=== PATIENT | male | born 1930 | race Caucasian/White ===

== ENCOUNTER 2017-05-30 21:50 | Inpatient (IN) | payer OTHER ==
[2017-05-30] MEDS ORDERED: PIPERACILLIN/TAZOB 3.375 GM 3.375 GM in DEXTROSE 5%-WATER - 50 ML IVPB ONE (22:37)
[2017-05-30] MEDS ORDERED: VANCOMYCIN 1,000 MG in DEXTROSE 5%-WATER - 250 ML IVPB ONE (22:38)
--- NOTE | 2017-05-30 23:02 | PDOC ---
History of Present Illness - History of Present Illness Initial Comments: 05/30/17 23:08 Patient is an 87 yo M with PMHx of chronic kidney disease, and myeloproliferative disorder, who presents today for left foot wound. Patient states that he noticed that his LLE looked more red and swollen than usual. He states that he limps when he walks and is not able to bear any weight on his left leg. He reports pain to left big toe and believes its infected. Denies fever. PCP: Beltran Alfredo Case Packer And Sealer: Sulaiman Zuniga Sales Account Director: Landen Limon <Jemima Colin - Last Filed: 05/30/17 23:15> <Debora Nava - Last Filed: 05/31/17 01:43> - General Chief Complaint: Wound Stated Complaint: FOOT WOUND Time Seen by Provider: 05/30/17 22:25 Past History <Jemima Colin - Last Filed: 05/30/17 23:15> - Past Medical History Anemia: (pre leukemia) Cardiac Disorders: Yes COPD: No CHF: No Dementia: Yes GI Disorders: Yes (H/O Diverticulitis) Disorders: Yes Hypercholesterolemia: Yes - Surgical History Abdominal Surgery: Yes Cholecystectomy: Yes - Suicide/Smoking/Psychosocial Hx Smoking Status: No Smoking History: Never smoked Have you smoked in the past 12 months: No Number of Cigarettes Smoked Daily: 0 Information on smoking cessation initiated: No Hx Alcohol Use: No Drug/Substance Use Hx: No Substance Use Type: None Hx Substance Use Treatment: No <Debora Nava - Last Filed: 05/31/17 01:43> - Past Medical History Allergies/Adverse Reactions: Allergies Allergy/AdvReac Type Severity Reaction Status Date / Time No Known Allergies Allergy Verified 05/30/17 22:02 Home Medications: Ambulatory Orders Aspirin [ASA -] 81 mg PO DAILY 02/23/14 Furosemide [Lasix -] 20 mg PO DAILY 02/23/14 Allopurinol [Zyloprim -] 100 mg PO DAILY 05/30/17 Hydroxyurea 500 mg PO DAILY 05/30/17 Review of Systems - Review of Systems Comments:: 05/30/17 23:08 CONSTITUTIONAL: Absent: fever, chills, diaphoresis, generalized weakness, malaise, loss of appetite HEENT: Absent: rhinorrhea, nasal congestion, throat pain, throat swelling, difficulty swallowing, mouth swelling, ear pain, eye pain, visual changes CARDIOVASCULAR: Absent: chest pain, syncope, palpitations, irregular heart rate, lightheadedness , peripheral edema RESPIRATORY: Absent: cough, shortness of breath, dyspnea with exertion, orthopnea, wheezing, stridor, hemoptysis GASTROINTESTINAL: Absent: abdominal pain, abdominal distension, nausea, vomiting, diarrhea, constipation, melena, hematochezia GENITOURINARY: Absent: dysuria, frequency, urgency, hesitancy, hematuria, flank pain, genital pain MUSCULOSKELETAL: Present: LE swelling. Absent: myalgia, arthralgia, joint swelling SKIN: Present: right big toe pain and reddness. Absent: rash, itching, pallor HEMATOLOGIC/IMMUNOLOGIC: Absent: easy bleeding, easy bruising, lymphadenopathy, frequent infections ENDOCRINE: Absent: unexplained weight gain, unexplained weight loss, heat intolerance, cold intolerance NEUROLOGIC: Absent: headache, focal weakness or paresthesias, dizziness, unsteady gait, seizure, mental status changes, bladder or bowel incontinence PSYCHIATRIC: Absent: anxiety, depression, suicidal or homicidal ideation, hallucinations. 05/30/17 23:14 <Jemima Colin - Last Filed: 05/30/17 23:15> *Physical Exam - Vital Signs Last Vital Signs Temp Pulse Resp BP Pulse Ox 98.5 F 78 18 119/74 100 05/30/17 21:59 05/30/17 21:59 05/30/17 21:59 05/30/17 21:59 05/30/17 21:59 - Physical Exam Comments: 05/30/17 23:13 GENERAL: Well developed, well nourished. Awake and alert. No acute distress. HEENT: Normocephalic, atraumatic. PERRLA, EOMI. No conjunctival pallor. Sclera are non- icteric. Moist mucous membranes. Oropharynx is clear. NECK: Supple. Full ROM. No JVD. Carotid pulses 2+ and symmetric, without bruits. No thyromegaly. No lymphadenopathy. CARDIOVASCULAR: Regular rate and rhythm. No murmurs, rubs, or gallops. Distal pulses are 2+ and symmetric. PULMONARY: No evidence of respiratory distress. Lungs clear to auscultation bilaterally. No wheezing, rales or rhonchi. ABDOMINAL: Soft. Non-tender. Non-distended. No rebound or guarding. No organomegaly. Normoactive bowel sounds. MUSCULOSKELETAL Normal range of motion at all joints. No bony deformities. No CVA tenderness. EXTREMITIES: 2+ pitting edema b/l. Erythematous, tenderness to palpation of left big toe. No cyanosis. No calf tenderness. SKIN: Warm and dry. No rashes. No jaundice. NEUROLOGICAL: Alert, awake, appropriate. Cranial nerves 2-12 intact. <Jemima Colin - Last Filed: 05/30/17 23:15> - Vital Signs Last Vital Signs Temp Pulse Resp BP Pulse Ox 98.5 F 78 18 119/74 100 05/30/17 21:59 05/30/17 21:59 05/30/17 21:59 05/30/17 21:59 05/30/17 21:59 <Debora Nava - Last Filed: 05/31/17 01:43> ED Treatment Course - LABORATORY CBC & Chemistry Diagram: 05/30/17 22:58 05/30/17 22:58 <Jemima Colin - Last Filed: 05/30/17 23:15> - LABORATORY CBC & Chemistry Diagram: 05/30/17 22:58 05/30/17 22:58 - RADIOLOGY Radiology Studies Ordered: Category Date Time Status CHEST X-RAY PORTABLE* [RAD] Stat Radiology 05/30/17 22:23 Taken <Debora Nava - Last Filed: 05/31/17 01:43> *DC/Admit/Observation/Transfer - Attestations Scribe Attestion: 05/30/17 23:15 Documentation prepared by Jemima Colin, acting as medical laboratory technical officer for Debora Nava MD. <Jemima Colin - Last Filed: 05/30/17 23:15> - Discharge Dispostion Admit: Yes <Debora Nava - Last Filed: 05/31/17 01:43> Diagnosis at time of Disposition: Toe infection
[2017-05-30] MEDS ORDERED: VANCOMYCIN 1 GRAM (PRE-DOCKED) 1,000 MG/250 ML BAG IVPB ONE (23:05)
[2017-05-30] MEDS ORDERED: PIPERACILLIN/TAZOB 3.375 GM 3.375 GM/50 ML BAG IVPB ONE (23:05)
[2017-05-30 23:12] LABS: BASO % 2.1 % (0-2.0); EOS % 2.6 % (0-4.5); HEMATOCRIT 26.4 % (35.4-49); LYMPH % 8.9 % (8-40); MCH 38.3 pg (25.7-33.7); MCHC 34.2 g/dl (32.0-35.9); MEAN PLT VOLUME 9.3 fl (7.5-11.1); MONO % 8.9 % (3.8-10.2); NEUT % 77.5 % (42.8-82.8); PLATELET COUNT 555 K/MM3 (134-434); RBC 2.36 M/mm3 (4.00-5.60); RDW 16.2 % (11.9-15.9); WHITE BLOOD COUNT 9.3 K/mm3 (4.0-10.0)
[2017-05-30 23:14] LABS: ADD RBC MORPHOLOGY YES
[2017-05-30 23:33] LABS: INR 1.12 (0.82-1.09); PROTHROMBIN TIME (PATIENT) 12.6 SEC (9.7-13.0)
[2017-05-30 23:38] LABS: ANISOCYTOSIS 2+; MACROCYTOSIS 2+; OVALOCYTE 1+
[2017-05-30 23:39] LABS: PLATELET ESTIMATE INCREASED
[2017-05-30 23:44] LABS: ALBUMIN 3.5 g/dl (3.4-5.0); ANION GAP 9 (8-16); BILIRUBIN,TOTAL 0.3 mg/dL (0.2-1.0); BLOOD UREA NITROGEN 69 mg/dL (7-18); CALCIUM 8.5 mg/dL (8.5-10.1); CHLORIDE 103 mmol/L (98-107); CO2 28 mmol/L (21-32); CREATININE 2.6 mg/dL (0.7-1.3); GLUCOSE,RANDOM 114 mg/dL (74-106); SGOT/AST 20 U/L (15-37); SGPT/ALT 17 U/L (12-78); SODIUM 140 mmol/L (136-145); TOT PROT 6.2 g/dl (6.4-8.2)
[2017-05-30 23:45] LABS: ALK PHOS 79 U/L (45-117)
[2017-05-31 01:21] LABS: URINE APPEARANCE CLEAR; URINE BILIRUBIN NEGATIVE (<2.0 mg/dL); URINE COLOR STRAW; URINE GLUCOSE (UA) NEGATIVE (NEGATIVE); URINE KETONE NEGATIVE (NEGATIVE); URINE LEUK ESTERASE NEGATIVE (NEGATIVE); URINE NITRITE NEGATIVE (NEGATIVE); URINE PROTEIN NEGATIVE (NEGATIVE); URINE UROBILINOGEN NEGATIVE mg/dL (0.2-1.0)
--- NOTE | 2017-05-31 02:30 | HP ---
CHIEF COMPLAINT: L great toe pain PCP: Dr Gong HISTORY OF PRESENT ILLNESS: 87yo M with a PMHx of Gout, CKD, and Myeloproliferative dz presented to ER w/ L great toe pain. The pain started this evening, it is sharp, exquisitely tender, and erythematous. He has assoc foot and leg swelling. He limps and is unable to bear weight. He denies fever, chills, CP, SOB. Family at bedside was concerned for a possible infection. In the ER, the patient was stable, afebrile. Labs were notable for ARTURO, no leukocytosis. Recent Travel: Denies PAST MEDICAL HISTORY: Gout, CKD, and Myeloproliferative dz Social History: Denies smoking, alcohol, drugs Allergies: No Known Allergies Allergy (Verified 05/30/17 22:02) HOME MEDICATIONS: Home Medications Medication Instructions Recorded Aspirin [ASA -] 81 mg PO DAILY 02/23/14 Furosemide [Lasix -] 20 mg PO DAILY 02/23/14 Allopurinol [Zyloprim -] 100 mg PO DAILY 05/30/17 Hydroxyurea 500 mg PO DAILY 05/30/17 REVIEW OF SYSTEMS CONSTITUTIONAL: Absent: fever, chills, diaphoresis, generalized weakness, malaise, loss of appetite, weight change HEENT: Absent: rhinorrhea, nasal congestion, throat pain, throat swelling, difficulty swallowing, mouth swelling, ear pain, eye pain, visual changes CARDIOVASCULAR: Absent: chest pain, syncope, palpitations, irregular heart rate , lightheadedness, peripheral edema RESPIRATORY: Absent: cough, shortness of breath, dyspnea with exertion, orthopnea, wheezing, stridor, hemoptysis GASTROINTESTINAL:Absent: abdominal pain, abdominal distension, nausea, vomiting , diarrhea, constipation, melena, hematochezia GENITOURINARY: Absent: dysuria, frequency, urgency, hesitancy, hematuria, flank pain, genital pain MUSCULOSKELETAL: + arthralgia, joint swellingAbsent: myalgia, back pain, neck pain SKIN: Absent: rash, itching, pallor HEMATOLOGIC/IMMUNOLOGIC: Absent: easy bleeding, easy bruising, lymphadenopathy, frequent infections ENDOCRINE:Absent: unexplained weight gain, unexplained weight loss, heat intolerance, cold intolerance NEUROLOGIC: Absent: headache, focal weakness or paresthesias, dizziness, unsteady gait, seizure, mental status changes, bladder or bowel incontinence PSYCHIATRIC: Absent: anxiety, depression, suicidal or homicidal ideation, hallucinations. PHYSICAL EXAMINATION Vital Signs Period Temp Pulse Resp BP Sys/Queen Pulse Ox Last 24 Hr 98.5 F 78 18 119/74 100 GEN: AAOx3, NAD, Lying comfortably HEENT; PERRLA, EOmi, no JVD CV: S1, S2, RRR LUNG: CTAB ABD: Soft, nT, ND MSK: +1 pedal edema on L. Redness in L forefoot, exquisitely tender to paplation on L great toe NEURO: CN 2-12 intact, no msk, no sensation ASSESSMENT/PLAN: 87yo M with a PMHx of Gout, CKD, and Myeloproliferative dz presented w/ acute gouty attack of L great toe # Acute Gouty Attack -- Unable to bear weight. 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 Also taking Lasix which can precipitate. Will start prednisone 0.5mg/kg/day (30mg). Due to CKD, will avoid NSAIDs for now. # ARTURO vs CKD -- Elevated Cr from last year. Likely progression of CKD. Monitor tomorrow and obtain records of prior Cr # Myeloproliferative Dz -- Continue hydroxyurea and ASA # FEN/PPX -- No IVf, Low purine diet, SCDs, PT consulted # Dispo -- Observation Case d/w Dr Martinez & Dr Jayden George MD - pGY1 Night Lasting Machine Operator Hand Method Visit type - Emergency Visit Emergency Visit: Yes ED Registration Date: 05/31/17 Care time: The patient presented to the Emergency Department on the above date and was hospitalized for further evaluation of their emergent condition. - New Patient This patient is new to me today: Yes Date on this admission: 05/31/17 - Critical Care Critical Care patient: No Hospitalist Screening - Colonoscopy Questionnaire Colonoscopy Questionnaire: Colonoscopy Questionnaire - Patient: 50 - 75 years old and never had a screening colonoscopy: Unknown History of colon or rectal polyps, or CA: Unknown History of IBD, Crohn's disease or UC: Unknown History of abdominal radiation therapy as a child: Unknown - Relative: 1 with colon or rectal CA, or polyps at age 60 or younger: Unknown Colon or rectal CA diagnosed at age 45 or younger: Unknown Multiple relatives with colon or rectal CA: Unknown - Outcome: Screening Result: Negative Screen
--- NOTE | 2017-05-31 02:36 | PN ---
Teaching Attending Note Name of Resident: Sasha George ATTENDING PHYSICIAN STATEMENT I saw and evaluated the patient. I reviewed the resident's note and discussed the case with the resident. I agree with the resident's findings and plan as documented. SUBJECTIVE: 87 M with hx. of Myeloproliferative do (on Hydrea/ASA), CKD who presents with L. first toe pain and erythema. Denies any fevers or chills. No chest pain or pressure. No shortness of breath OBJECTIVE: Physical: VS: Vital Signs Period Temp Pulse Resp BP Sys/Queen Pulse Ox Last 24 Hr 98.5 F 78 18 119/74 100 GEN: NAD, Resting in bed, AA0X3 HEENT: NCAT, PERRL, Throat without erythema or exudates CARD: RRR S1, S2 RESP: CTAB ABD: BSx4, NTD to palpation EXT: Left. First Toe TTP with erythema, no obvious wound or drainage, pulses intact, R EXT: - C/C/E CBCD WBC 9.3 K/mm3 (4.0-10.0) 05/30/17 22:58 RBC 2.36 M/mm3 (4.00-5.60) L 05/30/17 22:58 Hgb 9.0 GM/dL (11.7-16.9) L 05/30/17 22:58 Hct 26.4 % (35.4-49) L 05/30/17 22:58 MCV 112.0 fl (80-96) H 05/30/17 22:58 MCHC 34.2 g/dl (32.0-35.9) 05/30/17 22:58 RDW 16.2 % (11.9-15.9) H 05/30/17 22:58 Plt Count 555 K/MM3 (134-434) H 05/30/17 22:58 MPV 9.3 fl (7.5-11.1) 05/30/17 22:58 CMP Sodium 140 mmol/L (136-145) 05/30/17 22:58 Potassium 5.0 mmol/L (3.5-5.1) 05/30/17 22:58 Chloride 103 mmol/L (98-107) 05/30/17 22:58 Carbon Dioxide 28 mmol/L (21-32) 05/30/17 22:58 Anion Gap 9 (8-16) 05/30/17 22:58 BUN 69 mg/dL (7-18) H D 05/30/17 22:58 Creatinine 2.6 mg/dL (0.7-1.3) H D 05/30/17 22:58 Creat Clearance w eGFR 23.58 (>60) 05/30/17 22:58 Random Glucose 114 mg/dL (74-106) H D 05/30/17 22:58 Calcium 8.5 mg/dL (8.5-10.1) 05/30/17 22:58 Total Bilirubin 0.3 mg/dL (0.2-1.0) D 05/30/17 22:58 AST 20 U/L (15-37) 05/30/17 22:58 ALT 17 U/L (12-78) 05/30/17 22:58 Alkaline Phosphatase 79 U/L (45-117) D 05/30/17 22:58 Total Protein 6.2 g/dl (6.4-8.2) L 05/30/17 22:58 Albumin 3.5 g/dl (3.4-5.0) 05/30/17 22:58 Ambulatory Orders Aspirin [ASA -] 81 mg PO DAILY 02/23/14 Furosemide [Lasix -] 20 mg PO DAILY 02/23/14 Allopurinol [Zyloprim -] 100 mg PO DAILY 05/30/17 Hydroxyurea 500 mg PO DAILY 05/30/17 CXR: Lateral Old Rib Fx.Recent Fx of Posterior lateral arch of R. 6TH Rib. No acute Lung Dz. ASSESSMENT AND PLAN: 87 M with hx. of Myeloproliferative do (on Hydrea/ASA), CKD who presents with L. first toe pain and erythema, unable to bear weight 1.) Acute Gout Attack - Unable to bear weight on toe - Prednisone 30 mg QD - Hold Allopurinol - No signs of infection - PT 2.) Myleoproliferative Do - Hydrea/ASA 3.) Chau on CKD - U lytes - Renally Dose all meds - Trend CR - Nephro consult 4.) L Leg Edema - Duplex 5.) Dvt PPx - Scds Place in Med-Sx
[2017-05-31 05:54] VITALS: BMI 23.7
[2017-05-31] MEDS: HEPARIN NA (PORCINE) 5,000 UNITS/ML 1ML VIAL SQ SCH ×3 (06:23→21:29)
[2017-05-31 07:48] LABS: HEMATOCRIT 29.1 % (35.4-49); HEMOGLOBIN 9.9 GM/dL (11.7-16.9); MEAN CELL VOLUME 111.9 fl (80-96); MEAN PLT VOLUME 9.3 fl (7.5-11.1); PLATELET COUNT 590 K/MM3 (134-434); RDW 15.8 % (11.9-15.9); WHITE BLOOD COUNT 10.4 K/mm3 (4.0-10.0)
[2017-05-31 08:10] LABS: ANION GAP 5 (8-16); BLOOD UREA NITROGEN 60 mg/dL (7-18); CHLORIDE 107 mmol/L (98-107); CO2 29 mmol/L (21-32); GLUCOSE,RANDOM 96 mg/dL (74-106); PHOSPHOROUS 4.1 mg/dL (2.5-4.9); POTASSIUM 4.7 mmol/L (3.5-5.1); SODIUM 141 mmol/L (136-145)
[2017-05-31 08:12] LABS: CALCIUM 8.5 mg/dL (8.5-10.1); CREATININE 2.4 mg/dL (0.7-1.3); MAGNESIUM 2.3 mg/dL (1.8-2.4)
[2017-05-31] MEDS ORDERED: FUROSEMIDE 20 MG TABLET (FP) PO SCH (10:00)
[2017-05-31] MEDS: ASPIRIN 81 MG CHEWABLE TABLETS PO SCH (10:56)
[2017-05-31] MEDS: predniSONE 10 MG TABLET (UD) PO SCH (10:57)
[2017-05-31] MEDS ORDERED: PT OWN MED DRAWER 7, Y5N ONE ×3 (11:21→21:34)
[2017-05-31] MEDS: HYDROXYUREA 500 MG CAPSULE PO SCH (11:29)
--- NOTE | 2017-05-31 12:04 | EKG ---
Test Reason : Blood Pressure : / mmHG Vent. Rate : 075 BPM Atrial Rate : 075 BPM P-R Int : 192 ms QRS Dur : 070 ms QT Int : 384 ms P-R-T Axes : -07 001 009 degrees QTc Int : 428 ms NORMAL SINUS RHYTHM NORMAL ECG NO PREVIOUS ECGS AVAILABLE Confirmed by MARTIN WALKER MD ([id number]) on 05/31/2017 12:04:16 PM Referred By: Confirmed By:MARTIN WALKER MD
--- NOTE | 2017-05-31 12:06 | CONSULT ---
Consult - text type - Consultation Consultation Note: Podiatry Consultation: Pleasant 87 year old M, history of CKD, myeloproliferative dx, presents with pain L great toe and inability to walk. Patient denies trauma to the toe. He notes progressive exquisite tenderness to left great toe and has had increasing trouble ambulating. Denies seeing pus or any signs of infection from the foot. Denies F/V/N/C/SOB/CP. Afebrile, VSS. MIHAI: L foot: pedal pulses 1/4, TG wnl, CFT brisk to all toes. There is localized erythema to the hallux, extending to the first MTPJ. There is exquisite tenderness on palpation of the toe and on active and passive ROM of the first MTPJ. There is diffuse pitting edema to the dorsal midfoot. There is no purulent drainage, no fluctuance, no streaking cellulitis, no signs of active infection. Significant tenderness to palpation. WBC: 10.4 L foot XR: no evidence of fracture, no erosions suggestive of gouty arthritis Imp: 87 year old M atraumatic L great toe pain/swelling/redness, evaluate for gouty arthritis 1. Discussed with patient nature of gout and can often arise from underexcretion (i.e. consequence of CKD) 2. Recommend trial with IV or PO colchicine and see if his pain improves 3. Protective weightbearing with surgical offloading shoe 4. Uric acid bloodwork 5. Can give medrol dose pack to see if pain resolves 6. No acute podiatric intervention. Thank you for the courtesy of this consultation. Ashanti Nugent DPM
[2017-05-31] MEDS ORDERED: SODIUM CHLORIDE 500 ML IV STA (19:26)
--- NOTE | 2017-05-31 19:32 | PN ---
Progress Note (short form) - Note Progress Note: Renal Consult for ARTURO vs CKD This is a 87 year old gentleman with PMhx of CKD (Cr ~2), Gout, Myeloproliferative disorder who presented with Toe pain and admitted for acute Gout and pain control with Cr of 2.4. Pt denies any history of CKD. No Hx of stones, contrast exposure. No NSAID use. Reports making urine w/o difficulty. No dysuria. No SOB, chest pain, N/V/D. PMhx: as above Family Hx: NC Social Hx: No T/A/D Allergies: NKDA Home Medications Medication Instructions Recorded Aspirin [ASA -] 81 mg PO DAILY 02/23/14 Furosemide [Lasix -] 20 mg PO DAILY 02/23/14 Allopurinol [Zyloprim -] 100 mg PO DAILY 05/30/17 Hydroxyurea 500 mg PO DAILY 05/30/17 Vital Signs Temperature 97.8 F 05/31/17 16:58 Pulse Rate 74 05/31/17 16:58 Respiratory Rate 20 05/31/17 16:58 Blood Pressure 157/67 05/31/17 16:58 O2 Sat by Pulse Oximetry (%) 100 05/30/17 21:59 Intake & Output 05/28/17 05/29/17 05/30/17 05/31/17 23:59 23:59 23:59 23:59 Intake Total 380 Output Total 1100 Balance -720 Weight 66.224 kg 62.737 kg NAD awake and alert Dry MM No JVD RRR CTA soft NT/ND NO LE edema, clubbing or cyanosis CBC, BMP 05/31/17 06:20 05/31/17 06:20 Current Medications Aspirin (Asa -) 81 mg PO DAILY [facility] Last Admin: 05/31/17 10:56 Dose: 81 mg Heparin Sodium (Porcine) (Heparin -) 5,000 unit SQ TID [facility] Last Admin: 05/31/17 14:17 Dose: 5,000 unit Hydroxyurea (Hydrea -) 500 mg PO DAILY [facility] Last Admin: 05/31/17 11:29 Dose: 500 mg Sodium Chloride (Normal Saline -) 500 mls @ 500 mls/hr IV ASDIR STA Stop: 05/31/17 20:25 Sodium Chloride (Normal Saline -) 1,000 mls @ 83 mls/hr IV ASDIR [facility] Prednisone (Deltasone -) 30 mg PO DAILY [facility] Last Admin: 05/31/17 10:57 Dose: 30 mg 87 year old gentleman with PMhx of CKD (Cr ~2), Gout, Myeloproliferative disorder who presented with Toe pain and admitted for acute Gout and pain control with Cr of 2.4. #ARTURO on CKD vs progressive CKD #Acute Gout #Anemia Check urine studies, Renal US Start isotonic saline x 24 hours avoid nsaids for pain control Agree with presdnisone for pain control Trend BUN/Cr and electrolyses Kaz Palomino DO
[2017-05-31] MEDS: SODIUM CHLORIDE 1,000 ML IV SCH (21:27)
[2017-06-01] MEDS: HEPARIN NA (PORCINE) 5,000 UNITS/ML 1ML VIAL SQ SCH ×3 (05:46→23:03)
[2017-06-01 07:29] LABS: URIC ACID 4.9 mg/dL (2.6-7.2)
[2017-06-01 10:55] LABS: CHLORIDE 112 mmol/L (98-107); POTASSIUM 4.4 mmol/L (3.5-5.1); SODIUM 143 mmol/L (136-145)
[2017-06-01] MEDS: HYDROXYUREA 500 MG CAPSULE PO SCH (10:59)
[2017-06-01] MEDS: predniSONE 10 MG TABLET (UD) PO SCH (11:00)
[2017-06-01] MEDS: ASPIRIN 81 MG CHEWABLE TABLETS PO SCH (11:00)
--- NOTE | 2017-06-01 11:00 | PN ---
Progress Note, Physician Chief Complaint: has pain in left foot Events noted - Current Medication List Current Medications: Active Medications Aspirin (Asa -) 81 mg PO DAILY [facility] Last Admin: 05/31/17 10:56 Dose: 81 mg Heparin Sodium (Porcine) (Heparin -) 5,000 unit SQ TID [facility] Last Admin: 06/01/17 05:46 Dose: 5,000 unit Hydroxyurea (Hydrea -) 500 mg PO DAILY [facility] Last Admin: 05/31/17 11:29 Dose: 500 mg Sodium Chloride (Normal Saline -) 1,000 mls @ 83 mls/hr IV ASDIR [facility] Last Admin: 05/31/17 21:27 Dose: 83 mls/hr Prednisone (Deltasone -) 30 mg PO DAILY [facility] Last Admin: 05/31/17 10:57 Dose: 30 mg - Objective Vital Signs: Vital Signs Temperature 98.6 F 06/01/17 05:54 Pulse Rate 59 L 06/01/17 05:54 Respiratory Rate 16 06/01/17 05:54 Blood Pressure 134/56 06/01/17 05:54 O2 Sat by Pulse Oximetry (%) 100 05/30/17 21:59 Constitutional: Yes: No Distress Cardiovascular: Yes: Regular Rate and Rhythm Respiratory: Yes: CTA Bilaterally Gastrointestinal: Yes: Normal Bowel Sounds, Soft. No: Tenderness Extremities: Yes: Other (left foot-- 5 toes cyanotic, cold, decreased pulses, tender) Edema: Yes Labs: CBC, BMP 05/31/17 06:20 INR, PTT INR 1.12 (0.82-1.09) 05/30/17 22:58 Problem List - Problems (1) Toe infection Code(s): L08.9 - LOCAL INFECTION OF THE SKIN AND SUBCUTANEOUS TISSUE, UNSP (2) Leukocytosis Code(s): D72.829 - ELEVATED WHITE BLOOD CELL COUNT, UNSPECIFIED (3) Acute kidney injury superimposed on chronic kidney disease Code(s): N17.9 - ACUTE KIDNEY FAILURE, UNSPECIFIED; N18.9 - CHRONIC KIDNEY DISEASE, UNSPECIFIED Assessment/Plan plan Pt was seen by Renal and podiatry On Prednisone for gout toes look cyanotic , cold and tender-- will need to check arterial doppler spoke with Vascular -- Dr Resendiz-- he will see him today renal function better no NSAIDS
[2017-06-01 11:20] LABS: ANION GAP 7 (8-16); BLOOD UREA NITROGEN 49 mg/dL (7-18); CALCIUM 8.2 mg/dL (8.5-10.1); CO2 24 mmol/L (21-32); CREATININE 2.1 mg/dL (0.7-1.3); GLUCOSE,RANDOM 110 mg/dL (74-106)
--- NOTE | 2017-06-01 15:20 | PN ---
Progress Note (short form) - Note Progress Note: Renal follow up for ARTURO on CKD Pt seen and examined at the bedside no acute complaints pain in toe improved no sob, chest pain making urine s/p IVF Vital Signs Temperature 98.5 F 06/01/17 13:30 Pulse Rate 68 06/01/17 13:30 Respiratory Rate 18 06/01/17 13:30 Blood Pressure 144/60 06/01/17 13:30 O2 Sat by Pulse Oximetry (%) 100 05/30/17 21:59 Intake & Output 05/29/17 05/30/17 05/31/17 06/01/17 23:59 23:59 23:59 23:59 Intake Total 1412 681 Output Total 1100 375 Balance 312 306 Weight 66.224 kg 62.737 kg NAD awake and alert Dry MM No JVD RRR CTA soft NT/ND NO LE edema, clubbing or cyanosis CBC, BMP 05/31/17 06:20 06/01/17 06:00 Current Medications Aspirin (Asa -) 81 mg PO DAILY ON LICENSE OF [facility] Last Admin: 06/01/17 11:00 Dose: 81 mg Heparin Sodium (Porcine) (Heparin -) 5,000 unit SQ TID ON LICENSE OF [facility] Last Admin: 06/01/17 14:32 Dose: 5,000 unit Hydroxyurea (Hydrea -) 500 mg PO DAILY ON LICENSE OF [facility] Last Admin: 06/01/17 10:59 Dose: 500 mg Sodium Chloride (Normal Saline -) 1,000 mls @ 83 mls/hr IV ASDIR ON LICENSE OF [facility] Last Admin: 05/31/17 21:27 Dose: 83 mls/hr Prednisone (Deltasone -) 30 mg PO DAILY ON LICENSE OF [facility] Last Admin: 06/01/17 11:00 Dose: 30 mg 87 year old gentleman with PMhx of CKD (Cr ~2), Gout, Myeloproliferative disorder who presented with Toe pain and admitted for acute Gout and pain control with Cr of 2.4. #ARTURO on CKD vs progressive CKD #Acute Gout #Anemia Urine studies consistent with ATN/Tubular damage Renal function did improve with IVF continue IVF for now as pt is evolemic appearing and renal function improving Kaz Palomino DO
--- NOTE | 2017-06-01 18:22 | PN ---
Progress Note (short form) - Note Progress Note: Vascular surgery Pt seen and examined Comes in with left great toe discoloration with pain on palpation and movement. On exam pt has a palpable popliteal pulse, but not palpable pedal pulses. Arterial duplex done today shows good flow to the knee. Only one vessel identified below the knee instead of three. The study could be incomplete. The left great toe is cooler to touch. Uric acid level today is normal. Left great toe is twice the size of the right. Probably due to injury. Could be osteo vs pad. Creatinine is getting better. Cannot order CTA right now. Can do MRI of left foot to look for osteo. If does not get better - will need angiogram. Can do with CO2. Will follow progress of toe. Mohinder acevedo DO
[2017-06-01] MEDS ORDERED: DEXTROSE 5%-WATER - 50 ML IVPB ONE (20:12)
[2017-06-01] MEDS ORDERED: PIPERACILLIN/TAZOBACTAM 2.25 GM VIAL IVPB ONE (20:12)
[2017-06-01] MEDS: PIPERACILLIN/TAZOB 2.25 GM 2.25 GM in DEXTROSE 5%-WATER - 50 ML IVPB SCH (20:22)
[2017-06-01] MEDS: SODIUM CHLORIDE 1,000 ML IV SCH (20:38)
[2017-06-02] MEDS: PIPERACILLIN/TAZOB 2.25 GM 2.25 GM in DEXTROSE 5%-WATER - 50 ML IVPB SCH ×3 (02:14→14:34)
[2017-06-02] MEDS: HEPARIN NA (PORCINE) 5,000 UNITS/ML 1ML VIAL SQ SCH ×3 (06:55→21:01)
[2017-06-02 07:53] LABS: BASO % 0.7 % (0-2.0); EOS % 0.4 % (0-4.5); HEMATOCRIT 24.8 % (35.4-49); HEMOGLOBIN 8.4 GM/dL (11.7-16.9); LYMPH % 7.2 % (8-40); MCH 37.9 pg (25.7-33.7); MCHC 33.7 g/dl (32.0-35.9); MEAN CELL VOLUME 112.3 fl (80-96); MEAN PLT VOLUME 9.7 fl (7.5-11.1); MONO % 7.2 % (3.8-10.2); NEUT % 84.5 % (42.8-82.8); PLATELET COUNT 441 K/MM3 (134-434); RBC 2.21 M/mm3 (4.00-5.60); RDW 15.6 % (11.9-15.9); WHITE BLOOD COUNT 10.5 K/mm3 (4.0-10.0)
[2017-06-02 08:16] LABS: ANION GAP 7 (8-16); BLOOD UREA NITROGEN 44 mg/dL (7-18); CALCIUM 8.2 mg/dL (8.5-10.1); CHLORIDE 109 mmol/L (98-107); CO2 26 mmol/L (21-32); CREATININE 2.3 mg/dL (0.7-1.3); GLUCOSE,RANDOM 107 mg/dL (74-106); MAGNESIUM 2.1 mg/dL (1.8-2.4); PHOSPHOROUS 2.4 mg/dL (2.5-4.9); POTASSIUM 4.6 mmol/L (3.5-5.1); SODIUM 142 mmol/L (136-145)
--- NOTE | 2017-06-02 09:18 | PN ---
Progress Note (short form) - Note Progress Note: Pt seen/ examined. chart reviewed. comfortable pain ok Vital Signs Temp 97.5 F L 06/02/17 06:00 Pulse 60 06/02/17 06:00 Resp 18 06/02/17 06:00 BP 143/75 06/02/17 06:00 Pulse Ox 100 05/30/17 21:59 Intake & Output 06/01/17 06/01/17 06/02/17 11:59 23:59 11:59 Intake Total 681 1057 714 Output Total 375 300 Balance 306 757 714 Intake: IV 581 1007 664 Normal Saline - 1,000 ml 581 1007 664 @ 83 mls/hr IV ASDIR COUNT INCLUDES THE [facility] Rx#:[id number] IVPB 50 Oral 100 50 Output: Urine 375 300 Void 375 300 Other: Voiding Method Urinal Urinal Urinal # Unmeasured Voids Void 1 2 2 Bowel Movement No Active Medications Aspirin (Asa -) 81 mg PO DAILY [facility] Last Admin: 06/01/17 11:00 Dose: 81 mg Heparin Sodium (Porcine) (Heparin -) 5,000 unit SQ TID [facility] Last Admin: 06/02/17 06:55 Dose: 5,000 unit Hydroxyurea (Hydrea -) 500 mg PO DAILY [facility] Last Admin: 06/01/17 10:59 Dose: 500 mg Sodium Chloride (Normal Saline -) 1,000 mls @ 83 mls/hr IV ASDIR COUNT INCLUDES THE [facility] Last Admin: 06/01/17 20:38 Dose: Not Given Piperacillin Sod/Tazobactam (Sod 2.25 gm/ Dextrose) 50 mls @ 100 mls/hr IVPB Q8H-IV COUNT INCLUDES THE [facility] PRN Reason: Protocol Piperacillin Sod/Tazobactam (Sod 2.25 gm/ Dextrose) 50 mls @ 100 mls/hr IVPB Q8H-IV COUNT INCLUDES THE [facility] Stop: 06/02/17 10:29 Last Admin: 06/02/17 02:14 Dose: 100 mls/hr Prednisone (Deltasone -) 30 mg PO DAILY [facility]CLUD[facility] Last Admin: 06/01/17 11:00 Dose: 30 mg CBC, BMP 06/02/17 07:00 06/02/17 06:50 Physical Exam Constitutional: Yes: No Distress. calm Cardiovascular: Yes: Regular Rate and Rhythm Respiratory: Yes: CTA Bilaterally Gastrointestinal: Yes: Normal Bowel Sounds, Soft. No: Tenderness Extremities: Yes: Other (left foot-- 5 toes cyanotic, cold, decreased pulses, tender) Edema: Yes Problem List - Problems (1) Toe infection Code(s): L08.9 - LOCAL INFECTION OF THE SKIN AND SUBCUTANEOUS TISSUE, UNSP (2) Leukocytosis Code(s): D72.829 - ELEVATED WHITE BLOOD CELL COUNT, UNSPECIFIED (3) Acute kidney injury superimposed on chronic kidney disease Code(s): N17.9 - ACUTE KIDNEY FAILURE, UNSPECIFIED; N18.9 - CHRONIC KIDNEY DISEASE, UNSPECIFIED Assessment/Plan Meds reviewed continue present care vascular consult consider mri-- r/o osteo abx will follow
[2017-06-02] MEDS ORDERED: PIPERACILLIN/TAZOBACTAM 2.25 GM VIAL IVPB ONE (09:34)
[2017-06-02] MEDS ORDERED: PT OWN MED DRAWER 7, Y5N ONE (09:34)
[2017-06-02] MEDS ORDERED: DEXTROSE 5%-WATER - 50 ML IVPB ONE ×2 (09:34→20:33)
[2017-06-02] MEDS: HYDROXYUREA 500 MG CAPSULE PO SCH (09:39)
[2017-06-02] MEDS: ASPIRIN 81 MG CHEWABLE TABLETS PO SCH (09:39)
[2017-06-02] MEDS: predniSONE 10 MG TABLET (UD) PO SCH (09:39)
[2017-06-02] MEDS: SODIUM CHLORIDE 1,000 ML IV SCH ×2 (10:59→20:40)
--- NOTE | 2017-06-02 13:07 | PN ---
Progress Note (short form) - Note Progress Note: Renal follow up for ARTURO on CKD Pt seen and examined at the bedside no acute complaints Vital Signs Temperature 97.5 F L 06/02/17 06:00 Pulse Rate 60 06/02/17 06:00 Respiratory Rate 18 06/02/17 06:00 Blood Pressure 143/75 06/02/17 06:00 O2 Sat by Pulse Oximetry (%) 100 05/30/17 21:59 Intake & Output 05/30/17 05/31/17 06/01/17 06/02/17 23:59 23:59 23:59 23:59 Intake Total 1412 1738 934 Output Total 1100 675 Balance 312 1063 934 Weight 66.224 kg 62.737 kg NAD awake and alert Dry MM No JVD RRR CTA soft NT/ND NO LE edema, clubbing or cyanosis CBC, BMP 06/02/17 07:00 06/02/17 06:50 Current Medications Aspirin (Asa -) 81 mg PO DAILY [facility] Last Admin: 06/02/17 09:39 Dose: 81 mg Heparin Sodium (Porcine) (Heparin -) 5,000 unit SQ TID [facility] Last Admin: 06/02/17 06:55 Dose: 5,000 unit Hydroxyurea (Hydrea -) 500 mg PO DAILY [facility] Last Admin: 06/02/17 09:39 Dose: 500 mg Sodium Chloride (Normal Saline -) 1,000 mls @ 83 mls/hr IV ASDIR [facility] Last Admin: 06/01/17 20:38 Dose: Not Given Piperacillin Sod/Tazobactam (Sod 2.25 gm/ Dextrose) 50 mls @ 100 mls/hr IVPB Q8H-IV [facility] PRN Reason: Protocol Prednisone (Deltasone -) 30 mg PO DAILY [facility] Last Admin: 06/02/17 09:39 Dose: 30 mg 87 year old gentleman with PMhx of CKD (Cr ~2), Gout, Myeloproliferative disorder who presented with Toe pain and admitted for acute Gout and pain control with Cr of 2.4. #ARTURO on CKD vs progressive CKD #Acute Gout #Anemia Renal function stable at this time pt w/o evidence of volume depletion or exposure to nephrotoxins to indicate ARTURO continue to trend renal function and electrolytes as a inpatient d/c IVF and monitor renal function on oral intake alone continue abx as per primary avoid NSAIDs for pain control Check iron studies, may need TERRI Kaz Palomino DO
--- NOTE | 2017-06-02 14:34 | PN ---
Progress Note (short form) - Note Progress Note: ID consult dictated imp/reccd 87 year old man admitted with worsening pain right foot mainly big toe for several days prior to admission treated for gout on admission no trauma no fevers or chills on hydroxyura for myeloproliferative disorder history of ckd no palpable pedal pulses left foot all the toes look a bit dusky big toe is larger on left and tender to touch gout PAD ?cellulitis doubt osteo but will get MRI esr is normal, will get crp cefazolin dosed for ckd continue gout treatment f/u PAD workup
[2017-06-02] MEDS ORDERED: CEFAZOLIN 1 GM/D5W 1 GM/50 ML BAG IVPB SCH ×2 (14:45→22:00)
[2017-06-02] MEDS: NAPH,MB-DB/K PH,MBDB POWDER PACKET PO SCH ×2 (14:59→21:02)
--- NOTE | 2017-06-02 16:46 | PN ---
Progress Note (short form) - Note Progress Note: Vascular Surgery Pt seen and examined. Awaiting MRI today to rule out osteo. Cr is 2.4 today. No palpable pulses. Can do CO2 angio early next week to assess runoff if the toe does not get better on antibiotics. Mohinder Resendiz dO
[2017-06-02] MEDS ORDERED: ceFAZolin SODIUM 1 GM VIAL ONE (20:33)
--- NOTE | 2017-06-02 20:59 | CONS ---
INFECTIOUS DISEASE CONSULTATION DATE OF CONSULTATION: 06/02/2017 REQUESTING PHYSICIAN: Sayda Gong MD This is an 87-year-old man admitted with worsening right pain in his foot, mainly his big toe, for several days prior to admission. He came in on the . He is a very poor historian. He was admitted. He was noted to have exquisite tenderness of his big toe. He has a history of myeloproliferative disorder and is on hydroxyurea, as well as CKD. He was felt to have possible gout and started on prednisone, as well as he was started on Zithromax for possible cellulitis. I am asked to see him for further evaluation. He is now on day three of prednisone. He reports some improvement of the foot. He was seen yesterday by Vascular Surgery because he was noted to have some coolness and duskiness of the toes on that foot by his PMD, and he was seen by Vascular Surgery. Currently, any vascular intervention is on hold due to his renal insufficiency. PAST MEDICAL HISTORY: Notable for the myeloproliferative disorder. He has a history of apparently gout and CKD, but he denies the gout history. SURGICAL HISTORY: He has no surgical history. SOCIAL HISTORY: He lives at home. No history of cigarette or substance use. ALLERGIES: He has no known drug allergies. MEDICATIONS: Include hydroxyurea, Lasix, aspirin, and allopurinol. REVIEW OF SYSTEMS: He reports no cough, nausea, vomiting, diarrhea, or dysuria, and he reports some improvement in his leg pain. PHYSICAL EXAMINATION: Vital Signs: He is afebrile; temperature is 98. Pulse is 66. Blood pressure is 149/64. Respiratory rate is 20. His O2 saturation is 97%. HEENT: He is normocephalic. His eyes are anicteric. Neck: Supple. Lungs: Clear to auscultation. Heart: Regular rate and rhythm. Abdomen: Soft, nontender. Extremities: Notable for the right foot big toe is erythematous. It is exquisitely tender. It is larger than the left foot. There is some duskiness and pain in the 2nd toe of that foot as well and some erythema extending a little bit to the remaining toes of that foot. LABORATORY DATA: Labs are notable for a white count of 10.5, hemoglobin 8.4, platelets of 441. BUN is 7 and creatinine 2.3. He has no history of resistant organisms. In summary, this is an 87-year-old man who I suspect has gout. He has no palpable pedal pulses, so has probable gout and peripheral arterial disease, question cellulitis. I doubt osteomyelitis, but given the size of his toe without any underlying trauma, would obtain an MRI, would treat him with cefazolin, dosed for his chronic kidney disease, and would continue his gout treatment. Further recommendations to follow. Omari LOPEZ/[id number]
[2017-06-02] MEDS: CEFAZOLIN 1 GM in DEXTROSE 5%-WATER - 50 ML IVPB SCH (21:01)
[2017-06-03] MEDS: HEPARIN NA (PORCINE) 5,000 UNITS/ML 1ML VIAL SQ SCH ×3 (05:36→22:39)
[2017-06-03] MEDS: NAPH,MB-DB/K PH,MBDB POWDER PACKET PO SCH (05:36)
--- NOTE | 2017-06-03 06:55 | PN ---
Progress Note (short form) - Note Progress Note: ID Complains of severe pain in the toe On Cefazolin Selected Entries 06/03/17 06:23 Temperature 97.7 F Pulse Rate 57 L Respiratory 18 Rate Blood Pressure 148/62 Lft toe with swelling somo erythema Nail ? fungal infecition Microbiology 05/30/17 22:58 Blood - Peripheral Venous Blood Culture - Preliminary NO GROWTH OBTAINED AFTER 72 HOURS, INCUBATION TO CONTINUE FOR 2 DAYS. 05/30/17 22:58 Blood - Peripheral Venous Blood Culture - Preliminary NO GROWTH OBTAINED AFTER 72 HOURS, INCUBATION TO CONTINUE FOR 2 DAYS. Laboratory Tests 06/02/17 06/02/17 06/02/17 06:50 07:00 07:00 WBC 10.5 H Hgb 8.4 L D Hct 24.8 L Plt Count 441 H D ESR 12 BUN 44 H Creatinine 2.3 H Assessment Seems unlikely this degree of pain would be due to infection Plan MRI ordered along wiht IV antibiotic rKista CAMPBELL
[2017-06-03 07:39] LABS: BASO % 0.9 % (0-2.0); EOS % 0.4 % (0-4.5); HEMATOCRIT 25.2 % (35.4-49); HEMOGLOBIN 8.6 GM/dL (11.7-16.9); LYMPH % 8.9 % (8-40); MCH 38.3 pg (25.7-33.7); MCHC 34.2 g/dl (32.0-35.9); MEAN PLT VOLUME 9.6 fl (7.5-11.1); NEUT % 82.8 % (42.8-82.8); PLATELET COUNT 474 K/MM3 (134-434); RBC 2.25 M/mm3 (4.00-5.60); RDW 15.9 % (11.9-15.9); WHITE BLOOD COUNT 10.8 K/mm3 (4.0-10.0)
--- NOTE | 2017-06-03 08:42 | PN ---
Progress Note (short form) - Note Progress Note: pt seen/ examined. Chart reviewed Comfortable Denies pain All f/u noted- I/d Consult noted/ appreciated Vital Signs Temp 97.7 F 06/03/17 06:23 Pulse 57 L 06/03/17 06:23 Resp 18 06/03/17 06:23 BP 148/62 06/03/17 06:23 Pulse Ox 99 06/02/17 21:00 Intake & Output 06/02/17 06/02/17 06/03/17 11:59 23:59 11:59 Intake Total 934 1446 850 Output Total 750 350 Balance 934 696 500 Intake: IV 664 996 850 Normal Saline - 1,000 ml 664 996 850 @ 83 mls/hr IV ASDIR [facility] Rx#:[id number] IVPB 150 Oral 270 300 Output: Urine 750 350 Void 750 350 Other: Voiding Method Urinal Urinal # Unmeasured Voids Void 2 3 Bowel Movement Yes No # Bowel Movements 1 Active Medications Acetaminophen (Tylenol -) 650 mg PO Q6H PRN PRN Reason: PAIN LEVEL 1-5 Aspirin (Asa -) 81 mg PO DAILY [facility] Last Admin: 06/02/17 09:39 Dose: 81 mg Heparin Sodium (Porcine) (Heparin -) 5,000 unit SQ TID [facility] Last Admin: 06/03/17 05:36 Dose: 5,000 unit Hydroxyurea (Hydrea -) 500 mg PO DAILY [facility] Last Admin: 06/02/17 09:39 Dose: 500 mg Sodium Chloride (Normal Saline -) 1,000 mls @ 83 mls/hr IV ASDIR [facility] Last Admin: 06/02/17 20:40 Dose: 83 mls/hr Cefazolin Sodium 1 gm/ (Dextrose) 50 mls @ 100 mls/hr IVPB BID [facility] Last Admin: 06/02/17 21:01 Dose: 100 mls/hr Prednisone (Deltasone -) 30 mg PO DAILY [facility] Last Admin: 06/02/17 09:39 Dose: 30 mg CBC, BMP 06/03/17 07:05 Physical Exam Constitutional: Yes: No Distress. calm Cardiovascular: Yes: Regular Rate and Rhythm Respiratory: Yes: CTA Bilaterally Gastrointestinal: Yes: Normal Bowel Sounds, Soft. No: Tenderness Extremities: Yes: Other (left foot-- 5 toes cyanotic, cold, decreased pulses, tender) Edema: Yes Problem List - Problems (1) Toe infection Code(s): L08.9 - LOCAL INFECTION OF THE SKIN AND SUBCUTANEOUS TISSUE, UNSP (2) Leukocytosis Code(s): D72.829 - ELEVATED WHITE BLOOD CELL COUNT, UNSPECIFIED (3) Acute kidney injury superimposed on chronic kidney disease Code(s): N17.9 - ACUTE KIDNEY FAILURE, UNSPECIFIED; N18.9 - CHRONIC KIDNEY DISEASE, UNSPECIFIED Assessment/Plan stable Meds reviewed continue present care vascular consult noted mri-- r/o osteo-- ordered abx will follow
[2017-06-03 08:57] LABS: CHLORIDE 111 mmol/L (98-107); POTASSIUM 4.7 mmol/L (3.5-5.1); SODIUM 145 mmol/L (136-145)
[2017-06-03 09:36] LABS: ALBUMIN 2.9 g/dl (3.4-5.0); ALK PHOS 63 U/L (45-117); ANION GAP 7 (8-16); BILIRUBIN,TOTAL 0.2 mg/dL (0.2-1.0); BLOOD UREA NITROGEN 32 mg/dL (7-18); CALCIUM 8.4 mg/dL (8.5-10.1); CO2 27 mmol/L (21-32); GLUCOSE,RANDOM 83 mg/dL (74-106); MAGNESIUM 1.9 mg/dL (1.8-2.4); SGOT/AST 34 U/L (15-37); SGPT/ALT 34 U/L (12-78); TOT PROT 5.3 g/dl (6.4-8.2)
[2017-06-03] MEDS ORDERED: PT OWN MED DRAWER 7, Y5N ONE (09:50)
[2017-06-03] MEDS ORDERED: DEXTROSE 5%-WATER - 50 ML IVPB ONE ×2 (09:51→22:32)
[2017-06-03] MEDS ORDERED: ceFAZolin SODIUM 1 GM VIAL ONE ×2 (09:51→22:32)
[2017-06-03] MEDS: ASPIRIN 81 MG CHEWABLE TABLETS PO SCH (09:54)
[2017-06-03] MEDS: predniSONE 10 MG TABLET (UD) PO SCH (09:54)
[2017-06-03] MEDS: SODIUM CHLORIDE 1,000 ML IV SCH ×2 (09:54→22:43)
[2017-06-03] MEDS: CEFAZOLIN 1 GM in DEXTROSE 5%-WATER - 50 ML IVPB SCH ×2 (09:54→22:39)
[2017-06-03] MEDS: HYDROXYUREA 500 MG CAPSULE PO SCH (09:55)
--- NOTE | 2017-06-03 17:32 | PN ---
Progress Note (short form) - Note Progress Note: CKD (Cr ~2), Gout, Myeloproliferative disorder who presented with Toe pain and admitted for acute Gout and pain control with Cr of 2.4. #ARTURO on CKD vs progressive CKD #Acute Gout #Anemia Current Medications Acetaminophen (Tylenol -) 650 mg PO Q6H PRN PRN Reason: PAIN LEVEL 1-5 Aspirin (Asa -) 81 mg PO DAILY [facility] Last Admin: 06/03/17 09:54 Dose: 81 mg Heparin Sodium (Porcine) (Heparin -) 5,000 unit SQ TID [facility] Last Admin: 06/03/17 14:42 Dose: 5,000 unit Hydroxyurea (Hydrea -) 500 mg PO DAILY [facility] Last Admin: 06/03/17 09:55 Dose: 500 mg Sodium Chloride (Normal Saline -) 1,000 mls @ 83 mls/hr IV ASDIR [facility] Last Admin: 06/03/17 09:54 Dose: 83 mls/hr Cefazolin Sodium 1 gm/ (Dextrose) 50 mls @ 100 mls/hr IVPB BID [facility] Last Admin: 06/03/17 09:54 Dose: 100 mls/hr Prednisone (Deltasone -) 30 mg PO DAILY [facility] Last Admin: 06/03/17 09:54 Dose: 30 mg Last Vital Signs Temp Pulse Resp BP Pulse Ox 99.1 F 66 20 143/82 100 06/03/17 17:08 06/03/17 17:08 06/03/17 17:08 06/03/17 17:08 06/03/17 09:00 CBC, BMP 06/03/17 07:05 06/03/17 07:05 Renal function stable at this time pt w/o evidence of volume depletion or exposure to nephrotoxins to indicate ARTURO continue to trend renal function and electrolytes as a inpatient d/c IVF and monitor renal function on oral intake alone continue abx as per primary avoid NSAIDs for pain control Check iron studies, may need TERRI
[2017-06-04] MEDS: SODIUM CHLORIDE 1,000 ML IV SCH ×2 (04:04→23:55)
[2017-06-04] MEDS: HEPARIN NA (PORCINE) 5,000 UNITS/ML 1ML VIAL SQ SCH ×3 (07:05→23:56)
[2017-06-04 08:07] LABS: SERUM IRON SATURATION 28 % (15-55); TOTAL IRON BINDING CAPACITY 248 ug/dL (250-450); UIBC 178 ug/dL (111-343)
[2017-06-04] MEDS ORDERED: ceFAZolin SODIUM 1 GM VIAL ONE ×2 (09:25→20:32)
[2017-06-04] MEDS ORDERED: PT OWN MED DRAWER 7, Y5N ONE (09:25)
[2017-06-04] MEDS ORDERED: DEXTROSE 5%-WATER - 50 ML IVPB ONE ×2 (09:25→20:32)
[2017-06-04] MEDS: CEFAZOLIN 1 GM in DEXTROSE 5%-WATER - 50 ML IVPB SCH ×2 (09:42→23:56)
[2017-06-04] MEDS: ASPIRIN 81 MG CHEWABLE TABLETS PO SCH (09:43)
[2017-06-04] MEDS: HYDROXYUREA 500 MG CAPSULE PO SCH (09:43)
[2017-06-04] MEDS: predniSONE 10 MG TABLET (UD) PO SCH (09:43)
--- NOTE | 2017-06-04 12:39 | PN ---
Progress Note (short form) - Note Progress Note: pt comfortable denies pain afebrile Vital Signs Temp 98 F 06/04/17 08:22 Pulse 62 06/04/17 08:22 Resp 20 06/04/17 08:22 BP 166/60 06/04/17 08:22 Pulse Ox 99 06/04/17 09:00 Intake & Output 06/03/17 06/04/17 06/04/17 23:59 11:59 23:59 Intake Total 1250 913 Output Total 450 450 Balance 800 463 Intake: IV 800 913 Normal Saline - 1,000 ml 800 913 @ 83 mls/hr IV ASDIR [facility] Rx#:[id number] IVPB 50 Oral 400 Output: Urine 450 450 Void 450 450 Other: Voiding Method Urinal Urinal Bowel Movement Yes No Active Medications Acetaminophen (Tylenol -) 650 mg PO Q6H PRN PRN Reason: PAIN LEVEL 1-5 Aspirin (Asa -) 81 mg PO DAILY [facility] Last Admin: 06/04/17 09:43 Dose: 81 mg Heparin Sodium (Porcine) (Heparin -) 5,000 unit SQ TID [facility] Last Admin: 06/04/17 07:05 Dose: 5,000 unit Hydroxyurea (Hydrea -) 500 mg PO DAILY [facility] Last Admin: 06/04/17 09:43 Dose: 500 mg Sodium Chloride (Normal Saline -) 1,000 mls @ 83 mls/hr IV ASDIR [facility] Last Admin: 06/04/17 04:04 Dose: 83 mls/hr Cefazolin Sodium 1 gm/ (Dextrose) 50 mls @ 100 mls/hr IVPB BID [facility] Last Admin: 06/04/17 09:42 Dose: 100 mls/hr Prednisone (Deltasone -) 30 mg PO DAILY [facility] Last Admin: 06/04/17 09:43 Dose: 30 mg CBC, BMP 06/03/17 07:05 06/03/17 07:05 Microbiology 05/30/17 22:58 Blood Culture - Preliminary Blood - Peripheral Venous NO GROWTH OBTAINED AFTER 96 HOURS, INCUBATION TO CONTINUE FOR 1 DAYS. 05/30/17 22:58 Blood Culture - Preliminary Blood - Peripheral Venous NO GROWTH OBTAINED AFTER 96 HOURS, INCUBATION TO CONTINUE FOR 1 DAYS. Physical Exam Constitutional: Yes: No Distress. calm Cardiovascular: Yes: Regular Rate and Rhythm Respiratory: Yes: CTA Bilaterally Gastrointestinal: Yes: Normal Bowel Sounds, Soft. No: Tenderness Extremities: Yes: Other (left foot-- 5 toes cyanotic, cold, decreased pulses, decreased tenderness ) Edema: Yes Problem List - Problems (1) Toe infection Code(s): L08.9 - LOCAL INFECTION OF THE SKIN AND SUBCUTANEOUS TISSUE, UNSP (2) Leukocytosis Code(s): D72.829 - ELEVATED WHITE BLOOD CELL COUNT, UNSPECIFIED (3) Acute kidney injury superimposed on chronic kidney disease Code(s): N17.9 - ACUTE KIDNEY FAILURE, UNSPECIFIED; N18.9 - CHRONIC KIDNEY DISEASE, UNSPECIFIED Assessment/Plan stable Meds reviewed continue present care abx mri- done - will review report when available will follow
[2017-06-04] MEDS: ACETAMINOPHEN 325 MG TABLET (FP) PO PRN (14:12)
--- NOTE | 2017-06-04 15:16 | PN ---
Progress Note (short form) - Note Progress Note: CKD (Cr ~2), Gout, Myeloproliferative disorder Toe pain/acute Gout Cr of 2.4. Current Medications Acetaminophen (Tylenol -) 650 mg PO Q6H PRN PRN Reason: PAIN LEVEL 1-5 Last Admin: 06/04/17 14:12 Dose: 650 mg Aspirin (Asa -) 81 mg PO DAILY [facility] Last Admin: 06/04/17 09:43 Dose: 81 mg Heparin Sodium (Porcine) (Heparin -) 5,000 unit SQ TID [facility] Last Admin: 06/04/17 14:06 Dose: 5,000 unit Hydroxyurea (Hydrea -) 500 mg PO DAILY [facility] Last Admin: 06/04/17 09:43 Dose: 500 mg Sodium Chloride (Normal Saline -) 1,000 mls @ 83 mls/hr IV ASDIR [facility] Last Admin: 06/04/17 04:04 Dose: 83 mls/hr Cefazolin Sodium 1 gm/ (Dextrose) 50 mls @ 100 mls/hr IVPB BID [facility] Last Admin: 06/04/17 09:42 Dose: 100 mls/hr Prednisone (Deltasone -) 30 mg PO DAILY [facility] Last Admin: 06/04/17 09:43 Dose: 30 mg Last Vital Signs Temp Pulse Resp BP Pulse Ox 98.7 F 90 20 177/95 99 06/04/17 15:09 06/04/17 15:09 06/04/17 15:09 06/04/17 15:09 06/04/17 09:00 lungs clear heart reg abd soft nontender ext no edema CBC, BMP 06/03/17 07:05 06/03/17 07:05 ARTURO on CKD vs progressive CKD Acute Gout Anemia Renal function still stable at this time Plan- continue to trend renal function and electrolytes
[2017-06-05] MEDS: HEPARIN NA (PORCINE) 5,000 UNITS/ML 1ML VIAL SQ SCH ×3 (07:10→21:23)
[2017-06-05] MEDS ORDERED: PT OWN MED DRAWER 7, Y5N ONE (10:06)
[2017-06-05] MEDS ORDERED: ceFAZolin SODIUM 1 GM VIAL ONE ×2 (10:06→21:08)
[2017-06-05] MEDS ORDERED: DEXTROSE 5%-WATER - 50 ML IVPB ONE ×2 (10:07→21:08)
[2017-06-05] MEDS: CEFAZOLIN 1 GM in DEXTROSE 5%-WATER - 50 ML IVPB SCH ×2 (10:08→21:22)
[2017-06-05] MEDS: predniSONE 10 MG TABLET (UD) PO SCH (10:09)
[2017-06-05] MEDS: ASPIRIN 81 MG CHEWABLE TABLETS PO SCH (10:09)
[2017-06-05] MEDS: HYDROXYUREA 500 MG CAPSULE PO SCH (10:09)
--- NOTE | 2017-06-05 11:27 | PN ---
Progress Note (short form) - Note Progress Note: patient seen and examined condition same Afebrile continue to stay--foot hurts Otherwise feels okay MRI negative for osteo Vital Signs Temp 98.7 F 06/05/17 06:00 Pulse 69 06/05/17 06:00 Resp 20 06/05/17 06:00 BP 150/76 06/05/17 06:00 Pulse Ox 98 06/04/17 21:00 Intake & Output 06/04/17 06/04/17 06/05/17 11:59 23:59 11:59 Intake Total 913 -451 320 Output Total 450 400 Balance 463 -451 -80 Intake: IV 913 -551 Normal Saline - 1,000 ml 913 -551 @ 83 mls/hr IV ASDIR [facility] Rx#:[id number] IVPB 100 Oral 320 Output: Urine 450 400 Void 450 400 Other: Voiding Method Urinal Urinal Urinal # Unmeasured Voids Void 3 Bowel Movement No Active Medications Acetaminophen (Tylenol -) 650 mg PO Q6H PRN PRN Reason: PAIN LEVEL 1-5 Last Admin: 06/04/17 14:12 Dose: 650 mg Aspirin (Asa -) 81 mg PO DAILY [facility] Last Admin: 06/05/17 10:09 Dose: 81 mg Colchicine (Colcrys -) 0.6 mg PO DAILY [facility] Heparin Sodium (Porcine) (Heparin -) 5,000 unit SQ TID [facility] Last Admin: 06/05/17 07:10 Dose: 5,000 unit Hydroxyurea (Hydrea -) 500 mg PO DAILY [facility] Last Admin: 06/05/17 10:09 Dose: 500 mg Sodium Chloride (Normal Saline -) 1,000 mls @ 83 mls/hr IV ASDIR [facility] Last Admin: 06/04/17 23:55 Dose: 83 mls/hr Cefazolin Sodium 1 gm/ (Dextrose) 50 mls @ 100 mls/hr IVPB BID [facility] Last Admin: 06/05/17 10:08 Dose: 100 mls/hr Prednisone (Deltasone -) 20 mg PO DAILY [facility] CBC, BMP 06/03/17 07:05 06/03/17 07:05 MRI-- No Osteo. Physical Exam. Constitutional: Yes: No Distress. calm.comfortable Cardiovascular: Yes: Regular Rate and Rhythm Respiratory: Yes: CTA Bilaterally Gastrointestinal: Yes: Normal Bowel Sounds, Soft. No: Tenderness Extremities: Yes: Other (left foot-- 5 toes cyanotic, cold, decreased pulses, decreased tenderness ) Edema: Yes Problem List - Problems (1) Toe infection Code(s): L08.9 - LOCAL INFECTION OF THE SKIN AND SUBCUTANEOUS TISSUE, UNSP (2) Leukocytosis Code(s): D72.829 - ELEVATED WHITE BLOOD CELL COUNT, UNSPECIFIED (3) Acute kidney injury superimposed on chronic kidney disease Code(s): N17.9 - ACUTE KIDNEY FAILURE, UNSPECIFIED; N18.9 - CHRONIC KIDNEY DISEASE, UNSPECIFIED Assessment/Plan MRI negative for osteo. Foot essentially same Continue to have pain Continue antibiotics Vascular to follow Decrease prednisone Start on colchicine Will follow
[2017-06-05] MEDS: COLCHICINE 0.6 MG TABLET (FP) PO SCH (12:38)
--- NOTE | 2017-06-05 13:44 | PN ---
Progress Note (short form) - Note Progress Note: foot is unchanged, pain is unchanged Vital Signs Period Temp Pulse Resp BP Sys/Queen Pulse Ox Last 24 Hr 97.6 F-98.8 F 64-101 20-20 150-177/72-95 98-98 cor-rrr lungs clear abd soft,n ext left foot toes are painful- especially first toe, all are a bit red , no warmth CBC, BMP 06/03/17 07:05 06/03/17 07:05 Laboratory Tests 06/02/17 06/03/17 07:00 07:05 ESR 12 C-Reactive Protein 0.3 MRI-no abscess, no osteo a/p gout PAD ?cellulitis no osteo per MRI, normal esr/crp cefazolin dosed for ckd continue gout treatment f/u PAD workup
[2017-06-05] MEDS: SODIUM CHLORIDE 1,000 ML IV SCH (14:44)
[2017-06-05] MEDS: PANTOPRAZOLE 40 MG TABLET (FP) PO SCH (17:33)
[2017-06-06] MEDS: SODIUM CHLORIDE 1,000 ML IV SCH ×3 (05:18→21:27)
[2017-06-06] MEDS: HEPARIN NA (PORCINE) 5,000 UNITS/ML 1ML VIAL SQ SCH ×3 (05:27→21:24)
[2017-06-06] MEDS ORDERED: ceFAZolin SODIUM 1 GM VIAL ONE (09:16)
[2017-06-06] MEDS ORDERED: DEXTROSE 5%-WATER - 50 ML IVPB ONE ×2 (09:17→18:02)
[2017-06-06] MEDS: CEFAZOLIN 1 GM in DEXTROSE 5%-WATER - 50 ML IVPB SCH (09:39)
[2017-06-06] MEDS: COLCHICINE 0.6 MG TABLET (FP) PO SCH (09:39)
[2017-06-06] MEDS: ASPIRIN 81 MG CHEWABLE TABLETS PO SCH (09:39)
[2017-06-06] MEDS: PANTOPRAZOLE 40 MG TABLET (FP) PO SCH (09:39)
[2017-06-06] MEDS: predniSONE 20 MG TABLET (UD) PO SCH (09:39)
[2017-06-06] MEDS: HYDROXYUREA 500 MG CAPSULE PO SCH (09:41)
[2017-06-06] MEDS ORDERED: PT OWN MED DRAWER 7, Y5N ONE (09:41)
--- NOTE | 2017-06-06 10:23 | SPA.PREOP ---
- PRE-OP NOTE Dx: PAD?. No palpable DP pulse Planned Procedure: LLE CO2 angio Surgeon: Mohinder Resendiz Consent: To be obtained by surgeon after risks, benefits and alternatives explained to patient and or HCP. Last Vital Signs Temp Pulse Resp BP Pulse Ox 98.6 F 62 20 177/74 98 06/06/17 06:59 06/06/17 06:59 06/06/17 06:59 06/06/17 06:59 06/05/17 21:00 Lab Results WBC 10.8 K/mm3 (4.0-10.0) H 06/03/17 07:05 RBC 2.25 M/mm3 (4.00-5.60) L 06/03/17 07:05 Hgb 8.6 GM/dL (11.7-16.9) L 06/03/17 07:05 Hct 25.2 % (35.4-49) L 06/03/17 07:05 MCV 112.0 fl (80-96) H 06/03/17 07:05 MCHC 34.2 g/dl (32.0-35.9) 06/03/17 07:05 RDW 15.9 % (11.9-15.9) 06/03/17 07:05 Plt Count 474 K/MM3 (134-434) H 06/03/17 07:05 Sodium 145 mmol/L (136-145) 06/03/17 07:05 Potassium 4.7 mmol/L (3.5-5.1) 06/03/17 07:05 Chloride 111 mmol/L (98-107) H 06/03/17 07:05 Carbon Dioxide 27 mmol/L (21-32) 06/03/17 07:05 Anion Gap 7 (8-16) L 06/03/17 07:05 BUN 32 mg/dL (7-18) H D 06/03/17 07:05 Creatinine 2.0 mg/dL (0.7-1.3) H 06/03/17 07:05 Random Glucose 83 mg/dL (74-106) D 06/03/17 07:05 Calcium 8.4 mg/dL (8.5-10.1) L 06/03/17 07:05 INR 1.12 (0.82-1.09) 05/30/17 22:58 - ASSESSMENT/PLAN Problem List - Problems (1) Absent pulse in lower extremity Assessment/Plan: 1. NPO after midnight except po meds 2. GI/DVT PPX 3. Medical optimization / clearance Code(s): R09.89 - OTH SYMPTOMS AND SIGNS INVOLVING THE CIRC AND RESP SYSTEMS Visit type - Case Type Case Type: ED Admission
--- NOTE | 2017-06-06 11:33 | PN ---
Progress Note (short form) - Note Progress Note: pain is unchanged Vital Signs Period Temp Pulse Resp BP Sys/Queen Pulse Ox Last 24 Hr 97.6 F-98.8 F 64-101 20-20 150-177/72-95 98-98 cor-rrr lungs clear abd soft,n ext left foot toes are painful- especially first toe, all are a bit red , no warmth, discoloration under the toenail CBC, BMP 06/03/17 07:05 06/03/17 07:05 Laboratory Tests 06/02/17 06/03/17 07:00 07:05 ESR 12 C-Reactive Protein 0.3 MRI-no abscess, no osteo a/p gout PAD ?cellulitis , ?ischemia no osteo per MRI, normal esr/crp zosyn for now for angiogram suggest podiatry eval d/w PMD
--- NOTE | 2017-06-06 11:39 | PN ---
Progress Note (short form) - Note Progress Note: has pain in left foot scheduled for CO2 angio tomorrow Vital Signs - 24 hr 06/05/17 06/05/17 06/05/17 14:47 16:20 21:00 Temperature 98 F 98.6 F Pulse Rate 66 67 Respiratory 20 18 20 Rate Blood Pressure 149/51 138/56 O2 Sat by Pulse 98 Oximetry (%) 06/05/17 06/06/17 21:16 06:59 Temperature 98.2 F 98.6 F Pulse Rate 62 Respiratory 20 20 Rate Blood Pressure 151/72 177/74 O2 Sat by Pulse Oximetry (%) Current Medications Generic Name Dose Route Start Last Admin Trade Name Freq PRN Reason Stop Dose Admin Acetaminophen 650 mg 06/03/17 08:41 06/04/17 14:12 Tylenol - PO 650 mg Q6H PRN Administration PAIN LEVEL 1-5 Aspirin 81 mg 05/31/17 10:00 06/06/17 09:39 Asa - PO 81 mg DAILY [facility] Administration Colchicine 0.6 mg 06/05/17 11:30 06/06/17 09:39 Colcrys - PO 0.6 mg DAILY [facility] Administration Heparin Sodium (Porcine) 5,000 unit 05/31/17 06:00 06/06/17 05:27 Heparin - SQ 5,000 unit TID [facility] Administration Hydroxyurea 500 mg 05/31/17 10:00 06/06/17 09:41 Hydrea - PO 500 mg DAILY [facility] Administration Sodium Chloride 1,000 mls @ 83 mls/hr 05/31/17 20:25 06/06/17 05:18 Normal Saline - IV 83 mls/hr ASDIR [facility] Administration Piperacillin Sod/Tazobactam 50 mls @ 100 mls/hr 06/06/17 18:00 Sod 2.25 gm/ Dextrose IVPB Q8H-IV [facility] Protocol Pantoprazole Sodium 40 mg 06/05/17 16:00 06/06/17 09:39 Protonix - PO 40 mg DAILY [facility] Administration Prednisone 20 mg 06/06/17 10:00 06/06/17 09:39 Deltasone - PO 20 mg DAILY [facility] Administration MRI-- No Osteo. Physical Exam. Constitutional: Yes: No Distress. calm.comfortable Cardiovascular: Yes: Regular Rate and Rhythm Respiratory: Yes: CTA Bilaterally Gastrointestinal: Yes: Normal Bowel Sounds, Soft. No: Tenderness Extremities: Yes: Other (left foot-- 5 toes cyanotic, cold, decreased pulses, decreased tenderness ) Edema: Yes Problem List - Problems (1) Toe infection Code(s): L08.9 - LOCAL INFECTION OF THE SKIN AND SUBCUTANEOUS TISSUE, UNSP (2) Leukocytosis Code(s): D72.829 - ELEVATED WHITE BLOOD CELL COUNT, UNSPECIFIED (3) Acute kidney injury superimposed on chronic kidney disease Code(s): N17.9 - ACUTE KIDNEY FAILURE, UNSPECIFIED; N18.9 - CHRONIC KIDNEY DISEASE, UNSPECIFIED Assessment/Plan MRI negative for osteo. Continue to have pain Continue antibiotics Decrease prednisone Start on colchicine scheduled for CO2 angio tomorrow Problem List - Problems (1) Toe infection Code(s): L08.9 - LOCAL INFECTION OF THE SKIN AND SUBCUTANEOUS TISSUE, UNSP (2) Leukocytosis Code(s): D72.829 - ELEVATED WHITE BLOOD CELL COUNT, UNSPECIFIED (3) Acute kidney injury superimposed on chronic kidney disease Code(s): N17.9 - ACUTE KIDNEY FAILURE, UNSPECIFIED; N18.9 - CHRONIC KIDNEY DISEASE, UNSPECIFIED
--- NOTE | 2017-06-06 13:07 | PN ---
Progress Note, Physician Chief Complaint: The patient seen in his room. Still with foot pain. Evaluation in progress. Maintains good urine output. - Current Medication List Current Medications: Active Medications Acetaminophen (Tylenol -) 650 mg PO Q6H PRN PRN Reason: PAIN LEVEL 1-5 Last Admin: 06/04/17 14:12 Dose: 650 mg Aspirin (Asa -) 81 mg PO DAILY [facility] Last Admin: 06/06/17 09:39 Dose: 81 mg Colchicine (Colcrys -) 0.6 mg PO DAILY [facility] Last Admin: 06/06/17 09:39 Dose: 0.6 mg Heparin Sodium (Porcine) (Heparin -) 5,000 unit SQ TID [facility] Last Admin: 06/06/17 05:27 Dose: 5,000 unit Hydroxyurea (Hydrea -) 500 mg PO DAILY [facility] Last Admin: 06/06/17 09:41 Dose: 500 mg Sodium Chloride (Normal Saline -) 1,000 mls @ 83 mls/hr IV ASDIR [facility] Last Admin: 06/06/17 05:18 Dose: 83 mls/hr Piperacillin Sod/Tazobactam (Sod 2.25 gm/ Dextrose) 50 mls @ 100 mls/hr IVPB Q8H-IV [facility] PRN Reason: Protocol Pantoprazole Sodium (Protonix -) 40 mg PO DAILY [facility] Last Admin: 06/06/17 09:39 Dose: 40 mg Prednisone (Deltasone -) 20 mg PO DAILY [facility] Last Admin: 06/06/17 09:39 Dose: 20 mg - Objective Vital Signs: Vital Signs Temperature 98.6 F 06/06/17 06:59 Pulse Rate 62 06/06/17 06:59 Respiratory Rate 20 06/06/17 06:59 Blood Pressure 177/74 06/06/17 06:59 O2 Sat by Pulse Oximetry (%) 98 06/05/17 21:00 Constitutional: Yes: Well Nourished Eyes: Yes: Conjunctiva Clear HENT: Yes: Atraumatic Neck: Yes: Supple Cardiovascular: Yes: Regular Rate and Rhythm, S1, S2 Respiratory: Yes: CTA Bilaterally, Diminished Gastrointestinal: Yes: Normal Bowel Sounds, Soft Extremities: Yes: Other (left toe sweelimng and pain) Labs: CBC, BMP 06/03/17 07:05 06/03/17 07:05 INR, PTT INR 1.12 (0.82-1.09) 05/30/17 22:58 Problem List - Problems (1) Acute kidney injury superimposed on chronic kidney disease Code(s): N17.9 - ACUTE KIDNEY FAILURE, UNSPECIFIED; N18.9 - CHRONIC KIDNEY DISEASE, UNSPECIFIED (2) Leukocytosis Code(s): D72.829 - ELEVATED WHITE BLOOD CELL COUNT, UNSPECIFIED (3) Toe infection Code(s): L08.9 - LOCAL INFECTION OF THE SKIN AND SUBCUTANEOUS TISSUE, UNSP Assessment/Plan 87 y/o male with Stage 3 CKD, admitted with Acute toe pain and infection. Antibiotics regimen as per the ID service. Renal functions near his baseline. Moderate Leukocytosis persists. Tendency for Hypernatremia. Will monitor the volume status closely, especially when Gout is entertained in the D/D Please maintain adequate hydration at this point. Thank you. Ashly Schuster MD
[2017-06-06] MEDS ORDERED: PIPERACILLIN/TAZOBACTAM 2.25 GM VIAL IVPB ONE (18:02)
[2017-06-06] MEDS: PIPERACILLIN/TAZOB 2.25 GM 2.25 GM in DEXTROSE 5%-WATER - 50 ML IVPB SCH (18:03)
[2017-06-06] MEDS: amLODIPine BESYLATE 5 MG TABLET (FP) PO SCH (21:24)
[2017-06-07] MEDS ORDERED: PIPERACILLIN/TAZOBACTAM 2.25 GM VIAL IVPB ONE ×3 (00:55→20:37)
[2017-06-07] MEDS ORDERED: DEXTROSE 5%-WATER - 50 ML IVPB ONE ×3 (00:55→20:37)
[2017-06-07] MEDS: PIPERACILLIN/TAZOB 2.25 GM 2.25 GM in DEXTROSE 5%-WATER - 50 ML IVPB SCH ×3 (03:57→20:40)
[2017-06-07 07:27] LABS: EOS % 1.5 % (0-4.5); HEMATOCRIT 25.3 % (35.4-49); HEMOGLOBIN 8.7 GM/dL (11.7-16.9); MCH 38.9 pg (25.7-33.7); MCHC 34.3 g/dl (32.0-35.9); MEAN CELL VOLUME 113.5 fl (80-96); MEAN PLT VOLUME 9.3 fl (7.5-11.1); MONO % 7.8 % (3.8-10.2); NEUT % 78.7 % (42.8-82.8); PLATELET COUNT 444 K/MM3 (134-434); RBC 2.23 M/mm3 (4.00-5.60); RDW 16.4 % (11.9-15.9); WHITE BLOOD COUNT 10.6 K/mm3 (4.0-10.0)
[2017-06-07 07:59] LABS: CHLORIDE 110 mmol/L (98-107); SODIUM 145 mmol/L (136-145)
[2017-06-07 08:07] LABS: ALBUMIN 2.6 g/dl (3.4-5.0); ALK PHOS 60 U/L (45-117); ANION GAP 10 (8-16); BILIRUBIN,TOTAL 0.2 mg/dL (0.2-1.0); BLOOD UREA NITROGEN 22 mg/dL (7-18); CO2 25 mmol/L (21-32); GLUCOSE,RANDOM 81 mg/dL (74-106); SGOT/AST 30 U/L (15-37); SGPT/ALT 12 U/L (12-78); TOT PROT 4.9 g/dl (6.4-8.2)
--- NOTE | 2017-06-07 10:07 | PN ---
Progress Note, Physician Chief Complaint: has pain in left foot for CO2 angiogram - Current Medication List Current Medications: Active Medications Acetaminophen (Tylenol -) 650 mg PO Q6H PRN PRN Reason: PAIN LEVEL 1-5 Last Admin: 06/04/17 14:12 Dose: 650 mg Amlodipine Besylate (Norvasc -) 5 mg PO DAILY [facility] Last Admin: 06/06/17 21:24 Dose: 5 mg Aspirin (Asa -) 81 mg PO DAILY [facility] Last Admin: 06/06/17 09:39 Dose: 81 mg Colchicine (Colcrys -) 0.6 mg PO DAILY [facility] Last Admin: 06/06/17 09:39 Dose: 0.6 mg Hydroxyurea (Hydrea -) 500 mg PO DAILY [facility] Last Admin: 06/06/17 09:41 Dose: 500 mg Sodium Chloride (Normal Saline -) 1,000 mls @ 83 mls/hr IV ASDIR [facility] Last Admin: 06/06/17 21:27 Dose: 83 mls/hr Piperacillin Sod/Tazobactam (Sod 2.25 gm/ Dextrose) 50 mls @ 100 mls/hr IVPB Q8H-IV [facility] PRN Reason: Protocol Last Admin: 06/07/17 03:57 Dose: 100 mls/hr Pantoprazole Sodium (Protonix -) 40 mg PO DAILY [facility] Last Admin: 06/06/17 09:39 Dose: 40 mg Prednisone (Deltasone -) 20 mg PO DAILY [facility] Last Admin: 06/06/17 09:39 Dose: 20 mg - Objective Vital Signs: Vital Signs Temperature 98.2 F 06/07/17 06:33 Pulse Rate 72 06/07/17 06:33 Respiratory Rate 20 06/07/17 06:33 Blood Pressure 108/64 06/07/17 06:33 O2 Sat by Pulse Oximetry (%) 97 06/06/17 21:00 Constitutional: Yes: No Distress Cardiovascular: Yes: Regular Rate and Rhythm Respiratory: Yes: Diminished Gastrointestinal: Yes: Normal Bowel Sounds, Soft. No: Tenderness Edema: No Labs: CBC, BMP 06/07/17 06:49 06/07/17 06:49 INR, PTT INR 1.12 (0.82-1.09) 05/30/17 22:58 Problem List - Problems (1) Toe infection Code(s): L08.9 - LOCAL INFECTION OF THE SKIN AND SUBCUTANEOUS TISSUE, UNSP (2) Leukocytosis Code(s): D72.829 - ELEVATED WHITE BLOOD CELL COUNT, UNSPECIFIED (3) Acute kidney injury superimposed on chronic kidney disease Code(s): N17.9 - ACUTE KIDNEY FAILURE, UNSPECIFIED; N18.9 - CHRONIC KIDNEY DISEASE, UNSPECIFIED Assessment/Plan plan continue with iv antibiotics pain control for CO2 angiogram taper prednisone
[2017-06-07] MEDS: COLCHICINE 0.6 MG TABLET (FP) PO SCH (11:05)
[2017-06-07] MEDS: PANTOPRAZOLE 40 MG TABLET (FP) PO SCH (11:05)
[2017-06-07] MEDS: amLODIPine BESYLATE 5 MG TABLET (FP) PO SCH (11:05)
[2017-06-07] MEDS: ASPIRIN 81 MG CHEWABLE TABLETS PO SCH (11:05)
[2017-06-07] MEDS: predniSONE 20 MG TABLET (UD) PO SCH (11:05)
[2017-06-07] MEDS: SODIUM CHLORIDE 1,000 ML IV SCH ×2 (11:05→20:34)
--- NOTE | 2017-06-07 11:14 | PN ---
Progress Note, Physician History of Present Illness: C/O L foot pain No c/o fever/ chills Afebrile WBC 10.6 - Current Medication List Current Medications: Active Medications Acetaminophen (Tylenol -) 650 mg PO Q6H PRN PRN Reason: PAIN LEVEL 1-5 Last Admin: 06/04/17 14:12 Dose: 650 mg Amlodipine Besylate (Norvasc -) 5 mg PO DAILY [facility] Last Admin: 06/07/17 11:05 Dose: 5 mg Aspirin (Asa -) 81 mg PO DAILY [facility] Last Admin: 06/07/17 11:05 Dose: 81 mg Colchicine (Colcrys -) 0.6 mg PO DAILY [facility] Last Admin: 06/07/17 11:05 Dose: 0.6 mg Hydroxyurea (Hydrea -) 500 mg PO DAILY [facility] Last Admin: 06/06/17 09:41 Dose: 500 mg Sodium Chloride (Normal Saline -) 1,000 mls @ 83 mls/hr IV ASDIR [facility] Last Admin: 06/07/17 11:05 Dose: 83 mls/hr Piperacillin Sod/Tazobactam (Sod 2.25 gm/ Dextrose) 50 mls @ 100 mls/hr IVPB Q8H-IV [facility] PRN Reason: Protocol Last Admin: 06/07/17 03:57 Dose: 100 mls/hr Pantoprazole Sodium (Protonix -) 40 mg PO DAILY [facility] Last Admin: 06/07/17 11:05 Dose: 40 mg Prednisone (Deltasone -) 20 mg PO DAILY [facility] Last Admin: 06/07/17 11:05 Dose: 20 mg - Objective Vital Signs: Vital Signs Temperature 98.2 F 06/07/17 06:33 Pulse Rate 72 06/07/17 06:33 Respiratory Rate 20 06/07/17 06:33 Blood Pressure 108/64 06/07/17 06:33 O2 Sat by Pulse Oximetry (%) 97 06/06/17 21:00 Constitutional: Yes: No Distress Eyes: Yes: Conjunctiva Clear Cardiovascular: Yes: Regular Rate and Rhythm, S1, S2 Respiratory: Yes: CTA Bilaterally Gastrointestinal: Yes: Normal Bowel Sounds, Soft. No: Tenderness Extremities: Yes: Other (+ hyperemia, tenderness L great toe) Labs: CBC, BMP 06/07/17 06:49 06/07/17 06:49 INR, PTT INR 1.12 (0.82-1.09) 05/30/17 22:58 Assessment/Plan Cellulitis v. gout v. ischemia L foot Continue empiric zosyn, treatment for gout
[2017-06-07] MEDS ORDERED: PT OWN MED DRAWER 7, Y5N ONE ×2 (11:28→12:28)
[2017-06-07] MEDS: HYDROXYUREA 500 MG CAPSULE PO SCH (11:33)
[2017-06-07] MEDS: ACETAMINOPHEN 325 MG TABLET (FP) PO PRN (12:30)
[2017-06-07] MEDS ORDERED: predniSONE 10 MG TABLET (UD) PO SCH (13:30)
[2017-06-07] MEDS ORDERED: MIDAZOLAM HCL 2 MG/2 ML SINGLE DOSE VIAL ONE (15:33)
[2017-06-07] MEDS ORDERED: HEPARIN NA (PORCINE) 5,000 UNITS/ML 1ML VIAL ONE (15:35)
[2017-06-07] MEDS ORDERED: LIDOCAINE HCL 1%, 10 MG/ML (20ML VIAL) ONE ×3 (15:35→15:46)
[2017-06-07] MEDS ORDERED: LIDOCAINE HCL/PF 2% SDV 5ML VIAL ONE (15:39)
[2017-06-07] MEDS ORDERED: PROPOFOL 20 ML ONE (15:39)
[2017-06-07] MEDS ORDERED: LIDOCAINE HCL 2% 100 MG/5 ML DISP.SYRIN ONE (15:39)
[2017-06-07] MEDS ORDERED: LIDOCAINE HCL 1%, 10 MG/ML (20ML VIAL) PNB ONE ×2 (16:51)
--- NOTE | 2017-06-07 17:10 | OP ---
Operative Note - Note: Operative Date: 06/07/17 Pre-Operative Diagnosis: Left great toe gangrene Operation: Aortogram, LLE angiogram, tibial artery angioplasty Findings: ant tibial artery stenosis Post-Operative Diagnosis: Same as Pre-op Surgeon: Mohinder Resendiz Anesthesia: Fractional Estimated Blood Loss (mls): 50 Operative Report Dictated: Yes
--- NOTE | 2017-06-07 17:24 | PN ---
Progress Note (short form) - Note Progress Note: Vascular Surgery s/P angioplasty Pt has good pulse in left DP. Started pt on plavix. Please DC pt on plavix. Cleared from a vascular standpoint for DC. Will follow in clinic in one week please. Mohinder Resendiz DO
[2017-06-07] MEDS ORDERED: ONDANSETRON 4 MG/2 ML VIAL IVPUSH PRN (17:26)
[2017-06-07] MEDS ORDERED: CLOPIDOGREL BISULFATE 75 MG TABLET (FP) ONE ×2 (18:16→19:36)
[2017-06-07] MEDS: CLOPIDOGREL BISULFATE 75 MG TABLET (FP) PO SCH (19:45)
[2017-06-08] MEDS: PIPERACILLIN/TAZOB 2.25 GM 2.25 GM in DEXTROSE 5%-WATER - 50 ML IVPB SCH ×3 (01:33→17:26)
[2017-06-08 08:56] LABS: ANION GAP 10 (8-16); BLOOD UREA NITROGEN 24 mg/dL (7-18); CALCIUM 8.2 mg/dL (8.5-10.1); CHLORIDE 110 mmol/L (98-107); CO2 24 mmol/L (21-32); CREATININE 1.9 mg/dL (0.7-1.3); GLUCOSE,RANDOM 84 mg/dL (74-106); POTASSIUM 4.4 mmol/L (3.5-5.1); SODIUM 144 mmol/L (136-145)
[2017-06-08] MEDS: HYDROXYUREA 500 MG CAPSULE PO SCH (09:54)
[2017-06-08] MEDS: amLODIPine BESYLATE 5 MG TABLET (FP) PO SCH (09:54)
[2017-06-08] MEDS: CLOPIDOGREL BISULFATE 75 MG TABLET (FP) PO SCH (09:54)
[2017-06-08] MEDS: predniSONE 10 MG TABLET (UD) PO SCH (09:54)
[2017-06-08] MEDS: ASPIRIN 81 MG CHEWABLE TABLETS PO SCH (09:54)
[2017-06-08] MEDS: PANTOPRAZOLE 40 MG TABLET (FP) PO SCH (09:54)
[2017-06-08] MEDS ORDERED: COLCHICINE 0.6 MG TABLET (FP) PO SCH (10:00)
--- NOTE | 2017-06-08 10:21 | PN ---
Progress Note, Physician - Current Medication List Current Medications: Active Medications Acetaminophen (Tylenol -) 650 mg PO Q6H PRN PRN Reason: PAIN LEVEL 1-5 Amlodipine Besylate (Norvasc -) 5 mg PO DAILY [facility] Last Admin: 06/08/17 09:54 Dose: 5 mg Aspirin (Asa -) 81 mg PO DAILY [facility] Last Admin: 06/08/17 09:54 Dose: 81 mg Clopidogrel Bisulfate (Plavix -) 75 mg PO DAILY [facility] Last Admin: 06/08/17 09:54 Dose: 75 mg Hydroxyurea (Hydrea -) 500 mg PO DAILY [facility] Last Admin: 06/08/17 09:54 Dose: 500 mg Sodium Chloride (Normal Saline -) 1,000 mls @ 83 mls/hr IV ASDIR [facility] Last Admin: 06/07/17 20:34 Dose: 83 mls/hr Piperacillin Sod/Tazobactam (Sod 2.25 gm/ Dextrose) 50 mls @ 100 mls/hr IVPB Q8H-IV [facility] PRN Reason: Protocol Last Admin: 06/08/17 09:55 Dose: 100 mls/hr Ondansetron HCl (Zofran Injection) 4 mg IVPUSH Q6H PRN PRN Reason: NAUSEA AND/OR VOMITING Pantoprazole Sodium (Protonix -) 40 mg PO DAILY [facility] Last Admin: 06/08/17 09:54 Dose: 40 mg Prednisone (Deltasone -) 10 mg PO DAILY [facility] Last Admin: 06/08/17 09:54 Dose: 10 mg - Objective Vital Signs: Vital Signs Temperature 97.5 F L 06/08/17 06:49 Pulse Rate 62 06/08/17 06:49 Respiratory Rate 20 06/08/17 06:49 Blood Pressure 138/87 06/08/17 06:49 O2 Sat by Pulse Oximetry (%) 93 L 06/07/17 20:12 Labs: CBC, BMP 06/07/17 06:49 06/08/17 07:45 INR, PTT INR 1.12 (0.82-1.09) 05/30/17 22:58 Problem List - Problems (1) Toe infection Code(s): L08.9 - LOCAL INFECTION OF THE SKIN AND SUBCUTANEOUS TISSUE, UNSP (2) Leukocytosis Code(s): D72.829 - ELEVATED WHITE BLOOD CELL COUNT, UNSPECIFIED (3) Acute kidney injury superimposed on chronic kidney disease Code(s): N17.9 - ACUTE KIDNEY FAILURE, UNSPECIFIED; N18.9 - CHRONIC KIDNEY DISEASE, UNSPECIFIED
--- NOTE | 2017-06-08 11:20 | DS ---
Physical Examination Vital Signs: Vital Signs Temperature 97.5 F L 06/08/17 06:49 Pulse Rate 62 06/08/17 06:49 Respiratory Rate 20 06/08/17 06:49 Blood Pressure 138/87 06/08/17 06:49 O2 Sat by Pulse Oximetry (%) 93 L 06/07/17 20:12 Constitutional: Yes: No Distress, Calm Cardiovascular: Yes: Regular Rate and Rhythm Respiratory: Yes: CTA Bilaterally Gastrointestinal: Yes: Normal Bowel Sounds, Soft. No: Tenderness Extremities: Yes: Other (left feet-- toes-- more pink, warm, tender+) Edema: No Labs: CBC, BMP 06/07/17 06:49 06/08/17 07:45 Discharge Summary Reason For Visit: INFECTION OF TOE Current Active Problems Absent pulse in lower extremity (Acute) Acute kidney injury superimposed on chronic kidney disease (Acute) Hospital Course: Pt admitted for left foot pain has h/o myeloproliferative disorder Was initially being treated for acute gout- had arterial doppler which showed arterial insufficiency-- anterior tibial artery stenosis Seen by Vascular, ID Started on IV antibiotics Underwent CO2 angiogram on 06/07 Aortogram, LLE angiogram, tibial artery angioplasty Findings: ant tibial artery stenosis Advised to keep pt on Plavix Stable for dc to NH on PO antibiotics, prednisone 5 mg x 3 days and stop, continue Plavix and ASA Follow up with Vascular in 1 week Condition: Improved - Instructions Referrals: Sayda Gong MD [Primary Care Provider] - Mohinder Resendiz MD [Staff Physician] - 1 Week Disposition: TRANSFER ACUTE CARE/OTHER HOSP - Home Medications Comprehensive Discharge Medication List: Ambulatory Orders Aspirin [ASA -] 81 mg PO DAILY 02/23/14 Allopurinol [Zyloprim -] 100 mg PO DAILY 05/30/17 Hydroxyurea 500 mg PO DAILY 05/30/17 Amlodipine Besylate [Norvasc -] 5 mg PO DAILY #60 tablet 06/08/17 Amox-Tr/K Cl [Augmentin - 500Mg Tablet] 1 tab PO BID #10 tab 06/08/17 Clopidogrel Bisulfate [Plavix -] 75 mg PO DAILY #60 tablet 06/08/17 Colchicine [Colcrys -] 0.6 mg PO DAILY #60 tablet 06/08/17 Hydroxyurea [Hydrea 500Mg Capsule -] 500 mg PO DAILY #60 capsule 06/08/17 Pantoprazole Sodium [Protonix -] 40 mg PO DAILY #30 tablet.ec 06/08/17 Prednisone 5 mg PO DAILY #3 tab.ds.pk 06/08/17
--- NOTE | 2017-06-08 12:14 | PN ---
Progress Note, Physician Chief Complaint: Pt. pain controlled, no anesthesia complaints. - Current Medication List Current Medications: Active Medications Acetaminophen (Tylenol -) 650 mg PO Q6H PRN PRN Reason: PAIN LEVEL 1-5 Amlodipine Besylate (Norvasc -) 5 mg PO DAILY [facility] Last Admin: 06/08/17 09:54 Dose: 5 mg Aspirin (Asa -) 81 mg PO DAILY [facility] Last Admin: 06/08/17 09:54 Dose: 81 mg Clopidogrel Bisulfate (Plavix -) 75 mg PO DAILY [facility] Last Admin: 06/08/17 09:54 Dose: 75 mg Hydroxyurea (Hydrea -) 500 mg PO DAILY [facility] Last Admin: 06/08/17 09:54 Dose: 500 mg Sodium Chloride (Normal Saline -) 1,000 mls @ 83 mls/hr IV ASDIR [facility] Last Admin: 06/07/17 20:34 Dose: 83 mls/hr Piperacillin Sod/Tazobactam (Sod 2.25 gm/ Dextrose) 50 mls @ 100 mls/hr IVPB Q8H-IV [facility] PRN Reason: Protocol Last Admin: 06/08/17 09:55 Dose: 100 mls/hr Ondansetron HCl (Zofran Injection) 4 mg IVPUSH Q6H PRN PRN Reason: NAUSEA AND/OR VOMITING Pantoprazole Sodium (Protonix -) 40 mg PO DAILY [facility] Last Admin: 06/08/17 09:54 Dose: 40 mg Prednisone (Deltasone -) 10 mg PO DAILY [facility] Last Admin: 06/08/17 09:54 Dose: 10 mg - Objective Vital Signs: Vital Signs Temperature 98.4 F 06/08/17 10:00 Pulse Rate 72 06/08/17 10:00 Respiratory Rate 18 06/08/17 10:00 Blood Pressure 140/72 06/08/17 10:00 O2 Sat by Pulse Oximetry (%) 93 L 06/07/17 20:12 Constitutional: Yes: Well Nourished, No Distress, Calm Neurological: Yes: WNL, Alert, Oriented Labs: CBC, BMP 06/07/17 06:49 06/08/17 07:45 INR, PTT INR 1.12 (0.82-1.09) 05/30/17 22:58 Assessment/Plan POD#1 s/p angiogram/angioplasty under MAC. Doing well. D/C from anesthesia care.
--- NOTE | 2017-06-08 14:29 | PN ---
Progress Note, Physician History of Present Illness: Confused C/O L foot pain with movement No c/o fever/ chills Afebrile - Current Medication List Current Medications: Active Medications Acetaminophen (Tylenol -) 650 mg PO Q6H PRN PRN Reason: PAIN LEVEL 1-5 Amlodipine Besylate (Norvasc -) 5 mg PO DAILY [facility] Last Admin: 06/08/17 09:54 Dose: 5 mg Aspirin (Asa -) 81 mg PO DAILY [facility] Last Admin: 06/08/17 09:54 Dose: 81 mg Clopidogrel Bisulfate (Plavix -) 75 mg PO DAILY [facility] Last Admin: 06/08/17 09:54 Dose: 75 mg Hydroxyurea (Hydrea -) 500 mg PO DAILY [facility] Last Admin: 06/08/17 09:54 Dose: 500 mg Sodium Chloride (Normal Saline -) 1,000 mls @ 83 mls/hr IV ASDIR [facility] Last Admin: 06/07/17 20:34 Dose: 83 mls/hr Piperacillin Sod/Tazobactam (Sod 2.25 gm/ Dextrose) 50 mls @ 100 mls/hr IVPB Q8H-IV [facility] PRN Reason: Protocol Last Admin: 06/08/17 09:55 Dose: 100 mls/hr Ondansetron HCl (Zofran Injection) 4 mg IVPUSH Q6H PRN PRN Reason: NAUSEA AND/OR VOMITING Pantoprazole Sodium (Protonix -) 40 mg PO DAILY [facility] Last Admin: 06/08/17 09:54 Dose: 40 mg Prednisone (Deltasone -) 10 mg PO DAILY [facility] Last Admin: 06/08/17 09:54 Dose: 10 mg - Objective Vital Signs: Vital Signs Temperature 98.4 F 06/08/17 10:00 Pulse Rate 72 06/08/17 10:00 Respiratory Rate 18 06/08/17 10:00 Blood Pressure 140/72 06/08/17 10:00 O2 Sat by Pulse Oximetry (%) 93 L 06/07/17 20:12 Constitutional: Yes: No Distress Eyes: Yes: Conjunctiva Clear Cardiovascular: Yes: Regular Rate and Rhythm, S1 Respiratory: Yes: CTA Bilaterally Gastrointestinal: Yes: Normal Bowel Sounds, Soft. No: Tenderness Extremities: Yes: Other (+ L foot swelling Erythema 2nd toe) Labs: CBC, BMP 06/07/17 06:49 06/08/17 07:45 INR, PTT INR 1.12 (0.82-1.09) 05/30/17 22:58 Assessment/Plan Cellulitis v. gout v. ischemia L foot Substitute po Augmentin
[2017-06-08] MEDS ORDERED: DEXTROSE 5%-WATER - 50 ML IVPB ONE ×2 (17:14→23:44)
[2017-06-08] MEDS ORDERED: PIPERACILLIN/TAZOBACTAM 2.25 GM VIAL IVPB ONE ×2 (17:14→23:43)
[2017-06-08] MEDS: SODIUM CHLORIDE 1,000 ML IV SCH (23:05)
[2017-06-08] MEDS: ACETAMINOPHEN 325 MG TABLET (FP) PO PRN (23:08)
[2017-06-09] MEDS: SODIUM CHLORIDE 1,000 ML IV SCH (00:44)
[2017-06-09] MEDS: PIPERACILLIN/TAZOB 2.25 GM 2.25 GM in DEXTROSE 5%-WATER - 50 ML IVPB SCH ×2 (01:10→09:58)
[2017-06-09 07:38] LABS: CHLORIDE 111 mmol/L (98-107); POTASSIUM 3.9 mmol/L (3.5-5.1); SODIUM 143 mmol/L (136-145)
[2017-06-09 07:45] LABS: ANION GAP 7 (8-16); BLOOD UREA NITROGEN 23 mg/dL (7-18); CALCIUM 7.7 mg/dL (8.5-10.1); CO2 25 mmol/L (21-32); CREATININE 1.8 mg/dL (0.7-1.3); GLUCOSE,RANDOM 83 mg/dL (74-106)
[2017-06-09] MEDS ORDERED: DEXTROSE 5%-WATER - 50 ML IVPB ONE (09:54)
[2017-06-09] MEDS ORDERED: PIPERACILLIN/TAZOBACTAM 2.25 GM VIAL IVPB ONE (09:54)
[2017-06-09] MEDS ORDERED: PT OWN MED DRAWER 7, Y5N ONE (09:54)
[2017-06-09] MEDS: CLOPIDOGREL BISULFATE 75 MG TABLET (FP) PO SCH (09:58)
[2017-06-09] MEDS: predniSONE 10 MG TABLET (UD) PO SCH (09:58)
[2017-06-09] MEDS: ASPIRIN 81 MG CHEWABLE TABLETS PO SCH (09:58)
[2017-06-09] MEDS: PANTOPRAZOLE 40 MG TABLET (FP) PO SCH (09:58)
[2017-06-09] MEDS: HYDROXYUREA 500 MG CAPSULE PO SCH (09:58)
[2017-06-09] MEDS: amLODIPine BESYLATE 5 MG TABLET (FP) PO SCH (09:58)
--- NOTE | 2017-06-09 10:44 | PN ---
Progress Note (short form) - Note Progress Note: awake/ comfortable no new issues pain better afebrile Vital Signs Temp 98.2 F 06/09/17 06:40 Pulse 62 06/09/17 06:40 Resp 20 06/09/17 06:40 BP 177/68 06/09/17 06:40 Pulse Ox 95 06/08/17 21:00 Intake & Output 06/08/17 06/08/17 06/09/17 11:59 23:59 11:59 Intake Total 970 900 Output Total 400 270 Balance -400 700 900 Intake: IV 770 850 Normal Saline - 1,000 ml 770 850 @ 83 mls/hr IV [facility] Rx#:[id number] IVPB 200 50 Output: Urine 400 270 Void 400 270 Other: Voiding Method Urinal Urinal Bowel Movement 1 No No Active Medications Acetaminophen (Tylenol -) 650 mg PO Q6H PRN PRN Reason: PAIN LEVEL 1-5 Last Admin: 06/08/17 23:08 Dose: 650 mg Amlodipine Besylate (Norvasc -) 5 mg PO DAILY [facility] Last Admin: 06/09/17 09:58 Dose: 5 mg Aspirin (Asa -) 81 mg PO DAILY [facility] Last Admin: 06/09/17 09:58 Dose: 81 mg Clopidogrel Bisulfate (Plavix -) 75 mg PO DAILY [facility] Last Admin: 06/09/17 09:58 Dose: 75 mg Hydroxyurea (Hydrea -) 500 mg PO DAILY [facility] Last Admin: 06/09/17 09:58 Dose: 500 mg Sodium Chloride (Normal Saline -) 1,000 mls @ 83 mls/hr IV [facility] Last Admin: 06/09/17 00:44 Dose: 83 mls/hr Piperacillin Sod/Tazobactam (Sod 2.25 gm/ Dextrose) 50 mls @ 100 mls/hr IVPB Q8H-IV [facility] PRN Reason: Protocol Last Admin: 06/09/17 09:58 Dose: 100 mls/hr Ondansetron HCl (Zofran Injection) 4 mg IVPUSH Q6H PRN PRN Reason: NAUSEA AND/OR VOMITING Pantoprazole Sodium (Protonix -) 40 mg PO DAILY [facility] Last Admin: 06/09/17 09:58 Dose: 40 mg Prednisone (Deltasone -) 10 mg PO DAILY [facility] Last Admin: 06/09/17 09:58 Dose: 10 mg CBC, BMP 06/07/17 06:49 06/09/17 05:35 Physical Constitutional: Yes: No Distress, Calm Cardiovascular: Yes: Regular Rate and Rhythm Respiratory: Yes: CTA Bilaterally Gastrointestinal: Yes: Normal Bowel Sounds, Soft. No: Tenderness Extremities: Yes: Other (left feet-- toes-- more pink, warm, ) Edema: No a/p stable anticipate d/c today see detailed d/c summary of yesterday
[2017-06-09] MEDS: ACETAMINOPHEN 325 MG TABLET (FP) PO PRN (11:52)
[2017-06-09 15:35] VITALS: BP 112/68; PULSE 70; TEMP 98.4
--- NOTE | 2017-06-20 18:30 | OP ---
DATE OF OPERATION: 06/07/2017 PREOPERATIVE DIAGNOSIS: Left great toe gangrene. POSTOPERATIVE DIAGNOSIS: Left great toe gangrene. PROCEDURE: Aortogram, left lower extremity angiogram, tibial artery angioplasty. FINDINGS: Anterior tibial artery stenosis. SURGEON: Mohinder Sánchez D.O. ANESTHESIA: Fractional. BLOOD LOSS: 50 mL. INDICATION: The patient is an 87-year-old male that has left great toe gangrene and erythema. It started about 2 weeks ago. Recently when the patient came into the hospital, it was felt the patient has gout and was treated for his gout, but it did not get better . He had , ABIs done which showed flat wave forms in the left foot and ankle area, and it was decided that he would need an angiogram. Patient was consented for the procedure understanding all risks, benefits, and alternatives and then taken to the operating room. DESCRIPTION OF PROCEDURE: The area of the right and left groin are prepped and draped in a sterile surgical manner. We then injected 10 mL of lidocaine 1% over the right common femoral artery. We then went ahead and took our Micropuncture needle and punctured the right common femoral artery. A Micropuncture wire was inserted, and a traditional 5-Burkinan sheath was inserted. We then placed a 0.035 floppy guidewire into the aorta followed by an Omniflush catheter. We then shot an aortogram by hand injection showing that the aorta and the iliac arteries were without any disease. We then placed our 0.035 floppy guidewire up and over to the left common femoral artery and Omniflush catheter followed. We then shot an angiogram of the left lower extremity showing that the common femoral artery, the profunda, and the SFA were patent, the popliteal artery was patent, but the patient had severe stenosis of about 80% to 90% in tandem lesions in the proximal portion of the anterior tibial artery, and the anterior tibial artery and the peroneal artery were the main runoffs into the foot. At this point, we placed our 0.035 stiff guidewire into the SFA, removed the Omniflush catheter, placed a 6 x 45 crossover sheath, 5000 units of IV heparin were then administered to the patient. We then went ahead and brought our wire down and we were to selectively get into the anterior tibial artery and get our wire across using a Quick-Cross catheter, we were to get our wire across all the tandem stenoses. We then exchanged for a poly wire. We then went ahead and used a 2.5 x 80 Ultraverse balloon, and we were able to balloon the anterior tibial artery from its origin all the way to the mid anterior tibial artery. Completion angiogram now showed that the anterior tibial artery was patent and there was good runoff from the anterior tibial artery into the foot. Patient now had a palpable DP pulse. At this point, we brought our sheath up and over. Starclose device was deployed in the left common femoral artery. Pressure was held for 5 minutes, after there was no more bleeding. Areas were then dried and Dermabond was placed. Patient tolerated the procedure without complications. Patient was transferred to PACU in stable condition with a palpable pulse. MOHINDER SÁNCHEZ DO [id number]
== END 2017-06-09 17:16 | DRG 253 ==
LOC: JER 21:50 → INTOOBSV 05-31 01:44 → JERBED 05-31 01:44 → J8W 05-31 02:52 → OBSVTOIN 06-02 09:21
PROVIDERS: ADMIT Internal Medicine; ATTEND Internal Medicine
PROC: B41GZZZ Fluoroscopy of Left Lower Extremity Arteries (ICD-10-PCS; 2017-06-07)
PROC: 3E033GC Introduction of Other Therapeutic Substance into Peripheral Vein, Percutaneous Approach (ICD-10-PCS; 2017-06-07)
PROC: 047Q3ZZ Dilation of Left Anterior Tibial Artery, Percutaneous Approach (ICD-10-PCS; principal; 2017-06-07 15:00)
DX: I70.262 Atherosclerosis of native arteries of extremities with gangrene, left leg (principal); C94.6 Myelodysplastic disease, not elsewhere classified; N17.9 Acute kidney failure, unspecified; E87.0 Hyperosmolality and hypernatremia; M10.9 Gout, unspecified; N18.3 Chronic kidney disease, stage 3 (moderate); D64.9 Anemia, unspecified; E83.39 Other disorders of phosphorus metabolism
CPT/HCPCS: 36415; 71045-TC-FY; 73610-TC-LT-FY; 73630-TC-LT; 73718-LT; 80048; 80053; 81003; 82436; 82570; 82728; 83540; 83550; 83605; 83735; 84100; 84133; 84300; 84550; 85025; 85027; 85610; 85651; 86140; 87040; 93005; 93010; 93926-TC; 93971-TC; 94760; 97116-GP; 97161-GP; 99282-25; G0378; J1644; J7030; J8999

== ENCOUNTER 2018-05-17 16:06 | Inpatient (IN) | payer OTHER ==
--- NOTE | 2018-05-17 18:05 | PDOC ---
History of Present Illness - General Chief Complaint: Wound Stated Complaint: WOUND Time Seen by Provider: 05/17/18 17:09 History Source: Patient Past History - Past Medical History Allergies/Adverse Reactions: Allergies Allergy/AdvReac Type Severity Reaction Status Date / Time No Known Allergies Allergy Verified 01/22/18 10:42 Home Medications: Ambulatory Orders Aspirin [ASA -] 81 mg PO DAILY 02/23/14 Allopurinol [Zyloprim -] 100 mg PO DAILY 05/30/17 Hydroxyurea [Hydrea 500Mg Capsule -] 500 mg PO DAILY #60 capsule 06/08/17 Clopidogrel Bisulfate [Plavix] 75 mg PO DAILY #30 tablet 12/05/17 oxyCODONE HCL [Roxicodone -] 5 mg PO Q8H PRN #30 tablet MDD 3 02/03/18 Albuterol Sulfate Inhaler - [Ventolin HFA Inhaler -] 1 puff IH TID 03/29/18 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) Cardiac Disorders: Yes (PVD, CAD) COPD: No CHF: No Dementia: Yes GI Disorders: Yes (H/O Diverticulitis) Disorders: Yes (CKD) Hypercholesterolemia: Yes Thyroid Disease: Yes (hypo) - Surgical History Abdominal Surgery: Yes Cholecystectomy: Yes - Immunization History Immunization Up to Date: No - Suicide/Smoking/Psychosocial Hx Smoking Status: No Smoking History: Unknown if ever smoked Have you smoked in the past 12 months: No Number of Cigarettes Smoked Daily: 0 Information on smoking cessation initiated: No Hx Alcohol Use: No Drug/Substance Use Hx: No Substance Use Type: None Hx Substance Use Treatment: No Review of Systems - Review of Systems Constitutional: No: Chills, Fever, Malaise, Weakness *Physical Exam - Vital Signs Last Vital Signs Temp Pulse Resp BP Pulse Ox 98.1 F 99 H 16 149/66 98 05/17/18 16:24 05/17/18 16:24 05/17/18 16:24 05/17/18 16:24 05/17/18 16:24 - Physical Exam General Appearance: Yes: Appropriately Dressed. No: Apparent Distress HEENT: positive: Normal Voice Neck: positive: Supple Respiratory/Chest: negative: Respiratory Distress Extremity: positive: Other (left 3rd toe gangrenous with granulation tissue, + diffuse tenderness to palpation to L foot with some minimal swelling, no sig erythema, unable to palpate pedal pulses ) Integumentary: positive: Dry, Warm Neurologic: positive: Alert, Normal Mood/Affect ED Treatment Course - LABORATORY CBC & Chemistry Diagram: 05/17/18 18:00 05/17/18 18:00 - RADIOLOGY Radiology Studies Ordered: Category Date Time Status CHEST X-RAY PORTABLE* [RAD] Stat Radiology 05/17/18 17:52 Ordered Medical Decision Making - Medical Decision Making 05/17/18 18:02 88 yo M, prior ETOH abuse, dementia, myelofibrosis, CKD (stage 3), PVD s/p LLE angioplasty, s/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 Patient reports significant pain, but unable to verbalize if it is worse. No fever or chills. Daughter at bedside giving most of hx See exam Cellulitis/gangrene of L 3rd toe No systemic sxs Stable -pain control -abx (mrsa and enterococcus on wound cx 04/24, both sen to vanco) -labs -XR -vasc c/s -admit 05/17/18 18:[address] Resendiz of vascular who was made aware of no palpable pedal pulse of LLE. Would hold off on imaging now per M.D. States plan is to take patient to the OR for amputation of left 3rd toe. *DC/Admit/Observation/Transfer Diagnosis at time of Disposition: Gangrene of toe of left foot - Discharge Dispostion Condition at time of disposition: Fair Decision to Admit order: Yes - Referrals Referrals: Sayda Gong MD [Primary Care Provider] - - Patient Instructions - Post Discharge Activity
[2018-05-17] MEDS ORDERED: VANCOMYCIN 1,000 MG in DEXTROSE 5%-WATER - 250 ML IVPB ONE (18:07)
[2018-05-17] MEDS ORDERED: VANCOMYCIN 1 GRAM (PRE-DOCKED) 1,000 MG/250 ML BAG IVPB ONE (18:13)
[2018-05-17] MEDS ORDERED: SODIUM CHLORIDE 500 ML IV STA (18:17)
[2018-05-17 18:24] LABS: BASO % 3.4 % (0-2.0); HEMATOCRIT 29.2 % (35.4-49); HEMOGLOBIN 9.6 GM/dL (11.7-16.9); LYMPH % 9.7 % (8-40); MCH 37.6 pg (25.7-33.7); MONO % 9.8 % (3.8-10.2); NEUT % 74.1 % (42.8-82.8); PLATELET COUNT 604 K/MM3 (134-434); RBC 2.57 M/mm3 (4.00-5.60); RDW 16.7 % (11.9-15.9); WHITE BLOOD COUNT 9.3 K/mm3 (4.0-10.0)
[2018-05-17 18:51] LABS: ALBUMIN 3.5 g/dl (3.4-5.0); ALK PHOS 93 U/L (45-117); ANION GAP 7 MMOL/L (8-16); BILIRUBIN,TOTAL 0.2 mg/dL (0.2-1); BLOOD UREA NITROGEN 37 mg/dL (7-18); CALCIUM 8.2 mg/dL (8.5-10.1); CHLORIDE 105 mmol/L (98-107); CO2 27 mmol/L (21-32); CREATININE 1.8 mg/dL (0.55-1.3); GLUCOSE,RANDOM 92 mg/dL (74-106); POTASSIUM 4.8 mmol/L (3.5-5.1); SGOT/AST 19 U/L (15-37); SGPT/ALT 12 U/L (13-61); SODIUM 139 mmol/L (136-145); TOT PROT 6.2 g/dl (6.4-8.2)
[2018-05-17 19:54] LABS: ANISOCYTOSIS 2+
[2018-05-17 19:55] LABS: PLATELET ESTIMATE INCREASED
--- NOTE | 2018-05-17 19:58 | PN ---
Teaching Attending Note Name of Resident: Jun Marcos ATTENDING PHYSICIAN STATEMENT I saw and evaluated the patient. I reviewed the resident's note and discussed the case with the resident. I agree with the resident's findings and plan as documented. SUBJECTIVE: Patient is an 88 year old man with PMH of ETOH abuse, dementia, myelofibrosis, CKD (stage 3), PVD s/p LLE angioplasty, s/p amputation of L 2nd toe 01/23, sent from Wound clinic by Dr Otero of podiatry to the ER for gangrene of left 3rd toe with plans for amputation. Patient reports significant pain, but unable to verbalize if it is worse. No fever or chills. Daughter at bedside giving most of history. MRSA and enterococcus found on wound culture on 04/24 sensitive to vancomycin. ER staff discussed with Dr. Resendiz of vascular who was made aware of no palpable pedal pulse of LLE. Would hold off on imaging now per M.D. States plan is to take patient to the OR for amputation of left 3rd toe. OBJECTIVE: Alert Vital Signs Period Temp Pulse Resp BP Sys/Queen Pulse Ox Last 24 Hr 98.1 F 99 16 149/66 98 HEENT: No Jaundice, eye redness or discharge, PERRLA, EOMI. Normocephalic, atraumatic. External ears are normal; hearing is impaired. No nasal discharge. Neck: Supple, nontender. No palpable adenopathy or thyromegaly. No JVD Chest: Good effort. Clear to auscultation and percussion. Heart: Regular. No S3, rub or murmur Abdomen: Not distended, soft, nontender and no HSM. No rebound or guarding. Normal bowel sounds. Ext: Peripheral pulses intact. No leg edema. Left 3rd toe gangrenous with eschar and purulent discharge, tender, swollen, no significant erythema, unable to palpate pedal pulses. Skin: Warm and dry. No petechiae, rash or ecchymosis. Neuro: Alert. Oriented x3. CN 2-12 grossly intact. Sensation grossly intact in all four extremities and DTR are symmetric. Psych: Appropriate mood and affect. Good insight. Home Medications Medication Instructions Recorded Aspirin [ASA -] 81 mg PO DAILY 02/23/14 Allopurinol [Zyloprim -] 100 mg PO DAILY 05/30/17 Hydroxyurea [Hydrea 500Mg Capsule 500 mg PO DAILY #60 capsule 06/08/17 -] Clopidogrel Bisulfate [Plavix] 75 mg PO DAILY #30 tablet 12/05/17 Abnormal Lab Results 05/17/18 05/17/18 18:00 18:00 RBC 2.57 L Hgb 9.6 L Hct 29.2 L D MCV 114.0 H MCH 37.6 H RDW 16.7 H Plt Count 604 H Basophils % 3.4 H Anion Gap 7 L BUN 37 H Creatinine 1.8 H Calcium 8.2 L ALT 12 L Total Protein 6.2 L Current Medications Generic Name Dose Route Start Last Admin Trade Name Freq PRN Reason Stop Dose Admin Sodium Chloride 1,000 mls @ 75 mls/hr 05/17/18 21:00 Normal Saline - IV ASDIR [facility] Linezolid 600 mg/ 300 mls @ 300 mls/hr 05/18/18 10:00 Miscellaneous IVPB Q12H [facility] Protocol Linezolid 600 mg in 300 mls @ 300 mls/hr 05/18/18 10:00 Zyvox 600 Mg Premix Bag (Restricted To Id) - IVPB 05/18/18 22:59 BID [facility] ASSESSMENT AND PLAN: 1. Left 3rd toe cellulitis and gangrene - Based on historical wound culture, got vancomycin in the ER, but will switch to Zyvox in view of CKD. Keep patient NPO for possible amputation tomorrow, give IV NS at 40 ml/hour and hold plavix. EKG pending. Consult ID. 2. CKD - Cause unclear. Will consult nephrology and avoid nephrotoxic agents such as NSAIDS, aminoglycosides, contrast dyes and certain Alternative medicine products. 3. Anemia - Likely multifactorial including CKD. Will do basic anemia work up including serial stool guaiacs, reticulocyte count and iron studies. Would benefit from Procrit therapy once iron replete. 4. DVT prophylaxis - Heparin 5000u sq tid. 5. Advance directives - Full code
--- NOTE | 2018-05-17 20:33 | HP ---
CHIEF COMPLAINT: Sent by podiatry for Toe Gangrene/Cellulites PCP: Dr Rocío Gong HISTORY OF PRESENT ILLNESS: Pt is an 88 y/o gentleman with a significant past medical history of Myelofibrosis, CKD (stage 3), PVD s/p LLE angioplasty, s/p amputation of L 2nd toe 01/23, Gout, CKD, PVD, Dementia, Hypothyroidism, toe gangrene who was sent to the ED by his autographer due to gangrene of his left third toe observed today in wound care clinic. Pt currently asymptomatic. Pt had a positive wound culture in April of this year for MRSA and enterococcus. Sensitivity revealed susceptibility of organisms to Vancomycin and Linezolid. Vascular Surgery contacted in ED, does not recommend any imaging at this juncture; aware pt is scheduled for toe amputation tomorrow and will f/u with pt. Furthermore, pt apparently on plavix and aspirin but does not know the reason why. States he was told to take these medications by his doctor. Denies chest pain, shortness of breath, nausea/vomiting, or fevers. ER course was notable for: (1) Vancomycin 1 G (2) NS Bolus Allergies No Known Allergies Allergy (Verified 05/17/18 18:57) HOME MEDICATIONS: Home Medications Medication Instructions Recorded Aspirin [ASA -] 81 mg PO DAILY 02/23/14 Allopurinol [Zyloprim -] 100 mg PO DAILY 05/30/17 Hydroxyurea [Hydrea 500Mg Capsule 500 mg PO DAILY #60 capsule 06/08/17 -] Clopidogrel Bisulfate [Plavix] 75 mg PO DAILY #30 tablet 12/05/17 REVIEW OF SYSTEMS CONSTITUTIONAL: Absent: fever, chills, diaphoresis, generalized weakness, malaise, loss of appetite, weight change HEENT: Absent: rhinorrhea, nasal congestion, throat pain, throat swelling, difficulty swallowing, mouth swelling, ear pain, eye pain, visual changes CARDIOVASCULAR: Absent: chest pain, syncope, palpitations, irregular heart rate, lightheadedness , peripheral edema RESPIRATORY: Absent: cough, shortness of breath, dyspnea with exertion, orthopnea, wheezing, stridor, hemoptysis GASTROINTESTINAL: Absent: abdominal pain, abdominal distension, nausea, vomiting, diarrhea, constipation, melena, hematochezia GENITOURINARY: Absent: dysuria, frequency, urgency, hesitancy, hematuria, flank pain, genital pain MUSCULOSKELETAL: Absent: myalgia, arthralgia, joint swelling, back pain, neck pain SKIN: PRESENT: open wound left third toe, painful HEMATOLOGIC/IMMUNOLOGIC: Absent: easy bleeding, easy bruising, lymphadenopathy, frequent infections ENDOCRINE: Absent: unexplained weight gain, unexplained weight loss, heat intolerance, cold intolerance NEUROLOGIC: Absent: headache, focal weakness or paresthesias, dizziness, unsteady gait, seizure, mental status changes, bladder or bowel incontinence PSYCHIATRIC: Absent: anxiety, depression, suicidal or homicidal ideation, hallucinations. PHYSICAL EXAMINATION Vital Signs - 24 hr 05/17/18 16:24 Temperature 98.1 F Pulse Rate 99 H Respiratory 16 Rate Blood Pressure 149/66 O2 Sat by Pulse 98 Oximetry (%) GENERAL: No acute distress HEAD: Atraumatic/Normocephalic EYES: EOMI Sclera Clear EARS, NOSE, THROAT:MMM NECK: Supple LUNGS:CTAB HEART: RRRR nl S1S2 ABDOMEN: NDNT MUSCULOSKELETAL: FROM LOWER EXTREMITIES: Left 3rd toe purulent discharge, black eschar. TTP NEUROLOGICAL: Cranial nerves II-XII intact. Normal speech. PSYCHIATRIC: Cooperative. Good eye contact. Appropriate mood and affect. Laboratory Results - last 24 hr 05/17/18 05/17/18 05/17/18 18:00 18:00 18:00 WBC 9.3 RBC 2.57 L Hgb 9.6 L Hct 29.2 L D MCV 114.0 H MCH 37.6 H MCHC 33.0 RDW 16.7 H Plt Count 604 H MPV 9.0 Absolute Neuts (auto) 6.9 Neutrophils % 74.1 Lymphocytes % 9.7 D Monocytes % 9.8 Eosinophils % 3.0 Basophils % 3.4 H Nucleated RBC % 0 Platelet Estimate Increased Anisocytosis 2+ ESR Sodium 139 Potassium 4.8 Chloride 105 Carbon Dioxide 27 Anion Gap 7 L BUN 37 H Creatinine 1.8 H Creat Clearance w eGFR 35.95 Random Glucose 92 Calcium 8.2 L Total Bilirubin 0.2 AST 19 ALT 12 L Alkaline Phosphatase 93 C-Reactive Protein < 0.3 Total Protein 6.2 L Albumin 3.5 Blood Type Cancelled Antibody Screen Cancelled 05/17/18 18:00 WBC RBC Hgb Hct MCV MCH MCHC RDW Plt Count MPV Absolute Neuts (auto) Neutrophils % Lymphocytes % Monocytes % Eosinophils % Basophils % Nucleated RBC % Platelet Estimate Anisocytosis ESR 16 Sodium Potassium Chloride Carbon Dioxide Anion Gap BUN Creatinine Creat Clearance w eGFR Random Glucose Calcium Total Bilirubin AST ALT Alkaline Phosphatase C-Reactive Protein Total Protein Albumin Blood Type Antibody Screen ASSESSMENT/PLAN: Pt is an 88 y/o gentleman with a significant past medical history of Myelofibrosis, CKD (stage 3), PVD s/p LLE angioplasty, s/p amputation of L 2nd toe 01/23, Gout, CKD, PVD, Dementia, Hypothyroidism, toe gangrene who was sent to the ED by his autographer due to gangrene of his left third toe observed today in wound care clinic #Left 3rd Toe Gangrene -Wound culture from previous toe amputated + for MRSA, C. Diphtheroid, Enterococcus. - Given Vancomycin 1 time dose in ED - Will place on Linezolid in am in light of CKD - OR tomorrow am for Amputation of left 3rd toe w/ Dr Otero. - NPO -Coags -Type/Screen -Hold ASA/Plavix. According to Pharmacy ([facility]), pt last picked up Plavix January of 2018. -Dr Resendiz aware of absence of DP pulse on left foot. Does not want any imaging performed. #Myelofibrosis -Cont Hydroxyurea #CKD 3 -Cr 1.8. Baseline ~ 2.0 -Repeat BMP in am #Hypothyroidism On levothyroxine 25 mcg. Prescription last picked up July 2017. # Gout - Allopurinol. Last picked up 04/2018 # Macrocytic Anema -MCV 114 #FEN NS@42cc/hr Monitor Electrolytes NPO #DVT ppx SCD's #Dispo Med-Surg Visit type - Emergency Visit Emergency Visit: Yes ED Registration Date: 05/17/18 Care time: The patient presented to the Emergency Department on the above date and was hospitalized for further evaluation of their emergent condition. - New Patient This patient is new to me today: Yes Date on this admission: 05/18/18 - Critical Care Critical Care patient: No
[2018-05-17] MEDS ORDERED: SODIUM CHLORIDE 1,000 ML IV SCH (21:00)
[2018-05-17] MEDS: SODIUM CHLORIDE 1,000 ML IV SCH (23:30)
[2018-05-18 05:49] LABS: BASO % 3.5 % (0-2.0); EOS % 4.2 % (0-4.5); HEMATOCRIT 26.7 % (35.4-49); HEMOGLOBIN 8.9 GM/dL (11.7-16.9); LYMPH % 11.3 % (8-40); MCH 37.9 pg (25.7-33.7); MCHC 33.4 g/dl (32.0-35.9); MEAN CELL VOLUME 113.5 fl (80-96); MEAN PLT VOLUME 8.8 fl (7.5-11.1); MONO % 8.3 % (3.8-10.2); NEUT % 72.7 % (42.8-82.8); PLATELET COUNT 518 K/MM3 (134-434); RBC 2.35 M/mm3 (4.00-5.60); RDW 16.9 % (11.9-15.9); WHITE BLOOD COUNT 7.5 K/mm3 (4.0-10.0)
[2018-05-18 06:02] LABS: INR 1.08 (0.83-1.09); PROTHROMBIN TIME (PATIENT) 12.7 SEC (9.7-13.0)
[2018-05-18 06:05] LABS: ACTIVATED PTT 31.1 SECONDS (25.2-36.5)
[2018-05-18 06:14] LABS: ANION GAP 7 MMOL/L (8-16); BLOOD UREA NITROGEN 39 mg/dL (7-18); CALCIUM 7.8 mg/dL (8.5-10.1); CHLORIDE 107 mmol/L (98-107); CO2 27 mmol/L (21-32); CREATININE 1.8 mg/dL (0.55-1.3); GLUCOSE,RANDOM 107 mg/dL (74-106); PHOSPHOROUS 3.7 mg/dL (2.5-4.9); POTASSIUM 4.5 mmol/L (3.5-5.1); SODIUM 141 mmol/L (136-145)
[2018-05-18] MEDS ORDERED: LINEZOLID 600 MG PREMIX BAG 600 MG in PREMIX 300 IVPB SCH (10:00)
[2018-05-18] MEDS ORDERED: LINEZOLID 600 MG PREMIX BAG 600 MG/300 ML BAG IVPB SCH (10:00)
--- NOTE | 2018-05-18 10:24 | EKG ---
Test Reason : Blood Pressure : / mmHG Vent. Rate : 072 BPM Atrial Rate : 072 BPM P-R Int : 202 ms QRS Dur : 074 ms QT Int : 386 ms P-R-T Axes : 020 007 009 degrees QTc Int : 422 ms NORMAL SINUS RHYTHM NORMAL ECG WHEN COMPARED WITH ECG OF 22-JAN-2018 13:57, NO SIGNIFICANT CHANGE WAS FOUND Confirmed by MARTIN WALKER MD ([id number]) on 05/18/2018 10:24:21 AM Referred By: Confirmed By:MARTIN WALKER MD
[2018-05-18 11:02] LABS: PLATELET ESTIMATE INCREASED
--- NOTE | 2018-05-18 11:26 | PN ---
Progress Note (short form) - Note Progress Note: pt seen/ examined in er awake/comfortable pleasantly confused denies pain afebrile Vital Signs Temp 97.8 F 05/18/18 07:53 Pulse 68 05/18/18 07:53 Resp 16 05/18/18 07:53 BP 135/61 05/18/18 07:53 Pulse Ox 96 05/18/18 07:53 Intake & Output 05/17/18 05/17/18 05/18/18 11:59 23:59 11:59 Weight 135 lb Other: Height 5 ft 5 in Body Mass Index (BMI) 22.4 Weight Measurement Method Est/Stated by Patient Active Medications Linezolid 600 mg/ (Miscellaneous) 300 mls @ 300 mls/hr IVPB Q12H [facility]; Protocol Linezolid (Zyvox 600 Mg Premix Bag (Restricted To Id) -) 600 mg in 300 mls @ 300 mls/hr IVPB BID [facility] Stop: 05/18/18 22:59 Last Admin: 05/18/18 11:10 Dose: 300 mls/hr Sodium Chloride (Normal Saline -) 1,000 mls @ 42 mls/hr IV ASDIR [facility] Last Admin: 05/17/18 23:30 Dose: 42 mls/hr CBC, BMP 05/18/18 05:15 05/18/18 05:15 x rays- reviewed physical exam S1 S2 RRR Lungs ---clear Abd- soft, non tender No edema Gangrene third toe neuro--- awake assessment and plan Clinically stable Continue present care Antibiotics Fluids Podiatry follow--- likely OR today discussed with nursing staff also
[2018-05-18 12:15] LABS: PH,URINE 5.5 (5.0-8.0); URINE APPEARANCE Clear; URINE BILIRUBIN Negative (NEGATIVE); URINE COLOR Yellow; URINE GLUCOSE (UA) Negative (NEGATIVE); URINE KETONE Negative (NEGATIVE); URINE LEUK ESTERASE Negative (NEGATIVE); URINE NITRITE Negative (NEGATIVE); URINE PROTEIN Negative (NEGATIVE); URINE UROBILINOGEN 0.2 mg/dL (0.2-1.0)
--- NOTE | 2018-05-18 12:53 | CON.ID ---
Consult Consult Specialty:: infectious diseases Referred by:: hospitalist Reason for Consultation:: wound infection,gangrene of the 3rd toe - History of Present Illness Chief Complaint: pain in the left toe History of Present Illness: 88 y/o gentleman with a significant past medical history of Myelofibrosis, CKD ( stage 3), PVD s/p LLE angioplasty, s/p amputation of L 2nd toe 01/23, Gout, CKD, PVD, Dementia, Hypothyroidism, toe gangrene who was sent to the ED by his cart attendant due to gangrene of his left third toe Pt currently asymptomatic. Pt had a positive wound culture in April of this year for MRSA and enterococcus. Sensitivity revealed susceptibility of organisms to Vancomycin and Linezolid. Vascular Surgery contacted in ED, does not recommend any imaging at this juncture; aware pt is scheduled for toe amputation patient is clinically stable with no complaints - History Source History Provided By: Patient, Medical Record Limitations to Obtaining History: Other (very hard of hearing) - Past Medical History [employer]GER: Yes: Dementia - Past Surgical History Past Surgical History: Yes: None - Alcohol/Substance Use Hx Alcohol Use: No - Smoking History Smoking history: Unknown if ever smoked Have you smoked in the past 12 months: No Aproximately how many cigarettes per day: 0 Home Medications - Allergies Allergies/Adverse Reactions: Allergies Allergy/AdvReac Type Severity Reaction Status Date / Time No Known Allergies Allergy Verified 05/17/18 18:57 - Home Medications Home Medications: Ambulatory Orders Aspirin [ASA -] 81 mg PO DAILY 02/23/14 Allopurinol [Zyloprim -] 100 mg PO DAILY 05/30/17 Hydroxyurea [Hydrea 500Mg Capsule -] 500 mg PO DAILY #60 capsule 06/08/17 Clopidogrel Bisulfate [Plavix] 75 mg PO DAILY #30 tablet 12/05/17 Albuterol Sulfate [Proair Hfa] 8.5 gm AD 05/17/18 Furosemide 20 mg PO DAILY 05/17/18 Levothyroxine [Synthroid -] 25 mcg PO DAILY 05/17/18 Pantoprazole Sodium 40 mg PO DAILY 05/17/18 Review of Systems - Review of Systems Constitutional: reports: No Symptoms Eyes: reports: No Symptoms HENT: reports: No Symptoms Neck: reports: No Symptoms Cardiovascular: reports: No Symptoms Respiratory: reports: No Symptoms Gastrointestinal: reports: No Symptoms Genitourinary: reports: No Symptoms Musculoskeletal: reports: No Symptoms Integumentary: reports: Other (change in color of the 3rd toe) Endocrine: reports: No Symptoms Hematology/Lymphatic: reports: No Symptoms Psychiatric: reports: No Symptoms Physical Exam Vital Signs: Vital Signs Temperature 97.6 F 05/18/18 11:26 Pulse Rate 66 05/18/18 11:26 Respiratory Rate 18 05/18/18 11:26 Blood Pressure 150/70 05/18/18 11:26 O2 Sat by Pulse Oximetry (%) 96 05/18/18 11:26 Constitutional: Yes: No Distress, Calm, Other (very hard of hearing) Neck: Yes: Supple, Trachea Midline Cardiovascular: Yes: Regular Rate and Rhythm Respiratory: Yes: Regular, CTA Bilaterally Gastrointestinal: Yes: Normal Bowel Sounds, Soft Musculoskeletal: Yes: WNL Extremities: Yes: Other Wound/Incision: Yes: Other (gangrene of the 3rd toe,wound infection) Neurological: Yes: Alert, Other (hard of hearing) Psychiatric: Yes: Alert, Oriented Labs: CBC, BMP 05/18/18 05:15 05/18/18 05:15 Imaging - Results Chest X-ray: Report Reviewed, Image Reviewed X-ray: Report Reviewed, Image Reviewed Assessment/Plan will start patient on vanco gangrene of the 3rd toe multiple medical problems plan will start on vanco will need amputation await for all cx reports await for wound cx rest as per the team
--- NOTE | 2018-05-18 14:21 | CONSULT ---
Consult Consult Specialty:: podiatry Reason for Consultation:: gangarene exposed bone medial 3rd toe left - History of Present Illness Chief Complaint: gangarene, om, foul smelling wound History of Present Illness: Chronic on left foot. 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: Dementia - Past Surgical History Past Surgical History: Yes: None - Alcohol/Substance Use Hx Alcohol Use: No - Smoking History Smoking history: Unknown if ever smoked Have you smoked in the past 12 months: No Aproximately how many cigarettes per day: 0 Home Medications - Allergies Allergies/Adverse Reactions: Allergies Allergy/AdvReac Type Severity Reaction Status Date / Time No Known Allergies Allergy Verified 05/17/18 18:57 - Home Medications Home Medications: Ambulatory Orders Aspirin [ASA -] 81 mg PO DAILY 02/23/14 Allopurinol [Zyloprim -] 100 mg PO DAILY 05/30/17 Hydroxyurea [Hydrea 500Mg Capsule -] 500 mg PO DAILY #60 capsule 06/08/17 Clopidogrel Bisulfate [Plavix] 75 mg PO DAILY #30 tablet 12/05/17 Albuterol Sulfate [Proair Hfa] 8.5 gm AD 05/17/18 Furosemide 20 mg PO DAILY 05/17/18 Levothyroxine [Synthroid -] 25 mcg PO DAILY 05/17/18 Pantoprazole Sodium 40 mg PO DAILY 05/17/18 Physical Exam Vital Signs: Vital Signs Temperature 97.6 F 05/18/18 11:26 Pulse Rate 66 05/18/18 11:26 Respiratory Rate 18 05/18/18 11:26 Blood Pressure 150/70 05/18/18 11:26 O2 Sat by Pulse Oximetry (%) 96 05/18/18 11:26 Extremities: Yes: Other (+gangarene, +om, +foul odor) Labs: CBC, BMP 05/18/18 05:15 05/18/18 05:15 Assessment/Plan gangarene, om, awaiting vascular eval and clearance to schedule toe amputation. santyl dressing daily.vascular and id on case. will follow.
--- NOTE | 2018-05-18 16:40 | PN ---
Progress Note (short form) - Note Progress Note: Vascular Surgery Pt seen and examined in wound care clinic . Pt with left third toe gangrene now. 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 Multiple CO2 angiograms done on pt with angioplasty. Pt will now need third toe amputation. Spoke to daughter at length and she understands that the toe might not heal. Can do CO2 angio next week prior to amputation to see if we can bring more blood flow to foot. Please optimize. Mohinder Resendiz DO
[2018-05-18] MEDS ORDERED: PT OWN MED DRAWER 7, Y5N ONE (17:35)
[2018-05-18] MEDS: COLLAGENASE CLOSTRIDIUM HIST. 30 GRAMS TUBE TP SCH (17:40)
[2018-05-18] MEDS: VANCOMYCIN HCL 1,250 MG in DEXTROSE 5%-WATER - 250 ML IVPB SCH (17:40)
[2018-05-19] MEDS: COLLAGENASE CLOSTRIDIUM HIST. 30 GRAMS TUBE TP SCH (11:16)
--- NOTE | 2018-05-19 12:41 | PN ---
Progress Note (short form) - Note Progress Note: Pt examined No complaints Daughter at bedside- Jodi -- HCP Vital Signs - 24 hr 05/18/18 05/18/18 05/19/18 16:30 20:00 07:12 Temperature 98 F 98.2 F 98.4 F Pulse Rate 78 78 64 Respiratory 18 22 H 20 Rate Blood Pressure 159/80 114/58 L 148/59 L 05/19/18 10:18 Temperature 98.5 F Pulse Rate 66 Respiratory Rate Blood Pressure 131/51 L Current Medications Generic Name Dose Route Start Last Admin Trade Name Frerenetta PRN Reason Stop Dose Admin Collagenase 1 applic 05/18/18 14:30 05/19/18 11:16 Santyl - TP 1 applic DAILY [facility] Administration Protocol Sodium Chloride 1,000 mls @ 42 mls/hr 05/17/18 22:45 05/17/18 23:30 Normal Saline - IV 42 mls/hr ASDIR [facility] Administration Vancomycin HCl 1,250 mg/ 250 mls @ 250 mls/2 hr 05/18/18 18:00 05/18/18 17:40 Dextrose IVPB 250 mls/2 hr Q24H [facility] Administration Protocol x rays- reviewed physical exam S1 S2 RRR Lungs ---clear Abd- soft, non tender No edema dressing in foot neuro--- awake assessment and plan Clinically stable Continue present care Antibiotics MRSA wound Fluids plan for CO2 angiogram as per Vascular Problem List - Problems (1) Gangrene of toe of left foot Code(s): I96 - GANGRENE, NOT ELSEWHERE CLASSIFIED (2) Absent pulse in lower extremity Code(s): R09.89 - OTH SYMPTOMS AND SIGNS INVOLVING THE CIRC AND RESP SYSTEMS (3) Acute kidney injury superimposed on chronic kidney disease Code(s): N17.9 - ACUTE KIDNEY FAILURE, UNSPECIFIED; N18.9 - CHRONIC KIDNEY DISEASE, UNSPECIFIED (4) Dementia Code(s): F03.90 - UNSPECIFIED DEMENTIA WITHOUT BEHAVIORAL DISTURBANCE
[2018-05-19] MEDS ORDERED: ACETAMINOPHEN 325 MG TABLET (FP) PO PRN (13:27)
[2018-05-19] MEDS: PANTOPRAZOLE 40 MG TABLET (FP) PO SCH (13:48)
[2018-05-19] MEDS: ALLOPURINOL 100 MG TABLET (FP) PO SCH (13:48)
[2018-05-19] MEDS ORDERED: PT OWN MED DRAWER 7, Y5N ONE (18:41)
[2018-05-19] MEDS: VANCOMYCIN HCL 1,250 MG in DEXTROSE 5%-WATER - 250 ML IVPB SCH (18:47)
--- NOTE | 2018-05-19 19:35 | PN ---
Progress Note, Physician History of Present Illness: Events noted. Pt is alert, without distress. States he has pain in Lt foot. Remains afebrile, tolerating antibiotics. - Current Medication List Current Medications: Active Medications Acetaminophen (Tylenol -) 650 mg PO Q6H PRN PRN Reason: FEVER Last Admin: 05/19/18 19:06 Dose: 650 mg Allopurinol (Zyloprim -) 100 mg PO DAILY [facility] Last Admin: 05/19/18 13:48 Dose: 100 mg Collagenase (Santyl -) 1 applic TP DAILY [facility]; Protocol Last Admin: 05/19/18 11:16 Dose: 1 applic Sodium Chloride (Normal Saline -) 1,000 mls @ 42 mls/hr IV ASDIR [facility] Last Admin: 05/17/18 23:30 Dose: 42 mls/hr Vancomycin HCl 1,250 mg/ (Dextrose) 250 mls @ 250 mls/2 hr IVPB Q24H [facility]; Protocol Last Admin: 05/19/18 18:47 Dose: 250 mls/2 hr Levothyroxine Sodium (Synthroid -) 25 mcg PO AM [facility] Pantoprazole Sodium (Protonix -) 40 mg PO DAILY [facility] Last Admin: 05/19/18 13:48 Dose: 40 mg - Objective Vital Signs: Vital Signs Temperature 98.5 F 05/19/18 10:18 Pulse Rate 66 05/19/18 10:18 Respiratory Rate 20 05/19/18 07:12 Blood Pressure 131/51 L 05/19/18 10:18 O2 Sat by Pulse Oximetry (%) 96 05/18/18 11:26 Constitutional: Yes: No Distress Cardiovascular: Yes: Regular Rate and Rhythm Respiratory: Yes: Regular Gastrointestinal: Yes: Normal Bowel Sounds, Soft Wound/Incision: Yes: Other (Lt 3rd toe gangrene, pt refusing dressing removal) Neurological: Yes: Alert Labs: CBC, BMP 05/18/18 05:15 05/18/18 05:15 INR, PTT INR 1.08 (0.83-1.09) 05/18/18 05:15 Microbiology 05/18/18 05:15 Foot - Left Gram Stain - Final 05/18/18 05:15 Foot - Left Wound Culture - Preliminary Presumptive Mrsa (Pbp2a Pos) Staphylococcus Coagulase Neg 05/18/18 00:15 Blood - Peripheral Venous Blood Culture - Preliminary NO GROWTH OBTAINED AFTER 24 HOURS, INCUBATION TO CONTINUE FOR 4 DAYS. 05/18/18 00:15 Blood - Peripheral Venous Blood Culture - Preliminary NO GROWTH OBTAINED AFTER 24 HOURS, INCUBATION TO CONTINUE FOR 4 DAYS. Problem List - Problems (1) Gangrene of toe of left foot Code(s): I96 - GANGRENE, NOT ELSEWHERE CLASSIFIED (2) Acute kidney injury superimposed on chronic kidney disease Code(s): N17.9 - ACUTE KIDNEY FAILURE, UNSPECIFIED; N18.9 - CHRONIC KIDNEY DISEASE, UNSPECIFIED (3) Dementia Code(s): F03.90 - UNSPECIFIED DEMENTIA WITHOUT BEHAVIORAL DISTURBANCE (4) Peripheral vascular disease Code(s): I73.9 - PERIPHERAL VASCULAR DISEASE, UNSPECIFIED Assessment/Plan Lt toe gangrene _ MRSA on recent cultures PVD s/p LLE angioplasty CKD myelofibrosis dementia -- continue Vancomycin, monitor renal function, obtain trough level prior to 4th dose -- awaiting amputation -- continue wound care vitals currently stable, pt afebrile
[2018-05-20] MEDS: LEVOTHYROXINE NA 25 MCG TABLET (FP) PO SCH (06:05)
[2018-05-20 08:25] LABS: EOS % 5.4 % (0-4.5); HEMATOCRIT 25.6 % (35.4-49); HEMOGLOBIN 8.5 GM/dL (11.7-16.9); LYMPH % 11.8 % (8-40); MCH 37.6 pg (25.7-33.7); MCHC 33.3 g/dl (32.0-35.9); MEAN PLT VOLUME 9.1 fl (7.5-11.1); MONO % 10.6 % (3.8-10.2); NEUT % 69.2 % (42.8-82.8); PLATELET COUNT 504 K/MM3 (134-434); RBC 2.27 M/mm3 (4.00-5.60); WHITE BLOOD COUNT 7.6 K/mm3 (4.0-10.0)
[2018-05-20 08:43] LABS: ANION GAP 5 MMOL/L (8-16); BLOOD UREA NITROGEN 32 mg/dL (7-18); CHLORIDE 108 mmol/L (98-107); CO2 28 mmol/L (21-32); CREATININE 1.8 mg/dL (0.55-1.3); GLUCOSE,RANDOM 81 mg/dL (74-106); POTASSIUM 4.9 mmol/L (3.5-5.1); SODIUM 141 mmol/L (136-145)
--- NOTE | 2018-05-20 09:06 | PN ---
Progress Note, Physician Chief Complaint: Gangarene left foot with OM. History of Present Illness: Chronic on left foot. - Current Medication List Current Medications: Active Medications Acetaminophen (Tylenol -) 650 mg PO Q6H PRN PRN Reason: FEVER Last Admin: 05/19/18 19:06 Dose: 650 mg Allopurinol (Zyloprim -) 100 mg PO DAILY [facility] Last Admin: 05/19/18 13:48 Dose: 100 mg Sodium Chloride (Normal Saline -) 1,000 mls @ 42 mls/hr IV ASDIR [facility] Last Admin: 05/17/18 23:30 Dose: 42 mls/hr Vancomycin HCl 1,250 mg/ (Dextrose) 250 mls @ 250 mls/2 hr IVPB Q24H [facility]; Protocol Last Admin: 05/19/18 18:47 Dose: 250 mls/2 hr Levothyroxine Sodium (Synthroid -) 25 mcg PO AM [facility] Last Admin: 05/20/18 06:05 Dose: 25 mcg Pantoprazole Sodium (Protonix -) 40 mg PO DAILY [facility] Last Admin: 05/19/18 13:48 Dose: 40 mg - Objective Vital Signs: Vital Signs Temperature 97.2 F L 05/20/18 06:00 Pulse Rate 81 05/20/18 06:00 Respiratory Rate 18 05/20/18 06:00 Blood Pressure 149/89 05/20/18 06:00 O2 Sat by Pulse Oximetry (%) 96 05/18/18 11:26 Extremities: Yes: Other (unchanged gangarene and om left foot) Labs: CBC, BMP 05/20/18 07:00 INR, PTT INR 1.08 (0.83-1.09) 05/18/18 05:15 Assessment/Plan gangarene, om, read and appreciated vascular note. awaiting vascular eval and clearance to schedule toe amputation. dc santyl dressing daily. Change to betadine dressing will follow.
[2018-05-20] MEDS: ALLOPURINOL 100 MG TABLET (FP) PO SCH (09:56)
[2018-05-20] MEDS: PANTOPRAZOLE 40 MG TABLET (FP) PO SCH (09:57)
--- NOTE | 2018-05-20 10:07 | PN ---
Progress Note (short form) - Note Progress Note: Pt examined No complaints except for pain in foot Vital Signs - 24 hr 05/19/18 05/20/18 05/20/18 17:53 03:39 06:00 Temperature 97.2 F L 98.2 F 97.2 F L Pulse Rate 77 63 81 Respiratory 20 20 18 Rate Blood Pressure 131/54 L 141/62 149/89 O2 Sat by Pulse Oximetry (%) 05/20/18 05/20/18 05/20/18 09:00 10:00 15:24 Temperature 97.9 F 97.8 F Pulse Rate 69 69 Respiratory 18 18 Rate Blood Pressure 117/91 O2 Sat by Pulse 98 Oximetry (%) Current Medications Generic Name Dose Route Start Last Admin Trade Name Freq PRN Reason Stop Dose Admin Acetaminophen 650 mg 05/19/18 13:27 05/19/18 19:06 Tylenol - PO 650 mg Q6H PRN Administration FEVER Allopurinol 100 mg 05/19/18 13:30 05/20/18 09:56 Zyloprim - PO 100 mg DAILY [facility] Administration Sodium Chloride 1,000 mls @ 42 mls/hr 05/17/18 22:45 05/17/18 23:30 Normal Saline - IV 42 mls/hr ASD[facility] Administration Vancomycin HCl 1,250 mg/ 250 mls @ 250 mls/2 hr 05/18/18 18:00 05/19/18 18:47 Dextrose IVPB 250 mls/2 hr Q24H [facility] Administration Protocol Levothyroxine Sodium 25 mcg 05/20/18 07:00 05/20/18 06:05 Synthroid - PO 25 mcg AM [facility] Administration Pantoprazole Sodium 40 mg 05/19/18 13:30 05/20/18 09:57 Protonix - PO 40 mg DAILY [facility] Administration Tramadol HCl 50 mg 05/20/18 16:15 05/20/18 16:23 Ultram - PO 50 mg Q6H PRN Administration PAIN LEVEL 6-10 Laboratory Results - last 24 hr 05/20/18 05/20/18 07:00 07:00 WBC 7.6 RBC 2.27 L Hgb 8.5 L Hct 25.6 L MCV 113.0 H MCH 37.6 H MCHC 33.3 RDW 16.0 H Plt Count 504 H MPV 9.1 Absolute Neuts (auto) 5.3 Neutrophils % 69.2 Lymphocytes % 11.8 Monocytes % 10.6 H Eosinophils % 5.4 H Basophils % 3.0 H Nucleated RBC % 0 Sodium 141 Potassium 4.9 Chloride 108 H Carbon Dioxide 28 Anion Gap 5 L BUN 32 H Creatinine 1.8 H Creat Clearance w eGFR 35.95 Random Glucose 81 Calcium 8.0 L x rays- reviewed physical exam S1 S2 RRR Lungs ---clear Abd- soft, non tender No edema dressing in foot neuro--- awake assessment and plan tylenol #3 for pain relief Continue present care Antibiotics MRSA wound Fluids plan for CO2 angiogram as per Vascular Problem List - Problems (1) Gangrene of toe of left foot Code(s): I96 - GANGRENE, NOT ELSEWHERE CLASSIFIED (2) Absent pulse in lower extremity Code(s): R09.89 - OTH SYMPTOMS AND SIGNS INVOLVING THE CIRC AND RESP SYSTEMS (3) Acute kidney injury superimposed on chronic kidney disease Code(s): N17.9 - ACUTE KIDNEY FAILURE, UNSPECIFIED; N18.9 - CHRONIC KIDNEY DISEASE, UNSPECIFIED (4) Dementia Code(s): F03.90 - UNSPECIFIED DEMENTIA WITHOUT BEHAVIORAL DISTURBANCE
[2018-05-20] MEDS ORDERED: traMADol HCL 50 MG TABLET PO PRN (16:15)
[2018-05-20] MEDS ORDERED: ACETAMINOPHEN WITH CODEINE 300MG/30MG TABLET PO PRN (17:37)
[2018-05-20] MEDS: VANCOMYCIN HCL 1,250 MG in DEXTROSE 5%-WATER - 250 ML IVPB SCH (17:45)
--- NOTE | 2018-05-20 18:15 | PN ---
Progress Note, Physician History of Present Illness: Pt remains alert, afebrile. Pain in Lt foot when palpated. No specific complaints. - Current Medication List Current Medications: Active Medications Acetaminophen (Tylenol -) 650 mg PO Q6H PRN PRN Reason: FEVER Last Admin: 05/19/18 19:06 Dose: 650 mg Acetaminophen/Codeine Phosphate (Tylenol # 3 -) 1 tab PO Q6H PRN PRN Reason: PAIN LEVEL 6-10 Allopurinol (Zyloprim -) 100 mg PO DAILY [facility] Last Admin: 05/20/18 09:56 Dose: 100 mg Sodium Chloride (Normal Saline -) 1,000 mls @ 42 mls/hr IV [facility]IR [facility] Last Admin: 05/17/18 23:30 Dose: 42 mls/hr Vancomycin HCl 1,250 mg/ (Dextrose) 250 mls @ 250 mls/2 hr IVPB Q24H [facility]; Protocol Last Admin: 05/20/18 17:45 Dose: 250 mls/2 hr Levothyroxine Sodium (Synthroid -) 25 mcg PO AM [facility] Last Admin: 05/20/18 06:05 Dose: 25 mcg Pantoprazole Sodium (Protonix -) 40 mg PO DAILY [facility] Last Admin: 05/20/18 09:57 Dose: 40 mg - Objective Vital Signs: Vital Signs Temperature 97.8 F 05/20/18 15:24 Pulse Rate 69 05/20/18 15:24 Respiratory Rate 18 05/20/18 15:24 Blood Pressure 117/91 05/20/18 10:00 O2 Sat by Pulse Oximetry (%) 98 05/20/18 09:00 Constitutional: Yes: No Distress, Calm Cardiovascular: Yes: Regular Rate and Rhythm Respiratory: Yes: Regular Gastrointestinal: Yes: Normal Bowel Sounds, Soft Wound/Incision: Yes: Dressing Dry and Intact Labs: CBC, BMP 05/20/18 07:00 05/20/18 07:00 INR, PTT INR 1.08 (0.83-1.09) 05/18/18 05:15 Laboratory Results - last 24 hr 05/20/18 05/20/18 07:00 07:00 WBC 7.6 RBC 2.27 L Hgb 8.5 L Hct 25.6 L MCV 113.0 H MCH 37.6 H MCHC 33.3 RDW 16.0 H Plt Count 504 H MPV 9.1 Absolute Neuts (auto) 5.3 Neutrophils % 69.2 Lymphocytes % 11.8 Monocytes % 10.6 H Eosinophils % 5.4 H Basophils % 3.0 H Nucleated RBC % 0 Sodium 141 Potassium 4.9 Chloride 108 H Carbon Dioxide 28 Anion Gap 5 L BUN 32 H Creatinine 1.8 H Creat Clearance w eGFR 35.95 Random Glucose 81 Calcium 8.0 L Microbiology 05/18/18 05:15 Foot - Left Gram Stain - Final 05/18/18 05:15 Foot - Left Wound Culture - Final Mr S Aureus Staphylococcus Coagulase Neg 05/18/18 00:15 Blood - Peripheral Venous Blood Culture - Preliminary NO GROWTH OBTAINED AFTER 48 HOURS, INCUBATION TO CONTINUE FOR 3 DAYS. 05/18/18 00:15 Blood - Peripheral Venous Blood Culture - Preliminary NO GROWTH OBTAINED AFTER 48 HOURS, INCUBATION TO CONTINUE FOR 3 DAYS. - ....Imaging MRI: Report Reviewed Problem List - Problems (1) Gangrene of toe of left foot Code(s): I96 - GANGRENE, NOT ELSEWHERE CLASSIFIED (2) Acute kidney injury superimposed on chronic kidney disease Code(s): N17.9 - ACUTE KIDNEY FAILURE, UNSPECIFIED; N18.9 - CHRONIC KIDNEY DISEASE, UNSPECIFIED (3) Dementia Code(s): F03.90 - UNSPECIFIED DEMENTIA WITHOUT BEHAVIORAL DISTURBANCE (4) Peripheral vascular disease Code(s): I73.9 - PERIPHERAL VASCULAR DISEASE, UNSPECIFIED Assessment/Plan Lt toe gangrene _ MRSA on recent cultures/ Foot cellulitis PVD s/p LLE angioplasty CKD myelofibrosis dementia -- MRI LE : distal/prox phalanx OM/cellulitis -- continue Vancomycin, monitor renal function, Vancomycin Trough ordered prior to tomorrow's dose -- awaiting amputation -- continue wound care
[2018-05-20] MEDS: SODIUM CHLORIDE 1,000 ML IV SCH (22:04)
[2018-05-21] MEDS: LEVOTHYROXINE NA 25 MCG TABLET (FP) PO SCH (06:04)
--- NOTE | 2018-05-21 09:19 | PN ---
Progress Note (short form) - Note Progress Note: pt seen/ examined today chart reviewed awake pleasantly confused denies pain all f/u noted Vital Signs Temp 96.8 F L 05/21/18 06:29 Pulse 76 05/21/18 06:29 Resp 18 05/21/18 06:29 BP 170/63 05/21/18 06:29 Pulse Ox 98 05/20/18 21:00 Intake & Output 05/20/18 05/20/18 05/21/18 11:59 23:59 11:59 Intake Total 580 500 500 Output Total 500 Balance 580 500 0 Weight 134 lb 3.2 oz Intake: IV 200 500 Normal Saline - 1,000 ml 200 500 @ 42 mls/hr IV ASDIR [facility] Rx#:[id number] Oral 380 500 Output: Urine 500 Void 500 Other: Voiding Method Toilet Toilet # Unmeasured Voids Void 1 1 1 Bowel Movement Yes Weight Measurement Method [facility] Active Medications Acetaminophen (Tylenol -) 650 mg PO Q6H PRN PRN Reason: FEVER Last Admin: 05/19/18 19:06 Dose: 650 mg Acetaminophen/Codeine Phosphate (Tylenol # 3 -) 1 tab PO Q6H PRN PRN Reason: PAIN LEVEL 6-10 Allopurinol (Zyloprim -) [address] [facility] Last Admin: 05/20/18 09:56 Dose: 100 mg Sodium Chloride (Normal Saline -) 1,000 mls @ 42 mls/hr IV [facility] Last Admin: 05/20/18 22:04 Dose: 42 mls/hr Vancomycin HCl 1,250 mg/ (Dextrose) 250 mls @ 250 mls/[address] [facility]; Protocol Last Admin: 05/20/18 17:45 Dose: 250 mls/2 hr Levothyroxine Sodium (Synthroid -) 25 mcg PO AM [facility] Last Admin: 05/21/18 06:04 Dose: 25 mcg Pantoprazole Sodium (Protonix -) 40 mg PO DAILY [facility] Last Admin: 05/20/18 09:57 Dose: 40 mg CBC, BMP 05/20/18 07:00 05/20/18 07:00 Physical exam S1 S2 RRR Lungs ---clear Abd- soft, non tender. bs + No edema dressing in foot neuro--- awake/ Assessment and plan stable tylenol #3 for pain relief Continue present care Antibiotics MRSA wound Fluids plan for CO2 angiogram as per Vascular will follow asa and plavix on hold in anticipation of surgery .
[2018-05-21] MEDS: ALLOPURINOL 100 MG TABLET (FP) PO SCH (09:48)
[2018-05-21] MEDS: PANTOPRAZOLE 40 MG TABLET (FP) PO SCH (09:48)
--- NOTE | 2018-05-21 11:02 | PN ---
Progress Note, Physician History of Present Illness: stable no new issues final plans awaited no distress - Current Medication List Current Medications: Active Medications Acetaminophen (Tylenol -) 650 mg PO Q6H PRN PRN Reason: FEVER Last Admin: 05/19/18 19:06 Dose: 650 mg Acetaminophen/Codeine Phosphate (Tylenol # 3 -) 1 tab PO Q6H PRN PRN Reason: PAIN LEVEL 6-10 Allopurinol (Zyloprim -) 100 mg PO DAILY [facility] Last Admin: 05/21/18 09:48 Dose: 100 mg Sodium Chloride (Normal Saline -) 1,000 mls @ 42 mls/hr IV [facility] Last Admin: 05/20/18 22:04 Dose: 42 mls/hr Vancomycin HCl 1,250 mg/ (Dextrose) 250 mls @ 250 mls/2 hr IVPB Q24H [facility]; Protocol Last Admin: 05/20/18 17:45 Dose: 250 mls/2 hr Levothyroxine Sodium (Synthroid -) 25 mcg PO AM [facility] Last Admin: 05/21/18 06:04 Dose: 25 mcg Pantoprazole Sodium (Protonix -) 40 mg PO DAILY [facility] Last Admin: 05/21/18 09:48 Dose: 40 mg - Objective Vital Signs: Vital Signs Temperature 96.8 F L 05/21/18 06:29 Pulse Rate 76 05/21/18 06:29 Respiratory Rate 18 05/21/18 06:29 Blood Pressure 170/63 05/21/18 06:29 O2 Sat by Pulse Oximetry (%) 98 05/20/18 21:00 Constitutional: Yes: No Distress, Calm Cardiovascular: Yes: Regular Rate and Rhythm Respiratory: Yes: Regular, CTA Bilaterally Gastrointestinal: Yes: Normal Bowel Sounds, Soft Musculoskeletal: Yes: Other Extremities: Yes: Other (gangrene of the foot) Neurological: Yes: Alert, Other Psychiatric: Yes: Other Labs: CBC, BMP 05/20/18 07:00 05/20/18 07:00 INR, PTT INR 1.08 (0.83-1.09) 05/18/18 05:15 Assessment/Plan Problem List - Problems (1) Gangrene of toe of left foot Code(s): I96 - GANGRENE, NOT ELSEWHERE CLASSIFIED (2) Acute kidney injury superimposed on chronic kidney disease Code(s): N17.9 - ACUTE KIDNEY FAILURE, UNSPECIFIED; N18.9 - CHRONIC KIDNEY DISEASE, UNSPECIFIED (3) Dementia Code(s): F03.90 - UNSPECIFIED DEMENTIA WITHOUT BEHAVIORAL DISTURBANCE (4) Peripheral vascular disease Code(s): I73.9 - PERIPHERAL VASCULAR DISEASE, UNSPECIFIED Assessment/Plan Lt toe gangrene _ MRSA on recent cultures/ Foot cellulitis PVD s/p LLE angioplasty CKD myelofibrosis dementia plan continue current mgmt await for vanco levels plan for angio and then amputation rest as per the team
--- NOTE | 2018-05-21 13:39 | PN ---
Progress Note (short form) - Note Progress Note: Vascular Surgery
--- NOTE | 2018-05-21 15:20 | SPA.PREOP ---
- PRE-OP NOTE Dx: left third toe gangrene. 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 Planned Procedure: CO2 angiogram Surgeon: Martín Last Vital Signs Temp Pulse Resp BP Pulse Ox 97.3 F L 76 18 126/61 96 05/21/18 10:00 05/21/18 10:00 05/21/18 14:02 05/21/18 14:02 05/21/18 09:00 Lab Results WBC 7.6 K/mm3 (4.0-10.0) 05/20/18 07:00 RBC 2.27 M/mm3 (4.00-5.60) L 05/20/18 07:00 Hgb 8.5 GM/dL (11.7-16.9) L 05/20/18 07:00 Hct 25.6 % (35.4-49) L 05/20/18 07:00 MCV 113.0 fl (80-96) H 05/20/18 07:00 MCHC 33.3 g/dl (32.0-35.9) 05/20/18 07:00 RDW 16.0 % (11.9-15.9) H 05/20/18 07:00 Plt Count 504 K/MM3 (134-434) H 05/20/18 07:00 Sodium 141 mmol/L (136-145) 05/20/18 07:00 Potassium 4.9 mmol/L (3.5-5.1) 05/20/18 07:00 Chloride 108 mmol/L (98-107) H 05/20/18 07:00 Carbon Dioxide 28 mmol/L (21-32) 05/20/18 07:00 Anion Gap 5 MMOL/L (8-16) L 05/20/18 07:00 BUN 32 mg/dL (7-18) H 05/20/18 07:00 Creatinine 1.8 mg/dL (0.55-1.3) H 05/20/18 07:00 Random Glucose 81 mg/dL (74-106) 05/20/18 07:00 Calcium 8.0 mg/dL (8.5-10.1) L 05/20/18 07:00 Blood Type A POSITIVE 05/18/18 05:15 Antibody Screen Negative 05/18/18 05:15 INR 1.08 (0.83-1.09) 05/18/18 05:15 Problem List - Problems (1) Gangrene of toe of left foot Assessment/Plan: 1. Make NPO after midnight except po meds 2. GI/DVT PPX 3. Medical optimization / clearance 4. Consent to be obtained by surgeon after risks, benefits and alternatives discussed with patient and or Health Care Proxy. Code(s): I96 - GANGRENE, NOT ELSEWHERE CLASSIFIED (2) Gangrene Code(s): I96 - GANGRENE, NOT ELSEWHERE CLASSIFIED
[2018-05-21] MEDS ORDERED: PT OWN MED DRAWER 7, Y5N ONE (17:47)
[2018-05-21] MEDS: VANCOMYCIN HCL 1,250 MG in DEXTROSE 5%-WATER - 250 ML IVPB SCH (17:52)
[2018-05-22] MEDS: LEVOTHYROXINE NA 25 MCG TABLET (FP) PO SCH (06:41)
[2018-05-22] MEDS: ALLOPURINOL 100 MG TABLET (FP) PO SCH (10:43)
[2018-05-22] MEDS: PANTOPRAZOLE 40 MG TABLET (FP) PO SCH (10:43)
--- NOTE | 2018-05-22 11:32 | PN ---
Progress Note (short form) - Note Progress Note: Pt examined No complaints except for pain in foot Vital Signs - 24 hr 05/21/18 05/21/18 05/21/18 14:02 21:00 21:40 Temperature 98.8 F Pulse Rate 89 Respiratory 18 18 Rate Blood Pressure 126/61 168/71 O2 Sat by Pulse 96 Oximetry (%) Current Medications Generic Name Dose Route Start Last Admin Trade Name Freq PRN Reason Stop Dose Admin Acetaminophen 650 mg 05/19/18 13:27 05/19/18 19:06 Tylenol - PO 650 mg Q6H PRN Administration FEVER Acetaminophen/Codeine Phosphate 1 tab 05/20/18 17:37 Tylenol # 3 - PO Q6H PRN PAIN LEVEL 6-10 Allopurinol 100 mg 05/19/18 13:30 05/22/18 10:43 Zyloprim - PO 100 mg DAILY [facility] Administration Sodium Chloride 1,000 mls @ 42 mls/hr 05/17/18 22:45 05/20/18 22:04 Normal Saline - IV 42 mls/hr ASD[facility] Administration Vancomycin HCl 1,250 mg/ 250 mls @ 250 mls/2 hr 05/18/18 18:00 05/21/18 17:52 Dextrose IVPB 250 mls/2 hr Q24H [facility] Administration Protocol Levothyroxine Sodium 25 mcg 05/20/18 07:00 05/22/18 06:41 Synthroid - PO 25 mcg AM [facility] Administration Pantoprazole Sodium 40 mg 05/19/18 13:30 05/22/18 10:43 Protonix - PO 40 mg DAILY [facility] Administration Laboratory Results - last 24 hr 05/21/18 15:45 Vancomycin Pre-Dose 23.8 x rays- reviewed physical exam S1 S2 RRR Lungs ---clear Abd- soft, non tender No edema dressing in foot neuro--- awake assessment and plan tylenol #3 for pain relief Continue present care Antibiotics MRSA wound Fluids plan for CO2 angiogram as per Vascular today keep NPO ASA and Plavix on hold Problem List - Problems (1) Gangrene of toe of left foot Code(s): I96 - GANGRENE, NOT ELSEWHERE CLASSIFIED (2) Absent pulse in lower extremity Code(s): R09.89 - OTH SYMPTOMS AND SIGNS INVOLVING THE CIRC AND RESP SYSTEMS (3) Acute kidney injury superimposed on chronic kidney disease Code(s): N17.9 - ACUTE KIDNEY FAILURE, UNSPECIFIED; N18.9 - CHRONIC KIDNEY DISEASE, UNSPECIFIED (4) Dementia Code(s): F03.90 - UNSPECIFIED DEMENTIA WITHOUT BEHAVIORAL DISTURBANCE
--- NOTE | 2018-05-22 12:33 | PN ---
Progress Note, Physician History of Present Illness: stable no new issues awaiting for daughter to agree to amputation rest patient stable - Current Medication List Current Medications: Active Medications Acetaminophen (Tylenol -) 650 mg PO Q6H PRN PRN Reason: FEVER Last Admin: 05/19/18 19:06 Dose: 650 mg Acetaminophen/Codeine Phosphate (Tylenol # 3 -) 1 tab PO Q6H PRN PRN Reason: PAIN LEVEL 6-10 Allopurinol (Zyloprim -) 100 mg PO DAILY [facility] Last Admin: 05/22/18 10:43 Dose: 100 mg Sodium Chloride (Normal Saline -) 1,000 mls @ 42 mls/hr IV [facility]IR [facility] Last Admin: 05/20/18 22:04 Dose: 42 mls/hr Vancomycin HCl 1,250 mg/ (Dextrose) 250 mls @ 250 mls/2 hr IVPB Q24H [facility]; Protocol Last Admin: 05/21/18 17:52 Dose: 250 mls/2 hr Levothyroxine Sodium (Synthroid -) 25 mcg PO AM [facility] Last Admin: 05/22/18 06:41 Dose: 25 mcg Pantoprazole Sodium (Protonix -) 40 mg PO DAILY [facility] Last Admin: 05/22/18 10:43 Dose: 40 mg - Objective Vital Signs: Vital Signs Temperature 98.7 F 05/22/18 10:00 Pulse Rate 87 05/22/18 10:00 Respiratory Rate 18 05/22/18 10:00 Blood Pressure 110/74 05/22/18 10:00 O2 Sat by Pulse Oximetry (%) 96 05/21/18 21:00 Constitutional: Yes: No Distress, Calm Cardiovascular: Yes: S1, S2 Respiratory: Yes: Regular, CTA Bilaterally Gastrointestinal: Yes: Normal Bowel Sounds, Soft Musculoskeletal: Yes: WNL Extremities: Yes: Other Neurological: Yes: Alert, Other Psychiatric: Yes: Other Labs: CBC, BMP 05/20/18 07:00 05/20/18 07:00 INR, PTT INR 1.08 (0.83-1.09) 05/18/18 05:15 Assessment/Plan Problem List - Problems (1) Gangrene of toe of left foot Code(s): I96 - GANGRENE, NOT ELSEWHERE CLASSIFIED (2) Acute kidney injury superimposed on chronic kidney disease Code(s): N17.9 - ACUTE KIDNEY FAILURE, UNSPECIFIED; N18.9 - CHRONIC KIDNEY DISEASE, UNSPECIFIED (3) Dementia Code(s): F03.90 - UNSPECIFIED DEMENTIA WITHOUT BEHAVIORAL DISTURBANCE (4) Peripheral vascular disease Code(s): I73.9 - PERIPHERAL VASCULAR DISEASE, UNSPECIFIED Assessment/Plan Lt toe gangrene _ MRSA on recent cultures/ Foot cellulitis PVD s/p LLE angioplasty CKD myelofibrosis dementia plan continue abx await for amputation plan rest as per the team
--- NOTE | 2018-05-22 14:06 | PN ---
Progress Note (short form) - Note Progress Note: FUV left foot. Scheduled for procedure today by Dr. Resendiz. +gangarene, +om, +drainage, ganagrene om Will await vascular clearance for toe amputation. Continue dressing changes. Will follow.
[2018-05-22] MEDS ORDERED: NITROGLYCERIN 50 MG/10 ML VIAL IVPB ONE (15:44)
[2018-05-22] MEDS ORDERED: PROPOFOL 20 ML ONE ×4 (17:08→17:45)
[2018-05-22 17:20] VITALS: BMI 22.3
[2018-05-22] MEDS ORDERED: LIDOCAINE HCL 1%, 10 MG/ML (20ML VIAL) ID ONE (17:20)
[2018-05-22] MEDS ORDERED: ceFAZolin SODIUM 1 GM VIAL IVPB ONE (17:20)
[2018-05-22] MEDS ORDERED: fentaNYL CITRATE 250 MCG/5 ML VIAL ONE (17:48)
[2018-05-22] MEDS ORDERED: ONDANSETRON 4 MG/2 ML VIAL IVPUSH PRN ×2 (18:19→18:32)
--- NOTE | 2018-05-22 18:28 | OP ---
Operative Note - Note: Operative Date: 05/22/18 Pre-Operative Diagnosis: left third toe gangrene Operation: CO2 aortogram, LLE angiogram, left anterior tibial artery angioplasty Findings: anterior tibial artery stenosis Post-Operative Diagnosis: Same as Pre-op Surgeon: Mohinder Resendiz Anesthesia: Fractional Estimated Blood Loss (mls): 50 Operative Report Dictated: Yes
[2018-05-22] MEDS ORDERED: LACTATED RINGERS SOLUTION 1,000 ML IV SCH ×2 (18:30→18:32)
--- NOTE | 2018-05-22 18:30 | PN ---
Progress Note (short form) - Note Progress Note: Vascular Surgery S/P angioplasty Palpable DP pulse. Recc toe amputation Podiatry on case. Spoke to daughter about plan. Mohinder Resendiz DO
[2018-05-22] MEDS ORDERED: ACETAMINOPHEN WITH CODEINE 300MG/30MG TABLET PO PRN (18:32)
[2018-05-22] MEDS ORDERED: ACETAMINOPHEN 325 MG TABLET (FP) PO PRN (18:32)
[2018-05-22] MEDS: SODIUM CHLORIDE 1,000 ML IV SCH ×2 (19:25→19:35)
[2018-05-22] MEDS ORDERED: PT OWN MED DRAWER 7, Y5N ONE (19:58)
[2018-05-22] MEDS: VANCOMYCIN HCL 1,250 MG in DEXTROSE 5%-WATER - 250 ML IVPB SCH ×2 (20:06→20:16)
[2018-05-22] MEDS: CLOPIDOGREL BISULFATE 75 MG TABLET (FP) PO SCH (20:06)
[2018-05-23] MEDS: LEVOTHYROXINE NA 25 MCG TABLET (FP) PO SCH (06:28)
[2018-05-23 06:37] LABS: HEMOGLOBIN 8.1 GM/dL (11.7-16.9); MCHC 33.8 g/dl (32.0-35.9); MEAN CELL VOLUME 112.6 fl (80-96); MEAN PLT VOLUME 9.1 fl (7.5-11.1); PLATELET COUNT 396 K/MM3 (134-434); RBC 2.13 M/mm3 (4.00-5.60); RDW 15.7 % (11.9-15.9); WHITE BLOOD COUNT 9.3 K/mm3 (4.0-10.0)
[2018-05-23 07:03] LABS: ANION GAP 7 MMOL/L (8-16); BLOOD UREA NITROGEN 29 mg/dL (7-18); CALCIUM 7.8 mg/dL (8.5-10.1); CHLORIDE 105 mmol/L (98-107); CO2 28 mmol/L (21-32); CREATININE 1.9 mg/dL (0.55-1.3); GLUCOSE,RANDOM 130 mg/dL (74-106); POTASSIUM 4.4 mmol/L (3.5-5.1); SODIUM 139 mmol/L (136-145)
--- NOTE | 2018-05-23 08:08 | PN ---
Progress Note, Physician History of Present Illness: patient from left tibial artery angioplasty' c/o of pain in the leg - Current Medication List Current Medications: Active Medications Acetaminophen (Tylenol -) 650 mg PO Q6H PRN PRN Reason: FEVER Acetaminophen/Codeine Phosphate (Tylenol # 3 -) 1 tab PO Q6H PRN PRN Reason: PAIN LEVEL 6-10 Last Admin: 05/22/18 20:39 Dose: 1 tab Allopurinol (Zyloprim -) 100 mg PO DAILY [facility] Clopidogrel Bisulfate (Plavix -) 75 mg PO DAILY [facility] Last Admin: 05/22/18 20:06 Dose: 75 mg Fentanyl (Sublimaze Injection -) 25 mcg IVPUSH [id number] PRN PRN Reason: PAIN-PACU ORDER X 4 DOSES ONLY Sodium Chloride (Normal Saline -) 1,000 mls @ 42 mls/hr IV ASDIR [facility] Last Admin: 05/22/18 19:35 Dose: 42 mls/hr Vancomycin HCl 1,250 mg/ (Dextrose) 250 mls @ 250 mls/2 hr IVPB Q24H [facility]; Protocol Last Admin: 05/22/18 20:06 Dose: 250 mls/2 hr Levothyroxine Sodium (Synthroid -) 25 mcg PO AM [facility] Last Admin: 05/23/18 06:28 Dose: 25 mcg Ondansetron HCl (Zofran Injection) 4 mg IVPUSH Q6H PRN PRN Reason: NAUSEA AND/OR VOMITING Pantoprazole Sodium (Protonix -) 40 mg PO DAILY [facility] - Objective Vital Signs: Vital Signs Temperature 98 F 05/23/18 06:20 Pulse Rate 84 05/23/18 06:20 Respiratory Rate 18 05/23/18 06:20 Blood Pressure 140/82 05/23/18 06:20 O2 Sat by Pulse Oximetry (%) 98 05/22/18 21:00 Constitutional: Yes: Calm, Mild Distress Cardiovascular: Yes: S1, S2 Respiratory: Yes: Regular, CTA Bilaterally Gastrointestinal: Yes: Normal Bowel Sounds, Soft Musculoskeletal: Yes: WNL Extremities: Yes: Other Neurological: Yes: Alert, Oriented Psychiatric: Yes: Alert, Other Labs: CBC, BMP 05/23/18 05:30 05/23/18 05:30 INR, PTT INR 1.08 (0.83-1.09) 05/18/18 05:15 Assessment/Plan Problem List - Problems (1) Gangrene of toe of left foot Code(s): I96 - GANGRENE, NOT ELSEWHERE CLASSIFIED (2) Acute kidney injury superimposed on chronic kidney disease Code(s): N17.9 - ACUTE KIDNEY FAILURE, UNSPECIFIED; N18.9 - CHRONIC KIDNEY DISEASE, UNSPECIFIED (3) Dementia Code(s): F03.90 - UNSPECIFIED DEMENTIA WITHOUT BEHAVIORAL DISTURBANCE (4) Peripheral vascular disease Code(s): I73.9 - PERIPHERAL VASCULAR DISEASE, UNSPECIFIED Assessment/Plan Lt toe gangrene _ MRSA on recent cultures/ Foot cellulitis PVD s/p LLE angioplasty CKD myelofibrosis dementia plan continue current mgmt patient needs amputation will order a vanco level then will decide about vanco
--- NOTE | 2018-05-23 08:36 | PN ---
Progress Note (short form) - Note Progress Note: Surgery POD #1 CO2 aortogram, LLE angiogram, left anterior tibial artery angioplasty patient seen and examined at bedside with no complaints. Patient resting comfortably. Vital Signs Temp 98 F 05/23/18 06:20 Pulse 84 05/23/18 06:20 Resp 18 05/23/18 06:20 BP 140/82 05/23/18 06:20 Pulse Ox 98 05/22/18 21:00 Intake & Output 05/22/18 05/22/18 05/23/18 11:59 23:59 11:59 Intake Total 540 1150 550 Output Total 550 150 100 Balance -10 1000 450 Intake: IV 540 1150 300 Normal Saline - 1,000 ml 540 600 @ 42 mls/hr IV ASDIR [facility] Rx#:[id number] Normal Saline - 1,000 ml 300 @ 42 mls/hr IV [facility] Rx#:[id number] IVPB 250 Output: Urine 550 100 100 Void 550 100 100 Estimated Blood Loss 50 Other: Voiding Method Urinal Urinal # Unmeasured Voids Void 1 Bowel Movement Yes Yes: 1 Body Mass Index (BMI) 22.3 CBC, BMP 05/23/18 05:30 05/23/18 05:30 PE: NAD Unlabored resp on RA Left groin surgical site clean dry and intact with skin glue over wound. Thigh soft and supple with no evidence of hematoma B/L LE compartments soft, supple and non-tender. legs and feet warm to touch. Problem List - Problems (1) Gangrene of toe of left foot Assessment/Plan: POD#1 CO2 aortogram, LLE angiogram, left anterior tibial artery angioplasty with flow seen in the DP. 1) cleared from vascular standpoint for toe amputation with podiatry 2) A/C per medicine 3) Can follow up with Vascular as out patient. Evaluation and plan discussed with Dr Resendiz Code(s): I96 - GANGRENE, NOT ELSEWHERE CLASSIFIED (2) Gangrene Code(s): I96 - GANGRENE, NOT ELSEWHERE CLASSIFIED
[2018-05-23] MEDS: ALLOPURINOL 100 MG TABLET (FP) PO SCH (10:58)
[2018-05-23] MEDS: CLOPIDOGREL BISULFATE 75 MG TABLET (FP) PO SCH (10:59)
[2018-05-23] MEDS: PANTOPRAZOLE 40 MG TABLET (FP) PO SCH (10:59)
--- NOTE | 2018-05-23 13:51 | PN ---
Progress Note (short form) - Note Progress Note: Pt examined No complaints except for pain in foot s/p CO2 angio Vital Signs - 24 hr 05/22/18 05/22/18 05/22/18 18:12 18:25 18:40 Temperature 97.7 F Pulse Rate 78 66 69 Respiratory 14 16 18 Rate Blood Pressure 150/63 143/58 L 147/58 L O2 Sat by Pulse 100 100 98 Oximetry (%) 05/22/18 05/22/18 05/22/18 18:55 19:10 19:25 Temperature 97.9 F Pulse Rate 70 71 73 Respiratory 18 18 18 Rate Blood Pressure 148/61 151/63 155/58 L O2 Sat by Pulse 100 100 100 Oximetry (%) 05/22/18 05/22/18 05/22/18 19:46 19:48 21:00 Temperature 98.0 F 98.0 F Pulse Rate 75 75 Respiratory 18 18 Rate Blood Pressure 166/79 166/79 O2 Sat by Pulse 98 98 Oximetry (%) 05/23/18 06:20 Temperature 98 F Pulse Rate 84 Respiratory 18 Rate Blood Pressure 140/82 O2 Sat by Pulse Oximetry (%) Current Medications Generic Name Dose Route Start Last Admin Trade Name Freq PRN Reason Stop Dose Admin Acetaminophen 650 mg 05/22/18 18:32 Tylenol - PO Q6H PRN FEVER Acetaminophen/Codeine Phosphate 1 tab 05/22/18 18:32 05/22/18 20:39 Tylenol # 3 - PO 1 tab Q6H PRN Administration PAIN LEVEL 6-10 Allopurinol 100 mg 05/23/18 10:00 05/23/18 10:58 Zyloprim - PO 100 mg DAILY [facility] Administration Clopidogrel Bisulfate 75 mg 05/22/18 18:30 05/23/18 10:59 Plavix - PO 75 mg DAILY [facility] Administration Fentanyl 25 mcg 05/22/18 18:32 Sublimaze Injection - IVPUSH [id number] PRN PAIN-PACU ORDER X 4 DOSES ONLY Sodium Chloride 1,000 mls @ 42 mls/hr 05/22/18 18:32 05/22/18 19:35 Normal Saline - IV 42 mls/hr [facility] Administration Vancomycin HCl 1,250 mg/ 250 mls @ 250 mls/2 hr 05/22/18 20:00 05/22/18 20:06 Dextrose IVPB 250 mls/2 hr Q24H [facility] Administration Protocol Levothyroxine Sodium 25 mcg 05/23/18 07:00 05/23/18 06:28 Synthroid - PO 25 mcg AM [facility] Administration Ondansetron HCl 4 mg 05/22/18 18:32 Zofran Injection IVPUSH Q6H PRN NAUSEA AND/OR VOMITING Pantoprazole Sodium 40 mg 05/23/18 10:00 05/23/18 10:59 Protonix - PO 40 mg DAILY [facility] Administration Laboratory Results - last 24 hr 05/23/18 05/23/18 05:30 05:30 WBC 9.3 RBC 2.13 L Hgb 8.1 L Hct 24.0 L MCV 112.6 H MCH 38.0 H MCHC 33.8 RDW 15.7 Plt Count 396 D MPV 9.1 Sodium 139 Potassium 4.4 Chloride 105 Carbon Dioxide 28 Anion Gap 7 L BUN 29 H Creatinine 1.9 H Creat Clearance w eGFR 33.78 Random Glucose 130 H Calcium 7.8 L x rays- reviewed physical exam S1 S2 RRR Lungs ---clear Abd- soft, non tender No edema dressing in foot neuro--- awake assessment and plan tylenol #3 for pain relief Continue present care Antibiotics MRSA wound Fluids s/p CO2 angiogram will need toe amputation continue Plavix Daughter to decide about amputation-- as per staff she is refusing amputation Problem List - Problems (1) Gangrene of toe of left foot Code(s): I96 - GANGRENE, NOT ELSEWHERE CLASSIFIED (2) Absent pulse in lower extremity Code(s): R09.89 - OTH SYMPTOMS AND SIGNS INVOLVING THE CIRC AND RESP SYSTEMS (3) Acute kidney injury superimposed on chronic kidney disease Code(s): N17.9 - ACUTE KIDNEY FAILURE, UNSPECIFIED; N18.9 - CHRONIC KIDNEY DISEASE, UNSPECIFIED (4) Dementia Code(s): F03.90 - UNSPECIFIED DEMENTIA WITHOUT BEHAVIORAL DISTURBANCE
[2018-05-23] MEDS ORDERED: VANCOMYCIN HCL 1,250 MG in DEXTROSE 5%-WATER - 250 ML IVPB SCH (18:00)
--- NOTE | 2018-05-23 18:04 | PN ---
Progress Note (short form) - Note Progress Note: Post op day#1.S/P Left lower extremity angiogram with angioplasty under TIVA uneventful.Patient stable.No any anesthesia related problem.Patient Dc from the anesthesia care.
[2018-05-23] MEDS: VANCOMYCIN HCL 1,250 MG in DEXTROSE 5%-WATER - 250 ML IVPB SCH (21:38)
[2018-05-24] MEDS: LEVOTHYROXINE NA 25 MCG TABLET (FP) PO SCH (06:11)
[2018-05-24] MEDS: SODIUM CHLORIDE 1,000 ML IV SCH (07:00)
[2018-05-24 07:19] LABS: ANION GAP 7 MMOL/L (8-16); BLOOD UREA NITROGEN 28 mg/dL (7-18); CHLORIDE 105 mmol/L (98-107); CO2 28 mmol/L (21-32); CREATININE 1.8 mg/dL (0.55-1.3); GLUCOSE,RANDOM 96 mg/dL (74-106); POTASSIUM 4.2 mmol/L (3.5-5.1); SODIUM 139 mmol/L (136-145)
--- NOTE | 2018-05-24 09:27 | OP ---
DATE OF OPERATION: 05/22/2018 PREOPERATIVE DIAGNOSIS: Left 3rd toe gangrene. POSTOPERATIVE DIAGNOSIS: Left 3rd toe gangrene. PROCEDURE: Carbon dioxide aortogram, left lower extremity angiogram, anterior tibial artery angioplasty. SURGEON: Mohinder Sánchez MD ANESTHESIA: Fractional. BLOOD LOSS: 50 mL. INDICATIONS: The patient is an 88-year-old male who has left 3rd toe gangrene. He has a wound at his 2nd toe amputation site on the left foot, as well, and came into the hospital for IV antibiotics. He will need a CO2 angiogram in order to look at his runoff into his foot prior to amputation of the 3rd toe. Patient was medically cleared. Patient consented for the procedure understanding all risks, benefits, and alternatives and was then taken to the operating room. PROCEDURE IN DETAIL: Once in the operating room, he was placed on the operating table in the supine manner, and the area of the left and right groin were prepped and draped in the sterile surgical manner. We then injected 10 mL of lidocaine 1% over the right common femoral artery. We then took our micropuncture needle, punctured the right common femoral artery. A micropuncture wire was inserted, and a 5-Croat[place] sheath was inserted. A 0.035 floppy guidewire was inserted into the aorta followed by an Omniflush catheter, and a CO2 aortogram was shot showing that the aorta and iliac arteries were without any disease, but the iliac arteries were tortuous. We then placed a 0.035 stiff guidewire up and over to the left common femoral artery, and brought our Omniflush catheter over. We then shot a CO2 left lower extremity angiogram showing that the common femoral artery, the profunda, and the SFA were patent, popliteal artery was patent. Below the knee, patient has the trifurcation vessels. They patent in the form of peroneal and . Posterior tibial is diseased, anterior tibial artery is diseased, and anterior tibial artery is the main runoff into the foot. At this point, we placed a 0.035 stiff guidewire into the SFA. We moved our Omniflush catheter and placed a 6 x 55 crossover sheath, 5000 units of IV heparin were administered to the patient. We then used a Quick-Cross catheter and got down using our 0.035 stiff guidewire and got the wire all the way through the anterior tibial artery into the foot, and we exchange for a captain airline pilot wire. We then used a 3 x 220 Ultraverse balloon and performed angioplasty of the anterior tibial artery from the foot all the way up to its origin. Completion angiogram now showed that the anterior tibial artery fills first, and there is good brisk flow all the way down into the foot. At this point, no more intervention was needed. We brought our sheath up and over. StarClose device was successfully deployed in the right common femoral artery. Pressure was held for 5 minutes. After there was no more bleeding, area was wet and dried, and Dermabond was placed. Patient tolerated the procedure with no complications. Patient transferred to PACU in stable condition. MOHINDER SÁNCHEZ DO NP/[id number]
--- NOTE | 2018-05-24 09:43 | PN ---
Progress Note, Physician History of Present Illness: patient stable no new issues awaiting final plan - Current Medication List Current Medications: Active Medications Acetaminophen (Tylenol -) 650 mg PO Q6H PRN PRN Reason: FEVER Last Admin: 05/23/18 16:43 Dose: 650 mg Acetaminophen/Codeine Phosphate (Tylenol # 3 -) 1 tab PO Q6H PRN PRN Reason: PAIN LEVEL 6-10 Last Admin: 05/22/18 20:39 Dose: 1 tab Allopurinol (Zyloprim -) 100 mg PO DAILY [facility] Last Admin: 05/23/18 10:58 Dose: 100 mg Clopidogrel Bisulfate (Plavix -) 75 mg PO DAILY [facility] Last Admin: 05/23/18 10:59 Dose: 75 mg Fentanyl (Sublimaze Injection -) 25 mcg IVPUSH [id number] PRN PRN Reason: PAIN-PACU ORDER X 4 DOSES ONLY Sodium Chloride (Normal Saline -) 1,000 mls @ 42 mls/hr IV ASDIR [facility] Last Admin: 05/24/18 07:00 Dose: 42 mls/hr Vancomycin HCl 1,250 mg/ (Dextrose) 250 mls @ 250 mls/2 hr IVPB Q24H [facility]; Protocol Last Admin: 05/23/18 21:38 Dose: Not Given Levothyroxine Sodium (Synthroid -) 25 mcg PO AM [facility] Last Admin: 05/24/18 06:11 Dose: 25 mcg Ondansetron HCl (Zofran Injection) 4 mg IVPUSH Q6H PRN PRN Reason: NAUSEA AND/OR VOMITING Pantoprazole Sodium (Protonix -) 40 mg PO DAILY [facility] Last Admin: 05/23/18 10:59 Dose: 40 mg - Objective Vital Signs: Vital Signs Temperature 98.0 F 05/24/18 06:00 Pulse Rate 71 05/24/18 06:00 Respiratory Rate 20 05/24/18 06:00 Blood Pressure 155/64 05/24/18 06:00 O2 Sat by Pulse Oximetry (%) 98 05/22/18 21:00 Constitutional: Yes: No Distress, Calm Cardiovascular: Yes: Regular Rate and Rhythm Respiratory: Yes: Regular, CTA Bilaterally Gastrointestinal: Yes: Normal Bowel Sounds, Soft Musculoskeletal: Yes: WNL Extremities: Yes: Other Neurological: Yes: Alert, Oriented Psychiatric: Yes: Alert, Oriented Labs: CBC, BMP 05/23/18 05:30 05/24/18 05:30 INR, PTT INR 1.08 (0.83-1.09) 05/18/18 05:15 Assessment/Plan Problem List - Problems (1) Gangrene of toe of left foot Code(s): I96 - GANGRENE, NOT ELSEWHERE CLASSIFIED (2) Acute kidney injury superimposed on chronic kidney disease Code(s): N17.9 - ACUTE KIDNEY FAILURE, UNSPECIFIED; N18.9 - CHRONIC KIDNEY DISEASE, UNSPECIFIED (3) Dementia Code(s): F03.90 - UNSPECIFIED DEMENTIA WITHOUT BEHAVIORAL DISTURBANCE (4) Peripheral vascular disease Code(s): I73.9 - PERIPHERAL VASCULAR DISEASE, UNSPECIFIED Assessment/Plan Lt toe gangrene _ MRSA on recent cultures/ Foot cellulitis PVD s/p LLE angioplasty CKD myelofibrosis dementia plan will stop vanco will change to doxy await for amputation rest as per the team
[2018-05-24] MEDS: ALLOPURINOL 100 MG TABLET (FP) PO SCH (10:00)
[2018-05-24] MEDS: CLOPIDOGREL BISULFATE 75 MG TABLET (FP) PO SCH (10:00)
[2018-05-24] MEDS: PANTOPRAZOLE 40 MG TABLET (FP) PO SCH (10:00)
[2018-05-24] MEDS: DOXYCYCLINE HYCLATE 100 MG CAPSULE PO SCH ×2 (10:21→18:19)
[2018-05-24 11:15] LABS: INR 1.18 (0.83-1.09); PROTHROMBIN TIME (PATIENT) 13.9 SEC (9.7-13.0)
--- NOTE | 2018-05-24 12:15 | PN ---
Progress Note (short form) - Note Progress Note: FUV left foot. Scheduled for sx tomorrow. +gangarene, +om, +drainage, ganagrene om discussed with vascular. cleared nancy intervention. spoke with daughter. patient and daughter consented to amputation and tissue debridement. inr ordered. consent obtained for amputation 3rd toe left with debridement of bone and soft tissue. Continue dressing changes. Will follow.
--- NOTE | 2018-05-24 12:16 | PN ---
Progress Note (short form) - Note Progress Note: Pt examined No complaints except for pain in foot s/p CO2 angio has right arm swelling -- iv infiltrated Vital Signs - 24 hr 05/23/18 05/23/18 05/24/18 14:42 18:36 06:00 Temperature 97.6 F 98.1 F 98.0 F Pulse Rate 78 71 Respiratory 20 20 Rate Blood Pressure 138/62 146/69 155/64 05/24/18 10:00 Temperature 99 F Pulse Rate 74 Respiratory 20 Rate Blood Pressure 143/59 L Current Medications Generic Name Dose Route Start Last Admin Trade Name Freq PRN Reason Stop Dose Admin Acetaminophen 650 mg 05/22/18 18:32 05/23/18 16:43 Tylenol - PO 650 mg Q6H PRN Administration FEVER Acetaminophen/Codeine Phosphate 1 tab 05/22/18 18:32 05/22/18 20:39 Tylenol # 3 - PO 1 tab Q6H PRN Administration PAIN LEVEL 6-10 Allopurinol 100 mg 05/23/18 10:00 05/24/18 10:00 Zyloprim - PO 100 mg DAILY [facility] Administration Clopidogrel Bisulfate 75 mg 05/22/18 18:30 05/24/18 10:00 Plavix - PO 75 mg DAILY [facility] Administration Doxycycline Hyclate 100 mg 05/24/18 10:00 05/24/18 10:21 Vibramycin - PO 100 mg BID@1000,1800 [facility] Administration Fentanyl 25 mcg 05/22/18 18:32 Sublimaze Injection - IVPUSH [id number] PRN PAIN-PACU ORDER X 4 DOSES ONLY Sodium Chloride 1,000 mls @ 42 mls/hr 05/22/18 18:32 05/24/18 07:00 Normal Saline - IV 42 mls/hr [facility] Administration Levothyroxine Sodium 25 mcg 05/23/18 07:00 05/24/18 06:11 Synthroid - PO 25 mcg AM [facility] Administration Ondansetron HCl 4 mg 05/22/18 18:32 Zofran Injection IVPUSH Q6H PRN NAUSEA AND/OR VOMITING Pantoprazole Sodium 40 mg 05/23/18 10:00 05/24/18 10:00 Protonix - PO 40 mg DAILY [facility] Administration Laboratory Results - last 24 hr 05/23/18 05/24/18 05/24/18 14:45 05:30 10:37 PT with INR 13.90 H INR 1.18 H Sodium 139 Potassium 4.2 Chloride 105 Carbon Dioxide 28 Anion Gap 7 L BUN 28 H Creatinine 1.8 H Creat Clearance w eGFR 35.95 Random Glucose 96 Calcium 8.0 L Random Vancomycin 31.5 H* x rays- reviewed physical exam S1 S2 RRR Lungs ---clear right forearm edema, erythema, skin tear-- dressing in place- slightly tender to touch Abd- soft, non tender No edema dressing in foot neuro--- awake assessment and plan tylenol #3 for pain relief dc plavix amputation planned for tomorrow-- Insight Director has spoken to Jodi - daughter Continue present care Antibiotics-- >po doxcycline per ID MRSA wound Fluids s/p CO2 angiogram cold compresses to right forearm Problem List - Problems (1) Gangrene of toe of left foot Code(s): I96 - GANGRENE, NOT ELSEWHERE CLASSIFIED (2) Absent pulse in lower extremity Code(s): R09.89 - OTH SYMPTOMS AND SIGNS INVOLVING THE CIRC AND RESP SYSTEMS (3) Acute kidney injury superimposed on chronic kidney disease Code(s): N17.9 - ACUTE KIDNEY FAILURE, UNSPECIFIED; N18.9 - CHRONIC KIDNEY DISEASE, UNSPECIFIED (4) Dementia Code(s): F03.90 - UNSPECIFIED DEMENTIA WITHOUT BEHAVIORAL DISTURBANCE
[2018-05-25] MEDS: LEVOTHYROXINE NA 25 MCG TABLET (FP) PO SCH (06:09)
[2018-05-25] MEDS: SODIUM CHLORIDE 1,000 ML IV SCH ×3 (06:21→14:06)
[2018-05-25 08:21] LABS: HEMATOCRIT 25.1 % (35.4-49); HEMOGLOBIN 8.2 GM/dL (11.7-16.9); MCH 36.6 pg (25.7-33.7); MCHC 32.8 g/dl (32.0-35.9); MEAN CELL VOLUME 111.6 fl (80-96); MEAN PLT VOLUME 9.7 fl (7.5-11.1); PLATELET COUNT 378 K/MM3 (134-434); RBC 2.25 M/mm3 (4.00-5.60); RDW 15.2 % (11.9-15.9); WHITE BLOOD COUNT 12.6 K/mm3 (4.0-10.0)
[2018-05-25 08:29] LABS: ALBUMIN 2.7 g/dl (3.4-5.0); ALK PHOS 88 U/L (45-117); ANION GAP 8 MMOL/L (8-16); BILIRUBIN,TOTAL 0.4 mg/dL (0.2-1); BLOOD UREA NITROGEN 28 mg/dL (7-18); CALCIUM 8.3 mg/dL (8.5-10.1); CHLORIDE 105 mmol/L (98-107); CO2 27 mmol/L (21-32); CREATININE 1.8 mg/dL (0.55-1.3); GLUCOSE,RANDOM 82 mg/dL (74-106); POTASSIUM 4.4 mmol/L (3.5-5.1); SGOT/AST 23 U/L (15-37); SGPT/ALT 16 U/L (13-61); SODIUM 140 mmol/L (136-145); TOT PROT 5.3 g/dl (6.4-8.2)
--- NOTE | 2018-05-25 09:19 | PN ---
Progress Note (short form) - Note Progress Note: for or today comfortable Vital Signs Temp 98.2 F 05/25/18 08:51 Pulse 72 05/25/18 08:51 Resp 16 05/25/18 08:51 BP 112/68 05/25/18 08:51 Pulse Ox 94 L 05/24/18 09:00 Intake & Output 05/24/18 05/24/18 05/25/18 11:59 23:59 11:59 Intake Total 656 044 7259 Output Total 200 Balance 003 202 8341 Intake: IV 408 315 9832 Normal Saline - 1,000 ml 377 054 4321 @ 42 mls/hr IV ASDIR [facility] Rx#:[id number] Oral 600 Output: Urine 200 Void 200 Other: Voiding Method Toilet Diaper # Unmeasured Voids Void 1 1 Bowel Movement No Yes Active Medications Acetaminophen (Tylenol -) 650 mg PO Q6H PRN PRN Reason: FEVER Last Admin: 05/23/18 16:43 Dose: 650 mg Acetaminophen/Codeine Phosphate (Tylenol # 3 -) 1 tab PO Q6H PRN PRN Reason: PAIN LEVEL 6-10 Last Admin: 05/22/18 20:39 Dose: 1 tab Allopurinol (Zyloprim -) 100 mg PO DAILY [facility] Last Admin: 05/24/18 10:00 Dose: 100 mg Doxycycline Hyclate (Vibramycin -) 100 mg PO BID@1000,1800 [facility] Last Admin: 05/24/18 18:19 Dose: 100 mg Fentanyl (Sublimaze Injection -) 25 mcg IVPUSH [id number] PRN PRN Reason: PAIN-PACU ORDER X 4 DOSES ONLY Sodium Chloride (Normal Saline -) 1,000 mls @ 42 mls/hr IV ASDIR [facility] Last Admin: 05/25/18 07:51 Dose: Not Given Levothyroxine Sodium (Synthroid -) 25 mcg PO AM [facility] Last Admin: 05/25/18 06:09 Dose: Not Given Ondansetron HCl (Zofran Injection) 4 mg IVPUSH Q6H PRN PRN Reason: NAUSEA AND/OR VOMITING Pantoprazole Sodium (Protonix -) 40 mg PO DAILY [facility] Last Admin: 05/24/18 10:00 Dose: 40 mg CBC, BMP 05/25/18 07:00 05/25/18 07:00 physical exam S1 S2 RRR Lungs ---clear Abd- soft, non tender No edema dressing in foot neuro--- awake assessment and plan continue present care will follow
[2018-05-25] MEDS ORDERED: oxyCODONE HCL 5 MG TABLET PO PRN ×2 (09:52→13:04)
[2018-05-25] MEDS ORDERED: LACTATED RINGERS SOLUTION 1,000 ML IV SCH (10:00)
--- NOTE | 2018-05-25 10:27 | PN ---
Progress Note, Physician History of Present Illness: patient going for surgery tomorrow no new issues - Current Medication List Current Medications: Active Medications Acetaminophen (Tylenol -) 650 mg PO Q6H PRN PRN Reason: FEVER Last Admin: 05/23/18 16:43 Dose: 650 mg Acetaminophen/Codeine Phosphate (Tylenol # 3 -) 1 tab PO Q6H PRN PRN Reason: PAIN LEVEL 6-10 Last Admin: 05/22/18 20:39 Dose: 1 tab Allopurinol (Zyloprim -) 100 mg PO DAILY [facility] Last Admin: 05/24/18 10:00 Dose: 100 mg Doxycycline Hyclate (Vibramycin -) 100 mg PO BID@1000,1800 [facility] Last Admin: 05/24/18 18:19 Dose: 100 mg Fentanyl (Sublimaze Injection -) 25 mcg IVPUSH [id number] PRN PRN Reason: PAIN-PACU ORDER X 4 DOSES ONLY Sodium Chloride (Normal Saline -) 1,000 mls @ 42 mls/hr IV ASDIR [facility] Last Admin: 05/25/18 07:51 Dose: Not Given Lactated Ringer's (Lactated Ringers Solution) 1,000 mls @ 125 mls/hr IV ASDIR [facility] Levothyroxine Sodium (Synthroid -) 25 mcg PO AM [facility] Last Admin: 05/25/18 06:09 Dose: Not Given Ondansetron HCl (Zofran Injection) 4 mg IVPUSH Q6H PRN PRN Reason: NAUSEA AND/OR VOMITING Oxycodone HCl (Roxicodone -) 5 mg PO Q4H PRN PRN Reason: PAIN LEVEL 1-5 Pantoprazole Sodium (Protonix -) 40 mg PO DAILY [facility] Last Admin: 05/24/18 10:00 Dose: 40 mg - Objective Vital Signs: Vital Signs Temperature 98.2 F 05/25/18 08:51 Pulse Rate 72 05/25/18 08:51 Respiratory Rate 16 05/25/18 08:51 Blood Pressure 112/68 05/25/18 08:51 O2 Sat by Pulse Oximetry (%) 94 L 05/24/18 09:00 Constitutional: Yes: No Distress, Calm Cardiovascular: Yes: S1, S2 Respiratory: Yes: Regular, CTA Bilaterally Gastrointestinal: Yes: Normal Bowel Sounds, Soft Musculoskeletal: Yes: WNL Extremities: Yes: Other Neurological: Yes: Alert, Confusion Psychiatric: Yes: Alert Labs: CBC, BMP 05/25/18 07:00 05/25/18 07:00 INR, PTT INR 1.18 (0.83-1.09) H 05/24/18 10:37 Assessment/Plan Problem List - Problems (1) Gangrene of toe of left foot Code(s): I96 - GANGRENE, NOT ELSEWHERE CLASSIFIED (2) Acute kidney injury superimposed on chronic kidney disease Code(s): N17.9 - ACUTE KIDNEY FAILURE, UNSPECIFIED; N18.9 - CHRONIC KIDNEY DISEASE, UNSPECIFIED (3) Dementia Code(s): F03.90 - UNSPECIFIED DEMENTIA WITHOUT BEHAVIORAL DISTURBANCE (4) Peripheral vascular disease Code(s): I73.9 - PERIPHERAL VASCULAR DISEASE, UNSPECIFIED Assessment/Plan Lt toe gangrene _ MRSA on recent cultures/ Foot cellulitis PVD s/p LLE angioplasty CKD myelofibrosis dementia plan continue abx going to or today will d/w podiatry post op rest as per the team
[2018-05-25] MEDS ORDERED: MIDAZOLAM HCL 2 MG/2 ML SINGLE DOSE VIAL ONE (11:33)
[2018-05-25] MEDS ORDERED: PROPOFOL 20 ML ONE ×3 (11:35→12:11)
[2018-05-25] MEDS ORDERED: LIDOCAINE HCL 1%, 10 MG/ML (20ML VIAL) ONE (11:38)
[2018-05-25] MEDS ORDERED: PT OWN MED DRAWER 7, Y5N ONE (11:43)
[2018-05-25] MEDS ORDERED: LIDOCAINE HCL 1%, 10 MG/ML (20ML VIAL) PNB ONE (11:47)
[2018-05-25] MEDS ORDERED: ceFAZolin SODIUM 1 GM VIAL ONE (12:07)
[2018-05-25] MEDS ORDERED: SODIUM CHLORIDE 0.9% P/F 10 ML VIAL IJ ONE ×2 (12:07)
[2018-05-25] MEDS ORDERED: DEXAMETHASONE SOD PHOSPHATE 4 MG/1 ML VIAL ONE (12:07)
[2018-05-25] MEDS ORDERED: LIDOCAINE HCL/PF 2% SDV 5ML VIAL ONE (12:07)
[2018-05-25] MEDS ORDERED: BUPIVACAINE HCL/PF 0.5% (5MG/ML) 10 ML VIAL ONE (12:13)
--- NOTE | 2018-05-25 12:32 | OP ---
Operative Note - Note: Operative Date: 05/25/18 Pre-Operative Diagnosis: gangarene chronic wound left foot Operation: amputation 3rd toe left with excision 2&3rd metatarsal heads, debridement of necrotic tissue Findings: necrotic tissue and bone Post-Operative Diagnosis: Same as Pre-op Surgeon: Jose Otero Anesthesia: Local, MAC Specimens Removed: bone soft tissue, toe Estimated Blood Loss (mls): 10 Instrument used (Debridements only): scalpel, power saw Operative Report Dictated: Yes
[2018-05-25] MEDS ORDERED: ONDANSETRON 4 MG/2 ML VIAL IVPUSH PRN (13:04)
[2018-05-25] MEDS: LACTATED RINGERS SOLUTION 1,000 ML IV SCH (14:06)
[2018-05-25] MEDS: PANTOPRAZOLE 40 MG TABLET (FP) PO SCH (14:07)
[2018-05-25] MEDS: DOXYCYCLINE HYCLATE 100 MG CAPSULE PO SCH ×2 (14:07→17:40)
[2018-05-25] MEDS: ALLOPURINOL 100 MG TABLET (FP) PO SCH (14:08)
[2018-05-26] MEDS ORDERED: PT OWN MED DRAWER 7, Y5N ONE (10:13)
[2018-05-26] MEDS: ASPIRIN 81 MG CHEWABLE TABLETS PO SCH (10:16)
[2018-05-26] MEDS: CLOPIDOGREL BISULFATE 75 MG TABLET (FP) PO SCH (10:16)
[2018-05-26] MEDS: PANTOPRAZOLE 40 MG TABLET (FP) PO SCH (10:16)
[2018-05-26] MEDS: FUROSEMIDE 20 MG TABLET (FP) PO SCH (10:16)
[2018-05-26] MEDS: HYDROXYUREA 500 MG CAPSULE PO SCH (10:16)
[2018-05-26] MEDS: ACETAMINOPHEN WITH CODEINE 300MG/30MG TABLET PO PRN ×2 (10:16→22:02)
[2018-05-26] MEDS: DOXYCYCLINE HYCLATE 100 MG CAPSULE PO SCH ×2 (10:16→18:12)
[2018-05-26] MEDS: ALLOPURINOL 100 MG TABLET (FP) PO SCH (10:16)
[2018-05-26] MEDS: LEVOTHYROXINE NA 25 MCG TABLET (FP) PO SCH (10:25)
--- NOTE | 2018-05-26 10:45 | PN ---
Progress Note, Physician History of Present Illness: patient stable post op no new issues - Current Medication List Current Medications: Active Medications Acetaminophen (Tylenol -) 650 mg PO Q6H PRN PRN Reason: FEVER Acetaminophen/Codeine Phosphate (Tylenol # 3 -) 1 tab PO Q6H PRN PRN Reason: PAIN LEVEL 6-10 Last Admin: 05/26/18 10:16 Dose: 1 tab Allopurinol (Zyloprim -) 100 mg PO DAILY [facility] Last Admin: 05/26/18 10:16 Dose: 100 mg Aspirin (Asa -) 81 mg PO DAILY [facility] Last Admin: 05/26/18 10:16 Dose: 81 mg Clopidogrel Bisulfate (Plavix -) 75 mg PO DAILY [facility] Last Admin: 05/26/18 10:16 Dose: 75 mg Doxycycline Hyclate (Vibramycin -) 100 mg PO BID@1000,1800 [facility] Last Admin: 05/26/18 10:16 Dose: 100 mg Fentanyl (Sublimaze Injection -) 25 mcg IVPUSH [id number] PRN PRN Reason: PAIN-PACU ORDER X 4 DOSES ONLY Stop: 05/26/18 13:03 Furosemide (Lasix -) 20 mg PO DAILY [facility] Last Admin: 05/26/18 10:16 Dose: 20 mg Hydroxyurea (Hydrea -) 500 mg PO DAILY [facility] Last Admin: 05/26/18 10:16 Dose: 500 mg Lactated Ringer's (Lactated Ringers Solution) 1,000 mls @ 125 mls/hr IV ASDIR [facility] Last Admin: 05/25/18 14:06 Dose: Not Given Sodium Chloride (Normal Saline -) 1,000 mls @ 42 mls/hr IV ASDIR [facility] Last Admin: 05/25/18 14:06 Dose: Not Given Levothyroxine Sodium (Synthroid -) 25 mcg PO AM [facility] Last Admin: 05/26/18 10:25 Dose: 25 mcg Ondansetron HCl (Zofran Injection) 4 mg IVPUSH Q6H PRN PRN Reason: NAUSEA AND/OR VOMITING Oxycodone HCl (Roxicodone -) 5 mg PO Q4H PRN PRN Reason: PAIN LEVEL 1-5 Pantoprazole Sodium (Protonix -) 40 mg PO DAILY [facility] Last Admin: 05/26/18 10:16 Dose: 40 mg - Objective Vital Signs: Vital Signs Temperature 99.3 F 05/26/18 06:00 Pulse Rate 79 05/26/18 06:00 Respiratory Rate 18 05/26/18 06:00 Blood Pressure 147/69 05/26/18 06:00 O2 Sat by Pulse Oximetry (%) 100 05/25/18 21:00 Constitutional: Yes: No Distress, Calm Cardiovascular: Yes: S1, S2 Respiratory: Yes: Regular, CTA Bilaterally Gastrointestinal: Yes: Normal Bowel Sounds, Soft Musculoskeletal: Yes: WNL Extremities: Yes: Other Wound/Incision: Yes: Dressing Dry and Intact Neurological: Yes: Alert, Other (dementia) Psychiatric: Yes: Other Labs: CBC, BMP 05/25/18 07:00 05/25/18 07:00 INR, PTT INR 1.18 (0.83-1.09) H 05/24/18 10:37 Assessment/Plan Problem List - Problems (1) Gangrene of toe of left foot Code(s): I96 - GANGRENE, NOT ELSEWHERE CLASSIFIED (2) Acute kidney injury superimposed on chronic kidney disease Code(s): N17.9 - ACUTE KIDNEY FAILURE, UNSPECIFIED; N18.9 - CHRONIC KIDNEY DISEASE, UNSPECIFIED (3) Dementia Code(s): F03.90 - UNSPECIFIED DEMENTIA WITHOUT BEHAVIORAL DISTURBANCE (4) Peripheral vascular disease Code(s): I73.9 - PERIPHERAL VASCULAR DISEASE, UNSPECIFIED Assessment/Plan Lt toe gangrene _ MRSA on recent cultures/ Foot cellulitis PVD s/p LLE angioplasty CKD myelofibrosis dementia plan continue to monitor off of abx now wound care rest as per the team
--- NOTE | 2018-05-26 11:36 | PN ---
Progress Note (short form) - Note Progress Note: POD#1. Patient sleeping comfortably. tmax 99.3, wbc=12.6, +dressing clean dry and intact normal post op Dressing and packing to be pulled on Monday. Non weight bearing. No BRP. Will follow. Discussed with Dr. Resendiz.
--- NOTE | 2018-05-26 12:32 | PN ---
Progress Note (short form) - Note Progress Note: pod # 1 comfortable Vital Signs Temp 97 F L 05/26/18 10:00 Pulse 85 05/26/18 10:00 Resp 20 05/26/18 10:00 BP 139/58 L 05/26/18 10:00 Pulse Ox 100 05/26/18 09:00 Intake & Output 05/25/18 05/26/18 05/26/18 23:59 11:59 23:59 Intake Total 975 400 Output Total 0 500 Balance 975 -100 Intake: IV 375 Lactated Ringers Solution 300 1,000 ml @ 125 mls/hr IV ASDIR [facility] Rx#: [id number] Oral 600 400 Output: Urine 0 500 Void 500 Other: Voiding Method Diaper Diaper # Unmeasured Voids Void 2 Bowel Movement Yes No # Bowel Movements 1 Active Medications Acetaminophen (Tylenol -) 650 mg PO Q6H PRN PRN Reason: FEVER Acetaminophen/Codeine Phosphate (Tylenol # 3 -) 1 tab PO Q6H PRN PRN Reason: PAIN LEVEL 6-10 Last Admin: 05/26/18 10:16 Dose: 1 tab Allopurinol (Zyloprim -) 100 mg PO DAILY [facility] Last Admin: 05/26/18 10:16 Dose: 100 mg Aspirin (Asa -) 81 mg PO DAILY [facility] Last Admin: 05/26/18 10:16 Dose: 81 mg Clopidogrel Bisulfate (Plavix -) 75 mg PO DAILY [facility] Last Admin: 05/26/18 10:16 Dose: 75 mg Doxycycline Hyclate (Vibramycin -) 100 mg PO BID@1000,1800 [facility] Last Admin: 05/26/18 10:16 Dose: 100 mg Fentanyl (Sublimaze Injection -) 25 mcg IVPUSH [id number] PRN PRN Reason: PAIN-PACU ORDER X 4 DOSES ONLY Stop: 05/26/18 13:03 Furosemide (Lasix -) 20 mg PO DAILY [facility] Last Admin: 05/26/18 10:16 Dose: 20 mg Hydroxyurea (Hydrea -) 500 mg PO DAILY [facility] Last Admin: 05/26/18 10:16 Dose: 500 mg Lactated Ringer's (Lactated Ringers Solution) 1,000 mls @ 125 mls/hr IV ASDIR [facility] Last Admin: 05/25/18 14:06 Dose: Not Given Sodium Chloride (Normal Saline -) 1,000 mls @ 42 mls/hr IV ASDIR [facility] Last Admin: 05/25/18 14:06 Dose: Not Given Levothyroxine Sodium (Synthroid -) 25 mcg PO AM [facility] Last Admin: 05/26/18 10:25 Dose: 25 mcg Ondansetron HCl (Zofran Injection) 4 mg IVPUSH Q6H PRN PRN Reason: NAUSEA AND/OR VOMITING Oxycodone HCl (Roxicodone -) 5 mg PO Q4H PRN PRN Reason: PAIN LEVEL 1-5 Pantoprazole Sodium (Protonix -) 40 mg PO DAILY [facility] Last Admin: 05/26/18 10:16 Dose: 40 mg CBC, BMP 05/25/18 07:00 05/25/18 07:00 physical exam S1 S2 RRR Lungs ---clear Abd- soft, non tender No edema dressing in foot neuro--- awake assessment and plan stable continue present care pain control will follow
[2018-05-26] MEDS: SODIUM CHLORIDE 1,000 ML IV SCH (16:06)
[2018-05-27 06:03] LABS: BASO % 2.3 % (0-2.0); EOS % 2.7 % (0-4.5); HEMATOCRIT 23.6 % (35.4-49); HEMOGLOBIN 7.8 GM/dL (11.7-16.9); LYMPH % 7.9 % (8-40); MCH 36.9 pg (25.7-33.7); MCHC 33.2 g/dl (32.0-35.9); MEAN CELL VOLUME 111.2 fl (80-96); MEAN PLT VOLUME 9.6 fl (7.5-11.1); MONO % 11.5 % (3.8-10.2); NEUT % 75.6 % (42.8-82.8); PLATELET COUNT 423 K/MM3 (134-434); RBC 2.12 M/mm3 (4.00-5.60); RDW 14.7 % (11.9-15.9); WHITE BLOOD COUNT 11.1 K/mm3 (4.0-10.0)
[2018-05-27] MEDS: LEVOTHYROXINE NA 25 MCG TABLET (FP) PO SCH (06:10)
[2018-05-27 06:20] LABS: ALBUMIN 2.4 g/dl (3.4-5.0); ALK PHOS 96 U/L (45-117); ANION GAP 7 MMOL/L (8-16); BILIRUBIN,TOTAL 0.4 mg/dL (0.2-1); BLOOD UREA NITROGEN 30 mg/dL (7-18); CALCIUM 8.1 mg/dL (8.5-10.1); CHLORIDE 105 mmol/L (98-107); CO2 27 mmol/L (21-32); CREATININE 1.9 mg/dL (0.55-1.3); GLUCOSE,RANDOM 93 mg/dL (74-106); POTASSIUM 4.4 mmol/L (3.5-5.1); SGOT/AST 32 U/L (15-37); SGPT/ALT 23 U/L (13-61); SODIUM 139 mmol/L (136-145); TOT PROT 4.8 g/dl (6.4-8.2)
[2018-05-27] MEDS ORDERED: PT OWN MED DRAWER 7, Y5N ONE (10:01)
[2018-05-27] MEDS: ASPIRIN 81 MG CHEWABLE TABLETS PO SCH (10:13)
[2018-05-27] MEDS: FUROSEMIDE 20 MG TABLET (FP) PO SCH (10:13)
[2018-05-27] MEDS: PANTOPRAZOLE 40 MG TABLET (FP) PO SCH (10:13)
[2018-05-27] MEDS: DOXYCYCLINE HYCLATE 100 MG CAPSULE PO SCH ×2 (10:13→19:33)
[2018-05-27] MEDS: CLOPIDOGREL BISULFATE 75 MG TABLET (FP) PO SCH (10:13)
[2018-05-27] MEDS: ALLOPURINOL 100 MG TABLET (FP) PO SCH (10:14)
[2018-05-27 10:24] LABS: ANISOCYTOSIS 0; MACROCYTOSIS 1+; OVALOCYTE 1+; PLATELET ESTIMATE NORMAL
--- NOTE | 2018-05-27 10:40 | PN ---
Progress Note (short form) - Note Progress Note: comfortable no new issues Vital Signs Temp 98.8 F 05/27/18 06:00 Pulse 98 H 05/27/18 06:00 Resp 20 05/27/18 06:00 BP 130/58 L 05/27/18 06:00 Pulse Ox 100 05/26/18 09:00 Intake & Output 05/26/18 05/26/18 05/27/18 11:59 23:59 11:59 Intake Total 400 588 294 Output Total 500 300 Balance -100 288 294 Intake: IV 168 294 Normal Saline - 1,000 ml 168 294 @ 42 mls/hr IV ASDIR [facility] Rx#:[id number] Oral 400 420 Output: Urine 500 300 Void 500 300 Other: Voiding Method Diaper Urinal Bowel Movement No No No Active Medications Acetaminophen (Tylenol -) 650 mg PO Q6H PRN PRN Reason: FEVER Acetaminophen/Codeine Phosphate (Tylenol # 3 -) 1 tab PO Q6H PRN PRN Reason: PAIN LEVEL 6-10 Last Admin: 05/26/18 22:02 Dose: 1 tab Allopurinol (Zyloprim -) 100 mg PO DAILY [facility] Last Admin: 05/27/18 10:14 Dose: 100 mg Aspirin (Asa -) 81 mg PO DAILY [facility] Last Admin: 05/27/18 10:13 Dose: 81 mg Clopidogrel Bisulfate (Plavix -) 75 mg PO DAILY [facility] Last Admin: 05/27/18 10:13 Dose: 75 mg Doxycycline Hyclate (Vibramycin -) 100 mg PO BID@1000,1800 [facility] Last Admin: 05/27/18 10:13 Dose: 100 mg Hydroxyurea (Hydrea -) 500 mg PO DAILY [facility] Last Admin: 05/26/18 10:16 Dose: 500 mg Lactated Ringer's (Lactated Ringers Solution) 1,000 mls @ 125 mls/hr IV ASDIR [facility] Last Admin: 05/25/18 14:06 Dose: Not Given Sodium Chloride (Normal Saline -) 1,000 mls @ 42 mls/hr IV ASDIR [facility] Last Admin: 05/26/18 16:06 Dose: 42 mls/hr Levothyroxine Sodium (Synthroid -) 25 mcg PO AM [facility] Last Admin: 05/27/18 06:10 Dose: 25 mcg Ondansetron HCl (Zofran Injection) 4 mg IVPUSH Q6H PRN PRN Reason: NAUSEA AND/OR VOMITING Oxycodone HCl (Roxicodone -) 5 mg PO Q4H PRN PRN Reason: PAIN LEVEL 1-5 Pantoprazole Sodium (Protonix -) 40 mg PO DAILY [facility] Last Admin: 05/27/18 10:13 Dose: 40 mg CBC, BMP 05/27/18 05:20 05/27/18 05:20 physical exam S1 S2 RRR Lungs ---clear Abd- soft, non tender No edema dressing in foot neuro--- awake assessment and plan stable pod # 2 continue present care local care will follow will need rehab d/c planning -- am ?
--- NOTE | 2018-05-27 11:53 | PN ---
Progress Note, Physician History of Present Illness: no issues comfortable - Current Medication List Current Medications: Active Medications Acetaminophen (Tylenol -) 650 mg PO Q6H PRN PRN Reason: FEVER Acetaminophen/Codeine Phosphate (Tylenol # 3 -) 1 tab PO Q6H PRN PRN Reason: PAIN LEVEL 6-10 Last Admin: 05/26/18 22:02 Dose: 1 tab Allopurinol (Zyloprim -) 100 mg PO DAILY [facility] Last Admin: 05/27/18 10:14 Dose: 100 mg Aspirin (Asa -) 81 mg PO DAILY [facility] Last Admin: 05/27/18 10:13 Dose: 81 mg Clopidogrel Bisulfate (Plavix -) 75 mg PO DAILY [facility] Last Admin: 05/27/18 10:13 Dose: 75 mg Doxycycline Hyclate (Vibramycin -) 100 mg PO BID@1000,1800 [facility] Last Admin: 05/27/18 10:13 Dose: 100 mg Hydroxyurea (Hydrea -) 500 mg PO DAILY [facility] Last Admin: 05/26/18 10:16 Dose: 500 mg Lactated Ringer's (Lactated Ringers Solution) 1,000 mls @ 125 mls/hr IV ASDIR [facility] Last Admin: 05/25/18 14:06 Dose: Not Given Sodium Chloride (Normal Saline -) 1,000 mls @ 42 mls/hr IV ASDIR [facility] Last Admin: 05/26/18 16:06 Dose: 42 mls/hr Levothyroxine Sodium (Synthroid -) 25 mcg PO AM [facility] Last Admin: 05/27/18 06:10 Dose: 25 mcg Ondansetron HCl (Zofran Injection) 4 mg IVPUSH Q6H PRN PRN Reason: NAUSEA AND/OR VOMITING Oxycodone HCl (Roxicodone -) 5 mg PO Q4H PRN PRN Reason: PAIN LEVEL 1-5 Pantoprazole Sodium (Protonix -) 40 mg PO DAILY [facility] Last Admin: 05/27/18 10:13 Dose: 40 mg - Objective Vital Signs: Vital Signs Temperature 98.8 F 05/27/18 06:00 Pulse Rate 98 H 05/27/18 06:00 Respiratory Rate 20 05/27/18 06:00 Blood Pressure 130/58 L 05/27/18 06:00 O2 Sat by Pulse Oximetry (%) 100 05/26/18 09:00 Constitutional: Yes: No Distress, Calm Cardiovascular: Yes: S1, S2 Respiratory: Yes: Regular, CTA Bilaterally Gastrointestinal: Yes: Normal Bowel Sounds, Soft Musculoskeletal: Yes: WNL Extremities: Yes: Other Wound/Incision: Yes: Dressing Dry and Intact Neurological: Yes: Alert, Other Psychiatric: Yes: Other Labs: CBC, BMP 05/27/18 05:20 05/27/18 05:20 INR, PTT INR 1.18 (0.83-1.09) H 05/24/18 10:37 Assessment/Plan Problem List - Problems (1) Gangrene of toe of left foot Code(s): I96 - GANGRENE, NOT ELSEWHERE CLASSIFIED (2) Acute kidney injury superimposed on chronic kidney disease Code(s): N17.9 - ACUTE KIDNEY FAILURE, UNSPECIFIED; N18.9 - CHRONIC KIDNEY DISEASE, UNSPECIFIED (3) Dementia Code(s): F03.90 - UNSPECIFIED DEMENTIA WITHOUT BEHAVIORAL DISTURBANCE (4) Peripheral vascular disease Code(s): I73.9 - PERIPHERAL VASCULAR DISEASE, UNSPECIFIED Assessment/Plan Lt toe gangrene _ MRSA on recent cultures/ Foot cellulitis PVD s/p LLE angioplasty CKD myelofibrosis dementia plan will stop abx and watch post amputation rest as per the team
[2018-05-27] MEDS: HYDROXYUREA 500 MG CAPSULE PO SCH (12:14)
[2018-05-27] MEDS: ACETAMINOPHEN WITH CODEINE 300MG/30MG TABLET PO PRN ×2 (14:31→22:15)
[2018-05-27] MEDS: SODIUM CHLORIDE 1,000 ML IV SCH (17:40)
[2018-05-28] MEDS: LEVOTHYROXINE NA 25 MCG TABLET (FP) PO SCH (06:27)
[2018-05-28 07:30] LABS: BASO % 2.4 % (0-2.0); EOS % 2.6 % (0-4.5); HEMOGLOBIN 7.8 GM/dL (11.7-16.9); LYMPH % 5.6 % (8-40); MCH 36.2 pg (25.7-33.7); MCHC 32.7 g/dl (32.0-35.9); MEAN CELL VOLUME 110.9 fl (80-96); MEAN PLT VOLUME 9.6 fl (7.5-11.1); MONO % 10.3 % (3.8-10.2); NEUT % 79.1 % (42.8-82.8); PLATELET COUNT 537 K/MM3 (134-434); RBC 2.17 M/mm3 (4.00-5.60); RDW 15.3 % (11.9-15.9); WHITE BLOOD COUNT 13.1 K/mm3 (4.0-10.0)
[2018-05-28 08:01] LABS: ALBUMIN 2.4 g/dl (3.4-5.0); ALK PHOS 102 U/L (45-117); ANION GAP 7 MMOL/L (8-16); BILIRUBIN,TOTAL 0.4 mg/dL (0.2-1); BLOOD UREA NITROGEN 32 mg/dL (7-18); CALCIUM 8.2 mg/dL (8.5-10.1); CHLORIDE 103 mmol/L (98-107); CO2 29 mmol/L (21-32); CREATININE 2.1 mg/dL (0.55-1.3); GLUCOSE,RANDOM 103 mg/dL (74-106); POTASSIUM 4.6 mmol/L (3.5-5.1); SGOT/AST 35 U/L (15-37); SGPT/ALT 23 U/L (13-61); SODIUM 139 mmol/L (136-145); TOT PROT 4.9 g/dl (6.4-8.2)
--- NOTE | 2018-05-28 09:32 | PN ---
Progress Note (short form) - Note Progress Note: pt seen/ examined awake/ comfortable. low grade temp. Vital Signs Temp 98.1 F 05/28/18 06:00 Pulse 85 05/28/18 06:00 Resp 20 05/28/18 06:00 BP 146/69 05/28/18 06:00 Pulse Ox 100 05/27/18 09:00 Intake & Output 05/27/18 05/27/18 05/28/18 11:59 23:59 11:59 Intake Total 294 672 336 Balance 294 672 336 Intake: IV 294 672 336 Normal Saline - 1,000 ml 294 672 336 @ 42 mls/hr IV ASDIR [facility] Rx#:[id number] Other: Voiding Method Urinal Urinal Bowel Movement No No Active Medications Acetaminophen (Tylenol -) 650 mg PO Q6H PRN PRN Reason: FEVER Acetaminophen/Codeine Phosphate (Tylenol # 3 -) 1 tab PO Q6H PRN PRN Reason: PAIN LEVEL 6-10 Last Admin: 05/27/18 22:15 Dose: 1 tab Allopurinol (Zyloprim -) 100 mg PO DAILY [facility] Last Admin: 05/27/18 10:14 Dose: 100 mg Aspirin (Asa -) 81 mg PO DAILY [facility] Last Admin: 05/27/18 10:13 Dose: 81 mg Clopidogrel Bisulfate (Plavix -) 75 mg PO DAILY [facility] Last Admin: 05/27/18 10:13 Dose: 75 mg Doxycycline Hyclate (Vibramycin -) 100 mg PO BID@1000,1800 [facility] Last Admin: 05/27/18 19:33 Dose: 100 mg Hydroxyurea (Hydrea -) 500 mg PO DAILY [facility] Last Admin: 05/27/18 12:14 Dose: 500 mg Lactated Ringer's (Lactated Ringers Solution) 1,000 mls @ 125 mls/hr IV ASDIR [facility] Last Admin: 05/25/18 14:06 Dose: Not Given Sodium Chloride (Normal Saline -) 1,000 mls @ 42 mls/hr IV [facility]IR [facility] Last Admin: 05/27/18 17:40 Dose: 42 mls/hr Levothyroxine Sodium (Synthroid -) 25 mcg PO AM [facility] Last Admin: 05/28/18 06:27 Dose: 25 mcg Ondansetron HCl (Zofran Injection) 4 mg IVPUSH Q6H PRN PRN Reason: NAUSEA AND/OR VOMITING Oxycodone HCl (Roxicodone -) 5 mg PO Q4H PRN PRN Reason: PAIN LEVEL 1-5 Pantoprazole Sodium (Protonix -) 40 mg PO DAILY [facility] Last Admin: 05/27/18 10:13 Dose: 40 mg CBC, BMP 05/28/18 06:30 05/28/18 06:30 physical exam S1 S2 RRR Lungs ---clear Abd- soft, non tender No edema dressing in foot neuro--- awake assessment and plan pod # 3 continue present care Physical therapy-- nwb - left leg d/c planning discussed with nursing staff d/c when bed available and cleared by Podiatry Discussed with Dr. Karlee berger
[2018-05-28] MEDS ORDERED: PT OWN MED DRAWER 7, Y5N ONE (09:55)
[2018-05-28] MEDS: ASPIRIN 81 MG CHEWABLE TABLETS PO SCH (10:22)
[2018-05-28] MEDS: ALLOPURINOL 100 MG TABLET (FP) PO SCH (10:22)
[2018-05-28] MEDS: DOXYCYCLINE HYCLATE 100 MG CAPSULE PO SCH ×2 (10:22→17:55)
[2018-05-28] MEDS: CLOPIDOGREL BISULFATE 75 MG TABLET (FP) PO SCH (10:22)
[2018-05-28] MEDS: HYDROXYUREA 500 MG CAPSULE PO SCH (10:22)
[2018-05-28] MEDS: PANTOPRAZOLE 40 MG TABLET (FP) PO SCH (10:22)
--- NOTE | 2018-05-28 11:45 | PN ---
Progress Note, Physician History of Present Illness: spiked low grade fever couple of times patient looks comfortable - Current Medication List Current Medications: Active Medications Acetaminophen (Tylenol -) 650 mg PO Q6H PRN PRN Reason: FEVER Acetaminophen/Codeine Phosphate (Tylenol # 3 -) 1 tab PO Q6H PRN PRN Reason: PAIN LEVEL 6-10 Last Admin: 05/27/18 22:15 Dose: 1 tab Allopurinol (Zyloprim -) 100 mg PO DAILY [facility] Last Admin: 05/28/18 10:22 Dose: 100 mg Aspirin (Asa -) 81 mg PO DAILY [facility] Last Admin: 05/28/18 10:22 Dose: 81 mg Clopidogrel Bisulfate (Plavix -) 75 mg PO DAILY [facility] Last Admin: 05/28/18 10:22 Dose: 75 mg Doxycycline Hyclate (Vibramycin -) 100 mg PO BID@1000,1800 [facility] Last Admin: 05/28/18 10:22 Dose: 100 mg Hydroxyurea (Hydrea -) 500 mg PO DAILY [facility] Last Admin: 05/28/18 10:22 Dose: 500 mg Lactated Ringer's (Lactated Ringers Solution) 1,000 mls @ 125 mls/hr IV ASDIR [facility] Last Admin: 05/25/18 14:06 Dose: Not Given Sodium Chloride (Normal Saline -) 1,000 mls @ 42 mls/hr IV ASDIR [facility] Last Admin: 05/27/18 17:40 Dose: 42 mls/hr Levothyroxine Sodium (Synthroid -) 25 mcg PO AM [facility] Last Admin: 05/28/18 06:27 Dose: 25 mcg Ondansetron HCl (Zofran Injection) 4 mg IVPUSH Q6H PRN PRN Reason: NAUSEA AND/OR VOMITING Oxycodone HCl (Roxicodone -) 5 mg PO Q4H PRN PRN Reason: PAIN LEVEL 1-5 Pantoprazole Sodium (Protonix -) 40 mg PO DAILY [facility] Last Admin: 05/28/18 10:22 Dose: 40 mg - Objective Vital Signs: Vital Signs Temperature 98.1 F 05/28/18 06:00 Pulse Rate 85 05/28/18 06:00 Respiratory Rate 20 05/28/18 06:00 Blood Pressure 146/69 05/28/18 06:00 O2 Sat by Pulse Oximetry (%) 100 05/27/18 09:00 Constitutional: Yes: No Distress, Calm Cardiovascular: Yes: S1, S2 Musculoskeletal: Yes: WNL Extremities: Yes: Other Wound/Incision: Yes: Dressing Dry and Intact Neurological: Yes: Alert, Other Labs: CBC, BMP 05/28/18 06:30 05/28/18 06:30 INR, PTT INR 1.18 (0.83-1.09) H 05/24/18 10:37 Assessment/Plan Problem List - Problems (1) Gangrene of toe of left foot Code(s): I96 - GANGRENE, NOT ELSEWHERE CLASSIFIED (2) Acute kidney injury superimposed on chronic kidney disease Code(s): N17.9 - ACUTE KIDNEY FAILURE, UNSPECIFIED; N18.9 - CHRONIC KIDNEY DISEASE, UNSPECIFIED (3) Dementia Code(s): F03.90 - UNSPECIFIED DEMENTIA WITHOUT BEHAVIORAL DISTURBANCE (4) Peripheral vascular disease Code(s): I73.9 - PERIPHERAL VASCULAR DISEASE, UNSPECIFIED Assessment/Plan Lt toe gangrene _ MRSA on recent cultures/ Foot cellulitis PVD s/p LLE angioplasty CKD myelofibrosis dementia plan spiked low grade fever awaiting for podiatry to look at the wound if need be will start on oral abx rest as per the team
--- NOTE | 2018-05-28 12:09 | PN ---
Progress Note (short form) - Note Progress Note: POD#3. Patient resting comfortably. tmax 98.1, wbc=13.1, +dressing clean dry and intact, packing in place, +retention sutures in place, -mal odor, -drainage normal post op Packing pulled. Betadine dressing applied. Can bear weight today. BRP re- instated. Will follow.
[2018-05-28] MEDS: LACTATED RINGERS SOLUTION 1,000 ML IV SCH (17:20)
[2018-05-28] MEDS: SODIUM CHLORIDE 1,000 ML IV SCH (17:55)
[2018-05-29] MEDS: LEVOTHYROXINE NA 25 MCG TABLET (FP) PO SCH (06:25)
[2018-05-29] MEDS ORDERED: PT OWN MED DRAWER 7, Y5N ONE (10:31)
[2018-05-29] MEDS: ASPIRIN 81 MG CHEWABLE TABLETS PO SCH (10:56)
[2018-05-29] MEDS: PANTOPRAZOLE 40 MG TABLET (FP) PO SCH (10:56)
[2018-05-29] MEDS: DOXYCYCLINE HYCLATE 100 MG CAPSULE PO SCH ×2 (10:56→17:40)
[2018-05-29] MEDS: CLOPIDOGREL BISULFATE 75 MG TABLET (FP) PO SCH (10:56)
[2018-05-29] MEDS: ALLOPURINOL 100 MG TABLET (FP) PO SCH (10:56)
[2018-05-29] MEDS: HYDROXYUREA 500 MG CAPSULE PO SCH (10:57)
--- NOTE | 2018-05-29 12:13 | PN ---
Progress Note, Physician - Current Medication List Current Medications: Active Medications Acetaminophen (Tylenol -) 650 mg PO Q6H PRN PRN Reason: FEVER Allopurinol (Zyloprim -) 100 mg PO DAILY [facility] Last Admin: 05/29/18 10:56 Dose: 100 mg Aspirin (Asa -) 81 mg PO DAILY [facility] Last Admin: 05/29/18 10:56 Dose: 81 mg Clopidogrel Bisulfate (Plavix -) 75 mg PO DAILY [facility] Last Admin: 05/29/18 10:56 Dose: 75 mg Doxycycline Hyclate (Vibramycin -) 100 mg PO BID@1000,1800 [facility] Last Admin: 05/29/18 10:56 Dose: 100 mg Hydroxyurea (Hydrea -) 500 mg PO DAILY [facility] Last Admin: 05/29/18 10:57 Dose: 500 mg Lactated Ringer's (Lactated Ringers Solution) 1,000 mls @ 125 mls/hr IV ASDIR [facility] Last Admin: 05/28/18 17:20 Dose: Not Given Sodium Chloride (Normal Saline -) 1,000 mls @ 42 mls/hr IV ASDIR [facility] Last Admin: 05/28/18 17:55 Dose: 42 mls/hr Levothyroxine Sodium (Synthroid -) 25 mcg PO AM [facility] Last Admin: 05/29/18 06:25 Dose: 25 mcg Ondansetron HCl (Zofran Injection) 4 mg IVPUSH Q6H PRN PRN Reason: NAUSEA AND/OR VOMITING Pantoprazole Sodium (Protonix -) 40 mg PO DAILY [facility] Last Admin: 05/29/18 10:56 Dose: 40 mg - Objective Vital Signs: Vital Signs Temperature 98 F 05/29/18 06:00 Pulse Rate 97 H 05/29/18 06:00 Respiratory Rate 18 05/29/18 06:00 Blood Pressure 151/74 05/29/18 06:00 O2 Sat by Pulse Oximetry (%) 96 05/28/18 21:00 Labs: CBC, BMP 05/28/18 06:30 05/28/18 06:30 INR, PTT INR 1.18 (0.83-1.09) H 05/24/18 10:37
--- NOTE | 2018-05-29 14:04 | DS ---
Physical Examination Vital Signs: Vital Signs Temperature 98 F 05/29/18 06:00 Pulse Rate 97 H 05/29/18 06:00 Respiratory Rate 18 05/29/18 09:00 Blood Pressure 151/74 05/29/18 06:00 O2 Sat by Pulse Oximetry (%) 96 05/29/18 09:00 Constitutional: Yes: No Distress, Calm Cardiovascular: Yes: Regular Rate and Rhythm Respiratory: Yes: CTA Bilaterally Gastrointestinal: Yes: Normal Bowel Sounds, Soft. No: Tenderness Edema: No Labs: CBC, BMP 05/28/18 06:30 05/28/18 06:30 Discharge Summary Reason For Visit: MRSA,GANGRENNE OF TOE OF LEFT FOOT Current Active Problems Gangrene of toe of left foot (Acute) Hospital Course: Admitted for MRSA wound- gangrene he was evaluated by Vascular and ID and podiatry started on iv antibiotics , underwent CO2 angiogram-- recommended amputation of left 3 rd toe placed on iv fluids encouraged to drink fluids podiatry had followed up yesterday-- wound is clean pt will be on PO doxy stable for dc to [facility] no antibiotic per ID Condition: Fair - Instructions Diet, Activity, Other Instructions: no antibiotics Disposition: RESIDENTIAL FACILITY - Home Medications Comprehensive Discharge Medication List: Ambulatory Orders Aspirin [ASA -] 81 mg PO DAILY 02/23/14 Allopurinol [Zyloprim -] 100 mg PO DAILY 05/30/17 Hydroxyurea [Hydrea 500Mg Capsule -] 500 mg PO DAILY #60 capsule 06/08/17 Clopidogrel Bisulfate [Plavix] 75 mg PO DAILY #30 tablet 12/05/17 Albuterol Sulfate [Proair Hfa] 8.5 gm AD 05/17/18 Furosemide 20 mg PO DAILY 05/17/18 Levothyroxine [Synthroid -] 25 mcg PO DAILY 05/17/18 Pantoprazole Sodium 40 mg PO DAILY 05/17/18
--- NOTE | 2018-05-29 15:54 | PATH ---
Surgical Pathology Report Patient Name: SHAUNA CASANOVA Med. Rec. #: [id number] /Age/Gender: 1930 (Age: 88) / M Account: [id number] Location: [facility] MED/SURG Taken: 05/25/2018 Received: 05/25/2018 Reported: 05/29/2018 Physicians: Jose Otero DPM Specimen(s) Received A: LEFT THIRD TOE B: SECOND AND THIRD TOES METATARSAL HEADS FROM LEFT FOOT Clinical History Left third toe gangrene, left third toe debridement of bone and tissue Final Diagnosis A. LEFT THIRD TOE, AMPUTATION: GANGRENOUS NECROSIS WITH ASSOCIATED ACUTE OSTEOMYELITIS. GANGRENOUS NECROSIS APPEARS TO EXTEND TO SKIN AND SOFT TISSUE MARGIN OF EXCISION. BONE FROM MARGIN APPEARS FREE OF OSTEOMYELITIS. B. BONE, LEFT SECOND AND THIRD METATARSAL HEADS, EXCISION: BONE WITH REACTIVE CHANGES. NO DEFINITE OSTEOMYELITIS IDENTIFIED. Electronically Signed Trenton Torres M.D. Gross Description A. Received in formalin labeled "left third toe," is a 4.7 x 1.8 x 1.6 cm toe amputation specimen. The entire epidermal surface displays a black, gangrenous lesion extending to and involving the underlying bone as well as the skin and soft tissue margin. [employer] sections are submitted in 2 cassettes as follows: 1-bone, skin and soft tissue margin; 2-lesion with underlying bone, following decalcification. B. Received in formalin labeled "second and third metatarsal heads left foot," are 2 undesignated portions of bone measuring 1.3 x 1.0 x 1.0 cm and 1.4 x 1.1 x 1.0 cm. Wind Turbine Design Engineer full thickness sections are submitted in 2 cassettes, following decalcification. /05/28/2018 [facility]05/28/2018
[2018-05-29 17:27] LABS: BASO % 1.4 % (0-2.0); EOS % 1.1 % (0-4.5); HEMATOCRIT 24.4 % (35.4-49); HEMOGLOBIN 7.9 GM/dL (11.7-16.9); LYMPH % 4.5 % (8-40); MCH 35.9 pg (25.7-33.7); MCHC 32.4 g/dl (32.0-35.9); MEAN CELL VOLUME 110.8 fl (80-96); MEAN PLT VOLUME 9.6 fl (7.5-11.1); MONO % 7.9 % (3.8-10.2); NEUT % 85.1 % (42.8-82.8); PLATELET COUNT 661 K/MM3 (134-434); RDW 15.3 % (11.9-15.9); WHITE BLOOD COUNT 13.6 K/mm3 (4.0-10.0)
[2018-05-29] MEDS: ACETAMINOPHEN 325 MG TABLET (FP) PO PRN (17:45)
[2018-05-29 17:50] LABS: ANION GAP 7 MMOL/L (8-16); BLOOD UREA NITROGEN 31 mg/dL (7-18); CALCIUM 8.4 mg/dL (8.5-10.1); CHLORIDE 104 mmol/L (98-107); CO2 27 mmol/L (21-32); GLUCOSE,RANDOM 106 mg/dL (74-106); POTASSIUM 4.5 mmol/L (3.5-5.1); SODIUM 138 mmol/L (136-145)
[2018-05-30] MEDS: ACETAMINOPHEN 325 MG TABLET (FP) PO PRN (01:29)
[2018-05-30] MEDS: LEVOTHYROXINE NA 25 MCG TABLET (FP) PO SCH (06:18)
--- NOTE | 2018-05-30 09:26 | PN ---
Progress Note, Physician - Current Medication List Current Medications: Active Medications Acetaminophen (Tylenol -) 650 mg PO Q6H PRN PRN Reason: FEVER Last Admin: 05/30/18 01:29 Dose: 650 mg Allopurinol (Zyloprim -) 100 mg PO DAILY [facility] Last Admin: 05/29/18 10:56 Dose: 100 mg Aspirin (Asa -) 81 mg PO DAILY [facility] Last Admin: 05/29/18 10:56 Dose: 81 mg Clopidogrel Bisulfate (Plavix -) 75 mg PO DAILY [facility] Last Admin: 05/29/18 10:56 Dose: 75 mg Doxycycline Hyclate (Vibramycin -) 100 mg PO BID@1000,1800 [facility] Last Admin: 05/29/18 17:40 Dose: 100 mg Hydroxyurea (Hydrea -) 500 mg PO DAILY [facility] Last Admin: 05/29/18 10:57 Dose: 500 mg Lactated Ringer's (Lactated Ringers Solution) 1,000 mls @ 125 mls/hr IV ASDIR [facility] Last Admin: 05/28/18 17:20 Dose: Not Given Sodium Chloride (Normal Saline -) 1,000 mls @ 42 mls/hr IV ASDIR [facility] Last Admin: 05/28/18 17:55 Dose: 42 mls/hr Levothyroxine Sodium (Synthroid -) 25 mcg PO AM [facility] Last Admin: 05/30/18 06:18 Dose: 25 mcg Ondansetron HCl (Zofran Injection) 4 mg IVPUSH Q6H PRN PRN Reason: NAUSEA AND/OR VOMITING Pantoprazole Sodium (Protonix -) 40 mg PO DAILY [facility] Last Admin: 05/29/18 10:56 Dose: 40 mg - Objective Vital Signs: Vital Signs Temperature 97.9 F 05/30/18 06:00 Pulse Rate 75 05/30/18 06:00 Respiratory Rate 20 05/30/18 06:00 Blood Pressure 149/66 05/30/18 06:00 O2 Sat by Pulse Oximetry (%) 96 05/29/18 09:00 Labs: CBC, BMP 05/29/18 16:00 05/29/18 16:00 INR, PTT INR 1.18 (0.83-1.09) H 05/24/18 10:37
--- NOTE | 2018-05-30 10:33 | OP ---
DATE OF OPERATION: 05/25/2018 SURGEON: Jose Otero DPM SENIOR GRADUATE ADVISOR: Cinthia Chiang, PGY3 PREOPERATIVE DIAGNOSIS: Left foot 3rd toe gangrene with osteomyelitis and 2nd and 3rd metatarsal head osteomyelitis. 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 PROCEDURES: Left foot 3rd toe amputation and 2nd and 3rd metatarsal head resection. ANESTHESIA: Local with MAC. CONDITION OF THE PATIENT: Stable. COMPLICATIONS: None. DESCRIPTION OF PROCEDURE: The patient was brought to the operating room and placed on the operating table in the supine position. A local infiltrative block consisting of 10 mL of 1% lidocaine plain was infiltrated throughout the surgical site, and the left foot was scrubbed, prepped, and draped in the usual aseptic fashion. Surgery began in the following manner. The gangrenous left foot 3rd toe was disarticulated, and using No. 15 blade, a full-thickness incision was made at the proximal phalanx space and all the way around the 3rd toe, and the 3rd toe was disarticulated at the metatarsophalangeal joint , and the gangrenous 3rd toe was sent to Pathology. At this time, the soft tissue and bone of the 2nd and 3rd metatarsal heads were assessed. Patient had undergone previous amputation at the 2nd metatarsal, and necrotic soft tissue was debrided and passed from the operative field. At this time, the heads of the 2nd and 3rd metatarsals noted to be soft with evidence of fracture and visualized bone. Next, using No. 15 blade, a linear incision was made over the dorsal aspect of the 3rd metatarsal, and the heads of the 3rd and 2nd metatarsal were freed from their capsular and ligamentous attachment using sagittal saw, the distal 1/3 of the 2nd and 3rd metatarsal heads were resected and passed from the operative field. The remaining bone appeared to be hard with healthy bleeding with adequate bleeding. Next, the soft tissue noted some bleeding with viable tissue. At this time, the wound was irrigated with copious amounts of normal saline with Bacitracin in it, and the dorsal and plantar skin edges were reapproximated using retention sutures using 2-0 nylon sutures, and the wound was paced using 0.25-inch plain packing. Postoperative dressing such as Betadine-soaked Adaptic, 4x4 sterile gauze, Kerlix, and an CHAN bandage applied on the left foot. Patient tolerated the procedure and anesthesia well and was transferred to the floor with vital signs stable and vascular status intact. Patient will be followed by Podiatry and . EROS Desai/[id number]
[2018-05-30] MEDS ORDERED: PT OWN MED DRAWER 7, Y5N ONE (10:46)
[2018-05-30] MEDS: CLOPIDOGREL BISULFATE 75 MG TABLET (FP) PO SCH (10:50)
[2018-05-30] MEDS: PANTOPRAZOLE 40 MG TABLET (FP) PO SCH (10:51)
[2018-05-30] MEDS: ASPIRIN 81 MG CHEWABLE TABLETS PO SCH (10:51)
[2018-05-30] MEDS: DOXYCYCLINE HYCLATE 100 MG CAPSULE PO SCH ×2 (10:51→17:42)
[2018-05-30] MEDS: ALLOPURINOL 100 MG TABLET (FP) PO SCH (10:51)
[2018-05-30] MEDS: HYDROXYUREA 500 MG CAPSULE PO SCH (10:52)
--- NOTE | 2018-05-30 12:58 | PN ---
Progress Note (short form) - Note Progress Note: Pt examined no complaints Vital Signs - 24 hr 05/29/18 05/29/18 05/30/18 17:37 22:00 06:00 Temperature 98 F 97.8 F 97.9 F Pulse Rate 87 80 75 Respiratory 18 20 20 Rate Blood Pressure 141/77 140/62 149/66 Current Medications Generic Name Dose Route Start Last Admin Trade Name Freq PRN Reason Stop Dose Admin Acetaminophen 650 mg 05/25/18 13:04 05/30/18 01:29 Tylenol - PO 650 mg Q6H PRN Administration FEVER Allopurinol 100 mg 05/26/18 10:00 05/30/18 10:51 Zyloprim - PO 100 mg DAILY MARLON Administration Aspirin 81 mg 05/26/18 10:00 05/30/18 10:51 Asa - PO 81 mg DAILY MARLON Administration Clopidogrel Bisulfate 75 mg 05/26/18 10:00 05/30/18 10:50 Plavix - PO 75 mg DAILY MARLON Administration Doxycycline Hyclate 100 mg 05/25/18 18:00 05/30/18 10:51 Vibramycin - PO 100 mg BID@1000,1800 MARLON Administration Hydroxyurea 500 mg 05/26/18 10:00 05/30/18 10:52 Hydrea - PO 500 mg DAILY MARLON Administration Lactated Ringer's 1,000 mls @ 125 mls/hr 05/25/18 13:04 05/28/18 17:20 Lactated Ringers Solution IV Not Given ASDIR MARLON Sodium Chloride 1,000 mls @ 42 mls/hr 05/25/18 13:04 05/28/18 17:55 Normal Saline - IV 42 mls/hr ASDIR MARLON Administration Levothyroxine Sodium 25 mcg 05/26/18 07:00 05/30/18 06:18 Synthroid - PO 25 mcg AM MARLON Administration Ondansetron HCl 4 mg 05/25/18 13:04 Zofran Injection IVPUSH Q6H PRN NAUSEA AND/OR VOMITING Pantoprazole Sodium 40 mg 05/26/18 10:00 05/30/18 10:51 Protonix - PO 40 mg DAILY MARLON Administration Laboratory Results - last 24 hr 05/29/18 05/29/18 16:00 16:00 WBC 13.6 H RBC 2.20 L Hgb 7.9 L Hct 24.4 L MCV 110.8 H MCH 35.9 H MCHC 32.4 RDW 15.3 Plt Count 661 H D MPV 9.6 Absolute Neuts (auto) 11.6 H Neutrophils % 85.1 H Lymphocytes % 4.5 L Monocytes % 7.9 Eosinophils % 1.1 Basophils % 1.4 Nucleated RBC % 0 Sodium 138 Potassium 4.5 Chloride 104 Carbon Dioxide 27 Anion Gap 7 L BUN 31 H Creatinine 2.0 H Creat Clearance w eGFR 31.84 Random Glucose 106 Calcium 8.4 L x rays- reviewed physical exam S1 S2 RRR Lungs ---clear right forearm edema, erythema, skin tear-- dressing in place- slightly tender to touch Abd- soft, non tender No edema dressing in foot neuro--- awake assessment and plan dc planning awaiting insurance authorization continue with meds Problem List - Problems (1) Gangrene of toe of left foot Code(s): I96 - GANGRENE, NOT ELSEWHERE CLASSIFIED (2) Absent pulse in lower extremity Code(s): R09.89 - OTH SYMPTOMS AND SIGNS INVOLVING THE CIRC AND RESP SYSTEMS (3) Acute kidney injury superimposed on chronic kidney disease Code(s): N17.9 - ACUTE KIDNEY FAILURE, UNSPECIFIED; N18.9 - CHRONIC KIDNEY DISEASE, UNSPECIFIED (4) Dementia Code(s): F03.90 - UNSPECIFIED DEMENTIA WITHOUT BEHAVIORAL DISTURBANCE
[2018-05-30 15:08] VITALS: BP 145/52; PULSE 81; TEMP 98
== END 2018-05-30 18:42 | DRG 464 ==
LOC: JER 16:06 → JERBED 18:14 → J8W 05-18 12:39
PROVIDERS: ADMIT Internal Medicine; ATTEND Internal Medicine
PROC: 047Q3Z6 (ICD-10-PCS; 2018-05-22)
PROC: 3E05317 Introduction of Other Thrombolytic into Peripheral Artery, Percutaneous Approach (ICD-10-PCS; 2018-05-22)
PROC: B40DYZZ Plain Radiography of Aorta and Bilateral Lower Extremity Arteries using Other Contrast (ICD-10-PCS; 2018-05-22)
PROC: 0Y6U0Z0 Detachment at Left 3rd Toe, Complete, Open Approach (ICD-10-PCS; 2018-05-25)
PROC: 0Y6U0Z2 Detachment at Left 3rd Toe, Mid, Open Approach (ICD-10-PCS; 2018-05-25)
PROC: 0Y6S0Z2 Detachment at Left 2nd Toe, Mid, Open Approach (ICD-10-PCS; 2018-05-25)
PROC: 0JBR0ZZ Excision of Left Foot Subcutaneous Tissue and Fascia, Open Approach (ICD-10-PCS; principal; 2018-05-25 09:30)
DX: M86.9 Osteomyelitis, unspecified (principal); I70.262 Atherosclerosis of native arteries of extremities with gangrene, left leg; D75.81 Myelofibrosis; B95.62 Methicillin resistant Staphylococcus aureus infection as the cause of diseases classified elsewhere; L03.032 Cellulitis of left toe; N18.3 Chronic kidney disease, stage 3 (moderate); D53.9 Nutritional anemia, unspecified; E03.9 Hypothyroidism, unspecified; Z89.422 Acquired absence of other left toe(s); I25.10 Atherosclerotic heart disease of native coronary artery without angina pectoris; F03.90 Unspecified dementia, unspecified severity, without behavioral disturbance, psychotic disturbance, mood disturbance, and anxiety; E78.5 Hyperlipidemia, unspecified; M10.9 Gout, unspecified
CPT/HCPCS: 36415; 71045-TC-FY; 73630-TC-LT; 73718-TC-LT; 76000-TC-FY; 80048; 80053; 81003; 82607; 82746; 83735; 84100; 85025; 85027; 85610; 85651; 85730; 86140; 86850; 86900; 86901; 87040; 87070; 87186; 87205; 88305-TC; 88311-TC; 93005; 93010; 94760; 97116-GP; 97162-GP; 99285-25; G0463-25; G0480; J7030; J8999

== ENCOUNTER 2018-06-14 15:43 | Inpatient (IN) | payer OTHER ==
--- NOTE | 2018-06-14 16:00 | PDOC ---
Rapid Medical Evaluation Chief Complaint: Wound Time Seen by Provider: 06/14/18 15:55 Medical Evaluation: Allergies Allergy/AdvReac Type Severity Reaction Status Date / Time No Known Allergies Allergy Verified 06/14/18 15:56 Vital Signs Temp Pulse Resp BP Pulse Ox 98.0 F 78 14 135/64 99 06/14/18 15:53 06/14/18 15:53 06/14/18 15:53 06/14/18 15:53 06/14/18 15:53 06/14/18 15:58 I have performed a brief in-person evaluation of this patient. The patient presents with a chief complaint of: sent by Dr Newsome from wound clinic to be admitted under Dr. Alfredo for wound of left foot due to poor circulation not responding to PO Abx Pertinent physical exam findings: left foot wrapped . A&O x 3. Afebrile I have ordered the following: CBC, CMP, t&s. The patient will proceed to the ED for further evaluation. Discharge Disposition - Diagnosis Gangrene of toe of left foot - Discharge Dispostion Condition at time of disposition: Stable - Referrals - Patient Instructions - Post Discharge Activity
[2018-06-14] MEDS ORDERED: VANCOMYCIN 1 GM in D5W (PRE-DOCKED) 1,000 MG/250 ML IVPB ONE (16:45)
--- NOTE | 2018-06-14 16:51 | PDOC ---
History of Present Illness - General Chief Complaint: Wound Stated Complaint: WOUND CARE Time Seen by Provider: 06/14/18 15:55 History Source: Family Exam Limitations: Dementia - History of Present Illness Initial Comments: 06/14/18 16:51 88 yo M with PMHx of PVD and chronic foot wound presents from wound care for admission for acute infection. He has had PVD for over 10 years and has had two toe amputation of left foot. He was seen in wound care today for worsening infection. Sent to ER for evaluation and admission. Foot cultures are positive and not responding to PO antibiotics. Foot is painful,malodorous and purulent. Denies CP, CREWS, SOB, palpitations, abdominal pain, nausea, vomiting, fever or chills. Timing/Duration: getting worse Past History - Travel Traveled outside of the country in the last 30 days: No Close contact w/someone who was outside of country & ill: No - Past Medical History Allergies/Adverse Reactions: Allergies Allergy/AdvReac Type Severity Reaction Status Date / Time No Known Allergies Allergy Verified 06/14/18 15:56 Home Medications: Ambulatory Orders Aspirin [ASA -] 81 mg PO DAILY 02/23/14 Allopurinol [Zyloprim -] 100 mg PO DAILY 05/30/17 Hydroxyurea [Hydrea 500Mg Capsule -] 500 mg PO DAILY #60 capsule 06/08/17 Clopidogrel Bisulfate [Plavix] 75 mg PO DAILY #30 tablet 12/05/17 Albuterol Sulfate [Proair Hfa] 8.5 gm AD PRN PRN 05/17/18 Levothyroxine [Synthroid -] 25 mcg PO DAILY 05/17/18 Pantoprazole Sodium 40 mg PO DAILY 05/17/18 Levaquin - 250 mg PO DAILY 06/14/18 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) Cardiac Disorders: Yes (PVD, CAD) COPD: No CHF: No Dementia: Yes GI Disorders: Yes (H/O Diverticulitis) Disorders: Yes (CKD) Hypercholesterolemia: Yes Thyroid Disease: Yes (hypo) - Surgical History Abdominal Surgery: Yes Cholecystectomy: Yes - Immunization History Immunization Up to Date: No - Suicide/Smoking/Psychosocial Hx Smoking Status: No Smoking History: Never smoked Have you smoked in the past 12 months: No Number of Cigarettes Smoked Daily: 0 Hx Alcohol Use: Yes (ALCOHOLISM) Drug/Substance Use Hx: No Substance Use Type: None Hx Substance Use Treatment: No Review of Systems - Review of Systems Able to Perform ROS?: Yes Is the patient limited Cook Islander proficient: No *Physical Exam - Vital Signs Last Vital Signs Temp Pulse Resp BP Pulse Ox 98.0 F 78 14 135/64 99 06/14/18 15:53 06/14/18 15:53 06/14/18 15:53 06/14/18 15:53 06/14/18 15:53 - Physical Exam General Appearance: Yes: Appropriately Dressed, Mild Distress HEENT: positive: HOA, Normal ENT Inspection, Normal Voice Neck: positive: Trachea midline, Supple Respiratory/Chest: positive: Lungs Clear, Normal Breath Sounds. negative: Respiratory Distress, Accessory Muscle Use Cardiovascular: positive: Regular Rhythm, Regular Rate, S1, S2. negative: Edema , JVD, Murmur Vascular Pulses: Dorsalis-Pedis (R): 1+, Doralis-Pedis (L): 0 Gastrointestinal/Abdominal: positive: Normal Bowel Sounds, Soft. negative: Tender, Pulsatile Mass Extremity: positive: Erythema, Other (+granulation, -mal odor, -cellulitis, + drainage, +slough) Integumentary: positive: Other (2nd & 3rd toe amputation ,4th toe eschar (3.0cm x 2.0cm x 0.2cm),5th toe eschar (2.8cm x 1.4cm x 0.2cm)Lateral side eschar ( 7.0cm x 1.4cm x 0.2cm),dorsal side blood blister ( 2.0cm x 5.0cm x 0.1cm),heel pressure wound 2.0cm x5.5cm x0.2cm) ED Treatment Course - LABORATORY CBC & Chemistry Diagram: 06/14/18 16:10 06/14/18 16:10 *DC/Admit/Observation/Transfer Diagnosis at time of Disposition: Gangrene of toe of left foot - Discharge Dispostion Condition at time of disposition: Fair Decision to Admit order: Yes - Referrals - Patient Instructions - Post Discharge Activity
[2018-06-14 16:54] LABS: BASO % 1.8 % (0-2.0); EOS % 1.5 % (0-4.5); HEMOGLOBIN 8.6 GM/dL (11.7-16.9); LYMPH % 6.2 % (8-40); MCH 34.3 pg (25.7-33.7); MCHC 30.7 g/dl (32.0-35.9); MEAN CELL VOLUME 111.6 fl (80-96); MEAN PLT VOLUME 9.3 fl (7.5-11.1); MONO % 6.6 % (3.8-10.2); NEUT % 83.9 % (42.8-82.8); PLATELET COUNT 610 K/MM3 (134-434); RBC 2.51 M/mm3 (4.00-5.60); RDW 16.2 % (11.9-15.9); WHITE BLOOD COUNT 13.6 K/mm3 (4.0-10.0)
[2018-06-14] MEDS ORDERED: VANCOMYCIN 1 GRAM (PRE-DOCKED) 1,000 MG/250 ML BAG IVPB ONE (17:12)
[2018-06-14 17:13] LABS: ALBUMIN 3.1 g/dl (3.4-5.0); BILIRUBIN,TOTAL 0.3 mg/dL (0.2-1); CALCIUM 8.5 mg/dL (8.5-10.1); CREATININE 1.9 mg/dL (0.55-1.3); POTASSIUM 4.4 mmol/L (3.5-5.1); TOT PROT 6.1 g/dl (6.4-8.2)
[2018-06-14 17:29] LABS: INR 1.14 (0.83-1.09); PROTHROMBIN TIME (PATIENT) 13.5 SEC (9.7-13.0)
[2018-06-14 17:32] LABS: ACTIVATED PTT 33.6 SECONDS (25.2-36.5)
--- NOTE | 2018-06-14 17:41 | PDOC ---
Documentation entered by Betty Mccarty SCRIBE, acting as scribe for Marychuy Swift DO. Marychuy Swift DO: This documentation has been prepared by the Lul florentino Amanda, SCRIBE, under my direction and personally reviewed by me in its entirety. I confirm that the documentation accurately reflects all work, treatment, procedures, and medical decision making performed by me. Attending Attestation - Resident Resident Name: Domingo Richard - ED Attending Attestation I have performed the following: I have examined & evaluated the patient, The case was reviewed & discussed with the resident, I agree w/resident's findings & plan - HPI HPI: 06/14/18 16:40 The patient is an 88 year old male with a significant past medical history of Myelofibrosis, CKD (stage 3), PVD s/p LLE angioplasty, s/p amputation of L 2nd toe, Gout, CKD, PVD, Dementia, Hypothyroidism, toe gangrene who was sent to the ED by his reducing machine operator (Dr. Otero) for worsening infection of his left foot despite outpatient Abx. The patient denies fevers, chills, n/v/d. She denies any other complaints. - Physicial Exam PE: 06/14/18 17:01 Constitutional: Awake, alert, oriented. No acute distress. (+) Very hard of hearing. Head: Normocephalic. Atraumatic Eyes: PERRL. EOMI. Conjunctivae are not pale. ENT: Mucous membranes are moist and intact. Posterior pharynx without exudates or erythema. Uvula midline. Neck: Supple. Full ROM. No lymphadenopathy. Cardiovascular: Regular rate. Regular rhythm. S1, S2 regular. Distal pulses are 2+ and symmetric. Pulmonary/Chest: No evidence of respiratory distress. Clear to auscultation bilaterally No wheezing, rales or rhonchi. Abdominal: Soft and non-distended. There is no tenderness. No rebound, guarding or rigidity. No organomegaly. No palpable masses. Good bowel sounds. Back: No CVA tenderness. Musculoskeletal: (+) amputated 2nd and 3rd toes of the left foot. Cellulitis of great toe on left with necrosis of wound, 4th digit and lateral aspect of left foot. There is also a necrotic wound to the heel with surrounding cellulitis. No edema. No cyanosis. No clubbing. Full range of motion in all extremities. Nocalf tenderness. Radial/pedal pulses are intact and 2+ bilaterally Skin: (+) see msk. Otherwise, Skin is warm and dry. No petechiae. No purpura. Neurological: Alert and oriented to person, place, and time. Cranial nerves II -XII are grossly intact. Normal speech. Strength is grossly symmetric. No sensory deficits. Psychiatric: Good eye contact. Normal interaction, affect and behavior. - Medical Decision Making 06/14/18 17:32 I, Dr. Marychuy Swift, DO, attest that this document has been prepared under my direction and personally reviewed by me in its entirety. I further attest, that it accurately reflects all work, treatment, procedures and medical decision -making performed by me. 06/14/18 17:33 a/p: 88yo male with hx of pvd s/p 2 digit amputation to L foot with gangrene ( dry) and cellulitis of the foot -sent by Podiatry and wound care for failed outpt abx -dry gangrene of the L foot at the surgical site, 4th digit, along lateral aspect of the foot and the heel -cellulitis of the toes -will send labs, cultures -will start levaquin and vanco -MRSA hx -pt will need admission for iv abx and poss BKA -PMD Dr. Darion Gong -will obtain xrays to [facility] for air - no crepitus palpated -Bobde for ID -will monitor and reassess 06/14/18 17:41 elevated wbc cr at baseline 06/14/18 17:41 microblog sent to [facility] for admission (val gong at night) 06/14/18 18:[address] Velazco who accepts pt to service 06/14/18 18:23 no gas seen on xray poss small R pleural effusion on cxr pt stable for admission *DC/Admit/Observation/Transfer Diagnosis at time of Disposition: Gangrene of toe of left foot - Discharge Dispostion Condition at time of disposition: Fair Decision to Admit order: Yes - Referrals Referrals: Sayda Gong MD [Primary Care Provider] - - Patient Instructions - Post Discharge Activity Heart Score/ECG Review - ECG Intrepretation Comment:: 06/14/18 17:32 sinus at 74, nl axis, nl interval, no acute st/t wave findings
--- NOTE | 2018-06-14 18:30 | HP ---
CHIEF COMPLAINT: left foot wound PCP: [facility] HISTORY OF PRESENT ILLNESS: 88 year old demented male w/ PVD, 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 Resendiz sent to hospital by Dr. Otero for worsening left foot wound. Patient has grown MRSA, enterococcus sp, and Stenotrophomonas in his prior wound cultures. 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 ER course was notable for: (1) levafloxacin (2) vancomcyin (3) foot xray Recent Travel: no PAST MEDICAL HISTORY: Myelofibrosis, CKD (stage 3), PVD s/p LLE angioplasty, s/ p amputation of L 2nd toe 01/23, Gout, CKD, PVD, Dementia, Hypothyroidism, toe gangrene PAST SURGICAL HISTORY: amputation of 2nd and 3rd left toes Social History: unknown Smoking: Alcohol: Drugs: Family History: unknown Allergies No Known Allergies Allergy (Verified 06/14/18 15:56) HOME MEDICATIONS: Home Medications Medication Instructions Recorded Aspirin [ASA -] 81 mg PO DAILY 02/23/14 Allopurinol [Zyloprim -] 100 mg PO DAILY 05/30/17 Hydroxyurea [Hydrea 500Mg Capsule 500 mg PO DAILY #60 capsule 06/08/17 -] Clopidogrel Bisulfate [Plavix] 75 mg PO DAILY #30 tablet 12/05/17 Albuterol Sulfate [Proair Hfa] 8.5 gm AD PRN PRN 05/17/18 Levothyroxine [Synthroid -] 25 mcg PO DAILY 05/17/18 Pantoprazole Sodium 40 mg PO DAILY 05/17/18 Levaquin - 250 mg PO DAILY 06/14/18 REVIEW OF SYSTEMS- unable to obtain accurate ROS as patient has underlying dementia PHYSICAL EXAMINATION Vital Signs - 24 hr 06/14/18 15:53 Temperature 98.0 F Pulse Rate 78 Respiratory 14 Rate Blood Pressure 135/64 O2 Sat by Pulse 99 Oximetry (%) GENERAL: Awake, alert, , in no acute distress, nontoxic, frail, elderly HEAD: Normal with no signs of trauma. EYES: Pupils equal, round and reactive to light, extraocular movements intact, sclera anicteric, conjunctiva clear. No lid lag. EARS, NOSE, THROAT: Ears normal, nares patent, oropharynx clear without exudates. Moist mucous membranes. NECK: Normal range of motion, supple without lymphadenopathy, JVD, or masses. LUNGS: Breath sounds equal, clear to auscultation bilaterally. No wheezes, and no crackles. No accessory muscle use. HEART: Regular rate and rhythm, normal S1 and S2 without murmur, rub or gallop. ABDOMEN: Soft, nontender, not distended, normoactive bowel sounds, no guarding, no rebound, no masses. MUSCULOSKELETAL: Normal range of motion at all joints. No bony deformities or tenderness. No CVA tenderness. UPPER EXTREMITIES: 2+ pulses, warm, well-perfused. No cyanosis. No clubbing. No peripheral edema. LOWER EXTREMITIES: left foot 2nd, 3rd digits s/p amputation, wound site with some purulent discharge seen, foul smell, some surrounding necrotic tissue NEUROLOGICAL: no focal weakness appreciated, deafness+ PSYCHIATRIC:uncooperative, dementia SKIN: no rashes appreciated Laboratory Results - last 24 hr 06/14/18 06/14/18 06/14/18 16:10 16:10 16:10 WBC 13.6 H RBC 2.51 L Hgb 8.6 L Hct 28.0 L MCV 111.6 H MCH 34.3 H MCHC 30.7 L RDW 16.2 H Plt Count 610 H MPV 9.3 Absolute Neuts (auto) 11.4 H Neutrophils % 83.9 H Lymphocytes % 6.2 L D Monocytes % 6.6 Eosinophils % 1.5 Basophils % 1.8 Nucleated RBC % 0 PT with INR 13.50 H INR 1.14 H PTT (Actin FS) 33.6 Sodium 141 Potassium 4.4 Chloride 105 Carbon Dioxide 32 Anion Gap 4 L BUN 30 H Creatinine 1.9 H Est GFR (CKD-EPI)AfAm 36.19 Est GFR (CKD-EPI)NonAf 31.23 Random Glucose 119 H Calcium 8.5 Total Bilirubin 0.3 AST 17 ALT 16 Alkaline Phosphatase 102 Total Protein 6.1 L Albumin 3.1 L Imaging studies reviewed left foot xray - s/p 2nd, 3rd digit amputation, soft tissue air, swelling loss of bone density ASSESSMENT/PLAN: #Left foot wet gangrene, likely underlying osteomyelitis. +Leukocytosis. Prior enterococcus sp, mrsa, stenotrophomonas.S/p levofloxacin and vancomycin. Patient will require surgical intervention for necrotic tissue debridement, deep tissue wound culture for optimal antibiotic therapy. Not septic at this time, stable for med/surg admission. -med/surg -blood cultures -vascular surgery, podiatry, ID consults - will need debridement -deep tissue culture -esr, crp, lactate -s/p levo/vanco -monitor VS closely -wound care # Myelofibrosis -c/w hydoxyurea #CKD (stage 3) -avoid nephrotoxins -avoid excessive IV fluids #Gout -c/w allopurinol home dose #Dementia -ensure normal tsh -fall precautions -bed rest #DVT ppx -heparin sc Visit type - Emergency Visit Emergency Visit: Yes ED Registration Date: 06/14/18 Care time: The patient presented to the Emergency Department on the above date and was hospitalized for further evaluation of their emergent condition. - New Patient This patient is new to me today: Yes Date on this admission: 06/14/18 - Critical Care Critical Care patient: No
[2018-06-14 19:39] LABS: ANISOCYTOSIS 3+; MACROCYTOSIS 3+; PLATELET ESTIMATE INCREASED
[2018-06-14] MEDS ORDERED: SODIUM CHLORIDE 1,000 ML IV SCH (20:30)
[2018-06-14] MEDS: HEPARIN NA (PORCINE) 5,000 UNITS/ML 1ML VIAL SQ SCH (22:43)
[2018-06-15 06:05] LABS: HEMATOCRIT 23.7 % (35.4-49); HEMOGLOBIN 7.7 GM/dL (11.7-16.9); MCH 35.8 pg (25.7-33.7); MCHC 32.7 g/dl (32.0-35.9); MEAN CELL VOLUME 109.4 fl (80-96); MEAN PLT VOLUME 8.7 fl (7.5-11.1); PLATELET COUNT 420 K/MM3 (134-434); RBC 2.16 M/mm3 (4.00-5.60); RDW 15.4 % (11.9-15.9); WHITE BLOOD COUNT 10.4 K/mm3 (4.0-10.0)
[2018-06-15] MEDS ORDERED: LEVOTHYROXINE NA 25 MCG TABLET (FP) ONE (06:18)
[2018-06-15 06:46] LABS: CALCIUM 8.5 mg/dL (8.5-10.1); CREATININE 1.6 mg/dL (0.55-1.3); POTASSIUM 4.4 mmol/L (3.5-5.1)
[2018-06-15] MEDS: LEVOTHYROXINE NA 25 MCG TABLET (FP) PO SCH (07:26)
[2018-06-15] MEDS: ASPIRIN 81 MG CHEWABLE TABLETS PO SCH (09:26)
[2018-06-15] MEDS: HEPARIN NA (PORCINE) 5,000 UNITS/ML 1ML VIAL SQ SCH ×2 (09:26→22:15)
[2018-06-15] MEDS: HYDROXYUREA 500 MG CAPSULE PO SCH (09:26)
[2018-06-15] MEDS: PANTOPRAZOLE 40 MG TABLET (FP) PO SCH (09:27)
[2018-06-15] MEDS: CLOPIDOGREL BISULFATE 75 MG TABLET (FP) PO SCH (09:27)
[2018-06-15] MEDS: ALLOPURINOL 100 MG TABLET (FP) PO SCH (09:27)
--- NOTE | 2018-06-15 10:58 | CONSULT ---
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: Dementia - Past Surgical History Past Surgical History: Yes: None - Alcohol/Substance Use Hx Alcohol Use: Yes (ALCOHOLISM) - Smoking History Smoking history: Never smoked Have you smoked in the past 12 months: No Aproximately how many cigarettes per day: 0 Home Medications - Allergies Allergies/Adverse Reactions: Allergies Allergy/AdvReac Type Severity Reaction Status Date / Time No Known Allergies Allergy Verified 06/14/18 15:56 - Home Medications Home Medications: Ambulatory Orders Aspirin [ASA -] 81 mg PO DAILY 02/23/14 Allopurinol [Zyloprim -] 100 mg PO DAILY 05/30/17 Hydroxyurea [Hydrea 500Mg Capsule -] 500 mg PO DAILY #60 capsule 06/08/17 Clopidogrel Bisulfate [Plavix] 75 mg PO DAILY #30 tablet 12/05/17 Albuterol Sulfate [Proair Hfa] 8.5 gm AD PRN PRN 05/17/18 Levothyroxine [Synthroid -] 25 mcg PO DAILY 05/17/18 Pantoprazole Sodium 40 mg PO DAILY 05/17/18 Levaquin - 250 mg PO DAILY 06/14/18 Physical Exam Vital Signs: Vital Signs Temperature 98.3 F 06/15/18 07:20 Pulse Rate 75 06/15/18 07:20 Respiratory Rate 16 06/15/18 07:20 Blood Pressure 153/66 06/15/18 07:20 O2 Sat by Pulse Oximetry (%) 99 06/15/18 07:20 Extremities: Yes: Other (+gangarene left forefoot, +foul odor, +demarcation) Labs: CBC, BMP 06/15/18 05:20 06/15/18 05:20 Assessment/Plan gangarene pvc Discussed with daughter yesterday. Chronicity and quality of life with current tx for wounds left foot. Daughter in agreement with agressive intervention most likely bka if vascular in agreement. vascular and ID consulted. Will follow. Betadine dressing to left foot.
--- NOTE | 2018-06-15 13:11 | PN ---
Progress Note (short form) - Note Progress Note: pt sen/ examined chart reviewed awake/comfortable Vital Signs Temp 98.3 F 06/15/18 07:20 Pulse 75 06/15/18 07:20 Resp 16 06/15/18 07:20 BP 153/66 06/15/18 07:20 Pulse Ox 99 06/15/18 07:20 Intake & Output 06/14/18 06/15/18 06/15/18 23:59 11:59 23:59 Weight 134 lb Other: Voiding Method Urinal Height 5 ft 5 in Body Mass Index (BMI) 22.3 Active Medications Allopurinol (Zyloprim -) 100 mg PO DAILY [facility] Last Admin: 06/15/18 09:27 Dose: 100 mg Aspirin (Asa -) 81 mg PO DAILY [facility] Last Admin: 06/15/18 09:26 Dose: 81 mg Clopidogrel Bisulfate (Plavix -) 75 mg PO DAILY [facility] Last Admin: 06/15/18 09:27 Dose: 75 mg Heparin Sodium (Porcine) (Heparin -) 5,000 unit SQ BID [facility] Last Admin: 06/15/18 09:26 Dose: 5,000 unit Hydroxyurea (Hydrea -) 500 mg PO DAILY [facility] Last Admin: 06/15/18 09:26 Dose: 500 mg Levofloxacin (Levaquin 250 Mg Premixed Ivpb -) 250 mg in 50 mls @ 50 mls/hr IVPB DAILY [facility]; Protocol Last Admin: 06/15/18 09:26 Dose: 50 mls/hr Levothyroxine Sodium (Synthroid -) 25 mcg PO DAILY@0700 [facility] Last Admin: 06/15/18 07:26 Dose: 25 mcg Pantoprazole Sodium (Protonix -) 40 mg PO DAILY [facility] Last Admin: 06/15/18 09:27 Dose: 40 mg CBC, BMP 06/15/18 05:20 06/15/18 05:20 P/E awake/ comfortable Lungs- clear cvs- s1, s2 rrr abd- soft ext- no edema left foot-- s/p 2nd 2/3 rd amputation a/p 88 year old demented male w/ PVD, 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 Resendiz sent to hospital by Dr. Otero for worsening left foot wound Continue present care abx pain control f/u labs podiatry to follow will follow Problem List - Problems (1) Gangrene of toe of left foot Code(s): I96 - GANGRENE, NOT ELSEWHERE CLASSIFIED (2) Absent pulse in lower extremity Code(s): R09.89 - OTH SYMPTOMS AND SIGNS INVOLVING THE CIRC AND RESP SYSTEMS (3) Dementia Code(s): F03.90 - UNSPECIFIED DEMENTIA WITHOUT BEHAVIORAL DISTURBANCE
--- NOTE | 2018-06-15 14:00 | CONSULT ---
- Consultation REQUESTING PROVIDER: CONSULT REQUEST: We have been asked to surgically evaluate this patient for left foot wound/PVD. PCP:Sayda Gong HISTORY OF PRESENT ILLNESS: 88 yo M well known by the vascular team with PMHx of PVD and chronic foot wound presents from wound care for admission for acute infection. He has had PVD for over 10 years and has had two toe amputations of left foot with the most recent amputation 3rd toe left with excision 2&3rd metatarsal heads, debridement of necrotic tissue with Dr Otero on 05/25/18. He has been following in the wound care clinic and developed worsening necrosis at amputation/debridement site in addition to additional pressure areas over lateral aspect of foot and heel. He was sent in from the wound care clinic yesterday for worsening infection and failure of oral abx. Denies CP, CREWS, SOB, palpitations, abdominal pain, nausea, vomiting, fever or chills. PMHx: Myelofibrosis, CKD (stage 3), PVD , Gout, CKD, PVD, Dementia, Hypothyroidism PSHx: s/p LLE angioplasty, s/p amputation of L 2nd toe Home Medications Medication Instructions Recorded Aspirin [ASA -] 81 mg PO DAILY 02/23/14 Allopurinol [Zyloprim -] 100 mg PO DAILY 05/30/17 Hydroxyurea [Hydrea 500Mg Capsule 500 mg PO DAILY #60 capsule 06/08/17 -] Clopidogrel Bisulfate [Plavix] 75 mg PO DAILY #30 tablet 12/05/17 Albuterol Sulfate [Proair Hfa] 8.5 gm AD PRN PRN 05/17/18 Levothyroxine [Synthroid -] 25 mcg PO DAILY 05/17/18 Pantoprazole Sodium 40 mg PO DAILY 05/17/18 Levaquin - 250 mg PO DAILY 06/14/18 Allergies Allergy/AdvReac Type Severity Reaction Status Date / Time No Known Allergies Allergy Verified 06/14/18 15:56 REVIEW OF SYSTEMS: Unable to obtain PHYSICAL EXAM: GENERAL: Awake, alert, pleasantly demented HEAD: Normal with no signs of trauma. EYES: sclera anicteric, conjunctiva clear. LUNGS: no auditory wheezes, No accessory muscle use. LOWER EXTREMITIES: Left LE +granulation, +mal odor, + edema, +drainage, +slough , +blood blisters, +pressure wounds appear to be from bandaging and foot not being offloaded in heel area and positioning of foot 2nd & 3rd toe amp site measures 4.8cm x 3.4cm x 1.8cm 4th toe eschar measures 3.4cm x 2.0cm x 0.1cm 5th toe eschar measures 1.5cm x 1.0cm x 0.1cm Lateral side eschar measures 10.8cm x 1.6cm x 0.1cm dorsal side blood blister measures 3.0cm x 4.0cm x 0.1cm heel pressure wound 2.0cm x6.0cm x0.3cm Right LE warm and well perfused with no wounds or lesions with palpable DP pulses. NEUROLOGICAL: Normal speech, gait not observed. PSYCH: Cooperative. Good eye contact. SKIN: Warm, dry, normal turgor, no rashes or lesions noted. Vital Signs Temperature 98.1 F 06/15/18 13:16 Pulse Rate 82 06/15/18 13:16 Respiratory Rate 16 06/15/18 13:16 Blood Pressure 159/75 06/15/18 13:16 O2 Sat by Pulse Oximetry (%) 99 06/15/18 13:16 Lab Results WBC 10.4 K/mm3 (4.0-10.0) H 06/15/18 05:20 RBC 2.16 M/mm3 (4.00-5.60) L 06/15/18 05:20 Hgb 7.7 GM/dL (11.7-16.9) L 06/15/18 05:20 Hct 23.7 % (35.4-49) L D 06/15/18 05:20 MCV 109.4 fl (80-96) H 06/15/18 05:20 MCHC 32.7 g/dl (32.0-35.9) 06/15/18 05:20 RDW 15.4 % (11.9-15.9) 06/15/18 05:20 Plt Count 420 K/MM3 (134-434) D 06/15/18 05:20 Sodium 139 mmol/L (136-145) 06/15/18 05:20 Potassium 4.4 mmol/L (3.5-5.1) 06/15/18 05:20 Chloride 105 mmol/L (98-107) 06/15/18 05:20 Carbon Dioxide 28 mmol/L (21-32) 06/15/18 05:20 Anion Gap 6 MMOL/L (8-16) L 06/15/18 05:20 BUN 27 mg/dL (7-18) H 06/15/18 05:20 Creatinine 1.6 mg/dL (0.55-1.3) H 06/15/18 05:20 Random Glucose 88 mg/dL (74-106) 06/15/18 05:20 Calcium 8.5 mg/dL (8.5-10.1) 06/15/18 05:20 Blood Type A POSITIVE 06/14/18 16:10 Antibody Screen Negative 06/14/18 16:10 INR 1.14 (0.83-1.09) H 06/14/18 16:10 Problem List - Problems (1) Gangrene Assessment/Plan: 88 yo male with PVD and dry gangrene s/p 2nd and 3rd toe amputations now infected with failure on oral antibiotics. 1) Santyl to all wounds daily 2) IV ABX per ID 3) surgical intervention likely TMA vs BKA to be discussed with family. Code(s): I96 - GANGRENE, NOT ELSEWHERE CLASSIFIED
--- NOTE | 2018-06-15 14:37 | CON.ID ---
Consult Consult Specialty:: infectious diseases Referred by:: dr enriquez Reason for Consultation:: wound breakdown and infection - History of Present Illness Chief Complaint: pain History of Present Illness: 88 year old demented male w/ PVD, s/p 2nd and 3rd toe amputations, s/p LLE angioplasty, admitted for worsening left foot wound. Patient has grown MRSA, enterococcus sp, and Stenotrophomonas in his prior wound cultures. 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: Dementia - Past Surgical History Past Surgical History: Yes: None - Alcohol/Substance Use Hx Alcohol Use: Yes (ALCOHOLISM) - Smoking History Smoking history: Never smoked Have you smoked in the past 12 months: No Aproximately how many cigarettes per day: 0 Home Medications - Allergies Allergies/Adverse Reactions: Allergies Allergy/AdvReac Type Severity Reaction Status Date / Time No Known Allergies Allergy Verified 06/14/18 15:56 - Home Medications Home Medications: Ambulatory Orders Aspirin [ASA -] 81 mg PO DAILY 02/23/14 Allopurinol [Zyloprim -] 100 mg PO DAILY 05/30/17 Hydroxyurea [Hydrea 500Mg Capsule -] 500 mg PO DAILY #60 capsule 06/08/17 Clopidogrel Bisulfate [Plavix] 75 mg PO DAILY #30 tablet 12/05/17 Albuterol Sulfate [Proair Hfa] 8.5 gm AD PRN PRN 05/17/18 Levothyroxine [Synthroid -] 25 mcg PO DAILY 05/17/18 Pantoprazole Sodium 40 mg PO DAILY 05/17/18 Levaquin - 250 mg PO DAILY 06/14/18 Review of Systems Unable to obtain ROS, reason: unable to obtain Physical Exam Vital Signs: Vital Signs Temperature 98.1 F 06/15/18 13:16 Pulse Rate 82 06/15/18 13:16 Respiratory Rate 16 06/15/18 13:16 Blood Pressure 159/75 06/15/18 13:16 O2 Sat by Pulse Oximetry (%) 99 06/15/18 13:16 Constitutional: Yes: No Distress, Calm Eyes: Yes: Conjunctiva Clear HENT: Yes: Atraumatic, Normocephalic Neck: Yes: Supple, Trachea Midline Cardiovascular: Yes: S1, S2 Respiratory: Yes: Regular, CTA Bilaterally Gastrointestinal: Yes: Normal Bowel Sounds, Soft Musculoskeletal: Yes: WNL Extremities: Yes: Other (infected dehisced wound of the foot) Integumentary: Yes: Erythema, Other Wound/Incision: Yes: Open to air, Reddened, Other (necrotic edges) Neurological: Yes: Alert Psychiatric: Yes: Alert Labs: CBC, BMP 06/15/18 05:20 06/15/18 05:20 Imaging - Results Chest X-ray: Report Reviewed, Image Reviewed X-ray: Report Reviewed, Image Reviewed Assessment/Plan patient coming with breakage of the wounds with tissues exposed with gangrene now worry about deep infection necrotic surrounding plan will start on iv abx will need mri studies to see how deep is the infection wound care podiatry rest as per the team
--- NOTE | 2018-06-15 15:01 | EKG ---
Test Reason : Blood Pressure : / mmHG Vent. Rate : 074 BPM Atrial Rate : 074 BPM P-R Int : 182 ms QRS Dur : 068 ms QT Int : 390 ms P-R-T Axes : 000 014 023 degrees QTc Int : 432 ms NORMAL SINUS RHYTHM WHEN COMPARED WITH ECG OF 17-MAY-2018 20:41, NO SIGNIFICANT CHANGE WAS FOUND Confirmed by LAVONNE LOMBARDI MD ([id number]) on 06/15/2018 3:00:36 PM Referred By: Confirmed By:LAVONNE LOMBARDI MD
[2018-06-15] MEDS: AMPICILLIN NA/SULBACTAM NA 3 GM in SODIUM CHLORIDE 100 ML IVPB SCH (19:43)
[2018-06-16] MEDS: AMPICILLIN NA/SULBACTAM NA 3 GM in SODIUM CHLORIDE 100 ML IVPB SCH ×3 (03:11→18:08)
[2018-06-16] MEDS: LEVOTHYROXINE NA 25 MCG TABLET (FP) PO SCH (06:07)
[2018-06-16 08:15] LABS: BASO % 2.1 % (0-2.0); EOS % 2.7 % (0-4.5); HEMATOCRIT 23.5 % (35.4-49); HEMOGLOBIN 7.7 GM/dL (11.7-16.9); LYMPH % 7.2 % (8-40); MCH 35.6 pg (25.7-33.7); MCHC 32.7 g/dl (32.0-35.9); MEAN PLT VOLUME 9.2 fl (7.5-11.1); MONO % 8.3 % (3.8-10.2); NEUT % 79.7 % (42.8-82.8); PLATELET COUNT 409 K/MM3 (134-434); RBC 2.16 M/mm3 (4.00-5.60); RDW 15.6 % (11.9-15.9); WHITE BLOOD COUNT 9.4 K/mm3 (4.0-10.0)
[2018-06-16 08:56] LABS: ALBUMIN 2.6 g/dl (3.4-5.0); BILIRUBIN,TOTAL 0.3 mg/dL (0.2-1); CALCIUM 8.3 mg/dL (8.5-10.1); CREATININE 1.6 mg/dL (0.55-1.3); POTASSIUM 4.3 mmol/L (3.5-5.1); TOT PROT 5.1 g/dl (6.4-8.2)
[2018-06-16] MEDS: ASPIRIN 81 MG CHEWABLE TABLETS PO SCH (09:20)
[2018-06-16] MEDS: ALLOPURINOL 100 MG TABLET (FP) PO SCH (09:20)
[2018-06-16] MEDS: CLOPIDOGREL BISULFATE 75 MG TABLET (FP) PO SCH (09:20)
[2018-06-16] MEDS: PANTOPRAZOLE 40 MG TABLET (FP) PO SCH (09:20)
[2018-06-16] MEDS: HEPARIN NA (PORCINE) 5,000 UNITS/ML 1ML VIAL SQ SCH (09:20)
[2018-06-16] MEDS: HYDROXYUREA 500 MG CAPSULE PO SCH (09:21)
[2018-06-16 10:52] LABS: ERYTHROCYTE SEDIMENTATION RATE 45 mm/hr (0-20)
--- NOTE | 2018-06-16 11:45 | PN ---
Progress Note (short form) - Note Progress Note: sleeping no distress does not want to touch foot surgical eval noted Vital Signs - 24 hr 06/15/18 06/15/18 06/15/18 13:16 17:05 18:04 Temperature 98.1 F 97.8 F 98.1 F Pulse Rate 77 Pulse Rate [ 82 76 Left Radial] Respiratory 16 16 18 Rate Blood Pressure 162/75 Blood Pressure 159/75 158/74 [Right Arm] O2 Sat by Pulse 99 99 Oximetry (%) 06/15/18 06/15/18 06/15/18 18:19 21:00 23:00 Temperature 98.3 F Pulse Rate 80 Pulse Rate [ Left Radial] Respiratory 18 Rate Blood Pressure 153/73 Blood Pressure [Right Arm] O2 Sat by Pulse 98 98 Oximetry (%) 06/16/18 06:00 Temperature 98.1 F Pulse Rate 82 Pulse Rate [ Left Radial] Respiratory 18 Rate Blood Pressure 162/72 Blood Pressure [Right Arm] O2 Sat by Pulse Oximetry (%) Current Medications Generic Name Dose Route Start Last Admin Trade Name Justinq PRN Reason Stop Dose Admin Allopurinol 100 mg 06/15/18 10:00 06/16/18 09:20 Zyloprim - PO 100 mg DAILY [facility] Administration Amino Acids 30 ml 06/16/18 17:30 Prosource No Carb Liquid Pkt PO BID@0800,1730 [facility] Ascorbic Acid 500 mg 06/16/18 11:45 Vitamin C - PO DAILY [facility] Aspirin 81 mg 06/15/18 10:00 06/16/18 09:20 Asa - PO 81 mg DAILY [facility] Administration Clopidogrel Bisulfate 75 mg 06/15/18 10:00 06/16/18 09:20 Plavix - PO 75 mg DAILY [facility] Administration Collagenase 1 applic 06/16/18 11:45 Santyl - TP DAILY [facility] Protocol Ferrous Sulfate 325 mg 06/16/18 11:45 Feosol - PO DAILY [facility] Hydroxyurea 500 mg 06/15/18 10:00 06/16/18 09:21 Hydrea - PO 500 mg DAILY [facility] Administration Levofloxacin 250 mg in 50 mls @ 50 mls/hr 06/14/18 16:47 06/16/18 09:20 Levaquin 250 Mg Premixed Ivpb - IVPB 50 mls/hr DAILY [facility] Administration Protocol Ampicillin Sodium/Sulbactam 100 mls @ 200 mls/hr 06/15/18 18:00 06/16/18 10: 41 Sodium 3 gm/ Sodium Chloride IVPB 200 mls/hr Q8H-IV [facility] Administration Levothyroxine Sodium 50 mcg 06/16/18 11:44 Synthroid - PO DAILY@0700 [facility] Pantoprazole Sodium 40 mg 06/15/18 10:00 06/16/18 09:20 Protonix - PO 40 mg DAILY [facility] Administration Laboratory Results - last 24 hr 06/15/18 06/15/18 06/16/18 05:20 22:16 05:01 WBC RBC Hgb Hct MCV MCH MCHC RDW Plt Count MPV Absolute Neuts (auto) Neutrophils % Lymphocytes % Monocytes % Eosinophils % Basophils % Nucleated RBC % ESR 51 H Sodium Potassium Chloride Carbon Dioxide Anion Gap BUN Creatinine Est GFR (CKD-EPI)AfAm Est GFR (CKD-EPI)NonAf POC Glucometer 106 94 Random Glucose Calcium Total Bilirubin AST ALT Alkaline Phosphatase Total Protein Albumin 06/16/18 06/16/18 07:15 07:15 WBC 9.4 RBC 2.16 L Hgb 7.7 L Hct 23.5 L MCV 109.0 H MCH 35.6 H MCHC 32.7 RDW 15.6 Plt Count 409 MPV 9.2 Absolute Neuts (auto) 7.5 Neutrophils % 79.7 Lymphocytes % 7.2 L Monocytes % 8.3 Eosinophils % 2.7 Basophils % 2.1 H Nucleated RBC % 0 ESR 45 H Sodium 139 Potassium 4.3 Chloride 104 Carbon Dioxide 27 Anion Gap 8 BUN 24 H Creatinine 1.6 H Est GFR (CKD-EPI)AfAm 44.55 Est GFR (CKD-EPI)NonAf 38.44 POC Glucometer Random Glucose 85 Calcium 8.3 L Total Bilirubin 0.3 AST 13 L ALT 14 Alkaline Phosphatase 86 Total Protein 5.1 L Albumin 2.6 L P/E awake/ comfortable Lungs- clear cvs- s1, s2 rrr abd- soft ext- no edema left foot--dressing in place-- no soakage a/p 88 year old demented male w/ PVD, 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 Resendiz sent to hospital by Dr. Otero for worsening left foot wound Continue present care may need TMA vs BKA add Iron dc heparin sc-- noted anemia check CBC abx pain control f/u labs podiatry to follow will follow Problem List - Problems (1) Gangrene of toe of left foot Code(s): I96 - GANGRENE, NOT ELSEWHERE CLASSIFIED (2) Absent pulse in lower extremity Code(s): R09.89 - OTH SYMPTOMS AND SIGNS INVOLVING THE CIRC AND RESP SYSTEMS (3) Acute kidney injury superimposed on chronic kidney disease Code(s): N17.9 - ACUTE KIDNEY FAILURE, UNSPECIFIED; N18.9 - CHRONIC KIDNEY DISEASE, UNSPECIFIED (4) Dementia Code(s): F03.90 - UNSPECIFIED DEMENTIA WITHOUT BEHAVIORAL DISTURBANCE (5) Gangrene Code(s): I96 - GANGRENE, NOT ELSEWHERE CLASSIFIED
[2018-06-16] MEDS: FERROUS SO4 325 MG TABLET (FP) PO SCH (13:35)
[2018-06-16] MEDS: ASCORBIC ACID 500 MG TABLET (FP) PO SCH (13:35)
[2018-06-16] MEDS: COLLAGENASE CLOSTRIDIUM HIST. 30 GRAMS TUBE TP SCH (13:35)
--- NOTE | 2018-06-16 16:05 | PN ---
Progress Note, Physician History of Present Illness: Pt is alert, and responsive, family at bedside. He denies pain at this time. Denies having any specific complaints. - Current Medication List Current Medications: Active Medications Allopurinol (Zyloprim -) 100 mg PO DAILY [facility] Last Admin: 06/16/18 09:20 Dose: 100 mg Amino Acids (Prosource No Carb Liquid Pkt) 30 ml PO BID@0800,1730 [facility] Ascorbic Acid (Vitamin C -) 500 mg PO DAILY [facility] Last Admin: 06/16/18 13:35 Dose: 500 mg Aspirin (Asa -) 81 mg PO DAILY [facility] Last Admin: 06/16/18 09:20 Dose: 81 mg Clopidogrel Bisulfate (Plavix -) 75 mg PO DAILY [facility] Last Admin: 06/16/18 09:20 Dose: 75 mg Collagenase (Santyl -) 1 applic TP DAILY [facility]; Protocol Last Admin: 06/16/18 13:35 Dose: 1 applic Ferrous Sulfate (Feosol -) 325 mg PO DAILY [facility] Last Admin: 06/16/18 13:35 Dose: 325 mg Hydroxyurea (Hydrea -) 500 mg PO DAILY [facility] Last Admin: 06/16/18 09:21 Dose: 500 mg Levofloxacin (Levaquin 250 Mg Premixed Ivpb -) 250 mg in 50 mls @ 50 mls/hr IVPB DAILY [facility]; Protocol Last Admin: 06/16/18 09:20 Dose: 50 mls/hr Ampicillin Sodium/Sulbactam (Sodium 3 gm/ Sodium Chloride) 100 mls @ 200 mls/ hr IVPB Q8H-IV [facility] Last Admin: 06/16/18 10:41 Dose: 200 mls/hr Levothyroxine Sodium (Synthroid -) 50 mcg PO DAILY@0700 [facility] Pantoprazole Sodium (Protonix -) 40 mg PO DAILY [facility] Last Admin: 06/16/18 09:20 Dose: 40 mg - Objective Vital Signs: Vital Signs Temperature 98.0 F 06/16/18 10:00 Pulse Rate 83 06/16/18 10:00 Respiratory Rate 20 06/16/18 10:00 Blood Pressure 144/66 06/16/18 10:00 O2 Sat by Pulse Oximetry (%) 98 06/15/18 21:00 Constitutional: Yes: No Distress, Calm Cardiovascular: Yes: Regular Rate and Rhythm Respiratory: Yes: Regular Gastrointestinal: Yes: Normal Bowel Sounds, Soft Wound/Incision: Yes: Other (Lt toe amputations, site necrotic/dry, mild tenderness but no drainage/erythema) Labs: CBC, BMP 06/16/18 07:15 06/16/18 07:15 INR, PTT INR 1.14 (0.83-1.09) H 06/14/18 16:10 Problem List - Problems (1) Gangrene of toe of left foot Code(s): I96 - GANGRENE, NOT ELSEWHERE CLASSIFIED (2) Dementia Code(s): F03.90 - UNSPECIFIED DEMENTIA WITHOUT BEHAVIORAL DISTURBANCE (3) Gangrene Code(s): I96 - GANGRENE, NOT ELSEWHERE CLASSIFIED (4) Leukocytosis Code(s): D72.829 - ELEVATED WHITE BLOOD CELL COUNT, UNSPECIFIED (5) Peripheral vascular disease Code(s): I73.9 - PERIPHERAL VASCULAR DISEASE, UNSPECIFIED (6) Toe infection Code(s): L08.9 - LOCAL INFECTION OF THE SKIN AND SUBCUTANEOUS TISSUE, UNSP Assessment/Plan Lt foot 2nd/3rd toe amp site gangrenous leukocytosis dementia PVD s/p LLE angioplasties hypothyroidism -- wbc trended down to normal, pt afebrile, comfortable -- continue current antibiotics -- Podiatry/surgical follow up
[2018-06-16] MEDS ORDERED: PT OWN MED DRAWER 7, Y5N ONE (17:56)
[2018-06-16] MEDS: AMINO ACIDS/PROTEIN HYDROLYS 30 ML LIQUID.PKT PO SCH (18:08)
[2018-06-17] MEDS ORDERED: PT OWN MED DRAWER 7, Y5N ONE ×2 (00:59→17:22)
[2018-06-17] MEDS: AMPICILLIN NA/SULBACTAM NA 3 GM in SODIUM CHLORIDE 100 ML IVPB SCH ×3 (01:15→17:37)
[2018-06-17] MEDS: LEVOTHYROXINE NA 50 MCG TABLET (FP) PO SCH (06:46)
[2018-06-17 07:55] LABS: HEMATOCRIT 22.9 % (35.4-49); HEMOGLOBIN 7.6 GM/dL (11.7-16.9); MCH 35.9 pg (25.7-33.7); MCHC 33.1 g/dl (32.0-35.9); MEAN CELL VOLUME 108.2 fl (80-96); MEAN PLT VOLUME 8.9 fl (7.5-11.1); PLATELET COUNT 399 K/MM3 (134-434); RBC 2.12 M/mm3 (4.00-5.60); RDW 15.3 % (11.9-15.9); WHITE BLOOD COUNT 9.7 K/mm3 (4.0-10.0)
[2018-06-17] MEDS: AMINO ACIDS/PROTEIN HYDROLYS 30 ML LIQUID.PKT PO SCH ×2 (09:30→17:37)
[2018-06-17] MEDS: FERROUS SO4 325 MG TABLET (FP) PO SCH (09:31)
[2018-06-17] MEDS: PANTOPRAZOLE 40 MG TABLET (FP) PO SCH (09:31)
[2018-06-17] MEDS: CLOPIDOGREL BISULFATE 75 MG TABLET (FP) PO SCH (09:31)
[2018-06-17] MEDS: ALLOPURINOL 100 MG TABLET (FP) PO SCH (09:31)
[2018-06-17] MEDS: ASPIRIN 81 MG CHEWABLE TABLETS PO SCH (09:31)
[2018-06-17] MEDS: ASCORBIC ACID 500 MG TABLET (FP) PO SCH (09:31)
[2018-06-17] MEDS: COLLAGENASE CLOSTRIDIUM HIST. 30 GRAMS TUBE TP SCH (09:31)
--- NOTE | 2018-06-17 09:56 | PN ---
Progress Note (short form) - Note Progress Note: alert no distress Vital Signs - 24 hr 06/16/18 06/17/18 06/17/18 16:45 06:39 09:00 Temperature 99.1 F 97.8 F Pulse Rate 85 84 Respiratory 20 20 Rate Blood Pressure 138/63 134/66 O2 Sat by Pulse 98 Oximetry (%) 06/17/18 06/17/18 09:29 15:05 Temperature 98.4 F 98.2 F Pulse Rate 80 82 Respiratory 18 18 Rate Blood Pressure 139/64 130/62 O2 Sat by Pulse Oximetry (%) Current Medications Generic Name Dose Route Start Last Admin Trade Name Freq PRN Reason Stop Dose Admin Allopurinol 100 mg 06/15/18 10:00 06/17/18 09:31 Zyloprim - PO 100 mg DAILY [facility] Administration Amino Acids 30 ml 06/16/18 17:30 06/17/18 09:30 Prosource No Carb Liquid Pkt PO 30 ml BID@0800,1730 [facility] Administration Ascorbic Acid 500 mg 06/16/18 11:45 06/17/18 09:31 Vitamin C - PO 500 mg DAILY [facility] Administration Aspirin 81 mg 06/15/18 10:00 06/17/18 09:31 Asa - PO 81 mg DAILY [facility] Administration Clopidogrel Bisulfate 75 mg 06/15/18 10:00 06/17/18 09:31 Plavix - PO 75 mg DAILY [facility] Administration Collagenase 1 applic 06/16/18 11:45 06/17/18 09:31 Santyl - TP 1 applic DAILY [facility] Administration Protocol Ferrous Sulfate 325 mg 06/16/18 11:45 06/17/18 09:31 Feosol - PO 325 mg DAILY [facility] Administration Hydroxyurea 500 mg 06/15/18 10:00 06/17/18 14:26 Hydrea - PO 500 mg DAILY [facility] Administration Levofloxacin 250 mg in 50 mls @ 50 mls/hr 06/14/18 16:47 06/17/18 10:31 Levaquin 250 Mg Premixed Ivpb - IVPB 50 mls/hr DAILY [facility] Administration Protocol Ampicillin Sodium/Sulbactam 100 mls @ 200 mls/hr 06/15/18 18:00 06/17/18 09: 31 Sodium 3 gm/ Sodium Chloride IVPB 200 mls/hr Q8H-IV [facility] Administration Levothyroxine Sodium 50 mcg 06/16/18 11:44 06/17/18 06:46 Synthroid - PO 50 mcg DAILY@0700 [facility] Administration Pantoprazole Sodium 40 mg 06/15/18 10:00 06/17/18 09:31 Protonix - PO 40 mg DAILY [facility] Administration Laboratory Results - last 24 hr 06/17/18 06/17/18 06:45 06:45 WBC 9.7 RBC 2.12 L Hgb 7.6 L Hct 22.9 L MCV 108.2 H MCH 35.9 H MCHC 33.1 RDW 15.3 Plt Count 399 MPV 8.9 Blood Type A POSITIVE Antibody Screen Negative P/E awake/ comfortable Lungs- clear cvs- s1, s2 rrr abd- soft ext- no edema left foot--dressing in place-- no soakage a/p 88 year old demented male w/ PVD, 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 Resendiz sent to hospital by Dr. Otero for worsening left foot wound Continue present care may need TMA vs BKA add Iron\ dc ASA and Plavix in anticipation for surgey check CBC abx pain control f/u labs podiatry to follow will follow Problem List - Problems (1) Gangrene of toe of left foot Code(s): I96 - GANGRENE, NOT ELSEWHERE CLASSIFIED (2) Absent pulse in lower extremity Code(s): R09.89 - OTH SYMPTOMS AND SIGNS INVOLVING THE CIRC AND RESP SYSTEMS (3) Acute kidney injury superimposed on chronic kidney disease Code(s): N17.9 - ACUTE KIDNEY FAILURE, UNSPECIFIED; N18.9 - CHRONIC KIDNEY DISEASE, UNSPECIFIED (4) Dementia Code(s): F03.90 - UNSPECIFIED DEMENTIA WITHOUT BEHAVIORAL DISTURBANCE (5) Gangrene Code(s): I96 - GANGRENE, NOT ELSEWHERE CLASSIFIED
[2018-06-17] MEDS: HYDROXYUREA 500 MG CAPSULE PO SCH (14:26)
--- NOTE | 2018-06-17 15:49 | PN ---
Progress Note, Physician History of Present Illness: Pt is alert, responsive, hard of hearing. Tmax 99.1F, denies complaints. Lt foot caster to touch, will not allow examination of site. No distress noted. - Current Medication List Current Medications: Active Medications Allopurinol (Zyloprim -) 100 mg PO DAILY [facility] Last Admin: 06/17/18 09:31 Dose: 100 mg Amino Acids (Prosource No Carb Liquid Pkt) 30 ml PO BID@0800,1730 [facility] Last Admin: 06/17/18 09:30 Dose: 30 ml Ascorbic Acid (Vitamin C -) 500 mg PO DAILY [facility] Last Admin: 06/17/18 09:31 Dose: 500 mg Aspirin (Asa -) 81 mg PO DAILY [facility] Last Admin: 06/17/18 09:31 Dose: 81 mg Clopidogrel Bisulfate (Plavix -) 75 mg PO DAILY [facility] Last Admin: 06/17/18 09:31 Dose: 75 mg Collagenase (Santyl -) 1 applic TP DAILY [facility]; Protocol Last Admin: 06/17/18 09:31 Dose: 1 applic Ferrous Sulfate (Feosol -) 325 mg PO DAILY [facility] Last Admin: 06/17/18 09:31 Dose: 325 mg Hydroxyurea (Hydrea -) 500 mg PO DAILY [facility] Last Admin: 06/17/18 14:26 Dose: 500 mg Levofloxacin (Levaquin 250 Mg Premixed Ivpb -) 250 mg in 50 mls @ 50 mls/hr IVPB DAILY [facility]; Protocol Last Admin: 06/17/18 10:31 Dose: 50 mls/hr Ampicillin Sodium/Sulbactam (Sodium 3 gm/ Sodium Chloride) 100 mls @ 200 mls/ hr IVPB Q8H-IV [facility] Last Admin: 06/17/18 09:31 Dose: 200 mls/hr Levothyroxine Sodium (Synthroid -) 50 mcg PO DAILY@0700 [facility] Last Admin: 06/17/18 06:46 Dose: 50 mcg Pantoprazole Sodium (Protonix -) 40 mg PO DAILY [facility] Last Admin: 06/17/18 09:31 Dose: 40 mg - Objective Vital Signs: Vital Signs Temperature 98.2 F 06/17/18 15:05 Pulse Rate 82 06/17/18 15:05 Respiratory Rate 18 06/17/18 15:05 Blood Pressure 130/62 06/17/18 15:05 O2 Sat by Pulse Oximetry (%) 98 06/17/18 09:00 Constitutional: Yes: No Distress Cardiovascular: Yes: Regular Rate and Rhythm Respiratory: Yes: Regular Gastrointestinal: Yes: Normal Bowel Sounds, Soft Wound/Incision: Yes: Dressing Dry and Intact Labs: CBC, BMP 06/17/18 06:45 06/16/18 07:15 INR, PTT INR 1.14 (0.83-1.09) H 06/14/18 16:10 Microbiology 06/14/18 16:55 Blood - Peripheral Venous Blood Culture - Preliminary NO GROWTH OBTAINED AFTER 48 HOURS, INCUBATION TO CONTINUE FOR 3 DAYS. 06/14/18 16:55 Blood - Peripheral Venous Blood Culture - Preliminary NO GROWTH OBTAINED AFTER 48 HOURS, INCUBATION TO CONTINUE FOR 3 DAYS. Problem List - Problems (1) Gangrene of toe of left foot Code(s): I96 - GANGRENE, NOT ELSEWHERE CLASSIFIED (2) Dementia Code(s): F03.90 - UNSPECIFIED DEMENTIA WITHOUT BEHAVIORAL DISTURBANCE (3) Gangrene Code(s): I96 - GANGRENE, NOT ELSEWHERE CLASSIFIED (4) Leukocytosis Code(s): D72.829 - ELEVATED WHITE BLOOD CELL COUNT, UNSPECIFIED (5) Peripheral vascular disease Code(s): I73.9 - PERIPHERAL VASCULAR DISEASE, UNSPECIFIED (6) Toe infection Code(s): L08.9 - LOCAL INFECTION OF THE SKIN AND SUBCUTANEOUS TISSUE, UNSP Assessment/Plan Lt foot 2nd/3rd toe amp site gangrene leukocytosis - resolved dementia PVD s/p LLE angioplasties hypothyroidism -- Tmax 99.1, afebrile today, wbc now normal -- continue current antibiotic -- Podiatry/surgical follow up
[2018-06-17] MEDS: HEPARIN NA (PORCINE) 5,000 UNITS/ML 1ML VIAL SQ SCH (21:51)
[2018-06-18] MEDS: AMPICILLIN NA/SULBACTAM NA 3 GM in SODIUM CHLORIDE 100 ML IVPB SCH ×3 (01:25→17:37)
[2018-06-18] MEDS: LEVOTHYROXINE NA 50 MCG TABLET (FP) PO SCH (06:19)
[2018-06-18 06:45] LABS: BASO % 2.1 % (0-2.0); EOS % 3.1 % (0-4.5); HEMOGLOBIN 7.9 GM/dL (11.7-16.9); LYMPH % 7.9 % (8-40); MEAN PLT VOLUME 9.3 fl (7.5-11.1); MONO % 9.5 % (3.8-10.2); NEUT % 77.4 % (42.8-82.8); PLATELET COUNT 390 K/MM3 (134-434); RDW 15.2 % (11.9-15.9); WHITE BLOOD COUNT 9.6 K/mm3 (4.0-10.0)
[2018-06-18 07:17] LABS: ALBUMIN 2.6 g/dl (3.4-5.0); BILIRUBIN,TOTAL 0.5 mg/dL (0.2-1); CALCIUM 8.2 mg/dL (8.5-10.1); CREATININE 1.8 mg/dL (0.55-1.3); POTASSIUM 3.9 mmol/L (3.5-5.1)
[2018-06-18] MEDS ORDERED: PT OWN MED DRAWER 7, Y5N ONE (09:40)
--- NOTE | 2018-06-18 10:12 | PN ---
Progress Note, Physician History of Present Illness: stable no new issues - Current Medication List Current Medications: Active Medications Allopurinol (Zyloprim -) 100 mg PO DAILY [facility] Last Admin: 06/17/18 09:31 Dose: 100 mg Amino Acids (Prosource No Carb Liquid Pkt) 30 ml PO BID@0800,1730 [facility] Last Admin: 06/17/18 17:37 Dose: 30 ml Ascorbic Acid (Vitamin C -) 500 mg PO DAILY [facility] Last Admin: 06/17/18 09:31 Dose: 500 mg Collagenase (Santyl -) 1 applic TP DAILY [facility]; Protocol Last Admin: 06/17/18 09:31 Dose: 1 applic Ferrous Sulfate (Feosol -) 325 mg PO DAILY [facility] Last Admin: 06/17/18 09:31 Dose: 325 mg Heparin Sodium (Porcine) (Heparin -) 5,000 unit SQ BID [facility] Last Admin: 06/17/18 21:51 Dose: 5,000 unit Hydroxyurea (Hydrea -) 500 mg PO DAILY [facility] Last Admin: 06/17/18 14:26 Dose: 500 mg Levofloxacin (Levaquin 250 Mg Premixed Ivpb -) 250 mg in 50 mls @ 50 mls/hr IVPB DAILY [facility]; Protocol Last Admin: 06/17/18 10:31 Dose: 50 mls/hr Ampicillin Sodium/Sulbactam (Sodium 3 gm/ Sodium Chloride) 100 mls @ 200 mls/ hr IVPB Q8H-IV [facility] Last Admin: 06/18/18 01:25 Dose: 200 mls/hr Levothyroxine Sodium (Synthroid -) 50 mcg PO DAILY@0700 [facility] Last Admin: 06/18/18 06:19 Dose: 50 mcg Pantoprazole Sodium (Protonix -) 40 mg PO DAILY [facility] Last Admin: 06/17/18 09:31 Dose: 40 mg - Objective Vital Signs: Vital Signs Temperature 98.2 F 06/18/18 07:25 Pulse Rate 60 06/18/18 07:25 Respiratory Rate 20 06/18/18 07:25 Blood Pressure 104/60 06/18/18 07:25 O2 Sat by Pulse Oximetry (%) 98 06/17/18 21:00 Constitutional: Yes: No Distress, Calm Cardiovascular: Yes: Regular Rate and Rhythm Respiratory: Yes: Regular, CTA Bilaterally Gastrointestinal: Yes: Normal Bowel Sounds, Soft Musculoskeletal: Yes: WNL Extremities: Yes: Other Wound/Incision: Yes: Dressing Dry and Intact Neurological: Yes: Alert, Other (dementia) Psychiatric: Yes: Other Labs: CBC, BMP 06/18/18 05:30 06/18/18 05:30 INR, PTT INR 1.14 (0.83-1.09) H 06/14/18 16:10 Assessment/Plan Problem List - Problems (1) Gangrene of toe of left foot Code(s): I96 - GANGRENE, NOT ELSEWHERE CLASSIFIED (2) Dementia Code(s): F03.90 - UNSPECIFIED DEMENTIA WITHOUT BEHAVIORAL DISTURBANCE (3) Gangrene Code(s): I96 - GANGRENE, NOT ELSEWHERE CLASSIFIED (4) Leukocytosis Code(s): D72.829 - ELEVATED WHITE BLOOD CELL COUNT, UNSPECIFIED (5) Peripheral vascular disease Code(s): I73.9 - PERIPHERAL VASCULAR DISEASE, UNSPECIFIED (6) Toe infection Code(s): L08.9 - LOCAL INFECTION OF THE SKIN AND SUBCUTANEOUS TISSUE, UNSP Assessment/Plan Lt foot 2nd/3rd toe amp site gangrene leukocytosis - resolved dementia PVD s/p LLE angioplasties hypothyroidism continue current abx await for final plan wound care rest as per the team
[2018-06-18] MEDS: ASCORBIC ACID 500 MG TABLET (FP) PO SCH (10:46)
[2018-06-18] MEDS: PANTOPRAZOLE 40 MG TABLET (FP) PO SCH (10:46)
[2018-06-18] MEDS: ALLOPURINOL 100 MG TABLET (FP) PO SCH (10:46)
[2018-06-18] MEDS: AMINO ACIDS/PROTEIN HYDROLYS 30 ML LIQUID.PKT PO SCH ×2 (10:46→17:37)
[2018-06-18] MEDS: FERROUS SO4 325 MG TABLET (FP) PO SCH (10:46)
[2018-06-18] MEDS: COLLAGENASE CLOSTRIDIUM HIST. 30 GRAMS TUBE TP SCH (10:47)
[2018-06-18] MEDS: HEPARIN NA (PORCINE) 5,000 UNITS/ML 1ML VIAL SQ SCH ×2 (10:47→21:17)
[2018-06-18] MEDS: HYDROXYUREA 500 MG CAPSULE PO SCH (10:47)
--- NOTE | 2018-06-18 12:15 | PN ---
Progress Note (short form) - Note Progress Note: pt seen/ examined chart reviewed comfortable Vital Signs Temp 98.2 F 06/18/18 07:25 Pulse 60 06/18/18 07:25 Resp 20 06/18/18 07:25 BP 104/60 06/18/18 07:25 Pulse Ox 98 06/17/18 21:00 Intake & Output 06/17/18 06/18/18 06/18/18 23:59 11:59 23:59 Intake Total 750 350 Output Total 300 Balance 450 350 Weight 136 lb Intake: IVPB 250 50 Oral 500 300 Output: Urine 300 Void 300 Other: Voiding Method Incontinent # Unmeasured Voids Void 2 Bowel Movement Yes Height 5 ft 5 in Body Mass Index (BMI) 22.6 Active Medications Allopurinol (Zyloprim -) 100 mg PO DAILY [facility] Last Admin: 06/18/18 10:46 Dose: 100 mg Amino Acids (Prosource No Carb Liquid Pkt) 30 ml PO BID@0800,1730 [facility] Last Admin: 06/18/18 10:46 Dose: 30 ml Ascorbic Acid (Vitamin C -) 500 mg PO DAILY [facility] Last Admin: 06/18/18 10:46 Dose: 500 mg Collagenase (Santyl -) 1 applic TP DAILY [facility]; Protocol Last Admin: 06/18/18 10:47 Dose: 1 applic Ferrous Sulfate (Feosol -) 325 mg PO DAILY [facility] Last Admin: 06/18/18 10:46 Dose: 325 mg Heparin Sodium (Porcine) (Heparin -) 5,000 unit SQ BID [facility] Last Admin: 06/18/18 10:47 Dose: 5,000 unit Hydroxyurea (Hydrea -) 500 mg PO DAILY [facility] Last Admin: 06/18/18 10:47 Dose: 500 mg Ampicillin Sodium/Sulbactam (Sodium 3 gm/ Sodium Chloride) 100 mls @ 200 mls/ hr IVPB Q8H-IV [facility] Last Admin: 06/18/18 10:48 Dose: 200 mls/hr Levothyroxine Sodium (Synthroid -) 50 mcg PO DAILY@0700 [facility] Last Admin: 06/18/18 06:19 Dose: 50 mcg Pantoprazole Sodium (Protonix -) 40 mg PO DAILY [facility] Last Admin: 06/18/18 10:46 Dose: 40 mg CBC, BMP 06/18/18 05:30 05/13/19 05:30 P/E awake/ comfortable Lungs- clear cvs- s1, s2 rrr abd- soft ext- no edema left foot--dressing in place a/p 88 year old demented male w/ PVD, 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 Resendiz sent to hospital by Dr. Otero for worsening left foot wound Continue present care may need TMA vs BKA off ASA and Plavix in anticipation for surgey check CBC abx pain control podiatry to follow will follow Problem List - Problems (1) Gangrene of toe of left foot Code(s): I96 - GANGRENE, NOT ELSEWHERE CLASSIFIED (2) Absent pulse in lower extremity Code(s): R09.89 - OTH SYMPTOMS AND SIGNS INVOLVING THE CIRC AND RESP SYSTEMS (3) Acute kidney injury superimposed on chronic kidney disease Code(s): N17.9 - ACUTE KIDNEY FAILURE, UNSPECIFIED; N18.9 - CHRONIC KIDNEY DISEASE, UNSPECIFIED (4) Dementia Code(s): F03.90 - UNSPECIFIED DEMENTIA WITHOUT BEHAVIORAL DISTURBANCE (5) Gangrene Code(s): I96 - GANGRENE, NOT ELSEWHERE CLASSIFIED Problem List - Problems (1) Gangrene of toe of left foot Code(s): I96 - GANGRENE, NOT ELSEWHERE CLASSIFIED (2) Absent pulse in lower extremity Code(s): R09.89 - OTH SYMPTOMS AND SIGNS INVOLVING THE CIRC AND RESP SYSTEMS (3) Dementia Code(s): F03.90 - UNSPECIFIED DEMENTIA WITHOUT BEHAVIORAL DISTURBANCE
[2018-06-19] MEDS ORDERED: PT OWN MED DRAWER 7, Y5N ONE ×4 (02:22→17:55)
[2018-06-19] MEDS: AMPICILLIN NA/SULBACTAM NA 3 GM in SODIUM CHLORIDE 100 ML IVPB SCH ×3 (02:56→17:58)
[2018-06-19 06:25] LABS: EOS % 3.2 % (0-4.5); HEMATOCRIT 25.7 % (35.4-49); HEMOGLOBIN 8.4 GM/dL (11.7-16.9); LYMPH % 9.9 % (8-40); MCH 35.3 pg (25.7-33.7); MCHC 32.7 g/dl (32.0-35.9); MEAN CELL VOLUME 108.2 fl (80-96); MEAN PLT VOLUME 9.2 fl (7.5-11.1); MONO % 8.1 % (3.8-10.2); NEUT % 76.8 % (42.8-82.8); PLATELET COUNT 489 K/MM3 (134-434); RBC 2.38 M/mm3 (4.00-5.60); RDW 15.7 % (11.9-15.9); WHITE BLOOD COUNT 12.1 K/mm3 (4.0-10.0)
[2018-06-19] MEDS: LEVOTHYROXINE NA 50 MCG TABLET (FP) PO SCH (06:25)
[2018-06-19 06:51] LABS: ALBUMIN 2.8 g/dl (3.4-5.0); BILIRUBIN,TOTAL 0.4 mg/dL (0.2-1); CALCIUM 8.6 mg/dL (8.5-10.1); CREATININE 1.7 mg/dL (0.55-1.3); POTASSIUM 4.2 mmol/L (3.5-5.1); TOT PROT 5.4 g/dl (6.4-8.2)
[2018-06-19] MEDS: AMINO ACIDS/PROTEIN HYDROLYS 30 ML LIQUID.PKT PO SCH ×2 (08:52→17:58)
--- NOTE | 2018-06-19 09:06 | PN ---
Progress Note, Physician History of Present Illness: stable no new complaints - Current Medication List Current Medications: Active Medications Allopurinol (Zyloprim -) 100 mg PO DAILY [facility] Last Admin: 06/18/18 10:46 Dose: 100 mg Amino Acids (Prosource No Carb Liquid Pkt) 30 ml PO BID@0800,1730 [facility] Last Admin: 06/19/18 08:52 Dose: 30 ml Ascorbic Acid (Vitamin C -) 500 mg PO DAILY [facility] Last Admin: 06/18/18 10:46 Dose: 500 mg Collagenase (Santyl -) 1 applic TP DAILY [facility]; Protocol Last Admin: 06/18/18 10:47 Dose: 1 applic Ferrous Sulfate (Feosol -) 325 mg PO DAILY [facility] Last Admin: 06/18/18 10:46 Dose: 325 mg Heparin Sodium (Porcine) (Heparin -) 5,000 unit SQ BID [facility] Last Admin: 06/18/18 21:17 Dose: 5,000 unit Hydroxyurea (Hydrea -) 500 mg PO DAILY [facility] Last Admin: 06/18/18 10:47 Dose: 500 mg Ampicillin Sodium/Sulbactam (Sodium 3 gm/ Sodium Chloride) 100 mls @ 200 mls/ hr IVPB Q8H-IV [facility] Last Admin: 06/19/18 02:56 Dose: 200 mls/hr Levothyroxine Sodium (Synthroid -) 50 mcg PO DAILY@0700 [facility] Last Admin: 06/19/18 06:25 Dose: 50 mcg Pantoprazole Sodium (Protonix -) 40 mg PO DAILY [facility] Last Admin: 06/18/18 10:46 Dose: 40 mg - Objective Vital Signs: Vital Signs Temperature 98.4 F 06/19/18 07:02 Pulse Rate 89 06/19/18 07:02 Respiratory Rate 20 06/19/18 07:02 Blood Pressure 147/79 06/19/18 07:02 O2 Sat by Pulse Oximetry (%) 98 06/18/18 09:00 Constitutional: Yes: No Distress, Calm Cardiovascular: Yes: S1, S2 Respiratory: Yes: Regular, CTA Bilaterally Gastrointestinal: Yes: Normal Bowel Sounds, Soft Musculoskeletal: Yes: WNL Extremities: Yes: Other Wound/Incision: Yes: Dressing Dry and Intact Neurological: Yes: Alert, Other Labs: CBC, BMP 06/19/18 05:20 06/19/18 05:20 INR, PTT INR 1.14 (0.83-1.09) H 06/14/18 16:10 Assessment/Plan Problem List - Problems (1) Gangrene of toe of left foot Code(s): I96 - GANGRENE, NOT ELSEWHERE CLASSIFIED (2) Dementia Code(s): F03.90 - UNSPECIFIED DEMENTIA WITHOUT BEHAVIORAL DISTURBANCE (3) Gangrene Code(s): I96 - GANGRENE, NOT ELSEWHERE CLASSIFIED (4) Leukocytosis Code(s): D72.829 - ELEVATED WHITE BLOOD CELL COUNT, UNSPECIFIED (5) Peripheral vascular disease Code(s): I73.9 - PERIPHERAL VASCULAR DISEASE, UNSPECIFIED (6) Toe infection Code(s): L08.9 - LOCAL INFECTION OF THE SKIN AND SUBCUTANEOUS TISSUE, UNSP amputation Assessment/Plan Lt foot 2nd/3rd toe amp site gangrene leukocytosis - resolved dementia PVD s/p LLE angioplasties hypothyroidism continue abx plan is to do tma v/s bka nutrition rest as per the team
[2018-06-19] MEDS: FERROUS SO4 325 MG TABLET (FP) PO SCH (10:12)
[2018-06-19] MEDS: PANTOPRAZOLE 40 MG TABLET (FP) PO SCH (10:12)
[2018-06-19] MEDS: ALLOPURINOL 100 MG TABLET (FP) PO SCH (10:12)
[2018-06-19] MEDS: HYDROXYUREA 500 MG CAPSULE PO SCH (10:12)
[2018-06-19] MEDS: ASCORBIC ACID 500 MG TABLET (FP) PO SCH (10:12)
[2018-06-19] MEDS: HEPARIN NA (PORCINE) 5,000 UNITS/ML 1ML VIAL SQ SCH ×2 (10:12→21:16)
--- NOTE | 2018-06-19 12:20 | PN ---
Progress Note (short form) - Note Progress Note: alert no distress Vital Signs - 24 hr 06/18/18 06/18/18 06/18/18 15:00 17:20 21:37 Temperature 97.8 F 97.8 F Pulse Rate 73 60 74 Respiratory 20 20 20 Rate Blood Pressure 146/60 120/60 158/62 06/19/18 06/19/18 07:02 10:00 Temperature 98.4 F 97.9 F Pulse Rate 89 78 Respiratory 20 22 H Rate Blood Pressure 147/79 148/62 Current Medications Generic Name Dose Route Start Last Admin Trade Name Ciara PRN Reason Stop Dose Admin Allopurinol 100 mg 06/15/18 10:00 06/19/18 10:12 Zyloprim - PO 100 mg DAILY [facility] Administration Amino Acids 30 ml 06/16/18 17:30 06/19/18 08:52 Prosource No Carb Liquid Pkt PO 30 ml BID@0800,1730 [facility] Administration Ascorbic Acid 500 mg 06/16/18 11:45 06/19/18 10:12 Vitamin C - PO 500 mg DAILY [facility] Administration Collagenase 1 applic 06/16/18 11:45 06/18/18 10:47 Santyl - TP 1 applic DAILY [facility] Administration Protocol Ferrous Sulfate 325 mg 06/16/18 11:45 06/19/18 10:12 Feosol - PO 325 mg DAILY [facility] Administration Heparin Sodium (Porcine) 5,000 unit 06/17/18 22:00 06/19/18 10:12 Heparin - SQ 5,000 unit BID [facility] Administration Hydroxyurea 500 mg 06/15/18 10:00 06/19/18 10:12 Hydrea - PO 500 mg DAILY [facility] Administration Ampicillin Sodium/Sulbactam 100 mls @ 200 mls/hr 06/15/18 18:00 06/19/18 10: 12 Sodium 3 gm/ Sodium Chloride IVPB 200 mls/hr Q8H-IV [facility] Administration Levothyroxine Sodium 50 mcg 06/16/18 11:44 06/19/18 06:25 Synthroid - PO 50 mcg DAILY@0700 [facility] Administration Pantoprazole Sodium 40 mg 06/15/18 10:00 06/19/18 10:12 Protonix - PO 40 mg DAILY [facility] Administration Laboratory Results - last 24 hr 06/19/18 06/19/18 05:20 05:20 WBC 12.1 H RBC 2.38 L Hgb 8.4 L Hct 25.7 L MCV 108.2 H MCH 35.3 H MCHC 32.7 RDW 15.7 Plt Count 489 H D MPV 9.2 Absolute Neuts (auto) 9.3 H Neutrophils % 76.8 Lymphocytes % 9.9 D Monocytes % 8.1 Eosinophils % 3.2 Basophils % 2.0 Nucleated RBC % 0 Sodium 143 Potassium 4.2 Chloride 106 Carbon Dioxide 30 Anion Gap 7 L BUN 32 H Creatinine 1.7 H Est GFR (CKD-EPI)AfAm 41.40 Est GFR (CKD-EPI)NonAf 35.72 Random Glucose 95 Calcium 8.6 Total Bilirubin 0.4 AST 15 ALT 13 Alkaline Phosphatase 93 Total Protein 5.4 L Albumin 2.8 L P/E awake/ comfortable Lungs- clear cvs- s1, s2 rrr abd- soft ext- no edema left foot--dressing in place-- no soakage a/p 88 year old demented male w/ PVD, 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 Resendiz sent to hospital by Dr. Otero for worsening left foot wound Continue present care may need TMA vs BKA add Iron\ dc Plavix in anticipation for surgery restart ASA check CBC abx pain control f/u labs podiatry to follow will follow Problem List - Problems (1) Gangrene of toe of left foot Code(s): I96 - GANGRENE, NOT ELSEWHERE CLASSIFIED (2) Absent pulse in lower extremity Code(s): R09.89 - OTH SYMPTOMS AND SIGNS INVOLVING THE CIRC AND RESP SYSTEMS (3) Acute kidney injury superimposed on chronic kidney disease Code(s): N17.9 - ACUTE KIDNEY FAILURE, UNSPECIFIED; N18.9 - CHRONIC KIDNEY DISEASE, UNSPECIFIED (4) Dementia Code(s): F03.90 - UNSPECIFIED DEMENTIA WITHOUT BEHAVIORAL DISTURBANCE (5) Gangrene Code(s): I96 - GANGRENE, NOT ELSEWHERE CLASSIFIED
--- NOTE | 2018-06-19 13:27 | PN ---
Progress Note (short form) - Note Progress Note: Surgery Patient being followed for left foot gangrene. Patient seen and examined at bedside, c/o left foot pain unchanged from his previous exam. Patient remains pleasantly demented, no changes in Mental status according to nursing staff. Vital Signs Temp 97.9 F 06/19/18 10:00 Pulse 78 06/19/18 10:00 Resp 22 H 06/19/18 10:00 BP 148/62 06/19/18 10:00 Pulse Ox 98 06/18/18 09:00 Intake & Output 06/18/18 06/19/18 06/19/18 23:59 11:59 23:59 Intake Total 1070 200 Output Total 850 200 Balance 220 0 Intake: IVPB 200 100 Oral 870 100 Output: Urine 850 200 Void 850 200 Other: Voiding Method Incontinent Incontinent Bowel Movement No No # Bowel Movements 3 CBC, BMP 06/19/18 05:20 06/19/18 05:20 PE demented, NAD unlabored resp on RA Left foot with wet gangrene at previous 2nd and 3rd amputation sites, foul odor with active ss d/c, fibrinous tissue seen throughout, superficial wound over dorsum, lateral aspect of foot and heel clean and dry, unchanged from previous exam with surrounding tissue intact . + signal on doppler at DP and PT. Problem List - Problems (1) Gangrene Assessment/Plan: 88 yo male with PVD and dry gangrene s/p 2nd and 3rd toe amputations now infected with failure on oral antibiotics. Patient with documented flow on last visit and at bedside today. 1) continue IV ABX per ID 2) Surgical plan pending discussion with Daughter will need consent- Dr Borges aware 3) podiatry following 4) Dr Resendiz to follow up with note this afternoon. Code(s): I96 - GANGRENE, NOT ELSEWHERE CLASSIFIED
[2018-06-19] MEDS: COLLAGENASE CLOSTRIDIUM HIST. 30 GRAMS TUBE TP SCH (17:59)
--- NOTE | 2018-06-19 19:56 | PN ---
Progress Note (short form) - Note Progress Note: Vascular Surgery Pt seen and examined. Left foot dressing changed. Pt has gangrene of the heel and lateral foot. Forefoot with gangrene. Plantar aspect of the foot very painful. Very unlikely that TMA would heal. Pt would benefit from Bka. Please clear from a medical/cardiology standpoint. Can do on . Mohinder Resendiz DO
[2018-06-20] MEDS ORDERED: PT OWN MED DRAWER 7, Y5N ONE ×3 (01:02→17:50)
[2018-06-20] MEDS: AMPICILLIN NA/SULBACTAM NA 3 GM in SODIUM CHLORIDE 100 ML IVPB SCH ×3 (01:08→17:52)
[2018-06-20] MEDS: LEVOTHYROXINE NA 50 MCG TABLET (FP) PO SCH (06:31)
--- NOTE | 2018-06-20 07:49 | SPA.PREOP ---
- PRE-OP NOTE Dx: LLE Gangrene Planned Procedure: Left BKA Surgeon: Mohinder Resendiz Last Vital Signs Temp Pulse Resp BP Pulse Ox 99.8 F H 80 20 140/60 96 06/20/18 06:41 06/20/18 06:41 06/20/18 06:41 06/20/18 06:41 06/19/18 21:00 Lab Results WBC 12.1 K/mm3 (4.0-10.0) H 06/19/18 05:20 RBC 2.38 M/mm3 (4.00-5.60) L 06/19/18 05:20 Hgb 8.4 GM/dL (11.7-16.9) L 06/19/18 05:20 Hct 25.7 % (35.4-49) L 06/19/18 05:20 MCV 108.2 fl (80-96) H 06/19/18 05:20 MCHC 32.7 g/dl (32.0-35.9) 06/19/18 05:20 RDW 15.7 % (11.9-15.9) 06/19/18 05:20 Plt Count 489 K/MM3 (134-434) H D 06/19/18 05:20 Sodium 143 mmol/L (136-145) 06/19/18 05:20 Potassium 4.2 mmol/L (3.5-5.1) 06/19/18 05:20 Chloride 106 mmol/L (98-107) 06/19/18 05:20 Carbon Dioxide 30 mmol/L (21-32) 06/19/18 05:20 Anion Gap 7 MMOL/L (8-16) L 06/19/18 05:20 BUN 32 mg/dL (7-18) H 06/19/18 05:20 Creatinine 1.7 mg/dL (0.55-1.3) H 06/19/18 05:20 Random Glucose 95 mg/dL (74-106) 06/19/18 05:20 Calcium 8.6 mg/dL (8.5-10.1) 06/19/18 05:20 Blood Type A POSITIVE 06/17/18 06:45 Antibody Screen Negative 06/17/18 06:45 INR 1.14 (0.83-1.09) H 05/09/19 16:10 - IMAGING Chest X-ray: Report Reviewed, Image Reviewed - ASSESSMENT/PLAN 1. Make NPO after midnight except po meds 2. GI/DVT PPX 3. Medical optimization / clearance\ 4. Type and Screen 5. 2 PRBC on hold for OR 6. Consent to be obtained by surgeon after risks, benefits and alternatives discussed with patient and or Health Care Proxy. Problem List - Problems (1) Leukocytosis Code(s): D72.829 - ELEVATED WHITE BLOOD CELL COUNT, UNSPECIFIED (2) Dementia Code(s): F03.90 - UNSPECIFIED DEMENTIA WITHOUT BEHAVIORAL DISTURBANCE (3) Gangrene Code(s): I96 - GANGRENE, NOT ELSEWHERE CLASSIFIED (4) Peripheral vascular disease Code(s): I73.9 - PERIPHERAL VASCULAR DISEASE, UNSPECIFIED Visit type - Case Type Case Type: ED Admission - Emergency Emergency Visit: Yes ED Registration Date: 06/14/18 Care time: The patient presented to the Emergency Department on the above date and was hospitalized for further evaluation of their emergent condition. - New patient This patient is new to me today: Yes Date on this admission: 06/20/18
[2018-06-20] MEDS: HEPARIN NA (PORCINE) 5,000 UNITS/ML 1ML VIAL SQ SCH ×2 (10:00→22:24)
[2018-06-20] MEDS: ASCORBIC ACID 500 MG TABLET (FP) PO SCH (10:00)
[2018-06-20] MEDS: ALLOPURINOL 100 MG TABLET (FP) PO SCH (10:00)
[2018-06-20] MEDS: PANTOPRAZOLE 40 MG TABLET (FP) PO SCH (10:00)
[2018-06-20] MEDS: FERROUS SO4 325 MG TABLET (FP) PO SCH (10:01)
[2018-06-20] MEDS: AMINO ACIDS/PROTEIN HYDROLYS 30 ML LIQUID.PKT PO SCH ×2 (10:01→17:52)
[2018-06-20] MEDS: HYDROXYUREA 500 MG CAPSULE PO SCH (10:01)
[2018-06-20] MEDS: ASPIRIN 81 MG CHEWABLE TABLETS PO SCH (10:01)
[2018-06-20] MEDS: COLLAGENASE CLOSTRIDIUM HIST. 30 GRAMS TUBE TP SCH (10:01)
--- NOTE | 2018-06-20 11:33 | PN ---
Progress Note, Physician History of Present Illness: stable patient plan for amputation - Current Medication List Current Medications: Active Medications Allopurinol (Zyloprim -) 100 mg PO DAILY [facility] Last Admin: 06/20/18 10:00 Dose: 100 mg Amino Acids (Prosource No Carb Liquid Pkt) 30 ml PO BID@0800,1730 [facility] Last Admin: 06/20/18 10:01 Dose: 30 ml Ascorbic Acid (Vitamin C -) 500 mg PO DAILY [facility] Last Admin: 06/20/18 10:00 Dose: 500 mg Aspirin (Asa -) 81 mg PO DAILY [facility] Last Admin: 06/20/18 10:01 Dose: 81 mg Collagenase (Santyl -) 1 applic TP DAILY [facility]; Protocol Last Admin: 06/20/18 10:01 Dose: 1 applic Ferrous Sulfate (Feosol -) 325 mg PO DAILY [facility] Last Admin: 06/20/18 10:01 Dose: 325 mg Heparin Sodium (Porcine) (Heparin -) 5,000 unit SQ BID [facility] Last Admin: 06/20/18 10:00 Dose: 5,000 unit Hydroxyurea (Hydrea -) 500 mg PO DAILY [facility] Last Admin: 06/20/18 10:01 Dose: 500 mg Ampicillin Sodium/Sulbactam (Sodium 3 gm/ Sodium Chloride) 100 mls @ 200 mls/ hr IVPB Q8H-IV [facility] Last Admin: 06/20/18 10:01 Dose: 200 mls/hr Levothyroxine Sodium (Synthroid -) 50 mcg PO DAILY@0700 [facility] Last Admin: 06/20/18 06:31 Dose: 50 mcg Pantoprazole Sodium (Protonix -) 40 mg PO DAILY [facility] Last Admin: 06/20/18 10:00 Dose: 40 mg - Objective Vital Signs: Vital Signs Temperature 98.0 F 06/20/18 10:00 Pulse Rate 89 06/20/18 10:00 Respiratory Rate 18 06/20/18 10:00 Blood Pressure 132/72 06/20/18 10:00 O2 Sat by Pulse Oximetry (%) 96 06/19/18 21:00 Constitutional: Yes: No Distress, Calm Cardiovascular: Yes: S1, S2 Respiratory: Yes: Regular, CTA Bilaterally Gastrointestinal: Yes: Normal Bowel Sounds, Soft Musculoskeletal: Yes: WNL Extremities: Yes: Other Wound/Incision: Yes: Dressing Dry and Intact Neurological: Yes: Alert, Other Psychiatric: Yes: Other Labs: CBC, BMP 06/19/18 05:20 06/19/18 05:20 INR, PTT INR 1.14 (0.83-1.09) H 06/14/18 16:10 Assessment/Plan Problem List - Problems (1) Gangrene of toe of left foot Code(s): I96 - GANGRENE, NOT ELSEWHERE CLASSIFIED (2) Dementia Code(s): F03.90 - UNSPECIFIED DEMENTIA WITHOUT BEHAVIORAL DISTURBANCE (3) Gangrene Code(s): I96 - GANGRENE, NOT ELSEWHERE CLASSIFIED (4) Leukocytosis Code(s): D72.829 - ELEVATED WHITE BLOOD CELL COUNT, UNSPECIFIED (5) Peripheral vascular disease Code(s): I73.9 - PERIPHERAL VASCULAR DISEASE, UNSPECIFIED (6) Toe infection Code(s): L08.9 - LOCAL INFECTION OF THE SKIN AND SUBCUTANEOUS TISSUE, UNSP Assessment/Plan Lt foot 2nd/3rd toe amp site gangrene leukocytosis - resolved dementia PVD s/p LLE angioplasties hypothyroidism continue current abx plan for amputation
--- NOTE | 2018-06-20 11:44 | PN ---
Progress Note (short form) - Note Progress Note: alert no distress Vital Signs - 24 hr 06/19/18 06/19/18 06/19/18 15:00 17:31 21:00 Temperature 97.8 F 98.1 F Pulse Rate 76 83 Respiratory 22 H 20 Rate Blood Pressure 143/64 136/68 O2 Sat by Pulse 96 Oximetry (%) 06/19/18 06/20/18 06/20/18 22:00 06:41 10:00 Temperature 98.1 F 99.8 F H 98.0 F Pulse Rate 83 80 89 Respiratory 20 20 18 Rate Blood Pressure 136/68 140/60 132/72 O2 Sat by Pulse Oximetry (%) Current Medications Generic Name Dose Route Start Last Admin Trade Name Freq PRN Reason Stop Dose Admin Allopurinol 100 mg 06/15/18 10:00 06/20/18 10:00 Zyloprim - PO 100 mg DAILY [facility] Administration Amino Acids 30 ml 06/16/18 17:30 06/20/18 10:01 Prosource No Carb Liquid Pkt PO 30 ml BID@0800,1730 [facility] Administration Ascorbic Acid 500 mg 06/16/18 11:45 06/20/18 10:00 Vitamin C - PO 500 mg DAILY [facility] Administration Aspirin 81 mg 06/20/18 10:00 06/20/18 10:01 Asa - PO 81 mg DAILY [facility] Administration Collagenase 1 applic 06/16/18 11:45 06/20/18 10:01 Santyl - TP 1 applic DAILY [facility] Administration Protocol Ferrous Sulfate 325 mg 06/16/18 11:45 06/20/18 10:01 Feosol - PO 325 mg DAILY [facility] Administration Heparin Sodium (Porcine) 5,000 unit 06/17/18 22:00 06/20/18 10:00 Heparin - SQ 5,000 unit BID [facility] Administration Hydroxyurea 500 mg 06/15/18 10:00 06/20/18 10:01 Hydrea - PO 500 mg DAILY [facility] Administration Ampicillin Sodium/Sulbactam 100 mls @ 200 mls/hr 06/15/18 18:00 06/20/18 10: 01 Sodium 3 gm/ Sodium Chloride IVPB 200 mls/hr Q8H-IV [facility] Administration Levothyroxine Sodium 50 mcg 06/16/18 11:44 06/20/18 06:31 Synthroid - PO 50 mcg DAILY@0700 [facility] Administration Pantoprazole Sodium 40 mg 06/15/18 10:00 06/20/18 10:00 Protonix - PO 40 mg DAILY [facility] Administration Laboratory Results - last 24 hr 06/20/18 08:45 Blood Type A POSITIVE Antibody Screen Negative Crossmatch See Detail P/E awake/ comfortable Lungs- clear cvs- s1, s2 rrr abd- soft ext- no edema left foot--dressing in place-- no soakage a/p 88 year old demented male w/ PVD, 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 Resendiz sent to hospital by Dr. Otero for worsening left foot wound check labs plan for BKA now as per Vascular abx pain control Cardiology eval for clearance Ordered Echo Problem List - Problems (1) Gangrene of toe of left foot Code(s): I96 - GANGRENE, NOT ELSEWHERE CLASSIFIED (2) Absent pulse in lower extremity Code(s): R09.89 - OTH SYMPTOMS AND SIGNS INVOLVING THE CIRC AND RESP SYSTEMS (3) Acute kidney injury superimposed on chronic kidney disease Code(s): N17.9 - ACUTE KIDNEY FAILURE, UNSPECIFIED; N18.9 - CHRONIC KIDNEY DISEASE, UNSPECIFIED (4) Dementia Code(s): F03.90 - UNSPECIFIED DEMENTIA WITHOUT BEHAVIORAL DISTURBANCE (5) Gangrene Code(s): I96 - GANGRENE, NOT ELSEWHERE CLASSIFIED
--- NOTE | 2018-06-20 12:29 | CON.CARD ---
Consult Consult Specialty:: Cardiology Referred by:: Christine Guaman MD Reason for Consultation:: Pre-op CV evaluation - History of Present Illness Chief Complaint: Non-healing left foot wound History of Present Illness: 88 yo M h/o PVD and chronic left foot wound presents from wound care for admission for acute infection despite oral sbc. He has had PVD for over 10 years and has had two toe amputations of left foot with the most recent amputation 3rd toe left with excision 2&3rd metatarsal heads, debridement of necrotic tissue with Dr Otero on 05/25/18 following CO2 aortogram, LLE angiogram, left anterior tibial artery angioplasty He previously denied CP, CREWS, SOB, palpitations, abdominal pain, nausea, vomiting , fever or chills. PMHx: Myelofibrosis, PVD , Gout, CKD 3, Dementia, Hypothyroidism PSHx: s/p LLE angioplasty, s/p amputation of L 2nd toe - History Source History Provided By: Medical Record Limitations to Obtaining History: Dementia - Past Medical History [employer]: Yes: Dementia - Past Surgical History Past Surgical History: Yes: None - Alcohol/Substance Use Hx Alcohol Use: Yes (ALCOHOLISM) - Smoking History Smoking history: Never smoked Have you smoked in the past 12 months: No Aproximately how many cigarettes per day: 0 Home Medications - Allergies Allergies/Adverse Reactions: Allergies Allergy/AdvReac Type Severity Reaction Status Date / Time No Known Allergies Allergy Verified 06/14/18 15:56 - Home Medications Home Medications: Ambulatory Orders Aspirin [ASA -] 81 mg PO DAILY 02/23/14 Allopurinol [Zyloprim -] 100 mg PO DAILY 05/30/17 Hydroxyurea [Hydrea 500Mg Capsule -] 500 mg PO DAILY #60 capsule 06/08/17 Clopidogrel Bisulfate [Plavix] 75 mg PO DAILY #30 tablet 12/05/17 Albuterol Sulfate [Proair Hfa] 8.5 gm AD PRN PRN 05/17/18 Levothyroxine [Synthroid -] 25 mcg PO DAILY 05/17/18 Pantoprazole Sodium 40 mg PO DAILY 05/17/18 Levaquin - 250 mg PO DAILY 06/14/18 Review of Systems Unable to obtain ROS, reason: Dementia Vital Signs: Vital Signs Temperature 98.0 F 06/20/18 10:00 Pulse Rate 89 06/20/18 10:00 Respiratory Rate 18 06/20/18 10:00 Blood Pressure 132/72 06/20/18 10:00 O2 Sat by Pulse Oximetry (%) 96 06/19/18 21:00 Constitutional: Yes: No Distress, Calm, Thin Neck: Yes: Supple Respiratory: Yes: Regular, CTA Bilaterally Gastrointestinal: Yes: Soft, Hypoactive Bowel Sounds Cardiovascular: Yes: Regular Rate and Rhythm Heart Sounds: Yes: S1, S2 Murmur: Yes: Systolic Murmur, Grade 1 Edema: No - Other Data Labs, Other Data: CBC, BMP 06/19/18 05:20 06/19/18 05:20 INR, PTT INR 1.14 (0.83-1.09) H 06/14/18 16:10 NSR @ [address]-T changes Imaging - Results Chest X-ray: Report Reviewed (Right base changes) Problem List - Problems (1) Preoperative cardiovascular examination Code(s): Z01.810 - ENCOUNTER FOR PREPROCEDURAL CARDIOVASCULAR EXAMINATION (2) CKD (chronic kidney disease) Code(s): N18.9 - CHRONIC KIDNEY DISEASE, UNSPECIFIED Qualifiers: Chronic kidney disease stage: stage 3 (moderate) Qualified Code(s): N18.3 - Chronic kidney disease, stage 3 (moderate) (3) Anemia Code(s): D64.9 - ANEMIA, UNSPECIFIED Qualifiers: Bone marrow failure anemia type: other bone marrow failure (4) Gangrene Code(s): I96 - GANGRENE, NOT ELSEWHERE CLASSIFIED (5) Peripheral vascular disease Code(s): I73.9 - PERIPHERAL VASCULAR DISEASE, UNSPECIFIED (6) Myelofibrosis Code(s): D75.81 - MYELOFIBROSIS (7) Hypothyroidism Code(s): E03.9 - HYPOTHYROIDISM, UNSPECIFIED Qualifiers: Hypothyroidism type: unspecified Qualified Code(s): E03.9 - Hypothyroidism , unspecified (8) Dementia Code(s): F03.90 - UNSPECIFIED DEMENTIA WITHOUT BEHAVIORAL DISTURBANCE Assessment/Plan 1. Pre-operative cardiovascular evaluation 2. 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 Hypothyroidism 4. Anemia, myelofibrosis 5. CKD 6. Dementia P:1. Given absence of symptoms of acute coronary syndrome, decompensated CHF or malignant arrhythmia, may proceed with left BKA from CV-standpoint, f/u echo already ordered 2. Hold DAPT pending OR, complete empiric abx course 3. Thank you for consultative opportunity
[2018-06-20 12:39] LABS: HEMATOCRIT 24.7 % (35.4-49); HEMOGLOBIN 7.9 GM/dL (11.7-16.9); MCHC 32.1 g/dl (32.0-35.9); MEAN CELL VOLUME 109.1 fl (80-96); PLATELET COUNT 497 K/MM3 (134-434); RBC 2.26 M/mm3 (4.00-5.60); RDW 15.4 % (11.9-15.9); WHITE BLOOD COUNT 10.7 K/mm3 (4.0-10.0)
[2018-06-20 12:54] LABS: INR 1.19 (0.83-1.09); PROTHROMBIN TIME (PATIENT) 14.1 SEC (9.7-13.0)
[2018-06-20 13:42] LABS: ALBUMIN 2.7 g/dl (3.4-5.0); CALCIUM 8.3 mg/dL (8.5-10.1); POTASSIUM 3.9 mmol/L (3.5-5.1)
[2018-06-20 13:45] LABS: BILIRUBIN,TOTAL 0.4 mg/dL (0.2-1); CREATININE 1.6 mg/dL (0.55-1.3); TOT PROT 5.4 g/dl (6.4-8.2)
--- NOTE | 2018-06-20 15:07 | ECHO ---
Name: JOCELYNE SHAUNA Exam:Adult Echocardiogram Study Date: 06/20/2018 11:56 AM Age: 88 yrs Reason For Study: LVEF Height: 65 in Weight: 136 lb BSA: 1.7 m2 MMode/2D Measurements & Calculations IVSd: 1.1 cm Ao root diam: 2.7 cm LVIDd: 4.3 cm LA dimension: 4.0 cm LVIDs: 3.2 cm LVPWd: 0.99 cm EDV(Teich): 82.9 ml LVOT diam: 2.0 cm ESV(Teich): 39.8 ml LAV (MOD-bp): 56.9 ml Doppler Measurements & Calculations MV E max lui: 84.9 cm/sec Ao V2 max: 114.0 cm/sec MV A max lui: 98.5 cm/sec Ao max P.2 mmHg MV E/A: 0.86 MV dec time: 0.15 sec MYNOR(V,D): 2.9 cm2 LV V1 max P.3 mmHg TR max lui: 266.0 cm/sec LV V1 max: 103.8 cm/sec TR max P.4 mmHg PA V2 max: 81.4 cm/sec Med Peak E' Lui: 8.3 cm/sec PA max P.7 mmHg Med E/e': 10.3 Lat Peak E' Lui: 10.3 cm/sec Lat E/e': 8.2 Procedure The study was technically difficult with many images being suboptimal in quality. Left Ventricle The left ventricular size, thickness and function are normal. The left ventricular ejection fraction is normal. E/A reversal consistent with but not diagnostic of poor LV compliance. Regional wall motion abnormalities cannot be excluded due to limited visualization. Right Ventricle The right ventricle is not well visualized. Atria The left atrium is mildly dilated. The right atrium is mildly dilated. Mitral Valve There is mild mitral valve thickening. There is no mitral valve stenosis. There is trace to mild mitr al regurgitation. Tricuspid Valve The tricuspid valve is not well visualized. There is no tricuspid stenosis. There is Trace to mild tr icuspid regurgitation. Right ventricular systolic pressure is normal. Aortic Valve The aortic valve is not well visualized. No hemodynamically significant valvular aortic stenosis. No aortic regurgitation is present. Pulmonic Valve The pulmonic valve is not well visualized. Great Vessels The aortic root is normal size. Pericardium/Pleura There is no pericardial effusion. Interpretation Summary The study was technically difficult with many images being suboptimal in quality. The left ventricular size, thickness and function are normal The left ventricular ejection fraction is normal. Regional wall motion abnormalities cannot be excluded due to limited visualization. The left atrium is mildly dilated. The right atrium is mildly dilated. There is trace to mild mitral regurgitation. There is Trace to mild tricuspid regurgitation. Right ventricular systolic pressure is normal. E/A reversal consistent with but not diagnostic of poor LV compliance MD Isaac Ferrari 06/20/2018 03:07 PM
[2018-06-21] MEDS ORDERED: PT OWN MED DRAWER 7, Y5N ONE ×3 (01:36→18:19)
[2018-06-21] MEDS: AMPICILLIN NA/SULBACTAM NA 3 GM in SODIUM CHLORIDE 100 ML IVPB SCH ×3 (01:44→18:22)
[2018-06-21] MEDS: LEVOTHYROXINE NA 50 MCG TABLET (FP) PO SCH (06:26)
[2018-06-21 07:48] LABS: HEMATOCRIT 23.6 % (35.4-49); HEMOGLOBIN 7.8 GM/dL (11.7-16.9); MCH 35.9 pg (25.7-33.7); MCHC 32.9 g/dl (32.0-35.9); MEAN CELL VOLUME 108.9 fl (80-96); MEAN PLT VOLUME 9.4 fl (7.5-11.1); PLATELET COUNT 486 K/MM3 (134-434); RBC 2.16 M/mm3 (4.00-5.60); RDW 15.6 % (11.9-15.9); WHITE BLOOD COUNT 10.6 K/mm3 (4.0-10.0)
--- NOTE | 2018-06-21 09:46 | PN ---
Progress Note, Physician History of Present Illness: Planned for left BKA, denies chest pain or dyspnea. - Current Medication List Current Medications: Active Medications Allopurinol (Zyloprim -) 100 mg PO DAILY [facility] Last Admin: 06/20/18 10:00 Dose: 100 mg Amino Acids (Prosource No Carb Liquid Pkt) 30 ml PO BID@0800,1730 [facility] Last Admin: 06/20/18 17:52 Dose: 30 ml Ascorbic Acid (Vitamin C -) 500 mg PO DAILY [facility] Last Admin: 06/20/18 10:00 Dose: 500 mg Aspirin (Asa -) 81 mg PO DAILY [facility] Last Admin: 06/20/18 10:01 Dose: 81 mg Collagenase (Santyl -) 1 applic TP DAILY [facility]; Protocol Last Admin: 06/20/18 10:01 Dose: 1 applic Ferrous Sulfate (Feosol -) 325 mg PO DAILY [facility] Last Admin: 06/20/18 10:01 Dose: 325 mg Heparin Sodium (Porcine) (Heparin -) 5,000 unit SQ BID [facility] Last Admin: 06/20/18 22:24 Dose: 5,000 unit Hydroxyurea (Hydrea -) 500 mg PO DAILY [facility] Last Admin: 06/20/18 10:01 Dose: 500 mg Ampicillin Sodium/Sulbactam (Sodium 3 gm/ Sodium Chloride) 100 mls @ 200 mls/ hr IVPB Q8H-IV [facility] Last Admin: 06/21/18 01:44 Dose: 200 mls/hr Levothyroxine Sodium (Synthroid -) 50 mcg PO DAILY@0700 [facility] Last Admin: 06/21/18 06:26 Dose: 50 mcg Pantoprazole Sodium (Protonix -) 40 mg PO DAILY [facility] Last Admin: 06/20/18 10:00 Dose: 40 mg - Objective Vital Signs: Vital Signs Temperature 98.8 F 06/21/18 06:48 Pulse Rate 76 06/21/18 09:25 Respiratory Rate 20 06/21/18 06:48 Blood Pressure 140/60 06/21/18 09:25 O2 Sat by Pulse Oximetry (%) 96 06/20/18 21:00 Constitutional: Yes: No Distress, Calm, Thin Neck: Yes: Supple Cardiovascular: Yes: Regular Rate and Rhythm Respiratory: Yes: Regular, CTA Bilaterally Gastrointestinal: Yes: Normal Bowel Sounds, Soft Extremities: Yes: Amputation Edema: No Wound/Incision: Yes: Dressing Dry and Intact Labs: CBC, BMP 06/21/18 07:00 06/20/18 12:22 INR, PTT INR 1.19 (0.83-1.09) H 06/20/18 12:22 Problem List - Problems (1) Preoperative cardiovascular examination Code(s): Z01.810 - ENCOUNTER FOR PREPROCEDURAL CARDIOVASCULAR EXAMINATION (2) CKD (chronic kidney disease) Code(s): N18.9 - CHRONIC KIDNEY DISEASE, UNSPECIFIED Qualifiers: Chronic kidney disease stage: stage 3 (moderate) Qualified Code(s): N18.3 - Chronic kidney disease, stage 3 (moderate) (3) Anemia Code(s): D64.9 - ANEMIA, UNSPECIFIED Qualifiers: Bone marrow failure anemia type: other bone marrow failure (4) Gangrene Code(s): I96 - GANGRENE, NOT ELSEWHERE CLASSIFIED (5) Peripheral vascular disease Code(s): I73.9 - PERIPHERAL VASCULAR DISEASE, UNSPECIFIED (6) Myelofibrosis Code(s): D75.81 - MYELOFIBROSIS (7) Hypothyroidism Code(s): E03.9 - HYPOTHYROIDISM, UNSPECIFIED Qualifiers: Hypothyroidism type: unspecified Qualified Code(s): E03.9 - Hypothyroidism , unspecified (8) Dementia Code(s): F03.90 - UNSPECIFIED DEMENTIA WITHOUT BEHAVIORAL DISTURBANCE Assessment/Plan 06/20/2018 Echo: Normal LV size and fxn, mild DANIELLE, tr-mild MR, TR, normal RVSP 1. Pre-operative cardiovascular evaluation 2. 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 Hypothyroidism 4. Anemia, myelofibrosis 5. CKD 6. Dementia P:1. Given absence of symptoms of acute coronary syndrome, decompensated CHF or malignant arrhythmia, may proceed with left BKA from CV-standpoint 2. Hold DAPT pending OR, complete empiric abx course 3. Thank you for consultative opportunity
--- NOTE | 2018-06-21 09:46 | PN ---
Progress Note, Physician History of Present Illness: planned for bka no complaints from the patient - Current Medication List Current Medications: Active Medications Allopurinol (Zyloprim -) [address] [facility] Last Admin: 06/20/18 10:00 Dose: 100 mg Amino Acids (Prosource No Carb Liquid Pkt) 30 ml PO BID@0800,1730 [facility] Last Admin: 06/20/18 17:52 Dose: 30 ml Ascorbic Acid (Vitamin C -) [address] [facility] Last Admin: 06/20/18 10:00 Dose: 500 mg Aspirin (Asa -) [address] [facility] Last Admin: 06/20/18 10:01 Dose: 81 mg Collagenase (Santyl -) [address] [facility]; Protocol Last Admin: 06/20/18 10:01 Dose: 1 applic Ferrous Sulfate (Feosol -) [address] [facility] Last Admin: 06/20/18 10:01 Dose: 325 mg Heparin Sodium (Porcine) (Heparin -) 5,[address] [facility] Last Admin: 06/20/18 22:24 Dose: 5,000 unit Hydroxyurea (Hydrea -) [address] [facility] Last Admin: 06/20/18 10:01 Dose: 500 mg Ampicillin Sodium/Sulbactam (Sodium 3 gm/ Sodium Chloride) 100 mls @ 200 mls/ hr IVPB Q8H-IV [facility] Last Admin: 06/21/18 01:44 Dose: 200 mls/hr Levothyroxine Sodium (Synthroid -) 50 mcg PO DAILY@0700 [facility] Last Admin: 06/21/18 06:26 Dose: 50 mcg Pantoprazole Sodium (Protonix -) [address] [facility] Last Admin: 06/20/18 10:00 Dose: 40 mg - Objective Vital Signs: Vital Signs Temperature 98.8 F 06/21/18 06:48 Pulse Rate 76 06/21/18 09:25 Respiratory Rate 20 06/21/18 06:48 Blood Pressure 140/60 06/21/18 09:25 O2 Sat by Pulse Oximetry (%) 96 06/20/18 21:00 Constitutional: Yes: No Distress, Calm Cardiovascular: Yes: S1, S2 Respiratory: Yes: Regular, CTA Bilaterally Gastrointestinal: Yes: Normal Bowel Sounds, Soft Musculoskeletal: Yes: WNL Extremities: Yes: Other Wound/Incision: Yes: Dressing Dry and Intact Neurological: Yes: Alert, Oriented Psychiatric: Yes: Alert, Oriented Labs: CBC, BMP 06/21/18 07:00 06/20/18 12:22 INR, PTT INR 1.19 (0.83-1.09) H 06/20/18 12:22 Assessment/Plan Problem List - Problems (1) Gangrene of toe of left foot Code(s): I96 - GANGRENE, NOT ELSEWHERE CLASSIFIED (2) Dementia Code(s): F03.90 - UNSPECIFIED DEMENTIA WITHOUT BEHAVIORAL DISTURBANCE (3) Gangrene Code(s): I96 - GANGRENE, NOT ELSEWHERE CLASSIFIED (4) Leukocytosis Code(s): D72.829 - ELEVATED WHITE BLOOD CELL COUNT, UNSPECIFIED (5) Peripheral vascular disease Code(s): I73.9 - PERIPHERAL VASCULAR DISEASE, UNSPECIFIED (6) Toe infection Code(s): L08.9 - LOCAL INFECTION OF THE SKIN AND SUBCUTANEOUS TISSUE, UNSP amputation Assessment/Plan Lt foot 2nd/3rd toe amp site gangrene leukocytosis - resolved dementia PVD s/p LLE angioplasties hypothyroidism continue abx plan is to do tma v/s bka nutrition rest as per the team
[2018-06-21] MEDS: ASPIRIN 81 MG CHEWABLE TABLETS PO SCH (10:41)
[2018-06-21] MEDS: FERROUS SO4 325 MG TABLET (FP) PO SCH (10:41)
[2018-06-21] MEDS: AMINO ACIDS/PROTEIN HYDROLYS 30 ML LIQUID.PKT PO SCH ×2 (10:41→18:17)
[2018-06-21] MEDS: HEPARIN NA (PORCINE) 5,000 UNITS/ML 1ML VIAL SQ SCH ×2 (10:42→21:44)
[2018-06-21] MEDS: HYDROXYUREA 500 MG CAPSULE PO SCH (10:42)
[2018-06-21] MEDS: COLLAGENASE CLOSTRIDIUM HIST. 30 GRAMS TUBE TP SCH (10:43)
[2018-06-21] MEDS: ALLOPURINOL 100 MG TABLET (FP) PO SCH (10:43)
[2018-06-21] MEDS: ASCORBIC ACID 500 MG TABLET (FP) PO SCH (10:43)
[2018-06-21] MEDS: PANTOPRAZOLE 40 MG TABLET (FP) PO SCH (10:43)
--- NOTE | 2018-06-21 12:15 | PN ---
Problem List - Problems (1) Gangrene of toe of left foot Code(s): I96 - GANGRENE, NOT ELSEWHERE CLASSIFIED (2) Absent pulse in lower extremity Code(s): R09.89 - OTH SYMPTOMS AND SIGNS INVOLVING THE CIRC AND RESP SYSTEMS (3) Acute kidney injury superimposed on chronic kidney disease Code(s): N17.9 - ACUTE KIDNEY FAILURE, UNSPECIFIED; N18.9 - CHRONIC KIDNEY DISEASE, UNSPECIFIED (4) Dementia Code(s): F03.90 - UNSPECIFIED DEMENTIA WITHOUT BEHAVIORAL DISTURBANCE (5) Gangrene Code(s): I96 - GANGRENE, NOT ELSEWHERE CLASSIFIED
[2018-06-21] MEDS ORDERED: DEXTROSE 5%-0.45% SALINE 1,000 ML IV SCH (13:15)
[2018-06-21] MEDS ORDERED: MIDAZOLAM HCL 2 MG/2 ML SINGLE DOSE VIAL ONE (20:27)
[2018-06-21] MEDS ORDERED: SUCCINYLCHOLINE CHLORIDE 200 MG/10 ML VIAL ONE (20:28)
[2018-06-21] MEDS ORDERED: LIDOCAINE HCL/PF 2% SDV 5ML VIAL ONE ×2 (20:28→21:36)
[2018-06-21] MEDS ORDERED: PROPOFOL 20 ML ONE ×2 (20:29→21:36)
[2018-06-21] MEDS ORDERED: ONDANSETRON 4 MG/2 ML VIAL IVPUSH PRN ×2 (20:36→23:01)
[2018-06-21] MEDS ORDERED: LACTATED RINGERS SOLUTION 1,000 ML IV SCH ×2 (20:45→23:01)
[2018-06-21] MEDS ORDERED: DEXAMETHASONE SOD PHOSPHATE 4 MG/1 ML VIAL ONE (20:54)
[2018-06-21] MEDS ORDERED: KETOROLAC TROMETHAMINE 30 MG/1 ML VIAL ONE (20:54)
[2018-06-21] MEDS ORDERED: ceFAZolin SODIUM 1 GM VIAL IVPB ONE (21:01)
[2018-06-21] MEDS ORDERED: ceFAZolin SODIUM 1 GM VIAL ONE (21:11)
[2018-06-21] MEDS ORDERED: SODIUM CHLORIDE 0.9% P/F 10 ML VIAL IJ ONE (21:11)
--- NOTE | 2018-06-21 22:21 | OP ---
Operative Note - Note: Operative Date: 06/21/18 Pre-Operative Diagnosis: left foot gangrene Operation: left below knee amputation Post-Operative Diagnosis: Same as Pre-op Surgeon: Mohinder Resendiz Anesthesia: General Estimated Blood Loss (mls): 150 Operative Report Dictated: Yes
[2018-06-21] MEDS ORDERED: morphine SULFATE 4 MG/ML VIAL IVPUSH PRN (22:22)
[2018-06-21] MEDS ORDERED: ACETAMINOPHEN 1000 MG/100 ML VIAL (NON FORMULARY) IVPB ONE (22:27)
[2018-06-21] MEDS ORDERED: METOPROLOL TARTRATE 5 MG/5 ML VIAL ONE (23:52)
[2018-06-21] MEDS ORDERED: METOPROLOL TARTRATE 5 MG/5 ML VIAL IVPUSH ONE (23:53)
--- NOTE | 2018-06-22 00:15 | OP ---
DATE OF OPERATION: 06/21/2018 PREOPERATIVE DIAGNOSIS: Left foot gangrene. POSTOPERATIVE DIAGNOSIS: Left foot gangrene. PROCEDURE: Left below-knee amputation. SURGEON: Mohinder Sánchez DO ANESTHESIA: General. BLOOD LOSS: 150 mL. INDICATIONS: Patient is an 88-year-old male who has left foot gangrene. He now has gangrene to the point that the foot is not salvageable and needs to have left below-knee amputation. Cardiology and Medicine cleared the patient prior to the surgery. Patient was consented for the procedure, understanding all risks, benefits, alternatives. DESCRIPTION OF PROCEDURE: He was then brought to the operating room and was placed on the operating table in the supine manner. General anesthesia was administered to the patient. Laurent catheter was then placed. Thereafter, we then went ahead and took a skin marker and we went 4 fingerbreadths below the left tibial tuberosity and garrett a stepoff incision. We then prepped and draped the left lower extremity in a sterile surgical manner. We then went ahead and took a number 15-blade and cut along our incision. Bovie electrocautery was then used to control hemostasis. As we went through all the subcutaneous tissue, we got down to the muscle. The muscle was then taken down using Bovie electrocautery. We got down to the muscle and cut down to our blood vessels. We first cut down to the anterior tibial artery and vein. Those were dissected anteriorly and posteriorly and then clamped and ligated. We then used 0 silk suture ligature and tied off the blood vessels proximally and distally. We then continued to take down the muscles as we went medially between the tibia and the fibula. We were able to first encounter our posterior tibial artery and vein and those vessels were dissected anteriorly and posteriorly. They were clamped and ligated. Then 0 suture ligature was then used to tie the blood vessels off. We continued to go deeper and got down to the fascia. Once the fascia was opened, we got down to the soleus. The soleus was retracted and we got down to the peroneal artery and vein. Those were dissected anteriorly and posteriorly and clamped proximally and distally and ligated. We then used 0 suture ligature and tied the blood vessels off. We then continued to take our Bovie electrocautery posteriorly and the hamstring muscles were taken down posteriorly using Bovie electrocautery. We then went ahead and dissected out our tibia and made sure that we could get anteriorly and posteriorly behind it. We then dissected out our fibula and made sure that we could go 2 inches higher than the tibia, once transected. Once the flap was created and the posterior attachments were taken down, we went ahead and used a saw and the tibia was transected. We then went ahead and went 2 inches higher and the fibula was transected. We then went ahead and took our saw and beveled the head of the tibia so that it does not cause any abrasion on the skin. We then went ahead and irrigated copiously. Bovie electrocautery was used to control hemostasis. We then went ahead and took 2-0 Vicryl and the fascia was approximated in an interrupted manner. The skin was then closed with skin saira. We then wet and dried the area. We then went ahead and placed Xeroform, 4 x 4's, ABD pads, Kerlix, and Coban and the leg was then placed in a knee immobilizer. Patient tolerated the procedure with no complications. Total blood loss was 150 mL. MOHINDER SÁNCHEZ DO [id number]
[2018-06-22] MEDS ORDERED: METOPROLOL TARTRATE 5 MG/5 ML VIAL IVPUSH ONE (00:19)
[2018-06-22] MEDS ORDERED: hydrALAZINE HCL 20 MG/ML VIAL IVPUSH ONE (00:40)
[2018-06-22] MEDS ORDERED: hydrALAZINE HCL 20 MG/ML VIAL ONE (00:40)
[2018-06-22] MEDS ORDERED: PT OWN MED DRAWER 7, Y5N ONE ×3 (01:21→17:02)
[2018-06-22] MEDS: AMPICILLIN NA/SULBACTAM NA 3 GM in SODIUM CHLORIDE 100 ML IVPB SCH ×3 (01:23→17:06)
[2018-06-22] MEDS: KETOROLAC TROMETHAMINE 30 MG/1 ML VIAL IVPUSH PRN ×2 (03:19→10:44)
[2018-06-22] MEDS: LEVOTHYROXINE NA 50 MCG TABLET (FP) PO SCH (06:15)
--- NOTE | 2018-06-22 07:44 | SPA.POSTOP ---
- POST-OP NOTE POD #1 s/p LLE BKA No acute events since surgical procedure per RN notes. Patient resting comfortably. Pain management via prn meds. Denies n/v/f/c, CP or SOB. Last Vital Signs Temp Pulse Resp BP Pulse Ox 97.6 F 76 20 148/58 L 97 06/22/18 06:34 06/22/18 06:34 06/22/18 06:34 06/22/18 06:34 06/22/18 01:10 PE General: No acute distress. LLE: Knee immobilizer in place. Dressing C/D/I. Problem List - Problems (1) Status post below knee amputation of left lower extremity Assessment/Plan: Cont Medical management Dressing to be changed POD #3 Pain management Knee Immobilizer to be worn to prevent limb contracture Code(s): Z89.512 - ACQUIRED ABSENCE OF LEFT LEG BELOW KNEE (2) Dementia Code(s): F03.90 - UNSPECIFIED DEMENTIA WITHOUT BEHAVIORAL DISTURBANCE (3) Peripheral vascular disease Code(s): I73.9 - PERIPHERAL VASCULAR DISEASE, UNSPECIFIED Visit type - Case Type Case Type: ED Admission
--- NOTE | 2018-06-22 08:24 | PN ---
Progress Note (short form) - Note Progress Note: Anesthesia postop note 88 y/o M s/p GA for BKA POD#1, vss, sleepy but arousable No anesthesia complications.
--- NOTE | 2018-06-22 09:16 | PN ---
Progress Note (short form) - Note Progress Note: Patient seen at bedside below knee amputation was performed . Patient resting comfortably
[2018-06-22] MEDS ORDERED: COLLAGENASE CLOSTRIDIUM HIST. 30 GRAMS TUBE TP SCH (10:00)
--- NOTE | 2018-06-22 10:32 | PN ---
Progress Note (short form) - Note Progress Note: pt seen/ examined awake pleasantly confused hard of hearing. pod # 1 Vital Signs Temp 97.6 F 06/22/18 06:34 Pulse 76 06/22/18 06:34 Resp 20 06/22/18 06:34 BP 148/58 L 06/22/18 06:34 Pulse Ox 97 06/22/18 01:10 Intake & Output 06/21/18 06/21/18 06/22/18 11:59 23:59 11:59 Intake Total 100 1400 550 Output Total 200 1100 350 Balance -100 300 200 Weight 136 lb 6.4 oz 119 lb 6.4 oz Intake: IV 1300 450 D5-1/2Ns - 1,000 ml @ 75 75 mls/hr IV [facility] Rx#: [id number] D5-1/2Ns - 1,000 ml @ 75 375 mls/hr IV [facility] Rx#: [id number] SALINE LOCK 300 IVPB 100 100 100 Oral 0 Output: Urine 200 950 350 Laurent 150 Void 600 Estimated Blood Loss 150 Other: Voiding Method Diaper Indwelling Catheter Indwelling Catheter Bowel Movement No Weight Measurement Method Built in Bedscale Built in Bedscale Active Medications Allopurinol (Zyloprim -) 100 mg PO DAILY [facility] Amino Acids (Prosource No Carb Liquid Pkt) 30 ml PO BID@0800,1730 [facility] Ascorbic Acid (Vitamin C -) 500 mg PO DAILY [facility] Aspirin (Asa -) 81 mg PO DAILY [facility] Collagenase (Santyl -) 1 applic TP DAILY [facility]; Protocol Fentanyl (Sublimaze Injection -) 25 mcg IVPUSH [id number] PRN PRN Reason: PAIN-PACU ORDER X 4 DOSES ONLY Ferrous Sulfate (Feosol -) 325 mg PO DAILY [facility] Heparin Sodium (Porcine) (Heparin -) 5,000 unit SQ BID [facility] Hydroxyurea (Hydrea -) 500 mg PO DAILY [facility] Ampicillin Sodium/Sulbactam (Sodium 3 gm/ Sodium Chloride) 100 mls @ 200 mls/ hr IVPB Q8H-IV [facility] Last Admin: 06/22/18 01:23 Dose: 200 mls/hr Dextrose/Sodium Chloride (D5-1/2ns -) 1,000 mls @ 75 mls/hr IV [facility] Lactated Ringer's (Lactated Ringers Solution) 1,000 mls @ 75 mls/hr IV [facility] Last Admin: 06/21/18 23:30 Dose: 200 mls Ketorolac Tromethamine (Toradol Injection -) 30 mg IVPUSH Q6H PRN PRN Reason: PAIN LEVEL 6-10 Stop: 06/26/18 22:26 Last Admin: 06/22/18 03:19 Dose: 30 mg Levothyroxine Sodium (Synthroid -) 50 mcg PO DAILY@0700 [facility] Last Admin: 06/22/18 06:15 Dose: 50 mcg Morphine Sulfate (Morphine Sulfate) 4 mg IVPUSH Q6H PRN PRN Reason: PAIN LEVEL 6-10 Ondansetron HCl (Zofran Injection) 4 mg IVPUSH Q6H PRN PRN Reason: NAUSEA AND/OR VOMITING Pantoprazole Sodium (Protonix -) 40 mg PO DAILY [facility] CBC, BMP 06/21/18 07:00 06/20/18 12:22 P/E awake/ comfortable Lungs- clear cvs- s1, s2 rrr abd- soft ext- no edema left foot--dressing in place-- no soakage a/p s/p bka continue present care abx pain control will f/u transfuse as needed check cbc tomorrow Problem List - Problems (1) Gangrene of toe of left foot Code(s): I96 - GANGRENE, NOT ELSEWHERE CLASSIFIED (2) Absent pulse in lower extremity Code(s): R09.89 - OTH SYMPTOMS AND SIGNS INVOLVING THE CIRC AND RESP SYSTEMS (3) Dementia Code(s): F03.90 - UNSPECIFIED DEMENTIA WITHOUT BEHAVIORAL DISTURBANCE
[2018-06-22] MEDS: ALLOPURINOL 100 MG TABLET (FP) PO SCH (10:44)
[2018-06-22] MEDS: ASPIRIN 81 MG CHEWABLE TABLETS PO SCH (10:44)
[2018-06-22] MEDS: ASCORBIC ACID 500 MG TABLET (FP) PO SCH (10:44)
[2018-06-22] MEDS: FERROUS SO4 325 MG TABLET (FP) PO SCH (10:44)
[2018-06-22] MEDS: PANTOPRAZOLE 40 MG TABLET (FP) PO SCH (10:44)
[2018-06-22] MEDS: HYDROXYUREA 500 MG CAPSULE PO SCH (10:44)
[2018-06-22] MEDS: AMINO ACIDS/PROTEIN HYDROLYS 30 ML LIQUID.PKT PO SCH ×2 (10:44→17:06)
[2018-06-22] MEDS: HEPARIN NA (PORCINE) 5,000 UNITS/ML 1ML VIAL SQ SCH ×2 (10:44→22:21)
[2018-06-22] MEDS: DEXTROSE 5%-0.45% SALINE 1,000 ML IV SCH (10:54)
--- NOTE | 2018-06-22 12:27 | PN ---
Progress Note, Physician History of Present Illness: post op patient stable,pain - Current Medication List Current Medications: Active Medications Allopurinol (Zyloprim -) 100 mg PO DAILY [facility] Last Admin: 06/22/18 10:44 Dose: 100 mg Amino Acids (Prosource No Carb Liquid Pkt) 30 ml PO BID@0800,1730 [facility] Last Admin: 06/22/18 10:44 Dose: 30 ml Ascorbic Acid (Vitamin C -) 500 mg PO DAILY [facility] Last Admin: 06/22/18 10:44 Dose: 500 mg Aspirin (Asa -) 81 mg PO DAILY [facility] Last Admin: 06/22/18 10:44 Dose: 81 mg Ferrous Sulfate (Feosol -) 325 mg PO DAILY [facility] Last Admin: 06/22/18 10:44 Dose: 325 mg Heparin Sodium (Porcine) (Heparin -) 5,000 unit SQ BID [facility] Last Admin: 06/22/18 10:44 Dose: 5,000 unit Hydroxyurea (Hydrea -) 500 mg PO DAILY [facility] Last Admin: 06/22/18 10:44 Dose: 500 mg Ampicillin Sodium/Sulbactam (Sodium 3 gm/ Sodium Chloride) 100 mls @ 200 mls/ hr IVPB Q8H-IV [facility] Last Admin: 06/22/18 10:43 Dose: 200 mls/hr Dextrose/Sodium Chloride (D5-1/2ns -) 1,000 mls @ 75 mls/hr IV ASDIR [facility] Last Admin: 06/22/18 10:54 Dose: 75 mls/hr Ketorolac Tromethamine (Toradol Injection -) 30 mg IVPUSH Q6H PRN PRN Reason: PAIN LEVEL 6-10 Stop: 06/26/18 22:26 Last Admin: 06/22/18 10:44 Dose: 30 mg Levothyroxine Sodium (Synthroid -) 50 mcg PO DAILY@0700 [facility] Last Admin: 06/22/18 06:15 Dose: 50 mcg Morphine Sulfate (Morphine Sulfate) 4 mg IVPUSH Q6H PRN PRN Reason: PAIN LEVEL 6-10 Pantoprazole Sodium (Protonix -) 40 mg PO DAILY [facility] Last Admin: 06/22/18 10:44 Dose: 40 mg - Objective Vital Signs: Vital Signs Temperature 98.2 F 06/22/18 10:00 Pulse Rate 84 06/22/18 10:00 Respiratory Rate 20 06/22/18 10:00 Blood Pressure 127/68 06/22/18 10:00 O2 Sat by Pulse Oximetry (%) 97 06/22/18 09:00 Constitutional: Yes: No Distress, Calm Cardiovascular: Yes: S1, S2 Respiratory: Yes: Regular, CTA Bilaterally Gastrointestinal: Yes: Normal Bowel Sounds, Soft Musculoskeletal: Yes: Other Extremities: Yes: Amputation Neurological: Yes: Alert, Other Psychiatric: Yes: Other Labs: CBC, BMP 06/21/18 07:00 06/20/18 12:22 INR, PTT INR 1.19 (0.83-1.09) H 06/20/18 12:22 Assessment/Plan Problem List - Problems (1) Gangrene of toe of left foot Code(s): I96 - GANGRENE, NOT ELSEWHERE CLASSIFIED (2) Dementia Code(s): F03.90 - UNSPECIFIED DEMENTIA WITHOUT BEHAVIORAL DISTURBANCE (3) Gangrene Code(s): I96 - GANGRENE, NOT ELSEWHERE CLASSIFIED (4) Leukocytosis Code(s): D72.829 - ELEVATED WHITE BLOOD CELL COUNT, UNSPECIFIED (5) Peripheral vascular disease Code(s): I73.9 - PERIPHERAL VASCULAR DISEASE, UNSPECIFIED (6) Toe infection Code(s): L08.9 - LOCAL INFECTION OF THE SKIN AND SUBCUTANEOUS TISSUE, UNSP amputation Assessment/Plan Lt foot 2nd/3rd toe amp site gangrene leukocytosis - resolved dementia PVD s/p LLE angioplasties hypothyroidism will stop abx tomorrow rest as per the team wound care
--- NOTE | 2018-06-22 17:50 | PN ---
Progress Note, Physician History of Present Illness: POD#1 left BKA, denies chest pain or dyspnea. - Current Medication List Current Medications: Active Medications Allopurinol (Zyloprim -) 100 mg PO DAILY [facility] Last Admin: 06/22/18 10:44 Dose: 100 mg Amino Acids (Prosource No Carb Liquid Pkt) 30 ml PO BID@0800,1730 [facility] Last Admin: 06/22/18 17:06 Dose: 30 ml Ascorbic Acid (Vitamin C -) 500 mg PO DAILY [facility] Last Admin: 06/22/18 10:44 Dose: 500 mg Aspirin (Asa -) 81 mg PO DAILY [facility] Last Admin: 06/22/18 10:44 Dose: 81 mg Ferrous Sulfate (Feosol -) 325 mg PO DAILY [facility] Last Admin: 06/22/18 10:44 Dose: 325 mg Heparin Sodium (Porcine) (Heparin -) 5,000 unit SQ BID [facility] Last Admin: 06/22/18 10:44 Dose: 5,000 unit Hydroxyurea (Hydrea -) 500 mg PO DAILY [facility] Last Admin: 06/22/18 10:44 Dose: 500 mg Ampicillin Sodium/Sulbactam (Sodium 3 gm/ Sodium Chloride) 100 mls @ 200 mls/ hr IVPB Q8H-IV [facility] Last Admin: 06/22/18 17:06 Dose: 200 mls/hr Dextrose/Sodium Chloride (D5-1/2ns -) 1,000 mls @ 75 mls/hr IV ASDIR [facility] Last Admin: 06/22/18 10:54 Dose: 75 mls/hr Ketorolac Tromethamine (Toradol Injection -) 30 mg IVPUSH Q6H PRN PRN Reason: PAIN LEVEL 6-10 Stop: 06/26/18 22:26 Last Admin: 06/22/18 10:44 Dose: 30 mg Levothyroxine Sodium (Synthroid -) 50 mcg PO DAILY@0700 [facility] Last Admin: 06/22/18 06:15 Dose: 50 mcg Morphine Sulfate (Morphine Sulfate) 4 mg IVPUSH Q6H PRN PRN Reason: PAIN LEVEL 6-10 Pantoprazole Sodium (Protonix -) 40 mg PO DAILY [facility] Last Admin: 06/22/18 10:44 Dose: 40 mg - Objective Vital Signs: Vital Signs Temperature 98.6 F 06/22/18 16:30 Pulse Rate 84 06/22/18 16:30 Respiratory Rate 18 06/22/18 16:30 Blood Pressure 122/60 06/22/18 16:30 O2 Sat by Pulse Oximetry (%) 97 06/22/18 09:00 Constitutional: Yes: No Distress, Calm Neck: Yes: Supple Cardiovascular: Yes: Regular Rate and Rhythm Respiratory: Yes: Regular, CTA Bilaterally Gastrointestinal: Yes: Normal Bowel Sounds, Soft Extremities: Yes: Amputation (Left BKA) Edema: No Labs: CBC, BMP 06/21/18 07:00 06/20/18 12:22 INR, PTT INR 1.19 (0.83-1.09) H 06/20/18 12:22 Problem List - Problems (1) CKD (chronic kidney disease) Code(s): N18.9 - CHRONIC KIDNEY DISEASE, UNSPECIFIED Qualifiers: Chronic kidney disease stage: stage 3 (moderate) Qualified Code(s): N18.3 - Chronic kidney disease, stage 3 (moderate) (2) Anemia Code(s): D64.9 - ANEMIA, UNSPECIFIED Qualifiers: Bone marrow failure anemia type: other bone marrow failure (3) Gangrene Code(s): I96 - GANGRENE, NOT ELSEWHERE CLASSIFIED (4) Peripheral vascular disease Code(s): I73.9 - PERIPHERAL VASCULAR DISEASE, UNSPECIFIED (5) Myelofibrosis Code(s): D75.81 - MYELOFIBROSIS (6) Hypothyroidism Code(s): E03.9 - HYPOTHYROIDISM, UNSPECIFIED Qualifiers: Hypothyroidism type: unspecified Qualified Code(s): E03.9 - Hypothyroidism , unspecified (7) Dementia Code(s): F03.90 - UNSPECIFIED DEMENTIA WITHOUT BEHAVIORAL DISTURBANCE Assessment/Plan 06/20/2018 Echo: Normal LV size and fxn, mild DANIELLE, tr-mild MR, TR, normal RVSP 1. PAD with CLI s/p LLE [employer] s/p 2nd and 3rd toe amputations and POD#1 left BKA for worsening left foot wound 2. Hypothyroidism 3. Anemia, myelofibrosis 4. CKD 5. Dementia P:1. Resumed ASA 81 qd 2. Complete empiric abx course, wound care, analgesia as needed 3. Transfuse pRBC as needed
[2018-06-23] MEDS ORDERED: PT OWN MED DRAWER 7, Y5N ONE ×4 (01:31→22:20)
[2018-06-23] MEDS: AMPICILLIN NA/SULBACTAM NA 3 GM in SODIUM CHLORIDE 100 ML IVPB SCH ×2 (01:40→09:50)
[2018-06-23] MEDS: DEXTROSE 5%-0.45% SALINE 1,000 ML IV SCH ×2 (05:44→23:15)
[2018-06-23] MEDS: LEVOTHYROXINE NA 50 MCG TABLET (FP) PO SCH (06:08)
[2018-06-23 06:16] LABS: BASO % 1.6 % (0-2.0); LYMPH % 8.3 % (8-40); MCH 35.5 pg (25.7-33.7); MCHC 32.6 g/dl (32.0-35.9); MEAN CELL VOLUME 109.1 fl (80-96); MEAN PLT VOLUME 9.1 fl (7.5-11.1); MONO % 11.5 % (3.8-10.2); NEUT % 76.6 % (42.8-82.8); PLATELET COUNT 529 K/MM3 (134-434); RBC 1.93 M/mm3 (4.00-5.60); RDW 15.9 % (11.9-15.9); WHITE BLOOD COUNT 9.8 K/mm3 (4.0-10.0)
[2018-06-23 06:36] LABS: ALBUMIN 2.3 g/dl (3.4-5.0); BILIRUBIN,TOTAL 0.2 mg/dL (0.2-1); CALCIUM 7.8 mg/dL (8.5-10.1); CREATININE 1.8 mg/dL (0.55-1.3); POTASSIUM 3.8 mmol/L (3.5-5.1); TOT PROT 4.8 g/dl (6.4-8.2)
--- NOTE | 2018-06-23 06:56 | PN ---
Progress Note (short form) - Note Progress Note: Chief Complaint: Events noted, notes reviewed, no distress, denies any chest pain or dyspnea, POD#2 post left BKA History of Present Illness: Seen and examined. Events noted, notes reviewed, no distress, denies any chest pain or dyspnea, POD#2 post left BKA Blood transfusion in progress - Current Medication List Current Medications Allopurinol (Zyloprim -) 100 mg PO DAILY [facility] Last Admin: 06/23/18 09:50 Dose: 100 mg Amino Acids (Prosource No Carb Liquid Pkt) 30 ml PO BID@0800,1730 [facility] Last Admin: 06/23/18 09:51 Dose: 30 ml Ascorbic Acid (Vitamin C -) 500 mg PO DAILY [facility] Last Admin: 06/23/18 09:50 Dose: 500 mg Aspirin (Asa -) 81 mg PO DAILY [facility] Last Admin: 06/23/18 09:50 Dose: 81 mg Ferrous Sulfate (Feosol -) 325 mg PO DAILY [facility] Last Admin: 06/23/18 09:50 Dose: 325 mg Heparin Sodium (Porcine) (Heparin -) 5,000 unit SQ BID [facility] Last Admin: 06/23/18 09:50 Dose: 5,000 unit Hydroxyurea (Hydrea -) 500 mg PO DAILY [facility] Last Admin: 06/23/18 09:50 Dose: 500 mg Dextrose/Sodium Chloride (D5-1/2ns -) 1,000 mls @ 75 mls/hr IV ASDIR [facility] Last Admin: 06/23/18 05:44 Dose: 75 mls/hr Ketorolac Tromethamine (Toradol Injection -) 30 mg IVPUSH Q6H PRN PRN Reason: PAIN LEVEL 6-10 Stop: 06/26/18 22:26 Last Admin: 06/23/18 10:01 Dose: 30 mg Levothyroxine Sodium (Synthroid -) 50 mcg PO DAILY@0700 [facility] Last Admin: 06/23/18 06:08 Dose: 50 mcg Morphine Sulfate (Morphine Sulfate) 4 mg IVPUSH Q6H PRN PRN Reason: PAIN LEVEL 6-10 Pantoprazole Sodium (Protonix -) 40 mg PO DAILY [facility] Last Admin: 06/23/18 09:50 Dose: 40 mg - Objective Vital Signs: Last Vital Signs Temp Pulse Resp BP Pulse Ox 98.5 F 85 18 131/56 L 97 06/23/18 05:41 06/23/18 05:41 06/23/18 05:41 06/23/18 05:41 06/22/18 21:00 Intake & Output 06/20/18 06/21/18 06/22/18 06/23/18 23:59 23:59 23:59 23:59 Intake Total 400 1500 2250 625 Output Total 1300 650 200 Balance 082 517 8020 425 Weight 136 lb 6.4 oz 119 lb 6.4 oz 133 lb 4 oz Neck: Supple Negative JVD No Bruit Cardiovascular: S1 S2 Regular Rate and Rhythm No Murmurs Respiratory: Diminished Breath Sounds Bilaterally Gastrointestinal: Soft Benign Normal Bowel Sounds Ext: Dressing in Situ Labs: CBC, BMP 06/23/18 05:30 06/23/18 05:30 Hepatic Panel Total Bilirubin 0.2 mg/dL (0.2-1) 06/23/18 05:30 AST 24 U/L (15-37) 06/23/18 05:30 ALT 11 U/L (13-61) L 06/23/18 05:30 Alkaline Phosphatase 71 U/L (45-117) 06/23/18 05:30 Albumin 2.3 g/dl (3.4-5.0) L 06/23/18 05:30 INR, PTT INR 1.19 (0.83-1.09) H 06/20/18 12:22 Assessment/Plan ASSESSMENT: 1. 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 CAD coronary artery calcification CT scan of chest 05/14/2011 angina pectoris 3. Diastolic LV dysfunction with clinical class 0 NYHA classification LV failure 4. Hypothyroidism 5. Dementia 6. CKD 7. Anemia- myelofibrosis PLAN: 1. Continue ASA with caution and close monitoring of CBC/Hg, maintain Hg equal or > 8.0 2. Recommend the addition of B-Blockers hemodynamics permitting 3. Recommend the addition of statins Carlos Love M.D.
[2018-06-23 07:26] LABS: HEMOGLOBIN 6.9 GM/dL (11.7-16.9)
--- NOTE | 2018-06-23 09:25 | PN ---
Progress Note (short form) - Note Progress Note: pt seen/ examined chart reviewed awake/ comfortable pod # 2 Vital Signs Temp 98.5 F 06/23/18 05:41 Pulse 85 06/23/18 05:41 Resp 18 06/23/18 05:41 BP 131/56 L 06/23/18 05:41 Pulse Ox 97 06/22/18 21:00 Intake & Output 06/22/18 06/22/18 06/23/18 11:59 23:59 11:59 Intake Total 550 1700 625 Output Total 350 300 200 Balance 200 1400 425 Weight 119 lb 6.4 oz 133 lb 4 oz Intake: IV 450 1200 525 D5-1/2Ns - 1,000 ml @ 75 75 mls/hr IV [facility] Rx#: [id number] D5-1/2Ns - 1,000 ml @ 75 375 1200 525 mls/hr IV ASDIR [facility] Rx#: [id number] IVPB 100 200 100 Oral 300 Output: Urine 350 300 200 Laurent 150 300 200 Other: Voiding Method Indwelling Catheter Indwelling Catheter Bowel Movement No No No Weight Measurement Method [facility] Active Medications Allopurinol (Zyloprim -) 100 mg PO DAILY [facility] Last Admin: 06/22/18 10:44 Dose: 100 mg Amino Acids (Prosource No Carb Liquid Pkt) 30 ml PO BID@0800,1730 [facility] Last Admin: 06/22/18 17:06 Dose: 30 ml Ascorbic Acid (Vitamin C -) 500 mg PO DAILY [facility] Last Admin: 06/22/18 10:44 Dose: 500 mg Aspirin (Asa -) 81 mg PO DAILY [facility] Last Admin: 06/22/18 10:44 Dose: 81 mg Ferrous Sulfate (Feosol -) 325 mg PO DAILY [facility] Last Admin: 06/22/18 10:44 Dose: 325 mg Furosemide (Lasix Injection -) 20 mg IVPUSH ONCE ONE Stop: 06/23/18 09:24 Heparin Sodium (Porcine) (Heparin -) 5,000 unit SQ BID [facility] Last Admin: 06/22/18 22:21 Dose: 5,000 unit Hydroxyurea (Hydrea -) 500 mg PO DAILY [facility] Last Admin: 06/22/18 10:44 Dose: 500 mg Ampicillin Sodium/Sulbactam (Sodium 3 gm/ Sodium Chloride) 100 mls @ 200 mls/ hr IVPB Q8H-IV [facility] Last Admin: 06/23/18 01:40 Dose: 200 mls/hr Dextrose/Sodium Chloride (D5-1/2ns -) 1,000 mls @ 75 mls/hr IV [facility]IR [facility] Last Admin: 06/23/18 05:44 Dose: 75 mls/hr Ketorolac Tromethamine (Toradol Injection -) 30 mg IVPUSH Q6H PRN PRN Reason: PAIN LEVEL 6-10 Stop: 06/26/18 22:26 Last Admin: 06/22/18 10:44 Dose: 30 mg Levothyroxine Sodium (Synthroid -) 50 mcg PO DAILY@0700 [facility] Last Admin: 06/23/18 06:08 Dose: 50 mcg Morphine Sulfate (Morphine Sulfate) 4 mg IVPUSH Q6H PRN PRN Reason: PAIN LEVEL 6-10 Pantoprazole Sodium (Protonix -) 40 mg PO DAILY [facility] Last Admin: 06/22/18 10:44 Dose: 40 mg CBC, BMP 06/23/18 05:30 06/23/18 05:30 P/E awake/ comfortable Lungs- clear cvs- s1, s2 rrr abd- soft ext- no edema left foot--dressing in place-- no soakage a/p s/p bka continue present care abx pain control will f/u transfuse today discussed with nursing staff check cbc tomorrow will follow Problem List - Problems (1) Gangrene of toe of left foot Code(s): I96 - GANGRENE, NOT ELSEWHERE CLASSIFIED (2) Absent pulse in lower extremity Code(s): R09.89 - OTH SYMPTOMS AND SIGNS INVOLVING THE CIRC AND RESP SYSTEMS (3) Dementia Code(s): F03.90 - UNSPECIFIED DEMENTIA WITHOUT BEHAVIORAL DISTURBANCE
[2018-06-23] MEDS ORDERED: FUROSEMIDE 40 MG/4 ML INJECTABLE VIAL IVPUSH ONE (09:30)
[2018-06-23] MEDS: FERROUS SO4 325 MG TABLET (FP) PO SCH (09:50)
[2018-06-23] MEDS: PANTOPRAZOLE 40 MG TABLET (FP) PO SCH (09:50)
[2018-06-23] MEDS: HEPARIN NA (PORCINE) 5,000 UNITS/ML 1ML VIAL SQ SCH ×2 (09:50→22:24)
[2018-06-23] MEDS: ASCORBIC ACID 500 MG TABLET (FP) PO SCH (09:50)
[2018-06-23] MEDS: ALLOPURINOL 100 MG TABLET (FP) PO SCH (09:50)
[2018-06-23] MEDS: ASPIRIN 81 MG CHEWABLE TABLETS PO SCH (09:50)
[2018-06-23] MEDS: HYDROXYUREA 500 MG CAPSULE PO SCH (09:50)
[2018-06-23] MEDS: AMINO ACIDS/PROTEIN HYDROLYS 30 ML LIQUID.PKT PO SCH ×2 (09:51→17:35)
[2018-06-23] MEDS: KETOROLAC TROMETHAMINE 30 MG/1 ML VIAL IVPUSH PRN (10:01)
--- NOTE | 2018-06-23 12:00 | PN ---
Progress Note, Physician History of Present Illness: stable patient getting transfused - Current Medication List Current Medications: Active Medications Allopurinol (Zyloprim -) 100 mg PO DAILY [facility] Last Admin: 06/23/18 09:50 Dose: 100 mg Amino Acids (Prosource No Carb Liquid Pkt) 30 ml PO BID@0800,1730 [facility] Last Admin: 06/23/18 09:51 Dose: 30 ml Ascorbic Acid (Vitamin C -) 500 mg PO DAILY [facility] Last Admin: 06/23/18 09:50 Dose: 500 mg Aspirin (Asa -) 81 mg PO DAILY [facility] Last Admin: 06/23/18 09:50 Dose: 81 mg Ferrous Sulfate (Feosol -) 325 mg PO DAILY [facility] Last Admin: 06/23/18 09:50 Dose: 325 mg Heparin Sodium (Porcine) (Heparin -) 5,000 unit SQ BID [facility] Last Admin: 06/23/18 09:50 Dose: 5,000 unit Hydroxyurea (Hydrea -) 500 mg PO DAILY [facility] Last Admin: 06/23/18 09:50 Dose: 500 mg Ampicillin Sodium/Sulbactam (Sodium 3 gm/ Sodium Chloride) 100 mls @ 200 mls/ hr IVPB Q8H-IV [facility] Last Admin: 06/23/18 09:50 Dose: 200 mls/hr Dextrose/Sodium Chloride (D5-1/2ns -) 1,000 mls @ 75 mls/hr IV ASDIR [facility] Last Admin: 06/23/18 05:44 Dose: 75 mls/hr Ketorolac Tromethamine (Toradol Injection -) 30 mg IVPUSH Q6H PRN PRN Reason: PAIN LEVEL 6-10 Stop: 06/26/18 22:26 Last Admin: 06/23/18 10:01 Dose: 30 mg Levothyroxine Sodium (Synthroid -) 50 mcg PO DAILY@0700 [facility] Last Admin: 06/23/18 06:08 Dose: 50 mcg Morphine Sulfate (Morphine Sulfate) 4 mg IVPUSH Q6H PRN PRN Reason: PAIN LEVEL 6-10 Pantoprazole Sodium (Protonix -) 40 mg PO DAILY [facility] Last Admin: 06/23/18 09:50 Dose: 40 mg - Objective Vital Signs: Vital Signs Temperature 98.5 F 06/23/18 05:41 Pulse Rate 85 06/23/18 05:41 Respiratory Rate 18 06/23/18 05:41 Blood Pressure 131/56 L 06/23/18 05:41 O2 Sat by Pulse Oximetry (%) 97 06/22/18 21:00 Constitutional: Yes: No Distress, Calm Cardiovascular: Yes: S1, S2 Respiratory: Yes: Regular, CTA Bilaterally Gastrointestinal: Yes: Normal Bowel Sounds, Soft Musculoskeletal: Yes: WNL Extremities: Yes: WNL Neurological: Yes: Alert Psychiatric: Yes: Other Labs: CBC, BMP 06/23/18 05:30 06/23/18 05:30 INR, PTT INR 1.19 (0.83-1.09) H 06/20/18 12:22 Assessment/Plan Problem List - Problems (1) Gangrene of toe of left foot Code(s): I96 - GANGRENE, NOT ELSEWHERE CLASSIFIED (2) Dementia Code(s): F03.90 - UNSPECIFIED DEMENTIA WITHOUT BEHAVIORAL DISTURBANCE (3) Gangrene Code(s): I96 - GANGRENE, NOT ELSEWHERE CLASSIFIED (4) Leukocytosis Code(s): D72.829 - ELEVATED WHITE BLOOD CELL COUNT, UNSPECIFIED (5) Peripheral vascular disease Code(s): I73.9 - PERIPHERAL VASCULAR DISEASE, UNSPECIFIED (6) Toe infection Code(s): L08.9 - LOCAL INFECTION OF THE SKIN AND SUBCUTANEOUS TISSUE, UNSP amputation Assessment/Plan Lt foot 2nd/3rd toe amp site gangrene leukocytosis - resolved dementia PVD s/p LLE angioplasties hypothyroidism will stop abx transfusion wound care rest as per the team
[2018-06-23 12:08] LABS: ANISOCYTOSIS 1+; MACROCYTOSIS 0; PLATELET ESTIMATE INCREASED
[2018-06-23] MEDS ORDERED: FUROSEMIDE 40 MG/4 ML INJECTABLE VIAL ONE (15:13)
[2018-06-23] MEDS: ROSUVASTATIN CA 10 MG TABLET (FP) PO SCH (22:24)
[2018-06-24] MEDS: DEXTROSE 5%-0.45% SALINE 1,000 ML IV SCH ×3 (06:59→23:00)
[2018-06-24] MEDS: AMINO ACIDS/PROTEIN HYDROLYS 30 ML LIQUID.PKT PO SCH ×2 (07:37→18:02)
[2018-06-24] MEDS: LEVOTHYROXINE NA 50 MCG TABLET (FP) PO SCH (07:37)
[2018-06-24 07:42] LABS: BASO % 1.8 % (0-2.0); HEMATOCRIT 26.7 % (35.4-49); HEMOGLOBIN 8.7 GM/dL (11.7-16.9); MCH 33.3 pg (25.7-33.7); MCHC 32.8 g/dl (32.0-35.9); MEAN CELL VOLUME 101.5 fl (80-96); MONO % 11.1 % (3.8-10.2); NEUT % 76.1 % (42.8-82.8); PLATELET COUNT 480 K/MM3 (134-434); RBC 2.63 M/mm3 (4.00-5.60); RDW 21.8 % (11.9-15.9); WHITE BLOOD COUNT 9.6 K/mm3 (4.0-10.0)
[2018-06-24 08:04] LABS: CALCIUM 7.9 mg/dL (8.5-10.1); CREATININE 1.7 mg/dL (0.55-1.3); POTASSIUM 3.6 mmol/L (3.5-5.1)
[2018-06-24] MEDS: PANTOPRAZOLE 40 MG TABLET (FP) PO SCH (09:06)
[2018-06-24] MEDS: metoPROLOL SUCCINATE 25 MG TAB.SR.24H (FP) PO SCH (09:06)
[2018-06-24] MEDS: HYDROXYUREA 500 MG CAPSULE PO SCH (09:06)
[2018-06-24] MEDS: FERROUS SO4 325 MG TABLET (FP) PO SCH (09:07)
[2018-06-24] MEDS: ASPIRIN 81 MG CHEWABLE TABLETS PO SCH (09:07)
[2018-06-24] MEDS: HEPARIN NA (PORCINE) 5,000 UNITS/ML 1ML VIAL SQ SCH ×2 (09:07→21:39)
[2018-06-24] MEDS: ASCORBIC ACID 500 MG TABLET (FP) PO SCH (09:08)
[2018-06-24] MEDS ORDERED: PT OWN MED DRAWER 7, Y5N ONE (09:11)
[2018-06-24] MEDS: ALLOPURINOL 100 MG TABLET (FP) PO SCH (09:12)
--- NOTE | 2018-06-24 10:44 | PN ---
Progress Note, Physician History of Present Illness: post transfusion h and h stable no new issues - Current Medication List Current Medications: Active Medications Allopurinol (Zyloprim -) 100 mg PO DAILY [facility] Last Admin: 06/24/18 09:12 Dose: 100 mg Amino Acids (Prosource No Carb Liquid Pkt) 30 ml PO BID@0800,1730 [facility] Last Admin: 06/24/18 07:37 Dose: 30 ml Ascorbic Acid (Vitamin C -) 500 mg PO DAILY [facility] Last Admin: 06/24/18 09:08 Dose: 500 mg Aspirin (Asa -) 81 mg PO DAILY [facility] Last Admin: 06/24/18 09:07 Dose: 81 mg Ferrous Sulfate (Feosol -) 325 mg PO DAILY [facility] Last Admin: 06/24/18 09:07 Dose: 325 mg Heparin Sodium (Porcine) (Heparin -) 5,000 unit SQ BID [facility] Last Admin: 06/24/18 09:07 Dose: 5,000 unit Hydroxyurea (Hydrea -) 500 mg PO DAILY [facility] Last Admin: 06/24/18 09:06 Dose: 500 mg Dextrose/Sodium Chloride (D5-1/2ns -) 1,000 mls @ 75 mls/hr IV ASDIR [facility] Last Admin: 06/24/18 06:59 Dose: 75 mls/hr Ketorolac Tromethamine (Toradol Injection -) 30 mg IVPUSH Q6H PRN PRN Reason: PAIN LEVEL 6-10 Stop: 06/26/18 22:26 Last Admin: 06/23/18 10:01 Dose: 30 mg Levothyroxine Sodium (Synthroid -) 50 mcg PO DAILY@0700 [facility] Last Admin: 06/24/18 07:37 Dose: 50 mcg Metoprolol Succinate (Toprol Xl -) 12.5 mg PO DAILY [facility] Last Admin: 06/24/18 09:06 Dose: 12.5 mg Morphine Sulfate (Morphine Sulfate) 4 mg IVPUSH Q6H PRN PRN Reason: PAIN LEVEL 6-10 Last Admin: 06/24/18 09:44 Dose: 4 mg Pantoprazole Sodium (Protonix -) 40 mg PO DAILY [facility] Last Admin: 06/24/18 09:06 Dose: 40 mg Rosuvastatin Calcium (Crestor -) 10 mg PO HS [facility] Last Admin: 06/23/18 22:24 Dose: 10 mg - Objective Vital Signs: Vital Signs Temperature 98.4 F 06/24/18 10:00 Pulse Rate 84 06/24/18 10:00 Respiratory Rate 20 06/24/18 10:00 Blood Pressure 122/60 06/24/18 10:00 O2 Sat by Pulse Oximetry (%) 97 06/23/18 09:00 Constitutional: Yes: No Distress, Calm Cardiovascular: Yes: S1, S2 Respiratory: Yes: Regular, CTA Bilaterally Gastrointestinal: Yes: Normal Bowel Sounds, Soft Musculoskeletal: Yes: WNL Extremities: Yes: Other Wound/Incision: Yes: Dressing Dry and Intact Neurological: Yes: Alert Labs: CBC, BMP 06/24/18 07:25 06/24/18 07:25 INR, PTT INR 1.19 (0.83-1.09) H 06/20/18 12:22 Assessment/Plan Problem List - Problems (1) Gangrene of toe of left foot Code(s): I96 - GANGRENE, NOT ELSEWHERE CLASSIFIED (2) Dementia Code(s): F03.90 - UNSPECIFIED DEMENTIA WITHOUT BEHAVIORAL DISTURBANCE (3) Gangrene Code(s): I96 - GANGRENE, NOT ELSEWHERE CLASSIFIED (4) Leukocytosis Code(s): D72.829 - ELEVATED WHITE BLOOD CELL COUNT, UNSPECIFIED (5) Peripheral vascular disease Code(s): I73.9 - PERIPHERAL VASCULAR DISEASE, UNSPECIFIED (6) Toe infection Code(s): L08.9 - LOCAL INFECTION OF THE SKIN AND SUBCUTANEOUS TISSUE, UNSP amputation Assessment/Plan Lt foot 2nd/3rd toe amp site gangrene leukocytosis - resolved dementia PVD s/p LLE angioplasties hypothyroidism monitor h and h wound care rest as per the team
--- NOTE | 2018-06-24 11:20 | PN ---
Progress Note (short form) - Note Progress Note: Chief Complaint: Events noted, notes reviewed, no distress, denies any chest pain or dyspnea, POD#3 post left BKA History of Present Illness: Seen and examined. Events noted, notes reviewed, no distress, denies any chest pain or dyspnea, POD#3 post left BKA - Current Medication List Current Medications Allopurinol (Zyloprim -) 100 mg PO DAILY [facility] Last Admin: 06/24/18 09:12 Dose: 100 mg Amino Acids (Prosource No Carb Liquid Pkt) 30 ml PO BID@0800,1730 [facility] Last Admin: 06/24/18 07:37 Dose: 30 ml Ascorbic Acid (Vitamin C -) 500 mg PO DAILY [facility] Last Admin: 06/24/18 09:08 Dose: 500 mg Aspirin (Asa -) 81 mg PO DAILY [facility] Last Admin: 06/24/18 09:07 Dose: 81 mg Ferrous Sulfate (Feosol -) 325 mg PO DAILY [facility] Last Admin: 06/24/18 09:07 Dose: 325 mg Heparin Sodium (Porcine) (Heparin -) 5,000 unit SQ BID [facility] Last Admin: 06/24/18 09:07 Dose: 5,000 unit Hydroxyurea (Hydrea -) 500 mg PO DAILY [facility] Last Admin: 06/24/18 09:06 Dose: 500 mg Dextrose/Sodium Chloride (D5-1/2ns -) 1,000 mls @ 75 mls/hr IV ASDIR [facility] Last Admin: 06/24/18 06:59 Dose: 75 mls/hr Ketorolac Tromethamine (Toradol Injection -) 30 mg IVPUSH Q6H PRN PRN Reason: PAIN LEVEL 6-10 Stop: 06/26/18 22:26 Last Admin: 06/23/18 10:01 Dose: 30 mg Levothyroxine Sodium (Synthroid -) 50 mcg PO DAILY@0700 [facility] Last Admin: 06/24/18 07:37 Dose: 50 mcg Metoprolol Succinate (Toprol Xl -) 12.5 mg PO DAILY [facility] Last Admin: 06/24/18 09:06 Dose: 12.5 mg Morphine Sulfate (Morphine Sulfate) 4 mg IVPUSH Q6H PRN PRN Reason: PAIN LEVEL 6-10 Last Admin: 06/24/18 09:44 Dose: 4 mg Pantoprazole Sodium (Protonix -) 40 mg PO DAILY [facility] Last Admin: 06/24/18 09:06 Dose: 40 mg Rosuvastatin Calcium (Crestor -) 10 mg PO HS [facility] Last Admin: 06/23/18 22:24 Dose: 10 mg - Objective Vital Signs: Last Vital Signs Temp Pulse Resp BP Pulse Ox 98.4 F 84 20 122/60 97 06/24/18 10:00 06/24/18 10:00 06/24/18 10:00 06/24/18 10:00 06/23/18 09:00 Intake & Output 06/21/18 06/22/18 06/23/18 06/24/18 23:59 23:59 23:59 23:59 Intake Total 1500 2250 2370 725 Output Total 1851 017 6067 275 Balance 200 1600 940 450 Weight 136 lb 6.4 oz 119 lb 6.4 oz 133 lb 4 oz 131 lb 14.4 oz Neck: Supple Negative JVD No Bruit Cardiovascular: S1 S2 Regular Rate and Rhythm No Murmurs Respiratory: Diminished Breath Sounds Bilaterally Gastrointestinal: Soft Benign Normal Bowel Sounds Ext: Dressing in Situ Labs: CBC, BMP 06/24/18 07:25 06/24/18 07:25 Assessment/Plan ASSESSMENT: 1. PAD with chronic limb ischemia post [employer] post 2nd and 3rd toe amputations , POD#2 left BKA 2. CAD coronary artery calcification CT scan of chest 05/14/2011 angina pectoris 3. Diastolic LV dysfunction with clinical class 0 NYHA classification LV failure 4. Hypothyroidism 5. Dementia 6. CKD 7. Anemia- myelofibrosis PLAN: 1. Continue ASA with caution and close monitoring of CBC/Hg, maintain Hg equal or > 8.0 2. Continue Toprol XL, hemodynamics permitting 3. Continue Madelin Love M.D.
--- NOTE | 2018-06-24 12:54 | PN ---
Progress Note (short form) - Note Progress Note: pt seen/ examined chart reviewed comfortable pod # 3 Vital Signs Temp 98.4 F 06/24/18 10:00 Pulse 84 06/24/18 10:00 Resp 20 06/24/18 10:00 BP 122/60 06/24/18 10:00 Pulse Ox 97 06/23/18 09:00 Intake & Output 06/23/18 06/24/18 06/24/18 23:59 11:59 23:59 Intake Total 1745 725 Output Total 1230 275 Balance 515 450 Weight 131 lb 14.4 oz Intake: IV 305 525 D5-1/2Ns - 1,000 ml @ 75 305 525 mls/hr IV ASDIR [facility] Rx#: [id number] IVPB 100 Oral 640 200 Packed Cells 700 Output: Urine 1230 275 Laurent 1230 275 Other: Voiding Method Indwelling Catheter Indwelling Catheter Bowel Movement Yes No # Bowel Movements 2 Weight Measurement Method Built in [facility] Active Medications Allopurinol (Zyloprim -) 100 mg PO DAILY [facility] Last Admin: 06/22/18 10:44 Dose: 100 mg Amino Acids (Prosource No Carb Liquid Pkt) 30 ml PO BID@0800,1730 [facility] Last Admin: 06/22/18 17:06 Dose: 30 ml Ascorbic Acid (Vitamin C -) 500 mg PO DAILY [facility] Last Admin: 06/22/18 10:44 Dose: 500 mg Aspirin (Asa -) 81 mg PO DAILY [facility] Last Admin: 06/22/18 10:44 Dose: 81 mg Ferrous Sulfate (Feosol -) 325 mg PO DAILY [facility] Last Admin: 06/22/18 10:44 Dose: 325 mg Furosemide (Lasix Injection -) 20 mg IVPUSH ONCE ONE Stop: 06/23/18 09:24 Heparin Sodium (Porcine) (Heparin -) 5,000 unit SQ BID [facility] Last Admin: 06/22/18 22:21 Dose: 5,000 unit Hydroxyurea (Hydrea -) 500 mg PO DAILY [facility] Last Admin: 06/22/18 10:44 Dose: 500 mg Ampicillin Sodium/Sulbactam (Sodium 3 gm/ Sodium Chloride) 100 mls @ 200 mls/ hr IVPB Q8H-IV [facility] Last Admin: 06/23/18 01:40 Dose: 200 mls/hr Dextrose/Sodium Chloride (D5-1/2ns -) 1,000 mls @ 75 mls/hr IV ASDIR [facility] Last Admin: 06/23/18 05:44 Dose: 75 mls/hr Ketorolac Tromethamine (Toradol Injection -) 30 mg IVPUSH Q6H PRN PRN Reason: PAIN LEVEL 6-10 Stop: 06/26/18 22:26 Last Admin: 06/22/18 10:44 Dose: 30 mg Levothyroxine Sodium (Synthroid -) 50 mcg PO DAILY@0700 [facility] Last Admin: 06/23/18 06:08 Dose: 50 mcg Morphine Sulfate (Morphine Sulfate) 4 mg IVPUSH Q6H PRN PRN Reason: PAIN LEVEL 6-10 Pantoprazole Sodium (Protonix -) 40 mg PO DAILY [facility] Last Admin: 06/22/18 10:44 Dose: 40 mg CBC, BMP 06/24/18 07:25 06/24/18 07:25 P/E comfortable Lungs- clear cvs- s1, s2 rrr abd- soft ext- no edema left foot--dressing in place-- no soakage a/p s/p bka continue present care abx pain control will f/u s/p transfusion yesterday - 2 units will follow Problem List - Problems (1) Gangrene of toe of left foot Code(s): I96 - GANGRENE, NOT ELSEWHERE CLASSIFIED (2) Absent pulse in lower extremity Code(s): R09.89 - OTH SYMPTOMS AND SIGNS INVOLVING THE CIRC AND RESP SYSTEMS (3) Dementia Code(s): F03.90 - UNSPECIFIED DEMENTIA WITHOUT BEHAVIORAL DISTURBANCE
[2018-06-24] MEDS: ROSUVASTATIN CA 10 MG TABLET (FP) PO SCH (21:38)
[2018-06-25] MEDS: LEVOTHYROXINE NA 50 MCG TABLET (FP) PO SCH (06:40)
--- NOTE | 2018-06-25 10:00 | PN ---
Progress Note, Physician Chief Complaint: Events noted Not in distress History of Present Illness: Patient was seen and examined. Awake. Chart was reviewed Denies chest pain, SOB or palpitations - Current Medication List Current Medications: Active Medications Allopurinol (Zyloprim -) 100 mg PO DAILY [facility] Last Admin: 06/24/18 09:12 Dose: 100 mg Amino Acids (Prosource No Carb Liquid Pkt) 30 ml PO BID@0800,1730 [facility] Last Admin: 06/24/18 18:02 Dose: Not Given Ascorbic Acid (Vitamin C -) 500 mg PO DAILY [facility] Last Admin: 06/24/18 09:08 Dose: 500 mg Aspirin (Asa -) 81 mg PO DAILY [facility] Last Admin: 06/24/18 09:07 Dose: 81 mg Ferrous Sulfate (Feosol -) 325 mg PO DAILY [facility] Last Admin: 06/24/18 09:07 Dose: 325 mg Heparin Sodium (Porcine) (Heparin -) 5,000 unit SQ BID [facility] Last Admin: 06/24/18 21:39 Dose: 5,000 unit Hydroxyurea (Hydrea -) 500 mg PO DAILY [facility] Last Admin: 06/24/18 09:06 Dose: 500 mg Levothyroxine Sodium (Synthroid -) 50 mcg PO DAILY@0700 [facility] Last Admin: 06/25/18 06:40 Dose: 50 mcg Metoprolol Succinate (Toprol Xl -) 12.5 mg PO DAILY [facility] Last Admin: 06/24/18 09:06 Dose: 12.5 mg Pantoprazole Sodium (Protonix -) 40 mg PO DAILY [facility] Last Admin: 06/24/18 09:06 Dose: 40 mg Rosuvastatin Calcium (Crestor -) 10 mg PO HS [facility] Last Admin: 06/24/18 21:38 Dose: 10 mg - Objective Vital Signs: Vital Signs Temperature 98.8 F 06/25/18 06:00 Pulse Rate 77 06/25/18 06:00 Respiratory Rate 18 06/25/18 06:00 Blood Pressure 158/67 06/25/18 06:00 O2 Sat by Pulse Oximetry (%) 95 06/24/18 21:00 HENT: Yes: Atraumatic Neck: Yes: Supple Cardiovascular: Yes: Regular Rate and Rhythm, S1, S2 Respiratory: Yes: Diminished Gastrointestinal: Yes: Normal Bowel Sounds, Soft. No: Tenderness Extremities: Yes: Amputation (Left BKA) Edema: No Labs: CBC, BMP 06/24/18 07:25 06/24/18 07:25 Problem List - Problems (1) Anemia Code(s): D64.9 - ANEMIA, UNSPECIFIED Qualifiers: Bone marrow failure anemia type: other bone marrow failure (2) CKD (chronic kidney disease) Code(s): N18.9 - CHRONIC KIDNEY DISEASE, UNSPECIFIED Qualifiers: Chronic kidney disease stage: stage 3 (moderate) Qualified Code(s): N18.3 - Chronic kidney disease, stage 3 (moderate) (3) Gangrene of toe of left foot Code(s): I96 - GANGRENE, NOT ELSEWHERE CLASSIFIED (4) Hypothyroidism Code(s): E03.9 - HYPOTHYROIDISM, UNSPECIFIED Qualifiers: Hypothyroidism type: unspecified Qualified Code(s): E03.9 - Hypothyroidism , unspecified (5) Myelofibrosis Code(s): D75.81 - MYELOFIBROSIS (6) Status post below knee amputation of left lower extremity Code(s): Z89.512 - ACQUIRED ABSENCE OF LEFT LEG BELOW KNEE (7) Dementia Code(s): F03.90 - UNSPECIFIED DEMENTIA WITHOUT BEHAVIORAL DISTURBANCE (8) Peripheral vascular disease Code(s): I73.9 - PERIPHERAL VASCULAR DISEASE, UNSPECIFIED Assessment/Plan 1. PAD with chronic limb ischemia post [employer] post 2nd and 3rd toe amputations and post left BKA 2. CAD coronary artery calcification, angina pectoris 3. Diastolic LV dysfunction with clinical class 0 NYHA classification LV failure 4. Hypothyroidism 5. Dementia 6. CKD 7. Anemia-myelofibrosis PLAN: 1. Continue ASA with caution and close monitoring of CBC, maintain Hgb equal or > 8.0 2. Continue Toprol XL hemodynamics permitting 3. Continue Crestor Further plans are to follow Cuate Rangel MD
--- NOTE | 2018-06-25 10:01 | PN ---
Progress Note (short form) - Note Progress Note: pt seen/ examined comfortable denies pain off abx pain under control Vital Signs Temp 98.8 F 06/25/18 06:00 Pulse 77 06/25/18 06:00 Resp 18 06/25/18 06:00 BP 158/67 06/25/18 06:00 Pulse Ox 95 06/24/18 21:00 Intake & Output 06/24/18 06/24/18 06/25/18 11:59 23:59 11:59 Intake Total 725 1020 975 Output Total 275 420 300 Balance 450 600 675 Weight 131 lb 14.4 oz 132 lb Intake: IV 525 900 825 D5-1/2Ns - 1,000 ml @ 75 525 900 825 mls/hr IV ASDIR [facility] Rx#: [id number] Oral 200 120 150 Output: Urine 275 420 300 Tom 275 420 300 Other: Voiding Method Indwelling Catheter Indwelling Catheter Bowel Movement No Yes Yes # Bowel Movements 1 1 Weight Measurement Method [facility] Medications Allopurinol (Zyloprim -) 100 mg PO DAILY [facility] Last Admin: 06/24/18 09:12 Dose: 100 mg Amino Acids (Prosource No Carb Liquid Pkt) 30 ml PO BID@0800,1730 [facility] Last Admin: 06/24/18 18:02 Dose: Not Given Ascorbic Acid (Vitamin C -) 500 mg PO DAILY [facility] Last Admin: 06/24/18 09:08 Dose: 500 mg Aspirin (Asa -) 81 mg PO DAILY [facility] Last Admin: 06/24/18 09:07 Dose: 81 mg Ferrous Sulfate (Feosol -) 325 mg PO DAILY [facility] Last Admin: 06/24/18 09:07 Dose: 325 mg Heparin Sodium (Porcine) (Heparin -) 5,000 unit SQ BID [facility] Last Admin: 06/24/18 21:39 Dose: 5,000 unit Hydroxyurea (Hydrea -) 500 mg PO DAILY [facility] Last Admin: 06/24/18 09:06 Dose: 500 mg Levothyroxine Sodium (Synthroid -) 50 mcg PO DAILY@0700 [facility] Last Admin: 06/25/18 06:40 Dose: 50 mcg Metoprolol Succinate (Toprol Xl -) 12.5 mg PO DAILY [facility] Last Admin: 06/24/18 09:06 Dose: 12.5 mg Pantoprazole Sodium (Protonix -) 40 mg PO DAILY [facility] Last Admin: 06/24/18 09:06 Dose: 40 mg Rosuvastatin Calcium (Crestor -) 10 mg PO HS [facility] Last Admin: 06/24/18 21:38 Dose: 10 mg CBC, BMP 06/24/18 07:25 06/24/18 07:25 P/E comfortable Lungs- clear cvs- s1, s2 rrr abd- soft ext- no edema left foot--dressing in place-- no soakage a/p s/p bka continue present care Stable physical therapy d/c tom for voiding trial d/c planning-- medically stable for d/c to rehab-- pending surgical clearance-- when bed available discussed with nursing staff-- anticipate later today or tomorrow will follow. Problem List - Problems (1) Gangrene of toe of left foot Code(s): I96 - GANGRENE, NOT ELSEWHERE CLASSIFIED (2) Absent pulse in lower extremity Code(s): R09.89 - OTH SYMPTOMS AND SIGNS INVOLVING THE CIRC AND RESP SYSTEMS (3) Dementia Code(s): F03.90 - UNSPECIFIED DEMENTIA WITHOUT BEHAVIORAL DISTURBANCE
[2018-06-25] MEDS ORDERED: PT OWN MED DRAWER 7, Y5N ONE (10:48)
--- NOTE | 2018-06-25 11:15 | PN ---
Progress Note, Physician History of Present Illness: stable no complaints patient doing well - Current Medication List Current Medications: Active Medications Allopurinol (Zyloprim -) 100 mg PO DAILY [facility] Last Admin: 06/24/18 09:12 Dose: 100 mg Amino Acids (Prosource No Carb Liquid Pkt) 30 ml PO BID@0800,1730 [facility] Last Admin: 06/24/18 18:02 Dose: Not Given Ascorbic Acid (Vitamin C -) 500 mg PO DAILY [facility] Last Admin: 06/24/18 09:08 Dose: 500 mg Aspirin (Asa -) 81 mg PO DAILY [facility] Last Admin: 06/24/18 09:07 Dose: 81 mg Ferrous Sulfate (Feosol -) 325 mg PO DAILY [facility] Last Admin: 06/24/18 09:07 Dose: 325 mg Heparin Sodium (Porcine) (Heparin -) 5,000 unit SQ BID [facility] Last Admin: 06/24/18 21:39 Dose: 5,000 unit Hydroxyurea (Hydrea -) 500 mg PO DAILY [facility] Last Admin: 06/24/18 09:06 Dose: 500 mg Levothyroxine Sodium (Synthroid -) 50 mcg PO DAILY@0700 [facility] Last Admin: 06/25/18 06:40 Dose: 50 mcg Metoprolol Succinate (Toprol Xl -) 12.5 mg PO DAILY [facility] Last Admin: 06/24/18 09:06 Dose: 12.5 mg Pantoprazole Sodium (Protonix -) 40 mg PO DAILY [facility] Last Admin: 06/24/18 09:06 Dose: 40 mg Rosuvastatin Calcium (Crestor -) 10 mg PO HS [facility] Last Admin: 06/24/18 21:38 Dose: 10 mg - Objective Vital Signs: Vital Signs Temperature 98.8 F 06/25/18 06:00 Pulse Rate 77 06/25/18 06:00 Respiratory Rate 18 06/25/18 06:00 Blood Pressure 158/67 06/25/18 06:00 O2 Sat by Pulse Oximetry (%) 95 06/24/18 21:00 Constitutional: Yes: No Distress, Calm Cardiovascular: Yes: S1, S2 Respiratory: Yes: Regular, CTA Bilaterally Gastrointestinal: Yes: Normal Bowel Sounds, Soft Musculoskeletal: Yes: WNL Extremities: Yes: Other Neurological: Yes: Alert Psychiatric: Yes: Alert Labs: CBC, BMP 06/24/18 07:25 06/24/18 07:25 INR, PTT INR 1.19 (0.83-1.09) H 06/20/18 12:22 Assessment/Plan Problem List - Problems (1) Gangrene of toe of left foot Code(s): I96 - GANGRENE, NOT ELSEWHERE CLASSIFIED (2) Dementia Code(s): F03.90 - UNSPECIFIED DEMENTIA WITHOUT BEHAVIORAL DISTURBANCE (3) Gangrene Code(s): I96 - GANGRENE, NOT ELSEWHERE CLASSIFIED (4) Leukocytosis Code(s): D72.829 - ELEVATED WHITE BLOOD CELL COUNT, UNSPECIFIED (5) Peripheral vascular disease Code(s): I73.9 - PERIPHERAL VASCULAR DISEASE, UNSPECIFIED (6) Toe infection Code(s): L08.9 - LOCAL INFECTION OF THE SKIN AND SUBCUTANEOUS TISSUE, UNSP amputation Assessment/Plan Lt foot 2nd/3rd toe amp site gangrene leukocytosis - resolved dementia PVD s/p LLE angioplasties hypothyroidism monitor h and h wound care rest as per the team
[2018-06-25] MEDS: ALLOPURINOL 100 MG TABLET (FP) PO SCH (11:19)
[2018-06-25] MEDS: PANTOPRAZOLE 40 MG TABLET (FP) PO SCH (11:19)
[2018-06-25] MEDS: AMINO ACIDS/PROTEIN HYDROLYS 30 ML LIQUID.PKT PO SCH ×2 (11:19→18:05)
[2018-06-25] MEDS: FERROUS SO4 325 MG TABLET (FP) PO SCH (11:20)
[2018-06-25] MEDS: ASPIRIN 81 MG CHEWABLE TABLETS PO SCH (11:20)
[2018-06-25] MEDS: ASCORBIC ACID 500 MG TABLET (FP) PO SCH (11:20)
[2018-06-25] MEDS: HYDROXYUREA 500 MG CAPSULE PO SCH (11:20)
[2018-06-25] MEDS: metoPROLOL SUCCINATE 25 MG TAB.SR.24H (FP) PO SCH (11:20)
[2018-06-25] MEDS: HEPARIN NA (PORCINE) 5,000 UNITS/ML 1ML VIAL SQ SCH ×2 (11:21→21:26)
--- NOTE | 2018-06-25 12:13 | PN ---
Progress Note (short form) - Note Progress Note: 88yo M s/p Lt BKA, pt seen and examined at bedside. Pt is confused so is difficult historian. According to nurse pt has been stable. Last Vital Signs Temp Pulse Resp BP Pulse Ox 98.8 F 77 18 158/67 95 06/25/18 06:00 06/25/18 06:00 06/25/18 06:00 06/25/18 06:00 06/24/18 21:00 CBC, BMP 06/24/18 07:25 06/24/18 07:25 PE: Gen: Alert and confused Resp: breathing comfortably Ext: LLE shows s/p BKA with no erythema or discharge, incisions clean. [place] in place. Problem List - Problems (1) Gangrene of toe of left foot Assessment/Plan: Plan -surgical site looks good and is stable. Pt is cleared for discharge from vascular standpoint. -pt should follow up with Dr. Resendiz in 1 week for staple removal Case discussed with Dr. Resendiz who agrees with plan Code(s): I96 - GANGRENE, NOT ELSEWHERE CLASSIFIED
--- NOTE | 2018-06-25 19:28 | PATH ---
Surgical Pathology Report Patient Name: SHAUNA CASANOVA Med. Rec. #: [id number] /Age/Gender: 1930 (Age: 88) / M Account: [id number] Location: [facility] MED/SURG Taken: 06/21/2018 Received: 06/22/2018 Reported: 06/25/2018 Physicians: Mohinder Gong M.D. Specimen(s) Received EXTREMITY AMPUTATION Clinical History Peripheral vascular disease, gangrene toe left foot Final Diagnosis LOWER LEG, LEFT, BELOW THE KNEE AMPUTATION: LOWER LEG WITH PATCHY AREAS OF GANGRENOUS NECROSIS AND ULCERATION INVOLVING THE FOOT, 4TH DIGIT , 2ND AND 3RD STUMP. ACUTE OSTEOMYELITIS. ANTERIOR AND POSTERIOR TIBIAL ARTERIES WITH MODERATE TO SEVERE CALCIFIC ATHEROSCLEROSIS. DORSALIS PEDIS ARTERY WITH MODERATE CALCIFIC ATHEROSCLEROSIS. BONE AND SOFT TISSUE MARGINS ARE VIABLE. Electronically Signed Aliza Johnson M.D. Gross Description Received fresh labeled "below knee amputation" is an amputation specimen which measure 25 cm from toe to heel, 52 cm from heel to exposed soft tissue margin. Exposed bone measure: tibia- 10 x 4 cm and fibula-9 x 2 cm. Stump from previous amputation of second and third toes with associated gangrenous necrosis is identified. Partially gangrenous fourth digit is present. Multiple irregular, ulcerated, gangrenous lesions are identified on the dorsal and lateral surface of the foot, ranging in size from 3-4 cm. An ulcerated and gangrenous heel lesion which measures 5 x 3.5 cm is identified. Softening of underlying bone is noted. Sectioning of the anterior and posterior tibial arteries show moderate to severe calcific atherosclerosis with up to 70% luminal narrowing. Dorsalis pedis artery shows moderate calcific atherosclerosis. [employer] sections are submitted after brief decalcification in 7 cassettes. 1- soft tissue margin, 2-bone surgical margin, 3-ulcerated heel lesion and underlying bone, 4- gangrenous fourth digit, 5-anterior tibial artery, 6-posterior tibial artery, 7- dorsalis pedis artery. MLSZ/06/22/2018 [place]/06/22/2018
[2018-06-25] MEDS: ROSUVASTATIN CA 10 MG TABLET (FP) PO SCH (21:26)
[2018-06-26] MEDS: LEVOTHYROXINE NA 50 MCG TABLET (FP) PO SCH (06:32)
[2018-06-26] MEDS: AMINO ACIDS/PROTEIN HYDROLYS 30 ML LIQUID.PKT PO SCH ×2 (08:10→17:04)
--- NOTE | 2018-06-26 10:46 | DS ---
Physical Examination Vital Signs: Vital Signs Temperature 98.8 F 06/26/18 06:00 Pulse Rate 86 06/26/18 06:00 Respiratory Rate 18 06/26/18 06:00 Blood Pressure 150/62 06/26/18 06:00 O2 Sat by Pulse Oximetry (%) 95 06/25/18 09:00 Constitutional: Yes: No Distress, Calm Cardiovascular: Yes: Regular Rate and Rhythm Respiratory: Yes: Diminished Gastrointestinal: Yes: Normal Bowel Sounds, Soft. No: Tenderness Extremities: Yes: Amputation (left BKA) Edema: No Labs: CBC, BMP 06/24/18 07:25 06/24/18 07:25 Discharge Summary Reason For Visit: PERIPHERAL VASCULAR DISEASE,GANGRENE TOE LEFT FOOT Current Active Problems Anemia (Acute) CKD (chronic kidney disease) (Acute) Gangrene of toe of left foot (Acute) Hypothyroidism (Acute) Myelofibrosis (Acute) Preoperative cardiovascular examination (Acute) Status post below knee amputation of left lower extremity (Acute) Hospital Course: CHIEF COMPLAINT: left foot wound PCP: Beltran HISTORY OF PRESENT ILLNESS: 88 year old demented male w/ PVD, 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 Resendiz sent to hospital by Dr. Otero for worsening left foot wound. Patient has grown MRSA, enterococcus sp, and Stenotrophomonas in his prior wound cultures. 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 ER course was notable for: (1) levafloxacin (2) vancomcyin (3) foot xray Recent Travel: no PAST MEDICAL HISTORY: Myelofibrosis, CKD (stage 3), PVD s/p LLE angioplasty, s/ p amputation of L 2nd toe 01/23, Gout, CKD, PVD, Dementia, Hypothyroidism, toe gangrene PAST SURGICAL HISTORY: amputation of 2nd and 3rd left toes Hospital course Seen by ID . Vascular, podiatry Pt was on iv antibiotics he has non healing wound left foot Decision made for amputation He underwent left BKA on 06/21/18 Received PRBC H/HCT stable Pt stable Will need STR Off antibiotics afebrile Stable for dc to Rehab Condition: Fair - Instructions Disposition: [facility] - Home Medications Comprehensive Discharge Medication List: Ambulatory Orders Aspirin [ASA -] 81 mg PO DAILY 02/23/14 Allopurinol [Zyloprim -] 100 mg PO DAILY 05/30/17 Hydroxyurea [Hydrea 500Mg Capsule -] 500 mg PO DAILY #60 capsule 06/08/17 Clopidogrel Bisulfate [Plavix] 75 mg PO DAILY #30 tablet 12/05/17 Albuterol Sulfate [Proair Hfa] 8.5 gm AD PRN PRN 05/17/18 Levothyroxine [Synthroid -] 25 mcg PO DAILY 05/17/18 Pantoprazole Sodium 40 mg PO DAILY 05/17/18 Levaquin - 250 mg PO DAILY 06/14/18
[2018-06-26] MEDS ORDERED: ACETAMINOPHEN WITH CODEINE 300MG/30MG TABLET PO PRN (10:48)
[2018-06-26] MEDS: metoPROLOL SUCCINATE 25 MG TAB.SR.24H (FP) PO SCH (11:08)
[2018-06-26] MEDS: ALLOPURINOL 100 MG TABLET (FP) PO SCH (11:09)
[2018-06-26] MEDS: FERROUS SO4 325 MG TABLET (FP) PO SCH (11:09)
[2018-06-26] MEDS: HYDROXYUREA 500 MG CAPSULE PO SCH (11:09)
[2018-06-26] MEDS: ASCORBIC ACID 500 MG TABLET (FP) PO SCH (11:09)
[2018-06-26] MEDS: ASPIRIN 81 MG CHEWABLE TABLETS PO SCH (11:09)
[2018-06-26] MEDS: HEPARIN NA (PORCINE) 5,000 UNITS/ML 1ML VIAL SQ SCH ×2 (11:10→22:50)
[2018-06-26] MEDS: PANTOPRAZOLE 40 MG TABLET (FP) PO SCH (11:10)
--- NOTE | 2018-06-26 11:30 | PN ---
Progress Note, Physician History of Present Illness: stable no new issues - Current Medication List Current Medications: Active Medications Acetaminophen/Codeine Phosphate (Tylenol # 3 -) 1 tab PO Q6H PRN PRN Reason: PAIN LEVEL 6-10 Allopurinol (Zyloprim -) 100 mg PO DAILY [facility] Last Admin: 06/26/18 11:09 Dose: 100 mg Amino Acids (Prosource No Carb Liquid Pkt) 30 ml PO BID@0800,1730 [facility] Last Admin: 06/26/18 08:10 Dose: 30 ml Ascorbic Acid (Vitamin C -) 500 mg PO DAILY [facility] Last Admin: 06/26/18 11:09 Dose: 500 mg Aspirin (Asa -) 81 mg PO DAILY [facility] Last Admin: 06/26/18 11:09 Dose: 81 mg Ferrous Sulfate (Feosol -) 325 mg PO DAILY [facility] Last Admin: 06/26/18 11:09 Dose: 325 mg Heparin Sodium (Porcine) (Heparin -) 5,000 unit SQ BID [facility] Last Admin: 06/26/18 11:10 Dose: 5,000 unit Hydroxyurea (Hydrea -) 500 mg PO DAILY [facility] Last Admin: 06/26/18 11:09 Dose: 500 mg Levothyroxine Sodium (Synthroid -) 50 mcg PO DAILY@0700 [facility] Last Admin: 06/26/18 06:32 Dose: 50 mcg Metoprolol Succinate (Toprol Xl -) 12.5 mg PO DAILY [facility] Last Admin: 06/26/18 11:08 Dose: 12.5 mg Pantoprazole Sodium (Protonix -) 40 mg PO DAILY [facility] Last Admin: 06/26/18 11:10 Dose: 40 mg Rosuvastatin Calcium (Crestor -) 10 mg PO [facility] Last Admin: 06/25/18 21:26 Dose: 10 mg - Objective Vital Signs: Vital Signs Temperature 98.8 F 06/26/18 06:00 Pulse Rate 86 06/26/18 06:00 Respiratory Rate 18 06/26/18 06:00 Blood Pressure 150/62 06/26/18 06:00 O2 Sat by Pulse Oximetry (%) 95 06/25/18 09:00 Constitutional: Yes: No Distress, Calm Cardiovascular: Yes: S1, S2 Respiratory: Yes: Regular, CTA Bilaterally Gastrointestinal: Yes: Normal Bowel Sounds, Soft Musculoskeletal: Yes: WNL Extremities: Yes: Other Neurological: Yes: Alert Psychiatric: Yes: Alert Labs: CBC, BMP 06/24/18 07:25 06/24/18 07:25 INR, PTT INR 1.19 (0.83-1.09) H 06/20/18 12:22 Assessment/Plan Problem List - Problems (1) Gangrene of toe of left foot Code(s): I96 - GANGRENE, NOT ELSEWHERE CLASSIFIED (2) Dementia Code(s): F03.90 - UNSPECIFIED DEMENTIA WITHOUT BEHAVIORAL DISTURBANCE (3) Gangrene Code(s): I96 - GANGRENE, NOT ELSEWHERE CLASSIFIED (4) Leukocytosis Code(s): D72.829 - ELEVATED WHITE BLOOD CELL COUNT, UNSPECIFIED (5) Peripheral vascular disease Code(s): I73.9 - PERIPHERAL VASCULAR DISEASE, UNSPECIFIED (6) Toe infection Code(s): L08.9 - LOCAL INFECTION OF THE SKIN AND SUBCUTANEOUS TISSUE, UNSP amputation Assessment/Plan Lt foot 2nd/3rd toe amp site gangrene leukocytosis - resolved dementia PVD s/p LLE angioplasties hypothyroidism monitor h and h wound care rest as per the team
[2018-06-26 12:52] VITALS: TEMP 98.7
[2018-06-26] MEDS: ROSUVASTATIN CA 10 MG TABLET (FP) PO SCH (22:50)
[2018-06-27] MEDS: LEVOTHYROXINE NA 50 MCG TABLET (FP) PO SCH (06:33)
[2018-06-27] MEDS: HEPARIN NA (PORCINE) 5,000 UNITS/ML 1ML VIAL SQ SCH (09:55)
[2018-06-27] MEDS: metoPROLOL SUCCINATE 25 MG TAB.SR.24H (FP) PO SCH (09:55)
[2018-06-27] MEDS: ASCORBIC ACID 500 MG TABLET (FP) PO SCH (09:58)
[2018-06-27] MEDS: ALLOPURINOL 100 MG TABLET (FP) PO SCH (09:58)
[2018-06-27] MEDS: HYDROXYUREA 500 MG CAPSULE PO SCH (09:58)
[2018-06-27] MEDS: FERROUS SO4 325 MG TABLET (FP) PO SCH (09:58)
[2018-06-27] MEDS: PANTOPRAZOLE 40 MG TABLET (FP) PO SCH (09:58)
[2018-06-27] MEDS: ASPIRIN 81 MG CHEWABLE TABLETS PO SCH (09:58)
[2018-06-27] MEDS: AMINO ACIDS/PROTEIN HYDROLYS 30 ML LIQUID.PKT PO SCH (09:59)
--- NOTE | 2018-06-27 10:16 | PN ---
Progress Note (short form) - Note Progress Note: alert no distress Vital Signs - 24 hr 06/26/18 06/26/18 21:00 23:16 Pulse Rate 58 L Blood Pressure 172/68 H O2 Sat by Pulse 96 Oximetry (%) Current Medications Generic Name Dose Route Start Last Admin Trade Name Freq PRN Reason Stop Dose Admin Acetaminophen/Codeine Phosphate 1 tab 06/26/18 10:48 06/26/18 17:01 Tylenol # 3 - PO 1 tab Q6H PRN Administration PAIN LEVEL 6-10 Allopurinol 100 mg 06/22/18 10:00 06/27/18 09:58 Zyloprim - PO 100 mg DAILY [facility] Administration Amino Acids 30 ml 06/22/18 08:00 06/27/18 09:59 Prosource No Carb Liquid Pkt PO 30 ml BID@0800,1730 [facility] Administration Ascorbic Acid 500 mg 06/22/18 10:00 06/27/18 09:58 Vitamin C - PO 500 mg DAILY [facility] Administration Aspirin 81 mg 06/22/18 10:00 06/27/18 09:58 Asa - PO 81 mg DAILY [facility] Administration Ferrous Sulfate 325 mg 06/22/18 10:00 06/27/18 09:58 Feosol - PO 325 mg DAILY [facility] Administration Heparin Sodium (Porcine) 5,000 unit 06/22/18 10:00 06/27/18 09:55 Heparin - SQ 5,000 unit BID [facility] Administration Hydroxyurea 500 mg 06/22/18 10:00 06/27/18 09:58 Hydrea - PO 500 mg DAILY [facility] Administration Levothyroxine Sodium 50 mcg 06/22/18 07:00 06/27/18 06:33 Synthroid - PO 50 mcg DAILY@0700 [facility] Administration Metoprolol Succinate 12.5 mg 06/24/18 10:00 06/27/18 09:55 Toprol Xl - PO 12.5 mg DAILY [facility] Administration Pantoprazole Sodium 40 mg 06/22/18 10:00 06/27/18 09:58 Protonix - PO 40 mg DAILY [facility] Administration Rosuvastatin Calcium 10 mg 06/23/18 22:00 06/26/18 22:50 Crestor - PO 10 mg HS [facility] Administration Laboratory Results - last 24 hr 06/23/18 05:30 Blood Type A POSITIVE Antibody Screen Negative Crossmatch See Detail P/E awake/ comfortable Lungs- clear cvs- s1, s2 rrr abd- soft ext- no edema left BKA immobilizer in place a/p off antibiotics pain control will need STR -- dc to [facility] once bed available Problem List - Problems (1) Gangrene of toe of left foot Code(s): I96 - GANGRENE, NOT ELSEWHERE CLASSIFIED (2) Absent pulse in lower extremity Code(s): R09.89 - OTH SYMPTOMS AND SIGNS INVOLVING THE CIRC AND RESP SYSTEMS (3) Acute kidney injury superimposed on chronic kidney disease Code(s): N17.9 - ACUTE KIDNEY FAILURE, UNSPECIFIED; N18.9 - CHRONIC KIDNEY DISEASE, UNSPECIFIED (4) Dementia Code(s): F03.90 - UNSPECIFIED DEMENTIA WITHOUT BEHAVIORAL DISTURBANCE (5) Gangrene Code(s): I96 - GANGRENE, NOT ELSEWHERE CLASSIFIED
[2018-06-27 10:51] VITALS: BP 140/60; PULSE 64
--- NOTE | 2018-06-27 11:16 | PN ---
Progress Note, Physician History of Present Illness: stable no new issues - Current Medication List Current Medications: Active Medications Acetaminophen/Codeine Phosphate (Tylenol # 3 -) 1 tab PO Q6H PRN PRN Reason: PAIN LEVEL 6-10 Last Admin: 06/26/18 17:01 Dose: 1 tab Allopurinol (Zyloprim -) 100 mg PO DAILY [facility] Last Admin: 06/27/18 09:58 Dose: 100 mg Amino Acids (Prosource No Carb Liquid Pkt) 30 ml PO BID@0800,1730 [facility] Last Admin: 06/27/18 09:59 Dose: 30 ml Ascorbic Acid (Vitamin C -) 500 mg PO DAILY [facility] Last Admin: 06/27/18 09:58 Dose: 500 mg Aspirin (Asa -) 81 mg PO DAILY [facility] Last Admin: 06/27/18 09:58 Dose: 81 mg Ferrous Sulfate (Feosol -) 325 mg PO DAILY [facility] Last Admin: 06/27/18 09:58 Dose: 325 mg Heparin Sodium (Porcine) (Heparin -) 5,000 unit SQ BID [facility] Last Admin: 06/27/18 09:55 Dose: 5,000 unit Hydroxyurea (Hydrea -) 500 mg PO DAILY [facility] Last Admin: 06/27/18 09:58 Dose: 500 mg Levothyroxine Sodium (Synthroid -) 50 mcg PO DAILY@0700 [facility] Last Admin: 06/27/18 06:33 Dose: 50 mcg Metoprolol Succinate (Toprol Xl -) 12.5 mg PO DAILY [facility] Last Admin: 06/27/18 09:55 Dose: 12.5 mg Pantoprazole Sodium (Protonix -) 40 mg PO DAILY [facility] Last Admin: 06/27/18 09:58 Dose: 40 mg Rosuvastatin Calcium (Crestor -) 10 mg PO HS [facility] Last Admin: 06/26/18 22:50 Dose: 10 mg - Objective Vital Signs: Vital Signs Temperature 98.7 F 06/26/18 10:00 Pulse Rate 64 06/27/18 10:00 Respiratory Rate 18 06/27/18 10:00 Blood Pressure 140/60 06/27/18 10:00 O2 Sat by Pulse Oximetry (%) 96 06/26/18 21:00 Constitutional: Yes: No Distress, Calm Cardiovascular: Yes: S1, S2 Respiratory: Yes: Regular, CTA Bilaterally Gastrointestinal: Yes: Normal Bowel Sounds, Soft Musculoskeletal: Yes: WNL Extremities: Yes: Other Wound/Incision: Yes: Dressing Dry and Intact Neurological: Yes: Alert Labs: CBC, BMP 06/24/18 07:25 06/24/18 07:25 INR, PTT INR 1.19 (0.83-1.09) H 06/20/18 12:22 Assessment/Plan Problem List - Problems (1) Gangrene of toe of left foot Code(s): I96 - GANGRENE, NOT ELSEWHERE CLASSIFIED (2) Dementia Code(s): F03.90 - UNSPECIFIED DEMENTIA WITHOUT BEHAVIORAL DISTURBANCE (3) Gangrene Code(s): I96 - GANGRENE, NOT ELSEWHERE CLASSIFIED (4) Leukocytosis Code(s): D72.829 - ELEVATED WHITE BLOOD CELL COUNT, UNSPECIFIED (5) Peripheral vascular disease Code(s): I73.9 - PERIPHERAL VASCULAR DISEASE, UNSPECIFIED (6) Toe infection Code(s): L08.9 - LOCAL INFECTION OF THE SKIN AND SUBCUTANEOUS TISSUE, UNSP amputation Assessment/Plan Lt foot 2nd/3rd toe amp site gangrene leukocytosis - resolved dementia PVD s/p LLE angioplasties hypothyroidism plan continue current mgmt wound care nutrition physio rest as per the team
[2018-06-27 13:33] VITALS: BMI 21.8
== END 2018-06-27 17:16 | DRG 240 ==
LOC: JER 15:43 → JERBED 18:21 → J8W 06-15 17:00
PROVIDERS: ADMIT Internal Medicine; ATTEND Internal Medicine
PROC: 0Y6J0Z1 Detachment at Left Lower Leg, High, Open Approach (ICD-10-PCS; principal; 2018-06-21 14:00)
DX: I73.9 Peripheral vascular disease, unspecified (principal); I50.32 Chronic diastolic (congestive) heart failure; D75.81 Myelofibrosis; L03.116 Cellulitis of left lower limb; F03.90 Unspecified dementia, unspecified severity, without behavioral disturbance, psychotic disturbance, mood disturbance, and anxiety; D72.829 Elevated white blood cell count, unspecified; E03.9 Hypothyroidism, unspecified; N18.3 Chronic kidney disease, stage 3 (moderate); M10.9 Gout, unspecified; E78.5 Hyperlipidemia, unspecified; K57.30 Diverticulosis of large intestine without perforation or abscess without bleeding; I25.10 Atherosclerotic heart disease of native coronary artery without angina pectoris; F10.21 Alcohol dependence, in remission; Z89.422 Acquired absence of other left toe(s); H91.90 Unspecified hearing loss, unspecified ear
CPT/HCPCS: 36415; 36430; 36511; 71045-TC-FY; 73630-TC-LT; 80048; 80053; 82962; 84443; 85025; 85027; 85610; 85651; 85730; 86140; 86850; 86900; 86901; 86922; 87040; 88307-TC; 88311-TC; 93005; 93010; 93306-TC; 94760; 97162-GP; 99285-25; G0463-25; J0131; J1644; J8999; P9038; P9058